=== PATIENT | female | born 1965 | race Caucasian/White ===

== ENCOUNTER 2017-05-03 10:24 | Inpatient (IN) | payer MEDICAID, SELFPAY ==
[2017-05-03 10:25] VITALS: BP 116/73; PULSE 126; RESP 22; TEMP 39.2; O2SAT 98; BMI 16.9
--- NOTE | 2017-05-03 10:39 | RAD_ITS ---
STUDY: X-RAY CHEST REASON FOR EXAM: Female, 51 years old. Fever. TECHNIQUE: Single AP portable view of the chest. COMPARISON: Comparison is made with prior study dated April 07, 2014. FINDINGS: Hyperinflation. The lungs are clear. There is no demonstrated pleural abnormality. Normal size heart. Normal mediastinum and robert. Normal visualized pulmonary arteries. Normal visualized aortic arch and descending thoracic aorta. Normal visualized thoracic spine. Normal visualized ribs, clavicles, and shoulders. There is no demonstrated abnormality of the visualized soft tissue structures of the upper abdomen. RAD/Chest 1 View (Portable) IMPRESSION: Hyperinflation. Electronically Signed: Roney Reed MD at 12:17 EST Tel [phone], Service support ,
--- NOTE | 2017-05-03 10:42 | ED.DCSUM_ITS ---
- ER Visit Summary Date of Service: 05/03/17 Chief Complaint: Fever History of Present Illness: The patient is a 51 F presenting with fever since yesterday. Patient has had fever, body aches, nausea. She complains of dysuria and frequency as well. She did not receive a flu shot this year. She was at [facility] as a visitor over the weekend. She has a history of quadriplegia. Her home health physical therapist states that she was doing well yesterday. She has nausea with no vomiting. Denies other complaints. Physical Examination: Vitals are stable. Temperature 102.5 Alert no acute distress. HEENT exam is unremarkable. Neck is supple. Lungs are clear and equal bilaterally. Heart is regular rate and rhythm. Abdomen is soft mild diffuse tenderness with no rebound or guarding. Extremities bilateral upper extremity contractures Skin is warm and dry. Remainder of exam is unremarkable. Emergency Department Course and Treatment: CBC shows a white count of 16.9, hemoglobin 10.1. Chemistries show sodium 132, creatinine 0.54. Lipase is normal. Urinalysis shows over 100 white cells, positive leukocyte, positive nitrite. Lactic acid is normal. Chest x-ray shows hyperinflation. Influenza was negative. Urine culture was sent. She was given IV fluids, Zofran, Toradol , Tylenol. She is given Rocephin IV. She states she does not feel well enough to go home. Discussed with Dr. Puentes for admission. Disposition: Admission Impression: UTI, febrile illness This note was generated with [employer] dictation software. It may contain incorrect words, spelling, and punctuation that were not noted in review of the chart prior to signing ED Disposition - Plan for ED Patient: Chief Complaint: General Illness Referrals: Myranda Traore [Primary Care Provider] -
[2017-05-03] MEDS: Ketorolac 30 MG/ML Syringe IV (10:57)
[2017-05-03] MEDS: 0.9% Normal Saline 1,000 ML 1000 ML IV (10:57)
[2017-05-03] MEDS: Ondansetron 4 MG/2 ML Vial IV (10:57)
[2017-05-03] MEDS: Acetaminophen 650 MG/20 ML UDC PO (11:12)
[2017-05-03 11:45] LABS: Absolute Lymphocyte Count 0.63 X10^3/ul (0.83-4.51); Absolute Neutrophil Count 14.6 X10^3/uL (2.0-7.7); Basophil# 0.02 X10^3/uL; Basophil% 0.1 % (0-1); Hematocrit 30.8 % (37-47); Hemoglobin 10.1 g/dl (12.0-15.0); Lymphocyte # 0.63 X10^3/ul (4.0); Lymphocyte % 3.7 % (19-41); Mean Corp Hgb Conc 32.8 g/gl (32-36); Mean Corpuscular Hgb 31.3 pg (27.0-32.0); Mean Corpuscular Volume 95.4 fL (81-99); Monocyte# 1.56 X10^3/uL; Monocyte% 9.2 % (0-10); Neutrophil # 14.64 X10^3/uL (2.7-7.7); Neutrophil % 86.8 % (47-70); Platelet Count 167 K/mm3 (150-450); RBC Distribution Width CV 11.9 % (11.6-14.6); RBC Distribution Width SD 41.4 fl (35.1-43.9); Red Blood Count 3.23 M/mm3 (4.2-5.4); White Blood Count 16.9 K/mm3 (4.4-11.0)
[2017-05-03 11:47] LABS: Differential Indicated SCAN CRITERIA MET; POSITIVE COUNT NO; POSITIVE DIFFERENTIAL YES; POSITIVE MORPHOLOGY NO
[2017-05-03 12:00] LABS: Lactic Acid 0.9 mmol/L (0.4-2.0)
[2017-05-03 12:10] LABS: ALB/GLOB Ratio 0.9 RATIO (0.9-2.4); AST(SGOT) 16 U/L (15-37); Alanine Aminotransfer ALT/SGPT 26 U/L (13-56); Albumin, Serum 2.9 g/dL (3.2-5.0); Alkaline Phosphatase 71 U/L (45-117); Anion Gap 8 (5-15); BUN 10 mg/dL (7-18); BUN/Creat Ratio 18.4 RATIO (10-20); Calcium,Total 7.8 mg/dL (8.5-10.1); Chloride 99 mmol/L (98-107); Creatinine, Serum 0.54 mg/dL (0.55-1.02); EST Glomerular Filtration Rate 126 mL/min (>60); Est Glom Filt Rate - Afr Amer 152 mL/min (>60); Estimated Creatinine Clearance 92.67 ml/min; Globulin 3.2 g/dL (2.2-4.2); Glucose 94 mg/dL (70-110); Lipase 61 U/L (73-393); Potassium 3.8 mmol/L (3.5-5.1); Protein, Total 6.1 g/dL (6.4-8.2); Sodium Level 132 mmol/L (136-145)
[2017-05-03 12:12] VITALS: TEMP 37.6
[2017-05-03 12:53] LABS: Mucous, Urine 0 SEEN /hpf (<or=2+); Red Blood Cells-Urine 0 SEEN /hpf (0-5)
[2017-05-03 12:57] LABS: Color, Urine Yellow (Yellow); Glucose, Dipstick Normal (Normal); Ketone-Dipstick 5 mg/dl (Negative); Leukocyte Esterase-Dipstick 500 /ul (Negative); Nitrite-Dipstick Positive (Negative); Occult Blood-Urine 50 /ul (Negative); Protein-Dipstick 30 mg/dl (Negative); Urine Bilirubin Dipstick Negative (Negative); Urine Clarity Sl. Cloudy (Clear); Urine Urobilinogen Normal (Normal)
[2017-05-03 13:05] LABS: Bacteria 2+ /hpf (None Seen); Squamous Epithelial Cells - UA 10-25 SEEN /hpf (5-10); White Blood Cells >100 SEEN /hpf (0-5)
[2017-05-03 13:44] VITALS: BP 129/75; PULSE 71; RESP 16; TEMP 37.2; O2SAT 96
[2017-05-03] MEDS: Ceftriaxone 1 GM/50 ML BAG IV (14:00)
[2017-05-03 14:07] VITALS: BP 134/75; PULSE 81; RESP 16; TEMP 37.2; O2SAT 96
--- NOTE | 2017-05-03 14:17 | NURSING ---
307 RECURRENT UTI JUANIS
[2017-05-03 15:06] VITALS: BMI 16.2
--- NOTE | 2017-05-03 15:13 | US_ITS ---
STUDY: RENAL ULTRASOUND - COMPLETE REASON FOR EXAM: Female, 51 years old. Abnormal labs. Frequent UTIs. TECHNIQUE: Ultrasound evaluation of the kidneys was performed with real-time and static portillo-scale imaging. COMPARISON: None. FINDINGS: RIGHT KIDNEY: Normal location of the right kidney, which is normal in size. The right kidney measures 11.0 cm. There is a normal cortex of the right kidney. The renal cortex measures 1.2 cm. There is no right renal mass or cyst. There are no right renal calculi. There is no right hydronephrosis. DISTAL RIGHT URETER: There is non-visualization of the distal right ureter. There is no demonstrated right ureterovesical junction calculus. There is no demonstrated right ureteral jet. LEFT KIDNEY: Normal location of the left kidney, which is normal in size. The left kidney measures 11.1 cm. There is a normal cortex of the left kidney. The renal cortex measures 2.1 cm. There is no left renal mass or cyst. There are no left renal calculi. There is no left hydronephrosis. DISTAL LEFT URETER: There is non-visualization of the distal left ureter. There is no demonstrated left ureterovesical junction calculus. There is no demonstrated left ureteral jet. BLADDER: The distended urinary bladder has a volume of 318 ml. There is a normal wall thickness of the distended urinary bladder. There is no demonstrated mass within the urinary bladder. Appears to be floating debris within the bladder lumen. There are no demonstrated bladder calculi. US/Kidney and Bladder IMPRESSION: 1. Normal ultrasound of the kidneys. 2. Debris floating within the bladder lumen without other evidence of urinary bladder abnormality. Electronically Signed: Sal Angela DO at 17:36 EST Tel [phone], Service support ,
--- NOTE | 2017-05-03 15:21 | PCM.HP.STD ---
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 (3) Acute on Recurrent UTI Status: Acute (4) Peripheral neuropathy Status: Chronic (5) Urinary incontinence Status: Chronic Comment: She is not able to sense feeling of urinary bladder (6) Chronic pain syndrome Status: Chronic (7) Sacral contusion Status: Chronic (8) Closed head injury without loss of consciousness Status: Chronic History of Present Illness Date of Admission: 05/03/17 Chief Complaint: Generalized weakness and headache and increased frequency The patient is a 51 year old F with history of cervical spine fracture with cervical decompression surgery in July 2012 injury due to fall resulting into paraplegia and thereafter functional quadriplegia, on wheelchair has home health wound care nurse came to ER with generalized weakness, headache, nausea and increased frequency of urination. Patient further said she had about 7 times UTI last year. [] In ER, she was febrile temperature 102.5?F, tachycardic 126/min, respiratory rate 22 and pulse ox 98% on room air. Patient has leukocytosis about 17,000 with left shift. UA is positive of pyuria and bacteriuria. Was last admitted in April 2014 for altered mental status, acute hypokalemia acute diarrhea. Past Medical History Past Medical History (Chronic Problems): Chronic Problems Sacral contusion (Chronic) Closed head injury without loss of consciousness (Chronic) Functional quadriplegia (Chronic) Paraplegia due to a C-spine injury (Chronic) Peripheral neuropathy (Chronic) Urinary incontinence (Chronic) She is not able to sense feeling of urinary bladder Chronic pain syndrome (Chronic) Allergies codeine Allergy (Verified 05/03/17 10:27) Angioedema Home Medications: Ambulatory Orders Medication Instructions Recorded Amitriptyline HCl 50 mg PO QHS PRN 02/20/15 Baclofen 20 mg PO TID 02/20/15 Bisacodyl [Dulcolax] 10 mg PO TID PRN 02/20/15 Gabapentin [Neurontin] 800 mg PO 4X/DAY 02/20/15 Meloxicam [Mobic] 15 mg PO DAILY 02/20/15 Oxybutynin [Ditropan] 5 mg PO BID 02/20/15 Albuterol IH (ProAir) [Proair Hfa] 2 puff INHALATION Q6H PRN 05/03/17 Diltiazem HCl [Diltiazem 24Hr ER] 120 mg PO DAILY 05/03/17 Docusate Sodium [Colace] 100 mg PO TID PRN PRN 05/03/17 Duloxetine HCl 60 mg PO BID 05/03/17 Ergocalciferol [Vitamin D] 50,000 unit PO WE 05/03/17 Linaclotide [Linzess] 290 mcg PO DAILY 05/03/17 Lisinopril [Zestril] 10 mg PO DAILY 05/03/17 Mirtazapine [Remeron] 15 mg PO QHS PRN 05/03/17 Surgical History: - - She has a history in July of 2012 of a cervical decompression for cord injury after a cervical fracture. Psychiatric History: Depression ERISA ATTORNEY History: No pertinent ERISA ATTORNEY history Smoking Status: Never smoker - *Family History Maternal History Items: No pertinent history Review of Systems Constitutional: Reports: Anorexia, Chills, Fever, Malaise, Weakness, Fatigue HEENT: Reports: Head Aches - Chronic headache. Denies: Sinus Congestion, Sinus Drainage Cardiovascular: Denies: Chest Pain, Palpitations Respiratory: Denies: Cough, Shortness of breath at rest, Sputum production Gastrointestinal: Denies: Abdominal Pain, Nausea, Vomiting Genitourinary: Denies: Dysuria Musculoskeletal: Reports: Joint Pain, Joint stiffness. Denies: Joint Tenderness Skin: Denies: Rash, Wounds Neurological: Reports: Numbness, Tingling, - - Functional quadriplegia with spastic paraplegia. Denies: Focal weakness Psychiatric: Denies: Anxiety, Depression, Homicidal Ideations, Suicidal Ideations Hematologic/ Lymphatic: Denies: Easy Bruising, Easy Bleeding VTE Information - Inpt Only VTE Present on Admission: No VTE Mechan Device Prophylaxis: SCD's VTE Pharm Prophylaxis ordered?: Yes Patient Problems: Active and Suspected Problems Acute on Recurrent UTI (Acute) - Physical Exam General: Alert, Oriented x3, Cooperative HEENT: Atraumatic, PERRLA, EOMI, Normocephalic Neck: Supple, No JVD, Negative Carotid Bruits Lungs: No rhonchi, No wheeze, No rales, Diminished Cardiovascular: Regular rate, Regular Rhythm, Normal S1, Normal S2, No murmurs Abdomen: Bowel Sounds Present, Soft, Non Tender, Non-Distended Extremities: No edema, Capillary Refill Less than 3 Seconds Skin: No rashes, No breakdown, - - Scar tissue at the coccyx healed decubitus ulcer. No opening Musculoskeletal: Arthritic Changes, Muscle Wasting, - - Contracture present and hands and legs. Muscle strength is 3 x 5 in both lower extremities with muscle atrophy Neurological: Cranial nerves II-XII grossly intact, - - Peripheral neuropathy Vital Signs Temp Pulse Resp BP Pulse Ox 98.9 F 81 16 134/75 H 96 05/03/17 14:07 05/03/17 14:07 05/03/17 14:07 05/03/17 14:07 05/03/17 14:07 Weight: 100 lb 9.6 oz Body Mass Index (BMI) 16.2 Assessment/Plan Active and Suspected Problems Acute on Recurrent UTI (Acute) The patient is a 51 year old F with history of cervical spine fracture with cervical decompression surgery in July 2012 injury due to fall resulting into paraplegia and thereafter functional quadriplegia, on wheelchair has home health wound care nurse came to ER with generalized weakness, headache, nausea and increased frequency of urination. Patient further said she had about 7 times UTI last year. [] In ER, she was febrile temperature 102.5?F, tachycardic 126/min, respiratory rate 22 and pulse ox 98% on room air. Patient has leukocytosis about 17,000 with left shift. UA is positive of pyuria and bacteriuria. Was last admitted in April 2014 for altered mental status, diarrhea and hypokalemia 1. Acute on recurrent UTI: Patient is being admitted on the regular floor. Started on IV Rocephin and will continue it. Monitor intake/output, daily CBC and follow urine culture and blood culture. Kidney and bladder ultrasound ordered. 2. History of cervical spine injury with spastic paraplegia and functional quadriplegia with urinary incontinence: I think patient has neurogenic bladder. Patient is on multiple pain medications and muscle relaxants including oxycodone and baclofen and amitriptyline. PT and OT ordered. 3. Mild hypokalemia possible due to dehydration: IV fluid normal saline Functional decline with severe protein calorie malnutrition: Structurer consult. On ensure. 4. History of coccygeal decubitus currently healed with a scar tissue Other multiple comorbidities include hypertension, dyslipidemia, possible irritable bowel syndrome as he is only just, peripheral neuropathy: Multiple comorbidities and poor functional capacity : guarded prognosis. DVT prophylaxis: On Lovenox 40 mils subcu daily and bilateral SCDs. home medication reconciliation done. This note was generated with [employer] dictation software. Every effort was made to ensure accuracy, however computerized patient account representative mistakes may persist. Code Visit Inpatient E&M: 22779 Init Hosp L3
[2017-05-03 15:24] VITALS: BP 91/53; PULSE 94; RESP 22; TEMP 36.7; O2SAT 98
--- NOTE | 2017-05-03 15:35 | HP.PCM_ITS ---
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 (3) Acute on Recurrent UTI Status: Acute (4) Peripheral neuropathy Status: Chronic (5) Urinary incontinence Status: Chronic Comment: She is not able to sense feeling of urinary bladder (6) Chronic pain syndrome Status: Chronic (7) Sacral contusion Status: Chronic (8) Closed head injury without loss of consciousness Status: Chronic History of Present Illness Date of Admission: 05/03/17 Chief Complaint: Generalized weakness and headache and increased frequency The patient is a 51 year old F with history of cervical spine fracture with cervical decompression surgery in July 2012 injury due to fall resulting into paraplegia and thereafter functional quadriplegia, on wheelchair has home health cardiac care unit nurse came to ER with generalized weakness, headache, nausea and increased frequency of urination. Patient further said she had about 7 times UTI last year. [] In ER, she was febrile temperature 102.5?F, tachycardic 126/min, respiratory rate 22 and pulse ox 98% on room air. Patient has leukocytosis about 17,000 with left shift. UA is positive of pyuria and bacteriuria. Was last admitted in April 2014 for altered mental status, acute hypokalemia acute diarrhea. Past Medical History Past Medical History (Chronic Problems): Chronic Problems Sacral contusion (Chronic) Closed head injury without loss of consciousness (Chronic) Functional quadriplegia (Chronic) Paraplegia due to a C-spine injury (Chronic) Peripheral neuropathy (Chronic) Urinary incontinence (Chronic) She is not able to sense feeling of urinary bladder Chronic pain syndrome (Chronic) Allergies codeine Allergy (Verified 05/03/17 10:27) Angioedema Home Medications: Ambulatory Orders Medication Instructions Recorded Amitriptyline HCl 50 mg PO QHS PRN 02/20/15 Baclofen 20 mg PO TID 02/20/15 Bisacodyl [Dulcolax] 10 mg PO TID PRN 02/20/15 Gabapentin [Neurontin] 800 mg PO 4X/DAY 02/20/15 Meloxicam [Mobic] 15 mg PO DAILY 02/20/15 Oxybutynin [Ditropan] 5 mg PO BID 02/20/15 Albuterol IH (ProAir) [Proair Hfa] 2 puff INHALATION Q6H PRN 05/03/17 Diltiazem HCl [Diltiazem 24Hr ER] 120 mg PO DAILY 05/03/17 Docusate Sodium [Colace] 100 mg PO TID PRN PRN 05/03/17 Duloxetine HCl 60 mg PO BID 05/03/17 Ergocalciferol [Vitamin D] 50,000 unit PO WE 05/03/17 Linaclotide [Linzess] 290 mcg PO DAILY 05/03/17 Lisinopril [Zestril] 10 mg PO DAILY 05/03/17 Mirtazapine [Remeron] 15 mg PO QHS PRN 05/03/17 Surgical History: - - She has a history in July of 2012 of a cervical decompression for cord injury after a cervical fracture. Psychiatric History: Depression GIS DATABASE ADMINISTRATOR History: No pertinent GIS DATABASE ADMINISTRATOR history Smoking Status: Never smoker - *Family History Maternal History Items: No pertinent history Review of Systems Constitutional: Reports: Anorexia, Chills, Fever, Malaise, Weakness, Fatigue HEENT: Reports: Head Aches - Chronic headache. Denies: Sinus Congestion, Sinus Drainage Cardiovascular: Denies: Chest Pain, Palpitations Respiratory: Denies: Cough, Shortness of breath at rest, Sputum production Gastrointestinal: Denies: Abdominal Pain, Nausea, Vomiting Genitourinary: Denies: Dysuria Musculoskeletal: Reports: Joint Pain, Joint stiffness. Denies: Joint Tenderness Skin: Denies: Rash, Wounds Neurological: Reports: Numbness, Tingling, - - Functional quadriplegia with spastic paraplegia. Denies: Focal weakness Psychiatric: Denies: Anxiety, Depression, Homicidal Ideations, Suicidal Ideations Hematologic/ Lymphatic: Denies: Easy Bruising, Easy Bleeding VTE Information - Inpt Only VTE Present on Admission: No VTE Mechan Device Prophylaxis: SCD's VTE Pharm Prophylaxis ordered?: Yes Patient Problems: Active and Suspected Problems Acute on Recurrent UTI (Acute) - Physical Exam General: Alert, Oriented x3, Cooperative HEENT: Atraumatic, PERRLA, EOMI, Normocephalic Neck: Supple, No JVD, Negative Carotid Bruits Lungs: No rhonchi, No wheeze, No rales, Diminished Cardiovascular: Regular rate, Regular Rhythm, Normal S1, Normal S2, No murmurs Abdomen: Bowel Sounds Present, Soft, Non Tender, Non-Distended Extremities: No edema, Capillary Refill Less than 3 Seconds Skin: No rashes, No breakdown, - - Scar tissue at the coccyx healed decubitus ulcer. No opening Musculoskeletal: Arthritic Changes, Muscle Wasting, - - Contracture present and hands and legs. Muscle strength is 3 x 5 in both lower extremities with muscle atrophy Neurological: Cranial nerves II-XII grossly intact, - - Peripheral neuropathy Vital Signs Temp Pulse Resp BP Pulse Ox 98.9 F 81 16 134/75 H 96 05/03/17 14:07 05/03/17 14:07 05/03/17 14:07 05/03/17 14:07 05/03/17 14:07 Weight: 100 lb 9.6 oz Body Mass Index (BMI) 16.2 Assessment/Plan Active and Suspected Problems Acute on Recurrent UTI (Acute) The patient is a 51 year old F with history of cervical spine fracture with cervical decompression surgery in July 2012 injury due to fall resulting into paraplegia and thereafter functional quadriplegia, on wheelchair has home health cardiac care unit nurse came to ER with generalized weakness, headache, nausea and increased frequency of urination. Patient further said she had about 7 times UTI last year. [] In ER, she was febrile temperature 102.5?F, tachycardic 126/min, respiratory rate 22 and pulse ox 98% on room air. Patient has leukocytosis about 17,000 with left shift. UA is positive of pyuria and bacteriuria. Was last admitted in April 2014 for altered mental status, diarrhea and hypokalemia 1. Acute on recurrent UTI: Patient is being admitted on the regular floor. Started on IV Rocephin and will continue it. Monitor intake/output, daily CBC and follow urine culture and blood culture. Kidney and bladder ultrasound ordered. 2. History of cervical spine injury with spastic paraplegia and functional quadriplegia with urinary incontinence: I think patient has neurogenic bladder. Patient is on multiple pain medications and muscle relaxants including oxycodone and baclofen and amitriptyline. PT and OT ordered. 3. Mild hypokalemia possible due to dehydration: IV fluid normal saline Functional decline with severe protein calorie malnutrition: Funeral Assistant consult. On ensure. 4. History of coccygeal decubitus currently healed with a scar tissue Other multiple comorbidities include hypertension, dyslipidemia, possible irritable bowel syndrome as he is only just, peripheral neuropathy: Multiple comorbidities and poor functional capacity : guarded prognosis. DVT prophylaxis: On Lovenox 40 mils subcu daily and bilateral SCDs. home medication reconciliation done. This note was generated with [employer] dictation software. Every effort was made to ensure accuracy, however computerized forest logistics manager mistakes may persist. Code Visit Inpatient E&M: 90022 Init Hosp L3
[2017-05-03 15:40] VITALS: BMI 16.2
[2017-05-03] MEDS: Acetaminophen 325 MG Tablet 650 MG PO (16:14)
[2017-05-03] MEDS: 0.9% Normal Saline 1,000 ML 100 ML IV (16:15)
[2017-05-03] MEDS: Enoxaparin 40 MG/0.4 ML Syringe SC (16:23)
[2017-05-03 16:35] LABS: Erythrocyte Sedimentation Rate 6 mm/hr (0-30)
[2017-05-03] MEDS: Gabapentin 800 MG Tablet PO ×2 (18:23→22:26)
[2017-05-03 20:00] VITALS: BP 97/64; PULSE 95; RESP 18; TEMP 37.2; O2SAT 100
[2017-05-03] MEDS: oxyCODONE 5 MG Tablet PO (20:29)
[2017-05-03] MEDS: DULoxetine Hcl 60 MG Capsule PO (22:24)
[2017-05-03] MEDS: Amitriptyline 25 MG Tablet 50 MG PO (22:24)
[2017-05-03] MEDS: Baclofen 10 MG Tablet 20 MG PO (22:25)
[2017-05-03] MEDS: Oxybutynin 5 MG Tablet PO (22:26)
[2017-05-03] MEDS: Mirtazapine 15 MG Tablet PO (22:28)
[2017-05-04] VITALS (9 sets, daily range): BP systolic 93–153; BP diastolic 50–88; PULSE 89–140; RESP 15–20; TEMP 36.5–39.5; O2SAT 92–99
[2017-05-04] MEDS: Acetaminophen 325 MG Tablet 650 MG PO ×3 (02:11→22:30)
[2017-05-04] MEDS: 0.9% Normal Saline 1,000 ML 100 ML IV ×2 (04:25→14:44)
[2017-05-04] MEDS: Baclofen 10 MG Tablet 20 MG PO ×3 (05:14→22:30)
[2017-05-04 06:20] LABS: Anion Gap 9 (5-15); BUN 10 mg/dL (7-18); BUN/Creat Ratio 18.8 RATIO (10-20); Calcium,Total 7.2 mg/dL (8.5-10.1); Chloride 98 mmol/L (98-107); Creatinine, Serum 0.53 mg/dL (0.55-1.02); EST Glomerular Filtration Rate 129 mL/min (>60); Est Glom Filt Rate - Afr Amer 156 mL/min (>60); Estimated Creatinine Clearance 90.46 ml/min; Glucose 87 mg/dL (70-110); Potassium 3.1 mmol/L (3.5-5.1); Sodium Level 130 mmol/L (136-145)
[2017-05-04 06:25] LABS: Absolute Lymphocyte Count 1.43 X10^3/ul (0.83-4.51); Absolute Neutrophil Count 14.5 X10^3/uL (2.0-7.7); Basophil# 0.02 X10^3/uL; Basophil% 0.1 % (0-1); Differential Indicated SCAN CRITERIA MET; Hematocrit 28.1 % (37-47); Hemoglobin 9.1 g/dl (12.0-15.0); Lymphocyte # 1.43 X10^3/ul (4.0); Lymphocyte % 7.9 % (19-41); Mean Corp Hgb Conc 32.4 g/gl (32-36); Mean Corpuscular Hgb 31.5 pg (27.0-32.0); Mean Corpuscular Volume 97.2 fL (81-99); Mean Platelet Vol. 9.7 fl (6.2-12.0); Monocyte# 2.04 X10^3/uL; Monocyte% 11.3 % (0-10); Neutrophil # 14.45 X10^3/uL (2.7-7.7); Neutrophil % 80.4 % (47-70); POSITIVE COUNT NO; POSITIVE DIFFERENTIAL YES; POSITIVE MORPHOLOGY YES; Platelet Count 166 K/mm3 (150-450); RBC Distribution Width CV 11.7 % (11.6-14.6); RBC Distribution Width SD 39.9 fl (35.1-43.9); Red Blood Count 2.89 M/mm3 (4.2-5.4)
[2017-05-04] MEDS: Lisinopril 5 MG Tablet PO (08:54)
[2017-05-04] MEDS: DULoxetine Hcl 60 MG Capsule PO ×2 (08:55→22:30)
[2017-05-04] MEDS: Oxybutynin 5 MG Tablet PO ×2 (08:55→22:30)
[2017-05-04] MEDS: dilTIAZem CD 120 MG Capsule PO (08:56)
[2017-05-04] MEDS: Gabapentin 800 MG Tablet PO ×4 (08:56→22:30)
[2017-05-04] MEDS: Enoxaparin 40 MG/0.4 ML Syringe SC (08:56)
[2017-05-04] MEDS: Polyethylene Glycol 3350 17 GM PACKET PO (08:56)
[2017-05-04] MEDS: Ceftriaxone 1 GM/50 ML BAG IV (09:04)
--- NOTE | 2017-05-04 09:30 | PN_ITS ---
Patient Problems: Active and Suspected Problems Acute on Recurrent UTI (Acute) Subjective: Patient is a 51 year old lady with history of paraplegia following cervical spine fracture after fall had decompression surgery performed in July 2012. Patient presented with progressive generalized weakness patient was found to have fever no 2.3 with abnormal urinalysis consistent with acute cystitis admitted to a regular nursing floor for further management Objective: GENERAL: cooperative HEENT: Clear conjunctiva, NECK; supple, normal thyroid, CHEST: Clear to auscultation bilaterally, HEART: Regular S1 S2, no audible murmurs ABDOMEN: soft, non-tender, normoactive bowel sounds, RECTAL: deferred EXTREMITIES: No edema, no cyanosis. SUEDING MACHINE OPERATOR: Awake, alert and oriented to time, place and person, SKIN: No Rash Vitals/I&O's: Vital Signs Temp Pulse Resp BP Pulse Ox 97.7 F L 89 18 115/66 97 05/04/17 08:51 05/04/17 08:51 05/04/17 08:51 05/04/17 08:51 05/04/17 08:51 Oxygen Delivery Method Room Air Weight: 45.631 kg Body Mass Index (BMI) 16.2 Intake and Output for Last 24 Hours 05/02/17 05/03/17 05/04/17 23:59 23:59 23:59 Intake Total 490 / 490 693 / 693 Output Total 200 / 200 Balance 290 / 290 693 / 693 Laboratory Results 05/04/17 05:25: WBC 18.0 H, RBC 2.89 L, Hgb 9.1 L, Hct 28.1 L, MCV 97.2, MCH 31.5, MCHC 32.4, RDW 11.7, RDW Differential 39.9, Plt Count 166, MPV 9.7, Immature Gran % (Auto) 0.300, Neut % (Auto) 80.4 H, Lymph % (Auto) 7.9 L, [place] % (Auto) 11.3 H, Eos % (Auto) 0.0, Baso % (Auto) 0.1, Absolute Neuts (auto) 14.5 H, Absolute Lymphs (auto) 1.43, Total Counted Not Reportable 05/04/17 05:25: Sodium 130 L, Potassium 3.1 L, Chloride 98, Carbon Dioxide 23.0 , Anion Gap 9, BUN 10, Creatinine 0.53 L, Estim Creat Clear Calc 90.46, Est GFR (MDRD) Af Amer 156, Est GFR (MDRD) Non-Af 129, BUN/Creatinine Ratio 18.8, Glucose 87, Calcium 7.2 L Current Medications Acetaminophen (Tylenol) 650 mg PO Q6H PRN PRN PRN Reason: Mild Pain (scale 0-3)/T>100.7 Last Admin: 05/04/17 02:11 Dose: 650 mg Al Hydroxide/Mg Hydroxide (Mylanta Ii) 30 ml PO Q6H PRN PRN PRN Reason: Gastric Burning Albuterol Sulfate (Ventolin Aerosols) 2.5 mg INHALATION Q6H PRN PRN Reason: SOB &/OR WHEEZING Amitriptyline HCl (Elavil) 50 mg PO QHS [facility] Last Admin: 05/03/17 22:24 Dose: 50 mg Baclofen (Lioresal) 20 mg PO TID [facility] Last Admin: 05/04/17 05:14 Dose: 20 mg Bisacodyl (Dulcolax) 10 mg RECTAL DAILY PRN PRN PRN Reason: Constipation Bisacodyl (Dulcolax) 10 mg PO TID PRN PRN Reason: Constipation Diltiazem HCl (Cardizem Cd) 120 mg PO DAILY [facility] Last Admin: 05/04/17 08:56 Dose: 120 mg Docusate Sodium (Colace) 200 mg PO BID PRN PRN PRN Reason: Constipation Duloxetine HCl (Cymbalta) 60 mg PO BID [facility] Last Admin: 05/04/17 08:55 Dose: 60 mg Enoxaparin Sodium (Lovenox) 40 mg SC DAILY [facility] Last Admin: 05/04/17 08:56 Dose: 40 mg Gabapentin (Neurontin) 800 mg PO 4X/DAYCM [facility] Last Admin: 05/04/17 08:56 Dose: 800 mg Sodium Chloride () 1,000 mls @ 100 mls/hr IV .Q10H [facility] Last Admin: 05/04/17 04:25 Dose: 100 mls/hr Ceftriaxone Sodium (Rocephin) 1 gm in 50 mls @ 100 mls/hr IV Q24 [facility] Last Admin: 05/04/17 09:04 Dose: 100 mls/hr Lisinopril (Zestril) 5 mg PO DAILY [facility] Last Admin: 05/04/17 08:54 Dose: 5 mg Meloxicam (Mobic) 7.5 mg PO DAILY PRN PRN Reason: Pain Mirtazapine (Remeron) 15 mg PO QHS [facility] Last Admin: 05/03/17 22:28 Dose: 15 mg Morphine Sulfate (Morphine) 1 - 2 mg IV Q4H PRN PRN PRN Reason: SEVERE PAIN (6-10/10) Nutritional Formula (Lactose Free) (Ensure Enlive) 120 ml PO 4X/DAY [facility] Last Admin: 05/04/17 09:04 Dose: 120 ml Ondansetron HCl (Zofran) 4 mg IV Q6H PRN PRN PRN Reason: Nausea Oxybutynin Chloride (Ditropan) 5 mg PO BID [facility] Last Admin: 05/04/17 08:55 Dose: 5 mg Oxycodone HCl (Oxyir) 5 mg PO Q4H PRN PRN PRN Reason: Moderate Pain (pain scale 4-5) Last Admin: 05/03/17 20:29 Dose: 5 mg Polyethylene Glycol (Miralax) 17 gm PO DAILY [facility] Last Admin: 05/04/17 08:56 Dose: 17 gm Potassium Chloride (K-Dur) [facility] Sodium Chloride () 5 - 30 ml IV UD PRN PRN Reason: SALINE FLUSH Assessment/Plan Active and Suspected Problems Acute on Recurrent UTI (Acute) Patient is a 51 year old lady with history of paraplegia following cervical spine fracture after fall had decompression surgery performed in July 2012. Patient presented with progressive generalized weakness patient was found to have fever no 2.3 with abnormal urinalysis consistent with acute cystitis admitted to a regular nursing floor for further management 1. Sepsis (present on admission) secondary to acute cystitis in a patient with suspected neurogenic bladder from paraplegia. Admitted to the regular nursing floor managed with antibiotics per protocol ~Rocephin culture sent on admission with plans to adjust antibiotics based on culture and sensitivity result 2. Hypertension-blood pressure controlled, home medications continued with dose adjustment as needed 3. Paraplegia following cervical spine fracture after fall had decompression surgery performed in July 2012 4. Urinary retention secondary to suspected neurogenic bladder and order was given for patient to be straight cath as needed 5. Hypokalemia corrected per protocol 6. Severe protein calorie malnutrition as evidenced by decreased energy level muscle wasting as well as a BMI of 16.2 consultation was placed to dietitian 7. DVT prophylaxis SC Lovenox 8. Peripheral neuropathy Code Visit Inpatient E&M: 15041 Subs Hosp L3
--- NOTE | 2017-05-04 11:04 | CASEMGMT ---
RN ELLIE Face to Face with patient for initial transition planning/care coordination assessment. RN ELLIE introduced self and role at [facility]. Patient lying in bed, alert and oriented. Patient willing to participate in assessment and is able to answer all questions appropriately. Care providers, pharmacy, and demographics verified. See link attached. Pt wishes to discharge home with her private aide and waiver research program assistant from 8:30a-11:30p M-F. Patient states she has no further needs or concerns at this time. Referral made to [facility] regarding Waiver program. CM to follow for discharge planning needs that may arise. Disposition Plan: Patient to discharge home with waiver program services, family support, and follow-up plans in place.
[2017-05-04 13:12] LABS: Pathologist Review Reviewed
[2017-05-04] MEDS: oxyCODONE 5 MG Tablet PO ×2 (14:46→22:10)
--- NOTE | 2017-05-04 16:09 | CASEMGMT ---
Social Work Note Updated by RN ELLIE Marte - that pt has the waiver program and has aides from 8:30-11:30 M-F and her boyfriend stays with her on the weekend. Placed call to Howie Manjarrez at [facility] who confirms that pt's manager case management is Babita Portillo who can be reached at [phone]. Left vm with Babita inquiring about which agency the pt's aides are through so may notify at time of discharge. Anticipate discharge home with resumption of aide services. Corie Cornell, EMERGENCY ROOM SPECIALIST, ELECTRIC MOTOR TESTER
[2017-05-04] MEDS: Amitriptyline 25 MG Tablet 50 MG PO (22:30)
[2017-05-04] MEDS: Mirtazapine 15 MG Tablet PO (23:42)
[2017-05-05 00:15] VITALS: PULSE 109; RESP 15; TEMP 37.3
[2017-05-05] MEDS: 0.9% Normal Saline 1,000 ML 100 ML IV ×3 (00:46→20:31)
[2017-05-05 03:00] VITALS: PULSE 110; RESP 15; O2SAT 97
[2017-05-05 05:01] VITALS: BP 152/95; PULSE 115; RESP 15; TEMP 36.4; O2SAT 95
[2017-05-05] MEDS: Baclofen 10 MG Tablet 20 MG PO ×3 (05:14→22:53)
[2017-05-05] MEDS: oxyCODONE 5 MG Tablet PO ×3 (05:19→22:53)
--- NOTE | 2017-05-05 08:20 | PN_ITS ---
Patient Problems: Active and Suspected Problems Acute on Recurrent UTI (Acute) Subjective: Patient seen complains of a headache urine cultures came back positive for E. coli plan was for patient to be discharged home however she complains she is not ready more so she had a high temperature of 103 the evening prior Objective: GENERAL: cooperative HEENT: Clear conjunctiva, NECK; supple, normal thyroid, CHEST: Clear to auscultation bilaterally, HEART: Regular S1 S2, no audible murmurs ABDOMEN: soft, non-tender, normoactive bowel sounds, RECTAL: deferred EXTREMITIES: No edema, no cyanosis. ENERGY TRADER: Awake, alert and oriented to time, place and person, SKIN: No Rash Vitals/I&O's: Vital Signs Temp Pulse Resp BP Pulse Ox 97.5 F L 115 H 15 152/95 H 95 05/05/17 05:01 05/05/17 05:01 05/05/17 05:01 05/05/17 05:01 05/05/17 05:01 Oxygen Delivery Method Room Air Weight: 45.631 kg Body Mass Index (BMI) 16.2 Intake and Output for Last 24 Hours 05/03/17 05/04/17 05/05/17 23:59 23:59 23:59 Intake Total 490 / 490 1962 / 1962 2404 / 2404 Output Total 200 / 200 2150 / 2150 1750 / 1750 Balance 290 / 290 -188 / -188 654 / 654 Current Medications Acetaminophen (Tylenol) 650 mg PO Q6H PRN PRN PRN Reason: Mild Pain (scale 0-3)/T>100.7 Last Admin: 05/04/17 22:30 Dose: 650 mg Al Hydroxide/Mg Hydroxide (Mylanta Ii) 30 ml PO Q6H PRN PRN PRN Reason: Gastric Burning Albuterol Sulfate (Ventolin Aerosols) 2.5 mg INHALATION Q6H PRN PRN Reason: SOB &/OR WHEEZING Amitriptyline HCl (Elavil) 50 mg PO QHS [facility] Last Admin: 05/04/17 22:30 Dose: 50 mg Baclofen (Lioresal) 20 mg PO TID [facility] Last Admin: 05/05/17 05:14 Dose: 20 mg Bisacodyl (Dulcolax) 10 mg RECTAL DAILY PRN PRN PRN Reason: Constipation Bisacodyl (Dulcolax) 10 mg PO TID PRN PRN Reason: Constipation Diltiazem HCl (Cardizem Cd) 120 mg PO DAILY [facility] Last Admin: 05/04/17 08:56 Dose: 120 mg Docusate Sodium (Colace) 200 mg PO BID PRN PRN PRN Reason: Constipation Duloxetine HCl (Cymbalta) 60 mg PO BID [facility] Last Admin: 05/04/17 22:30 Dose: 60 mg Enoxaparin Sodium (Lovenox) 40 mg SC DAILY [facility] Last Admin: 05/04/17 08:56 Dose: 40 mg Gabap[facility] ([facility]ont[facility]) [facility] Admin: 05/04/17 22:30 Dose: 800 mg Sodium Chloride () 1,000 mls @ 100 mls/hr IV .Q10H [facility] Last Admin: 05/05/17 00:46 Dose: 100 mls/hr Ceftriaxone Sodium (Rocephin) 1 gm in 50 mls @ 100 mls/hr IV Q24 [facility] Last Admin: 05/04/17 09:04 Dose: 100 mls/hr Lisinopril (Zestril) 5 mg PO DAILY [facility] Last Admin: 05/04/17 08:54 Dose: 5 mg Meloxicam (Mobic) 7.5 mg PO DAILY PRN PRN Reason: Pain Mirtazapine (Remeron) 15 mg PO QHS [facility] Last Admin: 05/04/17 23:42 Dose: 15 mg Morphine Sulfate (Morphine) 1 - 2 mg IV Q4H PRN PRN PRN Reason: SEVERE PAIN (6-10/10) Nutritional Formula (Lactose Free) (Ensure Enlive) 120 ml PO 4X/DAY [facility] Last Admin: 05/04/17 23:47 Dose: Not Given Ondansetron HCl (Zofran) 4 mg IV Q6H PRN PRN PRN Reason: Nausea Oxybutynin Chloride (Ditropan) 5 mg PO BID [facility] Last Admin: 05/04/17 22:30 Dose: 5 mg Oxycodone HCl (Oxyir) 5 mg PO Q4H PRN PRN PRN Reason: Moderate Pain (pain scale 4-5) Last Admin: 05/05/17 05:19 Dose: 5 mg Polyethylene Glycol (Miralax) 17 gm PO DAILY [facility] Last Admin: 05/04/17 08:56 Dose: 17 gm Potassium Chloride (K-Dur) 20 meq PO BIDCM [facility] Last Admin: 05/04/17 17:17 Dose: 20 meq Sodium Chloride () 5 - 30 ml IV UD PRN PRN Reason: SALINE FLUSH Assessment/Plan Active and Suspected Problems Acute on Recurrent UTI (Acute) Patient is a 51 year old lady with history of paraplegia following cervical spine fracture after fall had decompression surgery performed in July 2012. Patient presented with progressive generalized weakness patient was found to have fever no 2.3 with abnormal urinalysis consistent with acute cystitis admitted to a regular nursing floor for further management 1. Sepsis (present on admission) secondary to acute cystitis with E. coli in a patient with suspected neurogenic bladder from paraplegia. Admitted to the regular nursing floor managed with antibiotics per protocol ~Rocephin culture sent on admission with plans to adjust antibiotics based on culture and sensitivity result 2. Hypertension-blood pressure controlled, home medications continued with dose adjustment as needed 3. Paraplegia following cervical spine fracture after fall had decompression surgery performed in July 2012 4. Urinary retention secondary to suspected neurogenic bladder and order was given for patient to be straight cath as needed 5. Hypokalemia corrected per protocol 6. Severe protein calorie malnutrition as evidenced by decreased energy level muscle wasting as well as a BMI of 16.2 consultation was placed to dietitian 7. DVT prophylaxis SC Lovenox 8. Peripheral neuropathy Code Visit Inpatient E&M: 78051 Subs Hosp L2
[2017-05-05 09:11] LABS: Hematocrit 30.5 % (37-47); Hemoglobin 9.8 g/dl (12.0-15.0); Mean Corp Hgb Conc 32.1 g/gl (32-36); Mean Corpuscular Hgb 31.7 pg (27.0-32.0); Mean Corpuscular Volume 98.7 fL (81-99); Mean Platelet Vol. 9.7 fl (6.2-12.0); Platelet Count 163 K/mm3 (150-450); Red Blood Count 3.09 M/mm3 (4.2-5.4); White Blood Count 11.7 K/mm3 (4.4-11.0)
[2017-05-05 09:13] LABS: Scan Indicated on CBC? Y/N NO
[2017-05-05 09:17] LABS: Anion Gap 7 (5-15); BUN 5 mg/dL (7-18); BUN/Creat Ratio 10.3 RATIO (10-20); Calcium,Total 8.4 mg/dL (8.5-10.1); Chloride 111 mmol/L (98-107); Creatinine, Serum 0.48 mg/dL (0.55-1.02); EST Glomerular Filtration Rate 143 mL/min (>60); Est Glom Filt Rate - Afr Amer 173 mL/min (>60); Estimated Creatinine Clearance 99.88 ml/min; Glucose 86 mg/dL (70-110); Magnesium 2.1 mg/dL (1.6-2.6); Sodium Level 145 mmol/L (136-145)
[2017-05-05 09:51] VITALS: BP 138/90; PULSE 99; RESP 16; TEMP 36.7; O2SAT 98
[2017-05-05] MEDS: Ceftriaxone 1 GM/50 ML BAG IV (09:55)
[2017-05-05] MEDS: Gabapentin 800 MG Tablet PO ×4 (09:55→22:53)
[2017-05-05] MEDS: DULoxetine Hcl 60 MG Capsule PO ×2 (09:56→22:53)
[2017-05-05] MEDS: Oxybutynin 5 MG Tablet PO ×2 (09:56→22:53)
[2017-05-05] MEDS: dilTIAZem CD 120 MG Capsule PO (09:56)
[2017-05-05] MEDS: Enoxaparin 40 MG/0.4 ML Syringe SC (09:56)
[2017-05-05] MEDS: Lisinopril 5 MG Tablet PO (09:57)
--- NOTE | 2017-05-05 13:33 | CASEMGMT ---
Social Work Note Placed call to Babita Portillo at [phone] and confirmed that pt has services through [facility]. Notified that the physician anticipates discharging the pt tomorrow, 05/06. Placed green sheet on chart for discharge instructions to be faxed to [facility] as well as to Babita Portillo. No additional needs. Plan: Home with resumption of waiver services. ZOILA Casey HUMAN RESOURCES ANALYST
[2017-05-05 14:26] VITALS: BP 122/74; PULSE 106; RESP 16; TEMP 37.1; O2SAT 92
[2017-05-05] MEDS: Meloxicam 7.5 MG Tablet PO (20:27)
[2017-05-05] MEDS: Acetaminophen 325 MG Tablet 650 MG PO (20:27)
[2017-05-05 20:37] VITALS: BP 155/88; PULSE 103; RESP 18; TEMP 37.2; O2SAT 98
[2017-05-05] MEDS: Mirtazapine 15 MG Tablet PO (22:53)
[2017-05-05] MEDS: Amitriptyline 25 MG Tablet 50 MG PO (22:53)
[2017-05-06 05:34] VITALS: BP 155/106; PULSE 116; RESP 16; TEMP 36.7; O2SAT 98
[2017-05-06] MEDS: dilTIAZem CD 120 MG Capsule PO (05:37)
[2017-05-06] MEDS: Baclofen 10 MG Tablet 20 MG PO (05:37)
[2017-05-06] MEDS: 0.9% Normal Saline 1,000 ML 100 ML IV (05:51)
[2017-05-06 07:16] LABS: Hemoglobin 9.5 g/dl (12.0-15.0); Mean Corp Hgb Conc 31.7 g/gl (32-36); Mean Corpuscular Hgb 31.1 pg (27.0-32.0); Mean Corpuscular Volume 98.4 fL (81-99); Mean Platelet Vol. 9.7 fl (6.2-12.0); Platelet Count 162 K/mm3 (150-450); RBC Distribution Width CV 12.4 % (11.6-14.6); RBC Distribution Width SD 44.7 fl (35.1-43.9); Red Blood Count 3.05 M/mm3 (4.2-5.4); White Blood Count 7.2 K/mm3 (4.4-11.0)
[2017-05-06 07:17] LABS: Scan Indicated on CBC? Y/N NO
[2017-05-06 07:46] LABS: Anion Gap 7 (5-15); BUN 3 mg/dL (7-18); BUN/Creat Ratio 8.8 RATIO (10-20); Calcium,Total 8.5 mg/dL (8.5-10.1); Chloride 109 mmol/L (98-107); Creatinine, Serum 0.34 mg/dL (0.55-1.02); EST Glomerular Filtration Rate 216 mL/min (>60); Est Glom Filt Rate - Afr Amer 262 mL/min (>60); Estimated Creatinine Clearance 141.01 ml/min; Glucose 71 mg/dL (74-106); Sodium Level 140 mmol/L (136-145)
[2017-05-06] MEDS: oxyCODONE 5 MG Tablet PO (08:18)
[2017-05-06] MEDS: Gabapentin 800 MG Tablet PO (08:19)
--- NOTE | 2017-05-06 08:58 | PCM.DC ---
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) Acute on Recurrent UTI (Acute) Peripheral neuropathy (Chronic) Urinary incontinence (Chronic) She is not able to sense feeling of urinary bladder Chronic pain syndrome (Chronic) You will use the following diet at home:: No restrictions Discharge Activity: Return to Normal Activity Allergies/Adverse Reactions: Allergies buprenorphine [From [place]] Allergy (Verified 05/03/17 15:23) BLISTERS codeine Allergy (Verified 05/03/17 10:27) Angioedema Medications to take at Discharge Amitriptyline HCl 50 mg PO QHS PRN 02/20/15 Baclofen 20 mg PO TID 02/20/15 Bisacodyl [Dulcolax] 10 mg PO TID PRN 02/20/15 Gabapentin [Neurontin] 800 mg PO 4X/DAY 02/20/15 Meloxicam [Mobic] 15 mg PO DAILY 02/20/15 Oxybutynin [Ditropan] 5 mg PO BID 02/20/15 Albuterol IH (ProAir) [Proair Hfa] 2 puff INHALATION Q6H PRN 05/03/17 Diltiazem HCl [Diltiazem 24Hr ER] 120 mg PO DAILY 05/03/17 Docusate Sodium [Colace] 100 mg PO TID PRN PRN 05/03/17 Duloxetine HCl 60 mg PO BID 05/03/17 Ergocalciferol [Vitamin D] 50,000 unit PO WE 05/03/17 Linaclotide [Linzess] 290 mcg PO DAILY 05/03/17 Lisinopril [Zestril] 10 mg PO DAILY 05/03/17 Mirtazapine [Remeron] 15 mg PO QHS PRN 05/03/17 Ciprofloxacin [Cipro] 500 mg PO BID #14 tab 05/05/17 Lactobacillus Acidophilus [Acidophilus] 1 tab PO DAILY #30 tab 05/05/17 The following prescriptions were given: Ciprofloxacin [Cipro] 500 mg PO BID #14 tab Lactobacillus Acidophilus [Acidophilus] 1 tab PO DAILY #30 tab Primary Care Physician: Myranda Traore [Primary Care Provider] - Please follow up with your Primary Care Physician in: in 5-7 days Proposed Discharge Date: 05/06/17
--- NOTE | 2017-05-06 09:00 | PCM.DC.SUM ---
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 Electronically Signed: Roney Reed MD at 12:17 EST Tel [phone], Service support , Renal Ultrasound 05/03/17 15:13 IMPRESSION: 1. Normal ultrasound of the kidneys. 2. Debris floating within the bladder lumen without other evidence of urinary bladder abnormality. Electronically Signed: Sal Angela DO at 17:36 EST Tel [phone], Service support , Microbiology 05/03/17 12:46 Urine, Clean Catch Urine Culture - Final Presumptive E. coli 05/03/17 10:45 Mucosa - Nose Influenza Types A,B Direct FA (FARZAD) - Final Operations: None Summary of Care Provided: Patient is a 51 year old lady with history of paraplegia following cervical spine fracture after fall had decompression surgery performed in July 2012. Patient presented with progressive generalized weakness patient was found to have fever no 2.3 with abnormal urinalysis consistent with acute cystitis admitted to a regular nursing floor for further management 1. Sepsis (present on admission) secondary to acute cystitis with E. coli in a patient with suspected neurogenic bladder from paraplegia. Admitted to the regular nursing floor managed with antibiotics per protocol ~Rocephin culture sent on admission with plans to adjust antibiotics based on culture and sensitivity result 2. Hypertension-blood pressure controlled, home medications continued with dose adjustment as needed 3. Paraplegia following cervical spine fracture after fall had decompression surgery performed in July 2012 4. Urinary retention secondary to suspected neurogenic bladder and order was given for patient to be straight cath as needed 5. Hypokalemia corrected per protocol 6. Severe protein calorie malnutrition as evidenced by decreased energy level muscle wasting as well as a BMI of 16.2 consultation was placed to dietitian 7. DVT prophylaxis SC Lovenox 8. Peripheral neuropathy Discharge Diet: No Restrictions Discharge Activity: Return to Normal Activity Home Medications: Medications to take at Discharge Amitriptyline HCl 50 mg PO QHS PRN 02/20/15 Baclofen 20 mg PO TID 02/20/15 Bisacodyl [Dulcolax] 10 mg PO TID PRN 02/20/15 Gabapentin [Neurontin] 800 mg PO 4X/DAY 02/20/15 Meloxicam [Mobic] 15 mg PO DAILY 02/20/15 Oxybutynin [Ditropan] 5 mg PO BID 02/20/15 Albuterol IH (ProAir) [Proair Hfa] 2 puff INHALATION Q6H PRN 05/03/17 Diltiazem HCl [Diltiazem 24Hr ER] 120 mg PO DAILY 05/03/17 Docusate Sodium [Colace] 100 mg PO TID PRN PRN 05/03/17 Duloxetine HCl 60 mg PO BID 05/03/17 Ergocalciferol [Vitamin D] 50,000 unit PO WE 05/03/17 Linaclotide [Linzess] 290 mcg PO DAILY 05/03/17 Lisinopril [Zestril] 10 mg PO DAILY 05/03/17 Mirtazapine [Remeron] 15 mg PO QHS PRN 05/03/17 Ciprofloxacin [Cipro] 500 mg PO BID #14 tab 05/05/17 Lactobacillus Acidophilus [Acidophilus] 1 tab PO DAILY #30 tab 05/05/17 Following Prescrptions Were Given to Patient: Ciprofloxacin [Cipro] 500 mg PO BID #14 tab Lactobacillus Acidophilus [Acidophilus] 1 tab PO DAILY #30 tab Primary Care Physician: Myranda Traore [Primary Care Provider] - Please follow up with your Primary Care Physician in: in 5-7 days Minutes spent on discharge:: 35 Patient Condition:: Stable Meaningful Use Info Meaningful Use Diagnoses (Choose all that apply): None applicable Code Visit Inpatient E&M: 05733 Disch Hosp
--- NOTE | 2017-05-06 10:22 | NURSING ---
Patient states she wants to take her own home meds when she gets home.
== END 2017-05-06 10:45 | disposition home or self-care (01) | DRG 463 ==
LOC: ED 10:44 → MS3 14:17
PROVIDERS: Admitting Provider Internal Medicine; Emergency Provider Emergency Medicine; Family Provider Family Medicine; PCP Family Medicine; Visit Provider Internal Medicine
DX: N30.00 Acute cystitis without hematuria (principal); E43 Unspecified severe protein-calorie malnutrition; R53.2 Functional quadriplegia; G62.9 Polyneuropathy, unspecified; S14.109S Unspecified injury at unspecified level of cervical spinal cord, sequela; N31.9 Neuromuscular dysfunction of bladder, unspecified; E87.6 Hypokalemia; Z68.1 Body mass index [BMI] 19.9 or less, adult; I10 Essential (primary) hypertension; S12.9XXS Fracture of neck, unspecified, sequela; W19.XXXS Unspecified fall, sequela; B96.20 Unspecified Escherichia coli [E. coli] as the cause of diseases classified elsewhere; N39.498 Other specified urinary incontinence; G89.4 Chronic pain syndrome; Z87.440 Personal history of urinary (tract) infections
CPT/HCPCS: 36415; 71045; 76770; 80048; 80053; 81001; 83605; 83690; 83735; 85025; 85027; 85652; 87040; 87086; 87088; 87186; 87804; 97110; 97116; 97162; 97165; 97530; 97802; 99282; J7030; A4216; J2405

== ENCOUNTER 2017-11-27 17:01 | Emergency (ER) | payer MEDICAID, SELFPAY ==
[2017-11-27 17:02] VITALS: BP 126/80; PULSE 118; RESP 18; TEMP 36.5; O2SAT 95; BMI 18.3
[2017-11-27] MEDS: Ketorolac 30 MG/ML Syringe IV (17:55)
[2017-11-27 18:21] LABS: Absolute Lymphocyte Count 1.69 X10^3/ul (0.83-4.51); Absolute Neutrophil Count 2.6 X10^3/uL (2.0-7.7); Basophil# 0.03 X10^3/uL; Basophil% 0.6 % (0-1); Eosinophil# 0.15 X10^3/uL; Eosinophils% 2.9 % (0-5); Hematocrit 35.3 % (37-47); Hemoglobin 11.3 g/dl (12.0-15.0); Lymphocyte # 1.69 X10^3/ul (4.0); Lymphocyte % 32.8 % (19-41); Mean Corpuscular Hgb 29.9 pg (27.0-32.0); Mean Corpuscular Volume 93.4 fL (81-99); Mean Platelet Vol. 9.4 fl (6.2-12.0); Monocyte% 13.6 % (0-10); Neutrophil # 2.59 X10^3/uL (2.7-7.7); Neutrophil % 50.1 % (47-70); Platelet Count 292 K/mm3 (150-450); RBC Distribution Width CV 13.9 % (11.6-14.6); RBC Distribution Width SD 47.8 fl (35.1-43.9); Red Blood Count 3.78 M/mm3 (4.2-5.4); White Blood Count 5.2 K/mm3 (4.4-11.0)
[2017-11-27 18:26] LABS: POSITIVE COUNT NO; POSITIVE DIFFERENTIAL NO; POSITIVE MORPHOLOGY NO
[2017-11-27 18:32] LABS: Anion Gap 7 (5-15); BUN 10 mg/dL (7-18); BUN/Creat Ratio 11.2 RATIO (10-20); Calcium,Total 9.2 mg/dL (8.5-10.1); Chloride 104 mmol/L (98-107); Creatinine, Serum 0.89 mg/dL (0.55-1.02); EST Glomerular Filtration Rate 71 mL/min (>60); Est Glom Filt Rate - Afr Amer 86 mL/min (>60); Estimated Creatinine Clearance 60.36 ml/min; Glucose 74 mg/dL (74-106); Potassium 3.8 mmol/L (3.5-5.1); Sodium Level 138 mmol/L (136-145)
[2017-11-27 18:46] VITALS: BP 96/54; PULSE 92; RESP 18; O2SAT 100
[2017-11-27] MEDS: fentaNYL 100 MCG/2 ML Ampul 12.5 MCG IV (19:19)
[2017-11-27] MEDS: 0.9% Normal Saline 1,000 ML 150 ML IV (19:20)
[2017-11-27 19:31] LABS: Bacteria 0 SEEN /hpf (None Seen); Mucous, Urine 0 SEEN /hpf (<or=2+); Red Blood Cells-Urine 0 SEEN /hpf (0-5)
[2017-11-27 19:40] LABS: Color, Urine Yellow (Yellow); Glucose, Dipstick Normal (Normal); Ketone-Dipstick Negative (Negative); Leukocyte Esterase-Dipstick 100 /ul (Negative); Nitrite-Dipstick Negative (Negative); Occult Blood-Urine Negative /ul (Negative); Protein-Dipstick Negative (Negative); Urine Bilirubin Dipstick Negative (Negative); Urine Clarity Sl. Cloudy (Clear); Urine Urobilinogen Normal (Normal); Urine pH 6.5 (5.0 - 8.0)
[2017-11-27 19:54] LABS: Squamous Epithelial Cells - UA 0-5 SEEN /hpf (5-10); White Blood Cells 0-5 SEEN /hpf (0-5)
[2017-11-27] MEDS: Morphine 4 MG/ML Syringe IV (20:48)
[2017-11-27] MEDS: Ondansetron 4 MG/2 ML Vial IV (20:48)
--- NOTE | 2017-11-27 21:20 | ED.DCSUM_ITS ---
- ER Visit Summary Date of Service: 11/27/17 Chief Complaint: Hypotension History of Present Illness: The patient is a 52 F with a history of chronic pain , neuropathy, paraplegia secondary to prior C-spine injury. 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 Patient states that her medications were changed 5 or 6 days ago by her neurologist, . She had previously been on gabapentin 800 mg 4 times a day and this was decreased to 600 mg 4 times a day. Her baclofen had previously been 3 times daily and this was increased to 4 times a day. Patient states since this medication change her blood pressures have been dropping. She reports blood pressure 78/52 at home earlier today. She also reports a mild left flank pain and dysuria. Patient has had prior sepsis secondary to UTIs. Patient also notes getting tox injections into her forearms last week. Physical Examination: Vital signs include a blood pressure of 126/80, temperature 97.7, heart rate 118, respiratory rate 18, pulse ox 95% on room air. Patient sitting upright in bed. She is in no acute distress. Heart is slightly tachycardic and regular. Lung sounds are clear. Abdomen is soft and nontender. Back examination reveals no CVA tenderness on exam. Patient does have chronic leg weakness. She has chronic hand contractures. Test Results: Portable chest x-ray is unremarkable. EKG is sinus at 94 with no sign of acute ischemia. CBC was normal white count with hemoglobin of 11.3. Chemistry studies are normal. Urinalysis shows 0-5 whites and 0-5 epithelials. There is no bacteria. Emergency Department Course and Treatment: Patient was initially given IV fluids along with a dose of Toradol. Due to continued pain she received a small dose of fentanyl. At that time her systolic blood pressure was 96. On repeat examination patient is complaining of significant pain and her blood pressure is actually elevated at this time. She is given a dose of morphine and Zofran. Systolic blood pressures are in the 140s. Manual blood pressure measurements were obtained bilaterally and do correlate. Patient believes the change in her blood pressure secondary to the new medication adjustments. She will go back to her old regimen and call her neurologist tomorrow. She is to check her blood pressure multiple times a day and keep record of this as well. Treatment Plan: [] Disposition: Discharge Impression: Hypotension, improved This note was generated with Dragon dictation software. It may contain incorrect words, spelling, and punctuation that were not noted in review of the chart prior to signing ED Disposition - Plan for ED Patient: Disposition: Home or Assisted Living Chief Complaint: Hypotension Instructions: ED Hypotension All Causes Referrals: Myranda Traore [Primary Care Provider] -
[2017-11-27 21:37] VITALS: BP 142/60; PULSE 78; RESP 18; O2SAT 99
== END 2017-11-27 21:38 | disposition home or self-care (01) ==
PROVIDERS: Emergency Provider Emergency Medicine; Family Provider Family Medicine; PCP Family Medicine
DX: I95.9 Hypotension, unspecified (principal); G89.29 Other chronic pain; G62.9 Polyneuropathy, unspecified; G82.20 Paraplegia, unspecified; M62.449 Contracture of muscle, unspecified hand; Z87.440 Personal history of urinary (tract) infections; Z79.899 Other long term (current) drug therapy; Z79.51 Long term (current) use of inhaled steroids
CPT/HCPCS: 71045; 80048; 81001; 85025; 93005; 96361; 96374; 96375; 99284; J7030; J7040; A4216; J2405

== ENCOUNTER 2018-09-19 15:00 | Outpatient (RCR) | payer MEDICAID, SELFPAY ==
[2018-09-12 10:17] VITALS: BMI 16.2
--- NOTE | 2018-09-19 15:55 | HP.PTEVAL_ITS ---
Patient's Visit Information CHEN RUST is a 52 year old F referred to Physical Therapy by Myranda Traore with a diagnosis of vertigo. Date of Evaluation: 09/19/18 Physical Therapist: TARA Marcano - Visit Plan Frequency: 1x/Week Duration: 3 Weeks Plan: Pt to schedule an appointment in 1 week to recheck R Hallpike. Pt will call in and call in DHI scores if she feels completely back to baseline. - Subjective Findings: Pt reports that she has fallen a few times at night. The last time she fell was 3 weeks ago getting into the fridge and fell back on her butt. If she is laying down in bed and lays on the R side and go to roll over to on her back she gets room spinning. She can roll to her R side and does get a little dizzy and when she rolls to her back. She is not sure if she gets it when rolling onto her L side. She has been here before and Jhonny has put her crystals back and she thinks that he moved her to the Left. She is normally unsteady at times. She has fallen 5-6 times in the last 6 months. C-spine injury C4-C7 that left her paraplegic in 2012. She lives in [address] home and has railings and a chair lift to go upstairs. She holds onto the leos to walk and she has a walker and she uses it when she feels the most unsteady. She is good at rolling I in bed. If she falls to the floor she can get up using a chair to get up. In home therapy twice a week for PT to help her with balance at home. SHe is here to get the crystals put back in her ears. - Pain hands Pain Intensity (Out of 10): 9 back pain Pain Intensity (Out of 10): 9 leg pain Pain Intensity (Out of 10): 9 - Objective Gait: pt has an aide walking with her in the clinic holding onto her as pt does veer with gait but this is baseline due to her paraplegia. - L Hallpike. + R Hallpike for torsional nystagmus and dizziness that lasted approx 30 seconds and treated from the R Hallpike position with the Eply. Tested R Hallpike a second time and pt had no nystagmus present. Treated with R Eply again. Pt felt better walking out of clinic - Rehabilitation Potential Rehabilitation Potential: Good - Anticipated Interventions Patient/Client Instruction: Educate patient on: Condition, Plan of Care For the Purpose of:: To improve ability to perform ADL's, To increase tolerance to activity/condition/position, To improve performance and independence with ADL 's, To decrease level of supervision to perform tasks Manual Therapy Techniques to Include: Other Comment: Jay/Gumaro Thank you for the opportunity to evaluate your patient. For Medicare and Medicare HMO plans, please review the plan of care and approve it. It will need to be FAXED BACK to us at [phone] for Medicare purposes. For Medicare only, by signing this I certify the plan of care. Please let me know if there are questions or concerns regarding this plan of care. Physician Signatu re: Date:
--- NOTE | 2018-09-26 12:46 | HP.PT.NRP ---
HP - Discharge Summary (1) - Patient Information CHEN RUST was seen in my office for initial evaluation on 09/19/18. The following Plan of Care was established for this patient: Initial Frequency: 1x/Week Initial Duration: 3 Weeks - Anticipated Interventions Patient/Client Instruction: Educate patient on: Condition, Plan of Care For the Purpose of:: To improve ability to perform ADL's, To increase tolerance to activity/condition/position, To improve performance and independence with ADL's, To decrease level of supervision to perform tasks Manual Therapy Techniques to Include: Other Comment: Jay/Gumaro This patient was last seen in our office . Pertinent comments regarding their Physical therapy will appear below: At this point I will be discontinuing this patient from physical therapy. I would be happy to see this patient again in the future if found appropriate by the physician. Thank you! Denise Gilmore, MPT
== END 2018-09-19 19:00 | disposition home or self-care (01) ==
LOC: PT 15:00
PROVIDERS: Family Provider Family Medicine; PCP Family Medicine; Referring Provider Family Medicine; Visit Provider Family Medicine
DX: R42 Dizziness and giddiness (principal); W19.XXXD Unspecified fall, subsequent encounter
CPT/HCPCS: 97162

== ENCOUNTER 2019-02-11 20:42 | Emergency (ER) | payer MEDICAID, SELFPAY ==
[2018-09-12 10:17] VITALS: BMI 16.2
[2019-02-11 20:44] VITALS: BP 164/101; PULSE 87; RESP 16; TEMP 36.6; O2SAT 100; BMI 20.5
--- NOTE | 2019-02-11 20:51 | RAD_ITS ---
STUDY: X-RAY - RIGHT WRIST REASON FOR EXAM: Female, 53 years old. Laceration to thumb. TECHNIQUE: 3 view(s) of the wrist were obtained. COMPARISON: None. FINDINGS: There is demineralization of the radius and ulna. There is degenerative arthrosis of the radiocarpal articulation. Normal distal radioulnar articulation. There is demineralization of the carpal bones. Normal carpal articulations. Normal carpometacarpal articulation of the thumb. Normal second through fifth carpometacarpal articulations. There is demineralization of the metacarpal bones. The soft tissue structures are unremarkable. RAD/Wrist min 3 Views IMPRESSION: Diffusely demineralized bones. Degenerative changes of the radiocarpal joint. Electronically Signed: Roseanna Purcell MD at 21:21 EST Tel , Service support ,
--- NOTE | 2019-02-11 20:51 | RAD_ITS ---
STUDY: X-RAY - LEFT HAND REASON FOR EXAM: Female, 53 years old. Fall. TECHNIQUE: 3 view(s) of the hand. COMPARISON: None. FINDINGS: There is joint space narrowing of the radiocarpal articulation consistent with degenerative arthrosis. Normal distal radioulnar joint. There is diffuse demineralization of the carpal bones. Normal carpal articulations Normal carpometacarpal articulation of the thumb. Normal second through fifth carpometacarpal joints. There is demineralization of the metacarpals. There is degenerative arthrosis of the metacarpophalangeal (MCP) joints. Normal interphalangeal joint of the thumb. There is demineralization of the proximal and distal phalanges of the thumb. Normal metacarpophalangeal joints of the second through fifth fingers. There is demineralization of the proximal and distal phalanges of the second through fifth fingers. There is flexion of the second through fifth fingers at the proximal interphalangeal joints. The soft tissue structures are unremarkable. RAD/Hand Min 3 Views IMPRESSION: Diffusely demineralized bones. Degenerative changes. Electronically Signed: Roseanna Purcell MD at 21:27 EST Tel , Service support ,
--- NOTE | 2019-02-11 21:06 | RAD_ITS ---
STUDY: X-RAY - RIGHT WRIST REASON FOR EXAM: Female, 53 years old. Tripped and fell on 20. TECHNIQUE: 3 view(s) of the wrist were obtained. COMPARISON: None. FINDINGS: There is demineralization of the radius and ulna. There is degenerative arthrosis of the radiocarpal articulation. Normal distal radioulnar articulation. There is demineralization of the carpal bones. Normal carpal articulations. Normal carpometacarpal articulation of the thumb. Normal second through fifth carpometacarpal articulations. There is demineralization of the metacarpal bones. The soft tissue structures are unremarkable. RAD/Wrist min 3 Views IMPRESSION: Diffusely demineralized bones. Degenerative changes of the radiocarpal joint. Electronically Signed: Roseanna Purcell MD at 21:35 EST Tel , Service support ,
--- NOTE | 2019-02-11 21:33 | ED.DCSUM_ITS ---
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 The patient has regained a significant amount of her function. She states that she was ambulating and slipped. She fell backwards. She struck her left thumb and suffered a laceration. She did not strike her head. She denies any new weakness. She is otherwise been in her normal state of health. Prior similar symptoms: No Recent Illness/Hospitalization: No Past Medical History - Allergies and Home Meds Allergies/Adverse Reactions: Allergies buprenorphine [From Butrans] Allergy (Verified 02/11/19 20:48) BLISTERS codeine Allergy (Verified 02/11/19 20:48) Angioedema Primary Care Physician: Myranda Traore [Primary Care Provider] - Prior records reviewed: Yes Past Medical History: - - paraplegia Surgical History: - - She has a history in July of 2012 of a cervical decompression for cord injury after a cervical fracture. Smoking Status: Former smoker - Family History Maternal Family History: Reports: No pertinent history Review of Systems General: Denies: Chills, Fever, Sweats Eyes: Denies: Visual changes - bilaterally, Diplopia ENT: Denies: Rhinorrhea, Sore throat Cardiovascular: Denies: Chest pain, Palpitations Respiratory: Denies: Dyspnea, Cough, Dyspnea on exertion Gastrointestinal: Denies: Abdominal pain, Nausea, Vomiting, Diarrhea, Melena, Hematochezia Genitourinary: Denies: Dysuria, Hematuria, Frequency Musculoskeletal: Denies: Back pain, Extremity Pain Skin: Denies: Rash, Wounds Neurological: Denies: Headache, Weakness, Numbness Physical Exam Vital Signs/Narrative: Vital Signs Temp Pulse Resp BP Pulse Ox 02/11/19 20:44 97.9 F 87 16 164/101 H 100 Inital Vital Signs reviewed: Yes General: Well nourished, Well developed, No Acute Distress Head: Normocephalic, Atraumatic Eyes: Perrl, EOMI ENT: Moist mucous membranes, No rhinorrhea Neck: Supple, Nontender Cardiovascular: Regular rate, Regular rhythm, No murmurs Respiratory: No distress, CTA bilaterally, Chest nontender Abdomen: Soft, Nontender, Nondistended, Normal bowel sounds Back: Nontender, Normal Inspection Extremities: No edema, Tenderness - Patient has a 3 cm laceration over the IP joint of the left thumb. Flexion and extension are preserved. Skin: Normal color, No rash Neurological: Alert, Oriented x3, Cranial nerves II-XII grossly intact, Weakness - chronic Psychological: Normal affect, Normal Mood Diagnostic/Tx/Re-eval Clinical Impression(s) from Imaging Studies Hand X-Ray 02/11/19 20:51 IMPRESSION: Diffusely demineralized bones. Degenerative changes. Electronically Signed: Roseanna Purcell MD at 21:27 EST Tel , Service support , Wrist X-Ray 02/11/19 20:51 IMPRESSION: Diffusely demineralized bones. Degenerative changes of the radiocarpal joint. Electronically Signed: Roseanna Purcell MD at 21:21 EST Tel , Service support , - Medical Decision Making Plain films were obtained of the bilateral wrists and of the left hand. There is no evidence of acute fracture. The patient's laceration was anesthetized and closed. She tolerated this without issue. She was counseled on local wound car e. She will be discharged home. Procedure note: Lidocaine 1%, 3 cc was injected locally. The wound was irrigated and explored. There was no evidence of tendinous involvement.. The wound was closed with 6 simple 5-0 interrupted suture. Dressing was applied. Patient tolerated this without issue. Impression 3 cm left thumb laceration with repair ED Disposition - Plan for ED Patient: Instructions: LACERATION, Hand Referrals: Myranda Traore [Primary Care Provider] - 10 Day for suture removal
[2019-02-11 21:46] VITALS: BP 144/71; PULSE 71; RESP 18; O2SAT 99
== END 2019-02-11 21:47 | disposition home or self-care (01) ==
LOC: ED 21:08
PROVIDERS: Emergency Provider Emergency Medicine; Family Provider Family Medicine; PCP Family Medicine
DX: S61.012A Laceration without foreign body of left thumb without damage to nail, initial encounter (principal); G82.20 Paraplegia, unspecified; Z87.891 Personal history of nicotine dependence; W01.119A Fall on same level from slipping, tripping and stumbling with subsequent striking against unspecified sharp object, initial encounter; Y93.01 Activity, walking, marching and hiking; Y92.009 Unspecified place in unspecified non-institutional (private) residence as the place of occurrence of the external cause; Y99.8 Other external cause status
CPT/HCPCS: 12002; 73110; 73130; 99283

== ENCOUNTER → 2019-03-21 10:47 | Outpatient (CLI) | payer MEDICAID, SELFPAY ==
[2019-03-21 11:35] LABS: Color, Urine Yellow (Yellow); Glucose, Dipstick Normal (Normal); Urine Bilirubin Dipstick Negative (Negative); Urine Clarity Sl Cldy (Clear)
[2019-03-21 11:36] LABS: Ketone-Dipstick Negative (Negative); Leukocyte Esterase-Dipstick 500 /ul (Negative); Nitrite-Dipstick Positive (Negative); Occult Blood-Urine 50 /ul (Negative); Protein-Dipstick 30 mg/dl (Negative); Urine Urobilinogen Normal (Normal)
== END ==
PROVIDERS: Family Provider Family Medicine; PCP Family Medicine; Referring Provider Family Medicine; Visit Provider Family Medicine
DX: R30.0 Dysuria (principal)
CPT/HCPCS: 81002; 87077; 87086; 87088; 87186

== ENCOUNTER → 2019-11-25 | Outpatient (CLI) | payer MEDICAID, SELFPAY ==
[2019-11-25 17:12] LABS: Color, Urine Yellow (Yellow); Glucose, Dipstick Normal (Normal); Ketone-Dipstick Negative (Negative); Leukocyte Esterase-Dipstick 25 /ul (Negative); Nitrite-Dipstick Negative (Negative); Occult Blood-Urine Negative /ul (Negative); Protein-Dipstick Negative (Negative); Specific Gravity, Urine 1.005 (1.002-1.030); Urine Bilirubin Dipstick Negative (Negative); Urine Clarity Clear (Clear); Urine Urobilinogen Normal (Normal)
== END | disposition home or self-care (01) ==
LOC: LABSPEC 15:00
PROVIDERS: PCP Family Medicine; Referring Provider Family Medicine; Visit Provider Family Medicine
DX: M54.9 Dorsalgia, unspecified (principal)
CPT/HCPCS: 81002; 87077; 87086; 87088; 87186

== ENCOUNTER 2020-07-30 12:53 | Emergency (ER) | payer MEDICAID, SELFPAY ==
[2020-07-30 12:54] VITALS: BP 151/87; PULSE 94; RESP 18; TEMP 36.3; O2SAT 96; BMI 20.1
--- NOTE | 2020-07-30 15:46 | VDLE_ITS ---
Reason For Study: CP RIGHT LEFT GSV is normal. GSV is normal. CFV is compressible, spontaneous, phasic, CFV is compressible, spontaneous, phasic, competent and demonstrates normal competent, and demonstrates normal augmentation. augmentation. FV is compressible, spontaneous, phasic, FV is compressible, spontaneous, phasic, competent and demonstrates normal competent and demonstrates normal augmentation. augmentation. POP V is compressible, spontaneous, phasic, POP V is compressible, spontaneous, phasic, competent and demonstrates normal competent and demonstrates normal augmentation. augmentation. T/P Trunk is compressible. T/P Trunk is compressible. PTV is compressible. PTV is compressible. RT PerV is compressible. LT PerV is compressible. Procedure This is a venous duplex using B-mode, color flow and spectral Doppler. Exam performed portable in ED. The exam was diagnostic. A preliminary report was called and/or faxed to Dr. Rothman. VL/Venous Duplex US - [place] Extrem Interpretation Summary No evidence for acute deep venous thrombosis bilateral lower extremities with p atent and compressible bilateral great saphenous veins. Ordering Physician: Dion Rothman Performed By: Vinicius Fernandes RVT
--- NOTE | 2020-07-30 16:04 | EDS_ITS ---
HPI History of Present Illness Chief Complaint: Edema Informant: patient Onset/Context/Timing Onset: Days Context: Gradual Onset Timing: Continuous and Intermittent Quality of Pain: Aching Current Severity: Moderate Maximum Severity: Moderate Narrative Narrative: The patient is a 54-year-old female history of prior cervical spine injury with functional quadriplegia presents to the emergency department with bilateral leg pain. The patient states that she has had intermittent swelling and pain in the legs for the past few days. She denies any chest pain or shortness of breath. She states that sometimes if she is flat for a while, it feels like its worse. She did discuss this with her primary care and was referred into the emergency department. She has no history of pulmonary bolus. PFSH PFSH Home Medications baclofen 20 mg PO 4X/DAY 02/20/15 [History Last Taken 11/27/17] bisacodyl 10 mg PO TID PRN PRN 02/20/15 [History Last Taken 11/26/17] gabapentin 800 mg PO BID 02/20/15 [History Last Taken 11/27/17] meloxicam 15 mg PO DAILY 02/20/15 [History Last Taken 11/27/17] albuterol sulfate [ProAir HFA] 2 puff INHALATION Q6H PRN PRN 05/03/17 [History Last Taken 11/26/17] docusate sodium [DOK] 100 mg PO BID PRN PRN 05/03/17 [History Last Taken 05/02/17] ergocalciferol (vitamin D2) [Vitamin D2] 50,000 unit PO WE 05/03/17 [History Last Taken 11/22/17] lisinopril 10 mg PO DAILY 05/03/17 [History Last Taken 11/27/17] gabapentin 400 mg PO BID 07/30/20 [History Last Taken Unknown] Allergy/AdvReac Type Severity Reaction Status Date / Time buprenorphine [From Butrans] Allergy BLISTERS Verified 07/30/20 12:56 codeine Allergy Angioedema Verified 07/30/20 12:56 Social History Smoking Status: Former smoker ROS ROS ED Constitutional Constitutional ED: Denies chills or fever(s) Eyes Eyes: Denies blurry vision or change in vision ENT ENT ED: Denies ear pain or sore throat Cardiovascular Cardiovascular: Denies chest pain or palpitations Respiratory/Chest Respiratory/Chest: Denies cough, dyspnea or dyspnea on exertion Gastrointestinal Gastrointestinal: Denies abdominal pain, nausea or vomiting Genitourinary Genitourinary ED: Denies dysuria or urinary frequency Musculoskeletal Musculoskeletal: Denies arthralgias or myalgias Integumentary Denies rash Neurologic Neurologic: Denies headache(s) or paresthesias Psychiatric Psychiatric: Denies anxiety or depression Endocrine Endocrinology: Denies polydipsia or polyuria Allergic/Immunologic Allergic/Immunologic ED: Denies urticaria EXAM Physical Exam Const Vital Signs: 07/30/20 12:54 Temperature 97.4 F L Temperature Source Temporal Pulse Rate 94 Respiratory Rate 18 Blood Pressure 151/87 H Blood Pressure Mean 108 Pulse Ox 96 Oxygen Delivery Method Room Air Positive well nourished and well developed General Appearance ED: well developed HEENT Reports normocephalic, head/scalp atraumatic and moist mucous membranes Eyes PERRL and EOMs intact bilaterally Neck no lymphadenopathy and supple General: Negative for tenderness Chest Wall inspection of chest normal Resp normal respiratory effort and clear to auscultation bilaterally Cardio regular rate, regular rhythm and no murmurs GI normal to inspection, nondistended, normoactive bowel sounds Palpation: Negative for tender, guarding or rebound tenderness present Back/Spine no CVA tenderness Cervical Spine: Negative for cervical spine tenderness Thoracic Spine / Upper Back: Negative for thoracic spinal tenderness Extremity normal to inspection General Extremety ED: Negative for tenderness Neuro oriented x3 and CN's II-XII intact bilaterally Neuro Narrative: No focal deficits appreciated. Sensorium / Orientation: alert Motor Exam: strength abnormal Psych mental status grossly normal Skin no rashes or lesions noted, no wounds and skin turgor normal MDM MDM MDM Narrative Medical decision making narrative: Patient presents with intermittent lower ext remity edema. She has normal pulses. Sensation is diminished, from prior cervical spine injury. Her compartments are soft. Her cap refill is 2 seconds. I did obtain ultrasound of bilateral lower extremities. There was no evidence of DVT. I do not suspect an acute vascular crisis. The patient symptoms wax and wane. She has normal pulses and no evidence of DVT. At this point, the patient is reassured. She will be discharged home. Discharge Plan Triage Chief Complaint: Edema ED Provider: Dion Rothman Dx/Rx/DC Orders Instructions: ED Peripheral Edema, Bilateral Prescriptions: No Action meloxicam 15 MG tablet 15 mg PO DAILY RF: 0 baclofen 20 MG tablet 20 mg PO 4X/DAY RF: 0 gabapentin 800 MG tablet 800 mg PO BID RF: 0 bisacodyl 5 MG tablet 10 mg PO TID PRN PRN (Reason: Constipation) RF: 0 lisinopril 10 MG tablet 10 mg PO DAILY RF: 0 docusate sodium [DOK] 100 MG capsule 100 mg PO BID PRN PRN (Reason: DEPRESSION) RF: 0 ergocalciferol (vitamin D2) [Vitamin D2] 50,000 UNIT capsule 50,000 unit PO WE RF: 0 albuterol sulfate [ProAir HFA] 1 PUFF inhaler 2 puff inhalation Q6H PRN PRN (Reason: Sob &/Or Wheezing) RF: 0 gabapentin 400 mg Tablet 400 mg PO BID RF: 0 Primary Care Provider: Myranda Traore Referrals: Myranda Traore [Primary Care Provider] - Disposition Disposition: Home, self care
[2020-07-30 16:42] VITALS: BP 150/88; PULSE 90; RESP 16; O2SAT 95
== END 2020-07-30 16:50 | disposition home or self-care (01) ==
PROVIDERS: Emergency Provider Emergency Medicine; PCP Family Medicine
DX: R60.0 Localized edema (principal); R53.2 Functional quadriplegia; Z79.899 Other long term (current) drug therapy; Z79.1 Long term (current) use of non-steroidal anti-inflammatories (NSAID); Z87.891 Personal history of nicotine dependence
CPT/HCPCS: 93970; 99282

== ENCOUNTER 2021-10-07 15:23 | Emergency (ER) | payer MEDICAID, SELFPAY ==
[2021-10-07 15:24] VITALS: BP 137/79; PULSE 106; RESP 15; TEMP 36.2; O2SAT 100; BMI 19.3
[2021-10-07] MEDS: Morphine 4 MG/ML Syringe IV (16:37)
[2021-10-07] MEDS: Ondansetron 4 MG/2 ML Vial IV (16:37)
[2021-10-07] MEDS: Diphth,Pertuss(Acell),Tet Vac 0.5 ML Vial IM (16:38)
--- NOTE | 2021-10-07 16:38 | ED.VIS.FALL ---
HPI HPI - Fall History of Present Illness Chief Complaint: Fall Detail of Chief Complaint: Face pain after fall Informant: patient Occured/Mechanism Occurred: Today and Hours Mechanism/Context: Yes same level fall Narrative: Patient was mopping and fell. This is her second fall within 1 to 2 weeks Usually ambulates: Without assistance Pain/Injury Location: Home mopping floor Pain Location: face Quality of Pain: Dull and Aching Current Severity: Mild Maximum Severity: Moderate Worsened by: Palpation Relieved by: Nothing Associated Symptoms Associated Symptoms: Negative for Parasthesias, Weakness, Loss of function, Inability to ambulate, Loss of consciousness or Amnesia Narrative Tetanus Immunization: >10 years Prior similar symptoms: Yes Recent Illness/Hospitalization: No PFSH PFSH Medical History no medical history Home Medications baclofen 20 mg tablet 20 mg PO 4X/DAY spasms 02/20/15 [History Last Taken 11/27/17] bisacodyl 5 mg tablet,delayed release 10 mg PO TID PRN PRN Constipation 02/20/15 [History Last Taken 11/26/17] gabapentin 800 mg tablet 800 mg PO BID nerve pain 02/20/15 [History Last Taken 11/27/17] meloxicam 15 mg tablet 15 mg PO DAILY anti-inflammatory 02/20/15 [History Last Taken 11/27/17] albuterol sulfate 90 mcg/actuation aerosol inhaler (ProAir HFA) 2 puff inhalation Q6H PRN PRN Sob &/Or Wheezing 05/03/17 [History Last Taken 11/26/17] docusate sodium 100 mg capsule (DOK) 100 mg PO BID PRN PRN DEPRESSION 05/03/17 [History Last Taken 05/02/17] ergocalciferol (vitamin D2) 1,250 mcg (50,000 unit) capsule (Vitamin D2) 50,000 unit PO [facility] health maintenance 05/03/17 [History Last Taken 11/22/17] lisinopril 10 mg tablet 10 mg PO DAILY BP 05/03/17 [History Last Taken 11/27/17] gabapentin 400 mg tablet 400 mg PO BID 07/30/20 [History Last Taken Unknown] cephalexin 250 mg capsule 250 mg PO Q6 #20 CAPSULES 10/07/21 [Rx Last Taken Unknown] Allergy/AdvReac Type Severity Reaction Status Date / Time buprenorphine [From Rip] Allergy BLISTERS Verified 10/07/21 15:26 codeine Allergy Angioedema Verified 10/07/21 15:26 Social History (Updated 10/07/21 @ 16:[address] Mika Restrepo MD) household members: none Smoking Status: Former smoker substance use type: does not use ROS ROS ED Constitutional Constitutional ED: Denies chills, fever(s), subjective, sweats or weight loss Eyes Eyes: Denies blurry vision, change in vision or diplopia ENT ENT ED: Reports other Details: Numbness of upper lip and upper teeth on the left side ; Denies ear pain, rhinorrhea or sore throat Cardiovascular Cardiovascular: Denies chest pain, palpitations or racing heartbeat Respiratory/Chest Respiratory/Chest: Denies dyspnea or dyspnea on exertion Gastrointestinal Gastrointestinal: Denies abdominal pain, melena, nausea or vomiting Genitourinary Genitourinary ED: Denies dysuria, hematuria or urinary frequency Musculoskeletal Musculoskeletal: Denies arthralgias, back pain, myalgias or neck pain Integumentary Reports Abrasions; Denies abscess or rash Neurologic Neurologic: Reports headache(s), paresthesias, weakness and other Details: RemoteShe has neural deficit due to cervical spine fracture past Psychiatric Psychiatric: Denies anxiety or depression Hematologic/Lymphatic Hematologic/Lymphatic: Reports other Details: Patient is not on an anticoagulant ; Denies easy bleeding or easy bruising Allergic/Immunologic Allergic/Immunologic ED: Denies mouth swelling, tongue swelling or urticaria EXAM Physical Exam Const Vital Signs: 10/07/21 15:24 10/07/21 16:27 Temperature 97.1 F L Temperature Source Temporal Pulse Rate 106 H Respiratory Rate 15 Respiratory Effort Normal Non-Labored Blood Pressure 137/79 H Blood Pressure Mean 98 Pulse Ox 100 Oxygen Delivery Method Room Air Positive well nourished and well developed; Negative for cachectic, contractures or unkempt Constitutional Narrative: Patient is holding a rag and ice to her face. General Appearance ED: well developed; Negative for unkempt, cachectic, contractures or NAD Nutritional Appearance: Negative for cachectic HEENT Reports TM's normal bilaterally HEENT Narrative: There is swelling deformity of the nose. There is no septal hematoma. There is an abrasion over the bridge of the nose. Patient complains of hypoesthesia in the infraorbital nerve on the left. There is no appreciable step-off. There is no evidence of entrapment. There is no TMJ tenderness. There is no evidence of malocclusion. There is no obvious dental trauma. Negative raccoon and flores sign. trauma and contusion; Negative for atraumatic Eyes PERRL and EOMs intact bilaterally Eyes Narrative: There is no subconjunctival hemorrhage. General Eye ED: Negative for pale conjunctiva or scleral icterus Neck No full ROM and no lymphadenopathy Neck Narrative: Patient has limited range of motion due to prior surgery. She complains of pain when she looks upward. She does have pain palpation over the occiput. There is no pain ovation over the cervical spinous process. General: Negative for tenderness Chest Wall palpation of chest normal Resp normal respiratory effort, no retractions and clear to auscultation bilaterally Cardio regular rate, regular rhythm, S1 normal heart sound and S2 normal heart sound GI non-tender and non-distended Palpation: soft Back/Spine no CVA tenderness Cervical Spine: Negative for cervical spine tenderness Thoracic Spine / Upper Back: ROM limited; Negative for thoracic spinal tenderness Lumbar Spine / Lower Back: Negative for lumbar spinal tenderness or paraspinal muscle tenderness Neuro oriented x3, CN's II-XII intact bilaterally, No no focal motor deficits and No no sensory deficits noted Neuro Narrative: Patient is altered sensation and motor function due to prior fracture. She has bilateral claw hands. Franck Coma Scale: document GCS findings Spontaneous Obeys Commands Oriented 15 Sensorium / Orientation: alert, oriented to person, oriented to place and oriented to time Cranial Nerves: CN normal except as noted Motor Exam: Negative for strength 5/5 throughout Psych Appearance: Negative for unkempt Skin Skin Narrative: Abrasion over the nose. Rashes: no rashes Trauma: abrasion MDM MDM MDM Narrative Medical decision making narrative: With obvious deformity to nose and hyperesthesia of the infraorbital nerve on the left there is concern for orbital floor fracture and nasal bone fracture. Will obtain CT of the face. Since there is no loss of consciousness and she is not on an anticoagulant CT of the head per the [place] CT head rule is not indicated. Since she has no cervical spine tenderness x-ray of the neck was not performed. She was medicated with IV morphine for her discomfort. Tetanus was updated. Patient does have bilateral nasal bone fractures. There is a small cut. Will place on short course of antibiotics and refer to otolaryngology Radiography Diagnostic Testing: Clinical Impression(s) from Imaging Studies Facial/Sinus 10/07/21 17:08 IMPRESSION: Bilateral nasal bone fractures. No other abnormalities are identified. Electronically Signed: Monster Lowry MD at 17:31 EDT Reading Location ID and State: [address] [place] [address] Tel , Service support , Discharge Plan Triage Chief Complaint: Fall ED Provider: Mika Restrepo Dx/Rx/DC Orders Clinical Impression: Nasal bone fx-open Instructions: ED Nose Fracture, with X-Ray Prescriptions: New cephalexin [cephalexin] 250 mg capsule 250 mg PO Q6 Qty: 20 0RF No Action meloxicam 15 MG tablet 15 mg PO DAILY baclofen 20 MG tablet 20 mg PO 4X/DAY gabapentin 800 MG tablet 800 mg PO BID bisacodyl 5 MG tablet 10 mg PO TID PRN PRN (Reason: Constipation) lisinopril 10 MG tablet 10 mg PO DAILY Label Comments: TAKE ONE TAB BY MOUTH IN THE AM AND 0.5 TABS BY MOUTH IN THE PM. docusate sodium [DOK] 100 MG capsule 100 mg PO BID PRN PRN (Reason: DEPRESSION) ergocalciferol (vitamin D2) [Vitamin D2] 50,000 UNIT capsule 50,000 unit PO WE albuterol sulfate [ProAir HFA] 1 PUFF inhaler 2 puff inhalation Q6H PRN PRN (Reason: Sob &/Or Wheezing) Label Comments: INHALE 2 PUFFS INTO THE LUNGS EVERY 6 HOURS NEEDED FOR WHEEZING gabapentin 400 mg Tablet 400 mg PO BID Primary Care Provider: Myranda Traore Referrals: Myranda Traore [Primary Care Provider] - Merritt Arizmendi MD [STAFF PHYSICIAN] - 5-7 Days Disposition Disposition: Home, Self Care
--- NOTE | 2021-10-07 17:08 | CT_ITS ---
EXAM: CT MAXILLOFACIAL WITHOUT INTRAVENOUS CONTRAST CLINICAL INDICATION: Deformity, hypoesthesia infraorbital nerve left TECHNIQUE: Helically acquired images were obtained of the face without intravenous contrast. This CT exam was performed using one or more of the following dose reduction techniques: automated exposure control, adjustment of the mA and/or kV according to patient size, and/or use of iterative reconstruction technique. This report was created using [employer] report generation technology. COMPARISON: None. FINDINGS: BONES/JOINTS: There is a fracture of the nasal bones bilaterally. No discrete lytic or blastic abnormalities. SOFT TISSUES: Unremarkable. No focal subcutaneous swelling. No discrete fluid collections. ORBITS: Unremarkable. Both globes are unremarkable. Extraocular muscles are normal. Retrobulbar fat appears unremarkable. SINUSES: Unremarkable as visualized. Clear. MASTOID AIR CELLS: Unremarkable as visualized. Clear. DENTAL: No acute findings. No periodontal osseous erosion. CT/Sinus/Facial Bone IMPRESSION: Bilateral nasal bone fractures. No other abnormalities are identified. Electronically Signed: Monster Lowry MD at 17:31 EDT ,
[2021-10-07 18:13] VITALS: BP 158/81; PULSE 76; RESP 16
[2021-10-07] MEDS: HYDROcodone Bitartrate/Apap 5/325 Tablet PO (18:22)
== END 2021-10-07 18:24 | disposition home or self-care (01) ==
PROVIDERS: Emergency Provider Emergency Medicine; PCP Family Medicine; Visit Provider Emergency Medicine
DX: S02.2XXB Fracture of nasal bones, initial encounter for open fracture (principal); W01.10XA Fall on same level from slipping, tripping and stumbling with subsequent striking against unspecified object, initial encounter; Y93.E5 Activity, floor mopping and cleaning; Z87.891 Personal history of nicotine dependence; Z23 Encounter for immunization
CPT/HCPCS: 70486; 90471; 90715; 96374; 96375; 99282; A4216; J2405

== ENCOUNTER → 2021-11-25 | Outpatient (CLI) | payer MEDICAID, SELFPAY ==
--- NOTE | 2021-11-25 13:58 | RAD_ITS ---
STUDY: X-RAY - CERVICAL SPINE REASON FOR EXAM: Female, 56 years old. Neck pain and headache TECHNIQUE: 3 view(s) of the cervical spine were obtained. COMPARISON: None FINDINGS: There has been previous anterior cervical fusion from C4 to C7. Hardware is intact and free of complication. There is a likely chronic 3 to 4 mm anterior subluxation of C4 on C3. Normal anterior atlantoaxial articulation. Normal odontoid process. There is straightening of the normal cervical lordosis. There is multi-level endplate spondylosis. There is multi-level degenerative disc disease with multilevel disc space narrowing. The soft tissue structures are unremarkable. RAD/Cerv Spine 2 or 3 Views IMPRESSION: Multilevel degenerative and postsurgical changes, no acute findings Electronically Signed: Ji Allison MD at 10:11 EDT ,
[2021-11-25 14:41] LABS: Hematocrit 38.4 % (37-47); Hemoglobin 12.4 g/dL (12.0-15.0); Mean Corp Hgb Conc 32.3 g/dL (32-36); Mean Corpuscular Hgb 30.1 pg (27.0-32.0); Mean Corpuscular Volume 93.2 fL (81-99); Mean Platelet Vol. 10.4 fl (6.2-12.0); Platelet Count 296 K/mm3 (150-450); RBC Distribution Width SD 41.5 fl (35.1-43.9); Red Blood Count 4.12 M/mm3 (4.2-5.4)
[2021-11-25 15:16] LABS: Vitamin D,25 Hydroxy 137.6 ng/mL
[2021-11-25 15:23] LABS: Anion Gap 5 (5-15); BUN 9 mg/dL (7-18); BUN/Creat Ratio 13.1 RATIO (10-20); Calcium,Total 9.7 mg/dL (8.5-10.1); Chloride 106 mmol/L (98-107); Cholesterol 216 mg/dL (200); Creatinine, Serum 0.69 mg/dL (0.55-1.02); EST Glomerular Filtration Rate 94 mL/min (>60); Est Glom Filt Rate - Afr Amer 113 mL/min (>60); Glucose 90 mg/dL (74-106); High Density Lipoprotein 75 mg/dL; Potassium 4.5 mmol/L (3.5-5.1); Sodium Level 139 mmol/L (136-145); Thyroid Stim Hormone (TSH) 2.35 uIU/mL (0.358-3.74); Triglycerides 79 mg/dL; Very Low Density Lipoprotein 16 mg/dL (5-40)
== END | disposition home or self-care (01) ==
PROVIDERS: PCP Family Medicine; Referring Provider Family Medicine; Visit Provider Family Medicine
DX: M54.2 Cervicalgia (principal); I10 Essential (primary) hypertension; E55.9 Vitamin D deficiency, unspecified; Z12.11 Encounter for screening for malignant neoplasm of colon; Z13.220 Encounter for screening for lipoid disorders
CPT/HCPCS: 36415; 72040; 80048; 80061; 82306; 84443; 85027

== ENCOUNTER → 2022-01-26 | Outpatient (CLI) | payer MEDICAID, SELFPAY ==
--- NOTE | 2022-01-26 15:06 | BI_ITS ---
MAMMOGRAPHY - BILATERAL SCREENING REASON FOR EXAM: Female, 56 years old. Routine annual screening examination. PERTINENT HISTORY: Aunt with breast cancer. TECHNIQUE: Digital bilateral breast vanessa (3D mammographic acquisition) in the CC and MLO projections. 2-D mediolateral oblique (MLO) and craniocaudad (CC) views of both breasts were obtained. CAD: Full Field Digital Mammography with Computer Added Detection was performed. COMPARISON: None. Baseline examination. FINDINGS: Breast Composition: The breasts are heterogeneously dense, which may obscure small masses. There are no dominant masses or suspicious calcifications. No other significant abnormalities are identified. BI/SCRN MAMM (CAD)W/VANESSA BILAT IMPRESSION: Negative screening mammogram. Yearly followup mammogram recommended. (A) ASSESSMENT CATEGORY: BIRADS Category 1: Negative. A letter regarding these results will be sent to the patient by the facility within 30 days. Approximately 10% of breast cancers are not detected by mammography. A normal mammogram should not delay biopsy of a clinically suspicious abnormality. [id number] Electronically Signed: Roney Reed MD at 15:41 EDT ,
== END | disposition home or self-care (01) ==
PROVIDERS: PCP Family Medicine; Referring Provider Family Medicine
DX: Z12.31 Encounter for screening mammogram for malignant neoplasm of breast (principal)
CPT/HCPCS: 77063; 77067

== ENCOUNTER → 2022-05-04 | Outpatient (CLI) | payer MEDICAID, SELFPAY ==
[2022-05-04 12:31] LABS: Hematocrit 40.8 % (37-47); Hemoglobin 12.9 g/dL (12.0-15.0); Mean Corp Hgb Conc 31.6 g/dL (32-36); Mean Corpuscular Hgb 30.2 pg (27.0-32.0); Mean Corpuscular Volume 95.6 fL (81-99); Platelet Count 240 K/mm3 (150-450); RBC Distribution Width CV 12.4 % (11.6-14.6); Red Blood Count 4.27 M/mm3 (4.2-5.4); White Blood Count 4.8 K/mm3 (4.4-11.0)
[2022-05-04 12:55] LABS: Vitamin B12 1046 pg/mL (211-911)
[2022-05-04 14:10] LABS: ALB/GLOB Ratio 1.1 RATIO (0.9-2.4); AST(SGOT) 23 U/L (15-37); Alanine Aminotransfer ALT/SGPT 30 U/L (13-56); Albumin, Serum 3.8 g/dL (3.2-5.0); Alkaline Phosphatase 92 U/L (45-117); Anion Gap 10 (5-15); BUN 15 mg/dL (7-18); BUN/Creat Ratio 17.9 RATIO (10-20); Chloride 106 mmol/L (98-107); Creatinine, Serum 0.84 mg/dL (0.55-1.02); EST Glomerular Filtration Rate 75 mL/min (>60); Est Glom Filt Rate - Afr Amer 90 mL/min (>60); Globulin 3.4 g/dL (2.2-4.2); Glucose 83 mg/dL (74-106); Magnesium 1.9 mg/dL (1.6-2.6); Potassium 4.4 mmol/L (3.5-5.1); Protein, Total 7.2 g/dL (6.4-8.2); Sodium Level 142 mmol/L (136-145); Thyroid Stim Hormone (TSH) 1.92 uIU/mL (0.358-3.74)
[2022-05-09 19:46] LABS: Vitamin B1, Thiamine 106.9 nmol/L (66.5-200.0)
== END | disposition home or self-care (01) ==
LOC: MTLAB 05-05 08:35
PROVIDERS: PCP Family Medicine; Referring Provider Psychiatry & Neurology Neurology; Visit Provider Psychiatry & Neurology Neurology
DX: M79.2 Neuralgia and neuritis, unspecified (principal); G95.9 Disease of spinal cord, unspecified; M81.0 Age-related osteoporosis without current pathological fracture
CPT/HCPCS: 82652; 36415; 80053; 82607; 82746; 83735; 84425; 84443; 85027

== ENCOUNTER 2022-05-25 14:24 | Outpatient (CLI) | payer MEDICAID, SELFPAY ==
[2022-05-27 19:42] LABS: Vitamin D 1,25-Dihydroxy 45.1 pg/mL (24.8-81.5)
== END 2022-05-25 23:59 | disposition home or self-care (01) ==
LOC: MTLAB 14:24
PROVIDERS: PCP Family Medicine; Visit Provider Psychiatry & Neurology Neurology
DX: M81.0 Age-related osteoporosis without current pathological fracture (principal)
CPT/HCPCS: 82652

== ENCOUNTER → 2022-06-28 | Outpatient (CLI) | payer MEDICAID, SELFPAY ==
--- NOTE | 2022-06-28 15:52 | BD_ITS ---
STUDY: DUAL ENERGY X-RAY ABSORPTIOMETRY / DXA REASON FOR EXAM: Female, 56 years old. Demineralization noted on hand x-rays TECHNIQUE: Bone Mineral Density (BMD) measurements of lumbar spine and bilateral hips were obtained. COMPARISON: None. FINDINGS: Lumbar Spine (L1-L4): g/cm2 (0.996) / T-score (-0.5) / Z-score (0.7) Findings are suggestive of normal bone density with a low fracture risk. Left Femur Total: g/cm2 (0.692) / T-score (-2.1) / Z-score (-1.3) Left Femoral Neck: g/cm2 (0.685) / T-score (-1.5) / Z-score (-0.4) Right Femur Total: g/cm2 (0.623) / T-score (-2.6) / Z-score (-1.9) Right Femoral Neck: g/cm2 (0.586) / T-score (-2.4) / Z-score (-1.2) BD/Dexa Bone Density Study IMPRESSION: The patient is considered osteoporotic as outlined below according to World Lalo Organization (WHO) criteria with a high fracture risk. Reference Information: The T-score is the number of standard deviations above or below the standard which is normal for young adults at their peak bone mineral density. The World Health Organization (WHO) interprets the T-scores as follows: Above -1 Normal bone density Between -1 and -2.5 Osteopenia Equal to / or below -2.5 Osteoporosis As a practical clinical guideline, osteopenia may be graded as follows: Mild -1 through -1.5 Moderate -1.6 through -2.0 Severe -2.1 through -2.4 The Z-score is the number of standard deviations above or below age-matched controls. A Z-score of less than -1.5 would be considered abnormal. References: 1. NIH Osteoporosis and Related Bone Diseases www osteo.org 2. International Society for Clinical Densitometry www iscd.org 3. National Osteoporosis Foundation www nof.org Electronically Signed: Roney Reed MD at 9:36 EDT ,
== END | disposition home or self-care (01) ==
LOC: OPBD 15:46
PROVIDERS: PCP Family Medicine; Referring Provider Psychiatry & Neurology Neurology; Visit Provider Psychiatry & Neurology Neurology
DX: M81.0 Age-related osteoporosis without current pathological fracture (principal)
CPT/HCPCS: 77080

== ENCOUNTER → 2022-06-30 | Outpatient (CLI) | payer MEDICAID, SELFPAY ==
--- NOTE | 2022-06-30 15:19 | MRI_ITS ---
INDICATION: Hx c-spine cord injury; s/p surgery in years past EXAMINATION: MRI - MR Spine Cervical WO/W Contrast TECHNIQUE: Multiplanar and multisequence MR images of the cervical spine were performed. IV Contrast Dosage and Agent: None. COMPARISON: 09/05/2014 and 08/15/2013 FINDINGS: VERTEBRAE: Normal vertebral bodies and posterior elements. VERTEBRAL ALIGNMENT: Normal, including the craniocervical junction and cervicothoracic junction. Moderate spondylolisthesis. There is straightening of the normal cervical lordosis. CERVICAL SPINAL CORD: Unremarkable in signal and morphology. C2/C3, C3/C4: Endplate spondylosis. Central and paracentral disc bulge. Degenerative changes of the bilateral facet joints and uncovertebral joints. Severe narrowing of the central canal and the bilateral intervertebral neural foramina. C4/C5, C5/C6, C6/C7: There is anterior fusion in good alignment with complete bony bridging. C7/T1: Normal disc height and morphology. Normal spinal canal and neuroforamina. There is right paracentral disc herniation at T1-2 in the upper thoracic spine. NECK SOFT TISSUES: No prevertebral soft tissue swelling. There is no cervical adenopathy. MRI/Spine Cervical W/WO Contrast IMPRESSION: There is signal abnormality in the spinal cord at C5 suggesting myelomalacia. There is severe spinal canal stenosis with severe narrowing of the neural foramina at C2-3 and C3-4 more prominent at C3-4 appears worse when compared to the previous study. There is right paracentral disc herniation at T1-2 in the upper thoracic spine is new since the previous study. Electronically Signed: Fercho Valdivia MD at 7:42 EDT ,
[2022-06-30 16:06] LABS: CREATININE FINGERSTICK < 0.9 mg/dL (0.55-1.02); EGFR FINGERSTICK > 60.0000 mL/min (>60)
== END | disposition home or self-care (01) ==
LOC: MRI 15:19
PROVIDERS: PCP Family Medicine; Referring Provider Psychiatry & Neurology Neurology; Visit Provider Psychiatry & Neurology Neurology
DX: G95.9 Disease of spinal cord, unspecified (principal); G82.50 Quadriplegia, unspecified; I10 Essential (primary) hypertension
CPT/HCPCS: 72156; A9575

== ENCOUNTER 2022-07-15 21:59 | Emergency (ER) | payer MEDICAID, SELFPAY ==
[2022-07-15 22:00] VITALS: BP 138/97; PULSE 95; RESP 16; TEMP 36.6; O2SAT 100
--- NOTE | 2022-07-15 22:57 | CT_ITS ---
EXAM: CT MAXILLOFACIAL WITHOUT INTRAVENOUS CONTRAST CLINICAL INDICATION: injury TECHNIQUE: Helically acquired images were obtained of the face without intravenous contrast. This CT exam was performed using one or more of the following dose reduction techniques: automated exposure control, adjustment of the mA and/or kV according to patient size, and/or use of iterative reconstruction technique. This report was created using [employer] report generation technology. COMPARISON: 10/07/2021 FINDINGS: BONES/JOINTS: There are old fractures of the nasal bones. No discrete lytic or blastic abnormalities. SOFT TISSUES: Unremarkable. No focal subcutaneous swelling. No discrete fluid collections. ORBITS: Unremarkable. Both globes are unremarkable. Extraocular muscles are normal. Retrobulbar fat appears unremarkable. SINUSES: Unremarkable as visualized. Clear. MASTOID AIR CELLS: Unremarkable as visualized. Clear. DENTAL: No acute findings. No periodontal osseous erosion. CT/Sinus/Facial Bone IMPRESSION: Old fractures of the nasal bones. No acute abnormalities are identified. Electronically Signed: Monster Lowry MD at 23:48 EDT ,
[2022-07-15] MEDS: Ondansetron ODT 4 MG Tablet PO (23:10)
[2022-07-15] MEDS: Morphine 4 MG/ML Syringe 6 MG IM (23:11)
--- NOTE | 2022-07-15 23:40 | RAD_ITS ---
INDICATION: pain EXAMINATION/TECHNIQUE: X-RAY - RIGHT XR Wrist Min 3 Views 3 VIEWS COMPARISON: February 11, 2019. FINDINGS: SOFT TISSUES: No soft tissue swelling or gas. No radiopaque foreign body. BONES/JOINTS: No acute fracture or dislocation.. Mild diffuse joint space narrowing in the wrist with minimal osteophyte formation. No sclerotic or destructive changes observed. RAD/Wrist min 3 Views IMPRESSION: No evidence of acute injury. 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 Electronically Signed: Homer Busch MD at 0:17 EDT ,
--- NOTE | 2022-07-16 01:02 | EX.ED.DYSGE1 ---
HPI History of Present Illness Chief Complaint: Fall Narrative Narrative: Patient is a 56-year-old female with difficulty ambulating secondary to previous spinal cord injury. She states this evening just prior to arrival she was trying to get in the house when she tripped on a broken screen door and fell forward. She states that she struck the ground with her head/face. She denies any loss of consciousness or blood thinner use. She states she was able to get back up and ambulate at her baseline. She reports that she has nasal swelling and some blood from the nostrils and concerned she may have broke her nose. She also reports pain in her right wrist and with concern for underlying injury comes in for evaluation. [facility] Medical History (Updated 07/16/22 @ 01:[address] 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 Venous insufficiency Home Medications bisacodyl 5 mg tablet,delayed release 10 mg PO TID PRN PRN Constipation 02/20/15 [History Last Taken 11/26/17] meloxicam 15 mg tablet 15 mg PO DAILY anti-inflammatory 02/20/15 [History Last Taken 11/27/17] albuterol sulfate 90 mcg/actuation aerosol inhaler (ProAir HFA) 2 puff inhalation Q6H PRN PRN Sob &/Or Wheezing 05/03/17 [History Last Taken 11/26/17] docusate sodium 100 mg capsule (DOK) 100 mg PO BID PRN PRN DEPRESSION 05/03/17 [History Last Taken 05/02/17] ergocalciferol (vitamin D2) 1,250 mcg (50,000 unit) capsule (Vitamin D2) 50,000 unit PO WE health maintenance 05/03/17 [History Last Taken 11/22/17] fluticasone propionate 50 mcg/actuation nasal spray,suspension 1 spray intranasal DAILY 02/07/22 [History Last Taken Unknown] lactulose 10 gram/15 mL oral solution 10 g PO DAILY 02/07/22 [History Last Taken Unknown] losartan 50 mg tablet 50 mg PO DAILY 02/07/22 [History Last Taken Unknown] baclofen 10 mg tablet 10 mg PO TID PRN muscle pain/spasm #90 tabs 05/03/22 [Rx Last Taken Unknown] gabapentin 800 mg tablet 800 mg PO BID nerve pain #60 tabs 05/03/22 [Rx Last Taken Unknown] tizanidine 4 mg tablet See Rx Instructions PO QHS muscle spasticity #90 tabs 05/03/22 [Rx Last Taken Unknown] lubiprostone 24 mcg capsule (Amitiza) 24 mcg PO BID #60 caps 06/08/22 [Rx Last Taken Unknown] oxycodone-acetaminophen 5 mg-325 mg tablet (Percocet) 1 tab PO Q6H PRN pain 3 days #12 tabs 07/16/22 [Rx Last Taken Unknown] Allergy/AdvReac Type Severity Reaction Status Date / Time buprenorphine [From [facility]] Allergy Severe BLISTERS Verified 07/15/22 22:00 codeine Allergy Severe Angioedema Verified 07/15/22 22:00 Family History Mother Aneurysm Arthritis High cholesterol Father Pneumonia Alcoholism Hypertension Grandmother Arthritis Heart disease Hypertension Grandfather Diabetes Aunt Diabetes Surgical History H/O neck surgery S/P cervical spinal fusion Social History household members: none Smoking Status: Former smoker Tobacco: How many years used: 20 second hand exposure: No alcohol intake: current details: occasionally substance use type: does not use elli/scientologist: None seatbelt use: always ROS ROS ED Constitutional Constitutional ED: Denies chills or fever(s) Eyes Eyes: Denies change in vision ENT ENT ED: Reports other Details: Positive nasal pain and nasal bleeding ; Denies sore throat Cardiovascular Cardiovascular: Denies chest pain Respiratory/Chest Respiratory/Chest: Denies cough or dyspnea Gastrointestinal Gastrointestinal: Denies abdominal pain, diarrhea, nausea or vomiting Genitourinary Genitourinary ED: Denies dysuria Musculoskeletal Musculoskeletal: Reports other Details: Positive right wrist pain ; Denies back pain or neck pain Integumentary Reports Abrasions; Denies rash Neurologic Neurologic: Denies headache(s) Hematologic/Lymphatic Hematologic/Lymphatic: Denies easy bleeding or easy bruising EXAM Physical Exam Const Vital Signs: 07/15/22 22:00 07/15/22 23:16 Temperature 97.9 F Temperature Source Temporal Pulse Rate 95 Respiratory Rate 16 Respiratory Effort Normal Respiratory Depth Normal Respiratory Pattern Normal Blood Pressure 138/97 H Blood Pressure Mean 110 Pulse Ox 100 Oxygen Delivery Method Room Air Positive well nourished and well developed General Appearance ED: well developed HEENT HEENT Narrative: Patient has soft tissue swelling ecchymosis to the bridge of the nose. There is no septal hematoma noted but dried blood within the nasal passages. No signs of depressed or basilar skull fracture. Patient does have a superficial abrasion to the midportion of the upper lip but there is no separation or gaping and the wound is on the epidermal layer thick indicating no need for closure. No tongue or cheek biting no dental fracture or jaw deformity noted. Eyes PERRL and EOMs intact bilaterally Eyes Narrative: No hyphema present Neck supple Neck Narrative: No bony deformity or step-off of the cervical spine no midline pain with palpation Chest Wall palpation of chest normal Chest Narrative: No bony deformity or crepitus Resp normal respiratory effort and clear to auscultation bilaterally Cardio regular rate and regular rhythm GI normal to inspection, nondistended, normoactive bowel sounds, non-tender, non-distended and no masses Auscultation: normoactive bowel sounds Palpation: soft Back/Spine Back/Spine Narrative: No bony deformity or step-off of the thoracic or lumbar spine no midline pain with palpation Extremity Extremity Narrative: Patient has soft tissue swelling and ecchymosis to the dorsal aspect of the right wrist. There is mild soft tissue swelling without obvious bony deformity or joint effusion. No ligamentous or tendon laxity. Mild pain on palpation in the anatomical snuffbox. Pelvis is stable there is no shortening or external rotation of either lower extremity. Neuro oriented x3 and CN's II-XII intact bilaterally Sensorium / Orientation: alert Psych mental status grossly normal Skin no rashes or lesions noted Skin Narrative: Soft tissue changes to the face and right wrist as documented above MDM MDM MDM Narrative Medical decision making narrative: Patient presented to the ER after mechanical fall so there was no need for a cardiac or syncope work-up. With signs of trauma to the face/head there is concern for nasal bone fracture versus underlying skull fracture or brain bleed. With pain in the right wrist there is also concern for scaphoid fracture distal radius fracture or ligamentous or tendon injury. Secondary to this a facial CT was obtained as well as right wrist x-ray. Facial CT revealed soft tissue swelling without acute nasal bone fracture. X-ray also revealed no signs of acute injury. As patient had pain with palpation in the snuffbox will place in a Velcro thumb spica splint. However as skull fracture or brain bleed have been ruled out she did not have a syncopal event but a mechanical fall and now able to ambulate at her baseline she is safe for discharge History & Record Review Discussion w/independent historian: Patient and Family Radiography Diagnostic Testing: Clinical Impression(s) from Imaging Studies Facial/Sinus 07/15/22 22:57 IMPRESSION: Old fractures of the nasal bones. No acute abnormalities are identified. Electronically Signed: Monster Lowry MD at 23:48 EDT , Wrist X-Ray 07/15/22 23:40 IMPRESSION: No evidence of acute injury. 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 Electronically Signed: Homer Busch MD at 0:17 EDT , X-ray of the right wrist as interpreted by the emergency medicine physician reveals no acute fracture or dislocation. Discharge Plan Triage Chief Complaint: Fall ED Provider: Kervin Giraldo Dx/Rx/DC Orders Clinical Impression: Contusion of face, Right wrist sprain, Abrasion of vermilion border of upper lip Instructions: ED Facial Contusion, ED Wrist Sprain Prescriptions: New oxycodone-acetaminophen [Percocet] 5-325 mg tablet 1 tab PO Q6H PRN (Reason: pain) 3 Days Qty: 12 0RF No Action gabapentin 800 mg tablet 800 mg PO BID Qty: 60 4RF baclofen 10 mg tablet 10 mg PO TID PRN (Reason: muscle pain/spasm) Qty: 90 5RF tizanidine 4 mg tablet See Rx Instructions PO QHS Qty: 90 5RF Rx Instructions: One to three tablets orally at bedtime lactulose 10 gram/15 mL solution 10 g PO DAILY fluticasone propionate 50 mcg/actuation spray,suspension 1 spray intranasal DAILY Rx Instructions: administer into each nostril losartan 50 mg tablet 50 mg PO DAILY meloxicam 15 MG tablet 15 mg PO DAILY bisacodyl 5 MG tablet 10 mg PO TID PRN PRN (Reason: Constipation) docusate sodium [DOK] 100 MG capsule 100 mg PO BID PRN PRN (Reason: DEPRESSION) ergocalciferol (vitamin D2) [Vitamin D2] 50,000 UNIT capsule 50,000 unit PO WE albuterol sulfate [ProAir HFA] 1 PUFF inhaler 2 puff inhalation Q6H PRN PRN (Reason: Sob &/Or Wheezing) Label Comments: INHALE 2 PUFFS INTO THE LUNGS EVERY 6 HOURS NEEDED FOR WHEEZING lubiprostone [Amitiza] 24 mcg capsule 24 mcg PO BID Qty: 60 5RF Primary Care Provider: ONEIDA BRANHAM Referrals: ONEIDA BRANHAM DO [Primary Care Provider] - Activity Restrictions/Additional Instructions: Your CT scan does not reveal any new facial fracture/nose fracture and x-ray of your wrist does not reveal any fracture or dislocation. Wear your thumb spica splint for stabilization and healing of your wrist sprain and return to the ER should you have any further concerns. Disposition Disposition: Home, Self Care Discharge Date/Time: 07/16/22 01:36
[2022-07-16] MEDS: oxyCODONE 5 MG Tablet PO (01:25)
== END 2022-07-16 01:36 | disposition home or self-care (01) ==
PROVIDERS: Emergency Provider Emergency Medicine; PCP Family Medicine; Visit Provider Emergency Medicine
DX: S00.83XA Contusion of other part of head, initial encounter (principal); Z87.891 Personal history of nicotine dependence; I10 Essential (primary) hypertension; S00.511A Abrasion of lip, initial encounter; S63.501A Unspecified sprain of right wrist, initial encounter; W01.198A Fall on same level from slipping, tripping and stumbling with subsequent striking against other object, initial encounter; J45.909 Unspecified asthma, uncomplicated
CPT/HCPCS: 70486; 73110; 96372; 99283

== ENCOUNTER 2023-12-28 18:15 | Inpatient (IN) | payer MEDICAID, SELFPAY ==
[2023-12-28 18:16] VITALS: BP 150/88; PULSE 96; RESP 18; TEMP 36.7; O2SAT 98; BMI 19.4
--- NOTE | 2023-12-28 18:52 | CT_ITS ---
STUDY: CT CERVICAL SPINE WITHOUT CONTRAST REASON FOR EXAM: Female, 58 years old. fall RADIATION DOSAGE (If Supplied By Facility): CTDIvol = ( 12.29 ) mGy, DLP = ( 234.27 ) mGycm TECHNIQUE: High resolution transaxial imaging was performed without contrast material. Sagittal and coronal images were reconstructed. Individualized dose optimization techniques were used for this CT. COMPARISON: September 05, 2014 FINDINGS: Normal craniovertebral junction. Normal anterior atlantoaxial articulation. Normal odontoid process. Normal cervical lordosis. Normal vertebral bodies and posterior osseous elements. C2-3: Narrowed disc space and mild degenerative endplate changes. Normal central canal and intervertebral neuroforamina. C3-4: Narrowed disc space and mild bulging disc osteophyte complex. Mild narrowing of the central canal. Severe bilateral neural foraminal stenosis secondary to bony hypertrophy C4-5: Status post anterior fusion with disc spacer placement. Normal central canal and intervertebral neuroforamina. C5-6: Status post anterior fusion and disc spacer placement. Normal central canal and intervertebral neuroforamina. C6-7: Status post anterior fusion disc spacer placement. Normal central canal and intervertebral neuroforamina. C7-T1: Normal endplates. Normal disc height and morphology. Normal central canal and intervertebral neuroforamina. Normal visualized soft tissue structures. CT/Spine Cervical without Contras IMPRESSION: Mild spondylosis. Status post multilevel anterior fusion and disc spacer placement No acute fracture or other significant abnormality Electronically Signed: Jeremiah Mcnair MD at 20:17 EDT ,
--- NOTE | 2023-12-28 18:52 | CT_ITS ---
STUDY: CT BRAIN WITHOUT CONTRAST REASON FOR EXAM: Female, 58 years old. head injury RADIATION DOSAGE (If Supplied By Facility): CTDIvol = ( 44.99 ) mGy, DLP = ( 796.11 ) mGycm TECHNIQUE: Transaxial CT imaging of the brain was performed without administration of intravenous contrast material. Individualized dose optimization techniques were used for this CT. COMPARISON: No relevant priors. FINDINGS: Normal soft tissue structures. Normal calvarium. Normal size ventricles and extra-axial spaces for the patient''s age. Normal white matter tracts of the cerebral hemispheres. Normal basal ganglia and thalami. Normal brainstem. Normal cerebellum. There is no intracranial hemorrhage. There are no findings of an acute ischemic infarction. Normal visualized paranasal sinuses. CT/Brain/Head without Contrast IMPRESSION: Normal unenhanced CT scan of the brain. Electronically Signed: Jeremiah Mcnair MD at 20:13 EDT ,
--- NOTE | 2023-12-28 18:55 | EDS_ITS ---
HPI <HOUSTON Acosta - Last Filed: 12/28/23 21:06> History of Present Illness Chief Complaint: Lower Extremity Injury Narrative Narrative: Patient is a 58-year-old female with a history of a cervical injury 11 years ago, patient states that she is a ambulatory quadriplegic. Patient usually walks with no walker. Patient had a mechanical fall today when she turned to her left side landing on her backside as well as her left hip. Patient states she is unable to straighten her left leg. She is having severe pain to her lower back as well as to her left hip. While she was laying there, she also has pain to the head and neck. Patient denies being on any anticoagulation medicine. Denies any other injury. PFS <HOUSTON Acosta - Last Filed: 12/28/23 21:06> [facility] Medical History Pharyngoesophageal dysphagia Abnormality of gait Venous insufficiency Cervical spondylosis with myelopathy and radiculopathy Neuropathic pain Cervicogenic headache Quadriplegia following spinal cord injury Chronic pain Cervical compression fracture Intermittent palpitations Spastic bladder Flexion contractures Overactive bladder HTN (hypertension) Depression Chronic constipation Asthma Anxiety Peripheral neuropathy Acute on Recurrent UTI Home Medications ?Medication ?Instructions ?Recorded ?Last Taken ?Type albuterol sulfate 90 mcg/actuation 2 puff inhalation Q6H PRN PRN Sob 05/03/17 11/26/17 History aerosol inhaler (ProAir HFA) &/Or Wheezing ergocalciferol (vitamin D2) 1,250 50,000 unit PO [facility] 05/03/17 11/22/17 History mcg (50,000 unit) capsule (Vitamin maintenance D2) fluticasone propionate 50 1 spray intranasal DAILY 02/07/22 Unknown History mcg/actuation nasal spray,suspension losartan 50 mg tablet 50 mg PO DAILY bp 02/07/22 Unknown History baclofen 10 mg tablet 10 mg PO TID PRN muscle pain/spasm 05/03/22 Unknown Rx #90 tabs gabapentin 800 mg tablet 800 mg PO BID nerve pain #60 tabs 05/03/22 Unknown Rx Allergy/AdvReac Type Severity Reaction Status Date / Time buprenorphine (From [facility]) Allergy Severe BLISTERS Verified 05/24/23 13:35 codeine Allergy Severe Angioedema Verified 08/24/22 13:35 Family History Mother Aneurysm Arthritis High cholesterol Father Pneumonia Alcoholism Hypertension Grandmother Arthritis Heart disease Hypertension Grandfather Diabetes Aunt Diabetes Surgical History S/P cervical spinal fusion H/O neck surgery Social History household members: none Smoking Status: Former smoker Tobacco: How many years used: 20 second hand exposure: No alcohol intake: current details: occasionally substance use type: does not use elli/protestant: None seatbelt use: always ROS <HOUSTON Acosta - Last Filed: 12/28/23 21:06> ROS ED ROS Narrative Constitutional: Negative for fever, chills, weight loss, weakness Eyes: Negative for vision loss, vision change, double vision ENT: Negative for any sore throat, ear pain, congestion Cardiovascular: Negative for any chest pain, tightness, palpitations Respiratory: Negative for any cough, sputum production, hemoptysis, dyspnea, dyspnea on exertion, orthopnea Gastrointestinal: Negative for any abdominal pain, nausea, vomiting, diarrhea, constipation, blood in stool, blood in vomit : Negative for any urinary frequency, dysuria, retention, blood in urine Muscle skeletal: Positive for neck pain, back pain, left hip pain Neurological: Negative for any syncope, dizziness. Positive for headache Skin: Negative for any rashes, itching, abrasions, lacerations Psychiatric: Negative for any depression, anxiety, stress, suicidal ideation, homicidal ideation Hematologic: Negative for any excessive bruising, easy bleeding EXAM <HOUSTON Acosta - Last Filed: 12/28/23 21:06> Physical Exam Narrative Exam Narrative: Vital signs reviewed. Patient is alert and orient x 4. Patient is laying on her right side, she appears to be in mild to moderate amount of pain secondary to the fall. HEET: Head normocephalic atraumatic, TMs clear bilaterally. Posterior pharynx is clear, moist mucous membranes. Nares clear bilaterally. Pupils are equal round reactive to light. Negative for any hemotympanum or septal hematoma. Neck: Supple with no lymphadenopathy or tenderness. No signs of meningismus. There is old scarring posterior Cardiac: Regular rate and rhythm no murmurs gallops or rubs, equal peripheral pulses bilaterally. Respiratory: Lungs clear to auscultation bilaterally. No chest tenderness. Abdomen: Soft, nontender, nondistended. No abdominal bruit or pulsatile masses. No hepatosplenomegaly Extremities: Patient is laying on her right side, patient's left leg is bent, she does not allow me to flex at her extended. Pain to the lateral hip as well as the medial groin. Patient also has pain to his lower lumbar spine. No step- off deformity. No obvious signs of deformity. Neuro: Cranial nerves II through XII intact, no focal neurological deficits. Skin: Clean dry and intact with no rash, purpura, petechiae, vesicles or pustules. Backs/flank: No CVA tenderness, no midline spinal tenderness, no deformity. Psych: Normal mood and affect. No SI, HI or acute psychosis. Const Vital Signs: 12/28/23 18:16 12/28/23 20:15 12/28/23 20:41 Temperature 98.1 F 97.8 F Temperature Source Oral Pulse Rate 96 90 94 Respiratory Rate 18 20 H 18 Blood Pressure 150/88 H 145/78 H 145/78 H Blood Pressure Mean 108 100 100 Pulse Ox 98 99 98 Oxygen Delivery Method Room Air Room Air Positive well nourished and well developed General Appearance ED: well developed <Dr. Gisela Tovar DO - Last Filed: 12/29/23 14:51> Physical Exam Const Vital Signs: 12/28/23 18:16 12/28/23 20:15 12/28/23 20:41 Temperature 98.1 F 97.8 F Temperature Source Oral Pulse Rate 96 90 94 Respiratory Rate 18 20 H 18 Blood Pressure 150/88 H 145/78 H 145/78 H Blood Pressure Mean 108 100 100 Pulse Ox 98 99 98 Oxygen Delivery Method Room Air Room Air MDM <HOUSTON Acosta - Last Filed: 12/28/23 21:06> MDM Lab Data Labs: Laboratory Results - last 24 hr 12/28/23 19:15 WBC 6.1 RBC 4.51 Hgb 13.4 Hct 41.5 MCV 92.0 MCH 29.7 MCHC 32.3 RDW Std Deviation 42.0 RDW Coeff of Renee 12.4 Plt Count 331 MPV 9.7 Immature Gran % (Auto) 0.700 Neut % (Auto) 63.6 Lymph % (Auto) 22.7 Overton % (Auto) 8.7 Eos % (Auto) 3.5 Baso % (Auto) 0.8 Absolute Neuts (auto) 3.9 Absolute Lymphs (auto) 1.38 Nucleated RBC % 0 Sodium 136 Potassium 3.9 Chloride 105 Carbon Dioxide 23.0 Anion Gap 8 BUN 11 Creatinine 0.72 Estim Creat Clear Calc 73.41 Est GFR (MDRD) Af Amer 107 Est GFR (MDRD) Non-Af 89 BUN/Creatinine Ratio 15.3 Glucose 92 Calcium 10.0 TSH 2.950 Radiography Diagnostic Testing: Clinical Impression(s) from Imaging Studies Brain CT 12/28/23 18:52 IMPRESSION: Normal unenhanced CT scan of the brain. Electronically Signed: Jeremiah Mcnair MD at 20:13 EDT , Cervical Spine CT 12/28/23 18:52 IMPRESSION: Mild spondylosis. Status post multilevel anterior fusion and disc spacer placement No acute fracture or other significant abnormality Electronically Signed: Jeremiah Mcnair MD at 20:17 EDT , Ankle X-Ray 12/28/23 19:50 IMPRESSION: Minor medial malleolus sprain. No acute fracture or dislocation. Electronically Signed: Jeremiah Mcnair MD at 20:37 EDT , Chest X-Ray 12/28/23 19:50 IMPRESSION: Hyperinflation. No acute cardiopulmonary pathology Electronically Signed: Jeremiah Mcnair MD at 20:43 EDT , Hip/Pelvis X-Ray 12/28/23 19:50 IMPRESSION: Acute impacted angulated left femoral head and neck fracture Electronically Signed: Jeremiah Mcnair MD at 20:42 EDT , Lumbar Spine X-Ray 12/28/23 19:50 IMPRESSION: Mild scoliosis and degenerative change. No acute fracture or subluxation It should be noted on the lateral projection the sacral spine is not visualized due to positioning. Electronically Signed: Jeremiah Mcnair MD at 20:40 EDT , Treatment and Re-Evaluation :: Differential diagnosis includes however is not limited to: Hip fracture, pelvic fracture, contusion, lumbar fracture, compression fracture, sequelae from quadriplegia Patient appears to be in mild to moderate pain, patient is laying on her right side, complaining of pain to the left hip, lower back. Patient also complained of a headache, as well as a cervical neck pain. Patient will receive a CT scan of the brain and cervical spine secondary to the history of pain and fall. Patient will receive x-rays of the lower lumbar spine as well as the left hip and pelvis. IV will be established, IV pain medicine will be given. All radiologic examinations were read, reviewed by the emergency department attending. From these reads, a plan of care will be put in place. Patient will be reevaluated. Patient CBC, chemistries were unremarkable. Patient CT scan of the brain and cervical spine showed no acute process. Patient's ankle x-ray showed a minor medial malleolus sprain, no acute fracture or dislocation. Chest x-ray showed hyperinflation, no acute cardiopulmonary pathology. Patient's x-ray of the lumbar sacral spine shows mild scoliosis and degenerative change. No acute fracture. Patient's x-ray of the left hip shows acute impacted angulated left femoral head and neck fracture. Secondary to this finding, I did consult orthopedics, Dr. Lindsey he was aware. Patient will need to be admitted to the hospital. I spoke with hospitalist, patient stable for admission <Dr. Gisela Tovar, DO - Last Filed: 12/29/23 14:51> [facility] Lab Data Labs: Laboratory Results - last 24 hr 12/28/23 19:15 WBC 6.1 RBC 4.51 Hgb 13.4 Hct 41.5 MCV 92.0 MCH 29.7 MCHC 32.3 RDW Std Deviation 42.0 RDW Coeff of Renee 12.4 Plt Count 331 MPV 9.7 Immature Gran % (Auto) 0.700 Neut % (Auto) 63.6 Lymph % (Auto) 22.7 Overton % (Auto) 8.7 Eos % (Auto) 3.5 Baso % (Auto) 0.8 Absolute Neuts (auto) 3.9 Absolute Lymphs (auto) 1.38 Nucleated RBC % 0 Sodium 136 Potassium 3.9 Chloride 105 Carbon Dioxide 23.0 Anion Gap 8 BUN 11 Creatinine 0.72 Estim Creat Clear Calc 73.41 Est GFR (MDRD) Af Amer 107 Est GFR (MDRD) Non-Af 89 BUN/Creatinine Ratio 15.3 Glucose 92 Calcium 10.0 TSH 2.950 Radiography Diagnostic Testing: Clinical Impression(s) from Imaging Studies Brain CT 12/28/23 18:52 IMPRESSION: Normal unenhanced CT scan of the brain. Electronically Signed: Jeremiah Mcnair MD at 20:13 EDT , Cervical Spine CT 12/28/23 18:52 IMPRESSION: Mild spondylosis. Status post multilevel anterior fusion and disc spacer placement No acute fracture or other significant abnormality Electronically Signed: Jeremiah Mcnair MD at 20:17 EDT , Ankle X-Ray 12/28/23 19:50 IMPRESSION: Minor medial malleolus sprain. No acute fracture or dislocation. Electronically Signed: Jeremiah Mcnair MD at 20:37 EDT , Chest X-Ray 12/28/23 19:50 IMPRESSION: Hyperinflation. No acute cardiopulmonary pathology Electronically Signed: Jeremiah Mcnair MD at 20:43 EDT , Hip/Pelvis X-Ray 12/28/23 19:50 IMPRESSION: Acute impacted angulated left femoral head and neck fracture Electronically Signed: Jeremiah Mcnair MD at 20:42 EDT , Lumbar Spine X-Ray 12/28/23 19:50 IMPRESSION: Mild scoliosis and degenerative change. No acute fracture or subluxation It should be noted on the lateral projection the sacral spine is not visualized due to positioning. Electronically Signed: Jeremiah Mcnair MD at 20:40 EDT , Management Discussion w/another healthcare provider: Hospitalist and [employer] Treatment and Re-Evaluation :: Differential diagnosis includes however is not limited to: Hip fracture, pelvic fracture, contusion, lumbar fracture, compression fracture, sequelae from quadriplegia Patient appears to be in mild to moderate pain, patient is laying on her right side, complaining of pain to the left hip, lower back. Patient also complained of a headache, as well as a cervical neck pain. Patient will receive a CT scan of the brain and cervical spine secondary to the history of pain and fall. Patient will receive x-rays of the lower lumbar spine as well as the left hip and pelvis. IV will be established, IV pain medicine will be given. All radiologic examinations were read, reviewed by the emergency department attending. From these reads, a plan of care will be put in place. Patient will be reevaluated. Patient CBC, chemistries were unremarkable. Patient CT scan of the brain and cervical spine showed no acute process. Patient's ankle x-ray showed a minor medial malleolus sprain, no acute fracture or dislocation. Chest x-ray showed hyperinflation, no acute cardiopulmonary pathology. Patient's x-ray of the lumbar sacral spine shows mild scoliosis and degenerative change. No acute fracture. Patient's x-ray of the left hip shows acute impacted angulated left femoral head and neck fracture. Secondary to this finding, I did consult orthopedics, Dr. Lindsey he was aware. Patient will need to be admitted to the hospital. I spoke with hospitalist, patient stable for admission I have personally performed a face to face assessment of the patient and have reviewed the ALEX Note. I performed a substantive portion of the visit including all aspects of the following. My borden findings include: History is Patient is a 58 year old female with prior C spine injury and resulting paraplegia presenting from home via EMS after a mechanical fall causing her to land on her left side. She thinks she might have hit her head and is also complaining of right ankle pain. She is having significant pain, most of which seems to be coming from her left hip. She has some swelling and more diffuse tenderness to her right ankle. She is laying on her right with her left knee flexed. She has atrophy and some mild extremity contractures consistent with her prior Cspine injury. Head NC/AT. MMM. RRR, Lunges CTA B/L. Abd soft and nontender. X ray reviewed by myself as well as radiology shows a left closed femoral head/ neck fracture and right ankle sprain. No other acute traumatic injuries. She is given IV dilaudid for pain control. Case discussed with ortho and patient will be admitted to the medicine service. Other additions or changes: [None] Discharge Plan Dx/Rx/DC Orders Clinical Impression: Fall, Closed left hip fracture, Right ankle sprain Disposition Disposition: Acute Care Hospital [facility] Discharge Date/Time: 12/28/23 21:28
[2023-12-28] MEDS: Ondansetron 4 MG/2 ML Vial IV ×2 (19:05→22:27)
[2023-12-28] MEDS: 0.9% Normal Saline (1000mL) 1,000 ML 999 ML IV (19:05)
[2023-12-28] MEDS: Morphine 4 MG/ML Syringe IV (19:06)
[2023-12-28 19:20] LABS: Absolute Lymphocyte Count 1.38 X10^3/uL (0.83-4.51); Absolute Neutrophil Count 3.9 X10^3/uL (2.0-7.7); Basophil# 0.05 X10^3/uL; Basophil% 0.8 % (0-1); Eosinophil# 0.21 X10^3/uL; Eosinophils% 3.5 % (0-5); Hematocrit 41.5 % (37-47); Hemoglobin 13.4 g/dL (12.0-15.0); Lymphocyte # 1.38 X10^3/ul (0.83-4.51); Lymphocyte % 22.7 % (19-41); Mean Corp Hgb Conc 32.3 g/dL (32-36); Mean Corpuscular Hgb 29.7 pg (27.0-32.0); Mean Platelet Vol. 9.7 fl (6.2-12.0); Monocyte# 0.53 X10^3/uL; Monocyte% 8.7 % (0-10); NRBC Flagged by Analyzer 0 % (0-5); Neutrophil # 3.86 X10^3/uL (2.7-7.7); Neutrophil % 63.6 % (47-70); Platelet Count 331 K/mm3 (150-450); RBC Distribution Width CV 12.4 % (11.6-14.6); Red Blood Count 4.51 M/mm3 (4.2-5.4); White Blood Count 6.1 K/mm3 (4.4-11.0)
--- OUTSIDE RECORDS SUMMARY | 2023-12-28 19:34 | XMS RPT_ITS | CCD ---
Author Organization [facility] Care Team Providers Care Radiology Transporter Name Role Phone Myranda Traore Primary Care Provider MYRANDA TRAORE Primary Care Unavailable MYRANDA TRAORE Primary Care Unavailable Myranda Traore DO Primary Care Provider Myranda Traore DO Primary Care Provider Myranda Traore DO Primary Care Provider MYRANDA TRAORE Attending Unavailable MYRANDA TRAORE Primary Care Unavailable Allergies Allergy Classification Reported Allergen(s) Allergy Type Date of Onset Reaction(s) Facility Buprenorphine (1 source) Buprenorphine Drug Allergy 6 Other (See Comments) [facility]io[facility] (1 source) Codeine Drug Allergy 7 Anaphylaxis [facility] (20 sources) Buprenorphine; Translations: [BUPRENORPHINE] Drug Allergy 6 Other (See Comments), Other: See Comments, Other [place], [place] (20 sources) Codeine; Translations: [CODEINE] Drug Allergy 4 Anaphylaxis, Swelling [place], [place] Medications Current Medications Medication Drug Class(es) Dates Sig (Normalized) Sig (Original) [id number] 200 actuat albuterol 0.09 mg/actuat metered dose inhaler (20 sources) beta2-Adrenergic Agonist Start: 08-25-2022 take 2 puff(s) by mouth every six hours as needed Ventolin HFA 108 (90 Base) MCG/ACT inhaler INHALE 2 PUFFS BY MOUTH EVERY 6 HOURS NEEDED FOR WHEEZE 18 each 3 08/25/2022 Active Start: 06-03-2022 take 2 puff(s) by mo uth every six hours as needed Ventolin HFA 108 (90 Base) MCG/ACT inhaler TAKE 2 PUFFS BY MOUTH EVERY 6 HOURS NEEDED FOR WHEEZE 18 each 2 06/03/2022 Active Start: 09-23-2020 take 2 puff(s) by mo uth every six hours as needed for wheezing albuterol sulfate HFA 108 (90 Base) MCG/ACT inhaler INHALE 2 PUFFS BY MOUTH EVERY 6 HOURS NEEDED FOR WHEEZING 8.5 Inhaler 0 09/23/2020 Active Start: 08-29-2019 take 2 puff(s) by in halation every six hours as needed for wheezing PROAIR HFA 108 (90 Base) MCG/ACT inhaler Inhale 2 puffs into the lungs every 6 hours as needed for Wheezing 1 Inhaler 3 08/29/2019 Active Start: 11-26-2018 take 2 puff(s) by in halation every six hours as needed for wheezing PROAIR HFA 108 (90 Base) MCG/ACT inhaler Inhale 2 puffs into the lungs every 6 hours as needed for Wheezing 8.5 Inhaler 3 11/26/2018 Active Start: 03-08-2017 albuterol HFA (PROVENTIL HFA, VENTOLIN HFA) 90 mcg/actuation inhaler Inhale as instructed. 0 03/08/2017 Active Comment on above: Inhale as instructed . baclofen 20 mg oral tablet (20 sources) gamma-Aminobutyric Acid-ergic Agonist Start: 06-19-2023 End: 06-19-2023 take 1 tablet by mouth three times daily baclofen (Lioresal) 20 MG tablet Indications: Muscle Spasm Take 1 tablet (20 mg) by mouth 3 times daily. 90 tablet 3 06/19/2023 Active Start: 10-21-2015 End: 11-15-2022 baclofen (Lioresal) 20 MG ta blet Take 20 mg by mouth. 0 11/24/2021 11/15/2022 Discontinued Start: 10-21-2015 take 1 tablet by bryce th every six hours baclofen (LIORESAL) 20 MG tablet Indications: Injury of cervical spinal cord, subsequent encounter ([facility]) TAKE 1 TABLET BY MOUTH EVERY 6 HOURS 120 tablet 3 10/29/2020 Active Comment on above: Take 1 tablet by bryce th three times daily. Per Dr. Aaron. cyclobenzaprine hydrochloride 10 mg oral tablet (20 sources) Muscle Relaxant Start: 08-15-19 End: 12-27-19 take 1 tablet by mouth three times daily as needed for muscle spasms cyclobenzaprine (Flexeril) 10 MG tablet Indications: Other muscle spasm Take 1 tablet (10 mg) by mouth 3 times daily as needed for muscle spasms. 90 tablet 3 12/27/2023 Active Comment on above: Take 10 mg by mouth as needed. Disposable Gloves (NITRILE GLOVES MEDIUM) MISC (5 sources) Start: 10-13-19 17 Disposable Gloves (NITRILE GLOVES MEDIUM) MISC Indications: Neurogenic dysfunction of the urinary bladder 4 boxes for dx:N31.9 BRAND: [employer] 4 each 2 10/12/2016 Active docusate sodium 100 mg oral capsule (20 sources) Start: 02-26-20 16 take 1 capsule by mouth twice daily docusate sodium (Colace) 100 MG capsule Indications: Other constipation TAKE 1 CAPSULE BY MOUTH TWICE A DAY 60 capsule 11 01/31/2022 Active Comment on above: Take 1 capsule by mo ut twice daily. ergocalciferol 1.25 mg oral capsule (20 sources) Provitamin D2 Compound Start: 08-26-19 23 End: 08-14-19 24 take 1 capsule by mouth every week ergocalciferol (Vitamin D2) 1.25 MG (86552 UT) capsule TAKE 1 CAPSULE BY MOUTH ONE TIME PER WEEK 12 capsule 3 08/14/2023 Active Start: 07-18-2017 take 1 capsule by mo ut every week ergocalciferol (Vitamin D-2) 1.25 MG (48113 UT) capsule TAKE 1 CAPSULE BY MOUTH ONE TIME PER WEEK Strength: 1.25 mg 12 capsule 1 04/07/2022 Active Comment on above: Take 1 capsule by mo ut once each week. escitalopram 20 mg oral tablet (5 sources) Serotonin Reuptake Inhibitor Start: 9 take 1 tablet by mouth once daily escitalopram (LEXAPRO) 20 MG tablet Indications: Moderate episode of recurrent major depressive disorder (HCC) TAKE 1 TABLET BY MOUTH EVERY DAY 90 tablet 1 12/14/2018 Active Start: 09-18-2018 End: 12-11-2018 take 1 tablet by mouth once daily escitalopram (LEXAPRO) 20 MG tablet Indications: Moderate episode of recurrent major depressive disorder (HCC) TAKE 1 TABLET BY MOUTH EVERY DAY 30 tablet 3 09/18/2018 12/11/2018 Discontinued (Therapy completed) Start: 09-14-2017 take 1 tablet by bryce th once daily escitalopram oxalate (LEXAPRO) 10 mg tablet Take 10 mg by mouth once daily. 3 09/14/2017 Active Comment on above: Take 10 mg by mouth once daily. fluticasone propionate 0.05 mg/actuat metered dose nasal spray (17 sources) Corticosteroid Start: 01-17-2022 fluticasone (Flonase) 50 MCG/ACT nasal spray SPRAY 1 SPRAY BY NASAL ROUTE EVERY DAY 01/17/2022 Active gabapentin 800 mg oral tablet (20 sources) Anti-epileptic Agent Start: 12-07-2023 End: 12-06-2024 gabapentin (Neurontin) 800 MG tablet Indications: Functional quadriplegia (CMS/HCC) (HCC) Take 1 tablet (800 mg) by mouth in the morning and 1 tablet (800 mg) at noon and 1 tablet (800 mg) in the evening and 1 tablet (800 mg) before bedtime. 360 tablet 12/07/2023 12/06/2024 Active Start: 07-02-2021 End: 06-19-2023 take 1 tablet by mouth four times daily gabapentin (Neurontin) 800 MG tablet Indications: Functional quadriplegia (CMS/HCC) (HCC) Take 1 tablet (800 mg) by mouth 4 times daily. 90 tablet 3 06/19/2023 Active Start: 10-29-2020 End: 11-28-2020 take 1 capsule by mouth twice daily gabapentin (NEURONTIN) 400 MG capsule Indications: Injury of cervical spinal cord, subsequent encounter (HCC) Take 1 capsule by mouth 2 times daily for 30 days. 90 capsule 3 10/29/2020 11/28/2020 Active Start: 08-17-2018 End: 11-29-2020 take 1 tablet by mouth four times daily gabapentin (NEURONTIN) 800 MG tablet Indications: Injury of cervical spinal cord, subsequent encounter (HCC) TAKE 1 TABLET BY MOUTH 4 TIMES DAILY FOR 30 DAYS. 120 tablet 3 10/29/2020 11/29/2020 Active take 1 capsule by mo uth twice daily gabapentin (NEURONTIN) 400 MG capsule Take 400 mg by mouth 2 times daily. 0 Active take 1 tablet by bryce th twice daily gabapentin (NEURONTIN) 800 MG tablet Take 800 mg by mouth 2 times daily. 0 Active Comment on above: Take 800 mg by mouth . Incontinence Supply Disposable (BLADDER CONTROL PAD REGULAR) MISC (5 sources) Start: 7 Incontinence Supply Disposable (BLADDER CONTROL PAD REGULAR) [facility] [place] Indications: Neurogenic dysfunction of the urinary bladder Disposable pads dx:N31.9, dispense one case 1 Bottle 2 10/12/2016 Active lactulose 667 mg/ml oral solution (20 sources) Osmotic Laxative Start: 2 End: 3 take 15 mL by mouth once daily in the evening lactulose (Chronulac) 10 GM/15ML solution Indications: Other constipation TAKE 15 MLS BY MOUTH EVERY EVENING 473 mL 3 08/08/2022 Active Start: 12-15-2021 End: 08-08-2022 lactulose (Chronulac) 10 GM/ 15ML solution Take 10 g by mouth. 0 12/15/2021 08/08/2022 Discontinued take 20 g by mouth t hree times daily lactulose (DUPHALAC, CONSTULOSE) 10 g/15 mL soln Take 20 g by mouth three times daily. 0 Active Comment on above: Take 20 g by mouth t hree times daily. losartan potassium 50 mg oral tablet (20 sources) Angiotensin 2 Receptor Randy Start: 08-25-2022 End: 08-14-2023 take 1 tablet by mouth once daily losartan (Cozaar) 50 MG tablet Take 1 tablet (50 mg) by mouth daily. 90 tablet 3 08/14/2023 Active Start: 08-05-2021 take 1 tablet by bryce th once daily losartan (Cozaar) 50 MG tablet TAKE 1 TABLET BY MOUTH EVERY DAY 90 tablet 2 02/14/2022 Active Start: 10-19-2020 take 0.5 tablet by m outh once daily losartan (COZAAR) 50 MG tablet Take 0.5 tablets by mouth daily 30 tablet 0 10/19/2020 Active Start: 11-26-2018 take 1 tablet by bryce th once daily losartan (COZAAR) 100 MG tablet Indications: Benign essential HTN Take 1 tablet by mouth daily 30 tablet 5 11/26/2018 Active losartan (COZAAR ) 50 MG tablet Take 25 mg by mouth daily 0 Active Comment on above: Take by mouth. nitrofurantoin, macrocrystals 25 mg / nitrofurantoin, monohydrate 75 mg oral capsule (1 source) Nitrofuran Antibacterial Start: 06-11-19 End: 06-16-19 take 1 capsule by mouth twice daily nitrofurantoin monohydrate and macrocrystal (MACROBID) 100 mg capsule Indications: Urinary frequency Take 1 capsule by mouth twice daily for 5 days. 10 capsule 0 06/10/2022 06/15/2022 Active Comment on above: Take 1 capsule by mo ut twice daily for 5 days. Tens Unit MISC (5 sources) Start: 03-08-20 Tens Unit MISC Indications: Quadriplegia (HCC) by Does not apply route 1 each 0 03/08/2017 Active Completed/Discontinued Medications Medication Drug Class(es) Dates Sig (Normalized) Sig (Original) acetaminophen 325 mg / HYDROcodone bitartrate 5 mg oral tablet (7 sources) Opioid Agonist Start: 10-07-2021 End: 06-19-2023 take 1 tablet by mouth every six hours as needed for pain HYDROcodone-acetam inophen (Freer) 5-325 MG tablet 1 TAB ORALLY EVERY 6 HOURS NEEDED NEEDED FOR PAIN FOR 5 DAYS 0 10/07/2021 06/19/2023 Discontinued (Med list cleanup) amitriptyline hydrochloride 50 mg oral tablet (3 sources) Tricyclic Antidepressant Start: 10-07-2015 take 1 tablet by mouth once daily at bedtime amitriptyline (ELAVIL) 50 mg tablet Take 1 tablet by mouth daily at bedtime. [facility] 0 10/07/2015 Active Comment on above: Take 1 tablet by bryce th daily at bedtime. [facility] Budesonide / formoterol (3 sources) Corticosteroid, beta2-Adrenergic Agonist Start: 07-04-2015 take 2 puff(s) by inhalation twice daily budesonide-formote rol (SYMBICORT) 160-4.5 mcg/actuation inhaler Inhale 2 Puffs as instructed twice daily. 0 07/04/2015 Active Comment on above: Inhale 2 Puffs as in structed twice daily. COMPOUNDED PRESCRIPTION (9 sources) Start: 04-20-2016 COMPOUNDED PRESCRIPTION Indications: Flexion contractures , Weakness of both lower extremities , Upper extremity weakness , Quadriplegia following spinal cord injury , Chronic pain associated with significant psychosocial dysfunction , Myofascial pain , Cervical spondylosis with myelopathy and radiculopathy In home Physical Therapy for strengthening and pain management. Personal [facility]. Dx: M24.50, M62.81, G82.50, M79.1, M47.12 1 Device 0 04/20/2016 Active Start: 12-08-2015 COMPOUNDED PRE SCRIPTION Indications: Malnutrition of mild degree (HCC) Ensure 2 times a day 60 Bottle 3 12/08/2015 Active Start: 09-24-2015 COMPOUNDED PRE SCRIPTION Supplies for incontinence: gloves, chux (incontinent pads/disposable), cloth chux (incontinent pads/disposable). Dx: incontinence, N32.89. 2 Box 11 09/24/2015 Active Comment on above: Supplies for inconti nence: gloves, chux (incontinent pads/disposable), cloth chux (incontinent pads/disposable). Dx: incontinence, N32.89. Ensure 2 times a day In home Physical The rapy for strengthening and pain management. [facility]. Dx: M24.50, M62.81, G82.50, M79.1, M47.12 24 hr dilTIAZem hydrochloride 120 mg extended release oral capsule (3 sources) Calcium Channel Randy Star t: 07-02 0-20 18 take 1 capsule by mouth once daily, then take 1 capsule by mouth every twenty-four hours diltiazem CD (CARDIZEM CD, CARTIA XT) 120 mg 24 hr capsule Take 120 mg by mouth once daily. 3 07/11/2017 Active Comment on above: Take 120 mg by mouth once daily. DULoxetine 60 mg delayed release oral capsule (3 sources) Serotonin and Norepinephrine Reuptake Inhibitor Star t: 9-20 16 DULoxetine (CYMBALTA) 60 mg capsule Take 1 capsule by mouth twice daily. Per counseling center 0 11/10/2015 Active Comment on above: Take 1 capsule by [facility] twice daily. Per [facility] Food Supplement, Lactose-Free (PROMOTE, OSMOLITE, TWO ANA MARIA, ENSURE PLUS, ENLIVE) liqd (3 sources) Star t: 04-04 4-20 17 take 237 mL by mouth three times daily at mealtime Food Supplement, Lactose-Free (PROMOTE, OSMOLITE, TWO ANA MARIA, ENSURE PLUS, ENLIVE) liqd Take 237 mL by mouth three times daily with meals. 90 Can 11 04/26/2016 Active Comment on above: Take 237 mL by mouth three times daily with meals. gadobenate dimeglumine (MULTIHANCE) injection 13 mL (1 source) Star t: 07-21 End: 07-21 gadobenate dimeglumine (MULTIHANCE) injection 13 mL glycerin 2100 mg rectal suppository (3 sources) Non-Standardized Chemical Allergen Star t: 10-01 18 glycerin ADULT suppository Indications: Chronic constipation 1 Suppository by RECTAL route as needed. 30 Suppository 3 10/18/2017 Active Comment on above: 1 Suppository by REC DAVID route as needed. hydroCHLOROthiazide 12.5 mg oral capsule (1 source) Thiazide Diuretic hydroCHLOROthi azide 12.5 mg capsule 1 capsule 0 Active Comment on above: 1 capsule linaclotide 0.145 mg oral capsule (3 sources) Guanylate Cyclase-C Agonist Star t: 0 06-20 18 take 1 capsule by mouth once daily LINZESS 145 mcg cap Take 1 capsule by mouth once daily. 3 07/04/2017 Active Comment on above: Take 1 capsule by mo uth once daily. lisinopril 10 mg oral tablet (3 sources) Angiotensin Converting Enzyme Inhibitor Star t: 07-02 18 take 1 tablet by mouth in the morning, then take 0.5 tablet by mouth in the evening lisinopril (ZESTRIL, PRINIVIL) 10 mg tablet TAKE ONE TAB BY MOUTH IN THE AM AND 0.5 TABS BY MOUTH IN THE PM. 45 tablet 0 07/18/2017 Active Comment on above: TAKE ONE TAB BY MOUT H IN THE AM AND 0.5 TABS BY MOUTH IN THE PM. meloxicam 15 mg oral tablet (15 sources) Nonsteroidal Anti-inflammatory Drug Star t: 10-02 End: 06-01 24 take 1 tablet by mouth once daily meloxicam (Mobic) 15 MG tablet TAKE 1 TABLET BY MOUTH EVERY DAY 30 tablet 3 10/21/2022 06/19/2023 Discontinued (Med list cleanup) Start: 12-31-2021 take 1 tablet by bryce once daily meloxicam (Mobic) 15 MG tablet Take 1 tablet by mouth daily. 0 12/31/2021 Active Start: 10-19-2020 take 1 tablet by bryce th once daily meloxicam (MOBIC) 15 MG tablet TAKE 1 TABLET BY MOUTH EVERY DAY 30 tablet 0 10/19/2020 Active Start: 09-13-2019 take 1 tablet by bryce th once daily meloxicam (MOBIC) 15 MG tablet TAKE 1 TABLET BY MOUTH EVERY DAY 30 tablet 3 09/13/2019 Active Start: 09-24-2018 take 1 tablet by bryce th once daily meloxicam (MOBIC) 15 MG tablet TAKE 1 TABLET BY MOUTH EVERY DAY 30 tablet 3 09/24/2018 Active Start: 06-29-2017 take 1 tablet by bryce th once daily meloxicam (MOBIC) 7.5 mg tablet Take 7.5 mg by mouth once daily. 5 06/29/2017 Active take 7.5 mg by mouth once daily as needed meloxicam (MOBIC) 15 MG tablet Take 7.5 mg by mouth daily as needed 0 Active Comment on above: Take 7.5 mg by mouth once daily. mirtazapine 15 mg oral tablet (3 sources) Start: 6 take 1 tablet by mouth once daily at bedtime mirtazapine (REMERON) 15 mg tablet Take 1 tablet by mouth daily at bedtime. [facility] 0 10/07/2015 Active Comment on above: Take 1 tablet by bryce th daily at bedtime. [facility] 24 hr oxybutynin chloride 10 mg extended release oral tablet (8 sources) Cholinergic Muscarinic Antagonist Start: 9 take 1 tablet by mouth once daily oxybutynin ER (DITROPAN XL) 10 mg 24 hr tablet TAKE 1 TABLET BY MOUTH EVERY DAY 90 tablet 3 09/26/2018 Active take 1 tablet by mouth once mariia y oxybutynin (DITROPAN) 5 MG tablet Take 5 mg by mouth daily 0 Active Comment on above: TAKE 1 TABLET BY BRYCE TH EVERY DAY polyethylene glycol 3350 04433 mg powder for oral solution (4 sources) Osmotic Laxative Start: 6 End: 0 polyethylene glycol 3350 (MIRALAX, GLYCOLAX) 17 gram/dose powder Indications: Constipation, unspecified constipation type Take 17 g by mouth once daily. 1 Bottle 11 10/21/2015 Active Comment on above: Take 17 g by mouth o nce daily. tiZANidine 4 mg oral tablet (3 sources) Central alpha-2 Adrenergic Agonist Start: 8 take 1 tablet by mouth three times daily tiZANidine (ZANAFLEX) 4 mg tablet Take 4 mg by mouth three times daily. 3 06/01/2017 Active Comment on above: Take 4 mg by mouth t hree times daily. Problems Active Problems Problem Classification Problem Date Documented Da te Episodic/Chronic Anxiety disorders (3 sources) Anxiety; Translations: [Anxiety disorder, unspecified] Onset: 03-04-2015 10-21-2015 Chronic Asthma (17 sources) Allergic asthma; Translations: [Unspecified asthma, uncomplicated] Onset: 01-12-2015 01-12-2015 Chronic Essential hypertension (4 sources) Benign essential hypertension; Translations: [Essential (primary) hypertension] Onset: 01-12-2015 Chronic External cause codes: Fall (1 source) Fall; Translations: [Fall, subsequent encounter] Genitourinary symptoms and ill-defined conditions (1 source) Increased frequency of urination; Translations: [Frequency of micturition] Episodic Influenza (1 source) Influenza-like illness; Translations: [Influenza due to unidentified influenza virus with other respiratory manifestations] Episodic Miscellaneous mental health disorders (3 sources) Psychosomatic factor in physical condition; Translations: [Psychological and behavioral factors associated with disorders or diseases classified elsewhere] Onset: 01-06-2015 01-12-2015 Chronic Nutritional deficiencies (3 sources) Undernutrition; Translations: [Mild protein-calorie malnutrition] Onset: 12-08-2015 12-08-2015 Chronic Osteoporosis (3 sources) Osteoporosis; Translations: [Other osteoporosis without current pathological fracture] Onset: 06-19-2023 06-19-2023 Chronic Other acquired deformities (3 sources) Flexion contracture; Translations: [Contracture, unspecified joint] Onset: 01-12-2015 03-29-2021 Chronic Other connective tissue disease (1 source) Pain in finger of left hand; Translations: [Pain in left finger(s)] Episodic Other connective tissue disease (4 sources) Spasm; Translations: [Other muscle spasm] Episodic Other diseases of bladder and urethra (3 sources) Spasm of bladder; Translations: [Other specified disorders of bladder] Onset: 01-12-2015 01-12-2015 Chronic Other gastrointestinal disorders (18 sources) Chronic idiopathic constipation; Translations: [Chronic idiopathic constipation] Onset: 11-15-2016 11-15-2016 Chronic Other gastrointestinal disorders (5 sources) Constipation; Translations: [Constipation, unspecified] Onset: 10-21-2015 10-21-2015 Episodic Other nervous system disorders (20 sources) Neuropathy; Translations: [Polyneuropathy, unspecified] Onset: 10-12-2017 10-12-2017 Chronic Other nervous system disorders (6 sources) Chronic pain; Translations: [Other chronic pain] Onset: 01-12-2015 03-29-2021 Chronic Paralysis (20 sources) Paraplegia; Translations: [Tetraplegia] Onset: 07-16-2018 Resolved: 07-16-2018 07-16-2018 Chronic Spondylosis; intervertebral disc disorders; other back problems (3 sources) Cervical spondylosis; Translations: [Other spondylosis with myelopathy, cervical region] Onset: 06-05-2015 10-21-2015 Chronic Spondylosis; intervertebral disc disorders; other back problems (2 sources) Chronic thoracic back pain; Translations: [Pain in thoracic spine] Episodic Unclassified (1 source) Patient encounter status; Translations: [Screening mammogram, encounter for] Past or Other Problems Problem Classification Problem Date Documented Date Episodic/Chronic Cardiac dysrhythmias (3 sources) Intermittent palpitations; Translations: [Palpitations] Onset: 5 01-12-2015 Episodic Headache; including migraine (3 sources) Cervicogenic headache; Translations: [Cervicogenic headache] Onset: 6 10-21-2015 Episodic Other circulatory disease (1 source) Thready pulse; Translations: [Diminished pulse] Episodic Other connective tissue disease (1 source) Disorder of lower extremity; Translations: [Muscle spasms of both lower extremities] Episodic Other connective tissue disease (3 sources) Muscle weakness of limb; Translations: [Other symptoms and signs involving the musculoskeletal system] Onset: 5 10-21-2015 Episodic Other connective tissue disease (3 sources) Muscle weakness of upper limb; Translations: [Other symptoms and signs involving the musculoskeletal system] Onset: 5 10-21-2015 Episodic Other connective tissue disease (3 sources) History of cervical spine fusion; Translations: [Arthrodesis status] Onset: 6 10-21-2015 Episodic Other connective tissue disease (3 sources) Myofascial pain; Translations: [Myalgia, other site] Onset: 6 10-21-2015 Episodic Other connective tissue disease (3 sources) Neuropathic pain; Translations: [Neuralgia and neuritis, unspecified] Onset: 6 10-21-2015 Episodic Other diseases of veins and lymphatics (3 sources) Vascular insufficiency; Translations: [Venous insufficiency (chronic) (peripheral)] Onset: 6 10-21-2015 Episodic Other fractures (3 sources) Compression fracture of cervical spine; Translations: [Fracture of neck, unspecified, initial encounter] Onset: 4 03-29-2021 Episodic Other gastrointestinal disorders (4 sources) Chronic idiopathic constipation; Translations: [Chronic idiopathic constipation] Onset: 7 11-15-2016 Episodic Other gastrointestinal disorders (3 sources) Dysphagia; Translations: [Dysphagia, pharyngoesophageal phase] Onset: 6 11-02-2015 Episodic Other nervous system disorders (1 source) Unsteady gait; Translations: [Gait instability] Episodic Other nervous system disorders (3 sources) Abnormal gait; Translations: [Unspecified abnormalities of gait and mobility] Onset: 5 10-21-2015 Episodic Other screening for suspected conditions (not mental disorders or infectious disease) (7 sources) Patient encounter status; Translations: [Encounter for screening for lipoid disorders] Onset: 4 Episodic Residual codes; unclassified (2 sources) Edema of lower extremity; Translations: [Bilateral lower extremity edema] Episodic Residual codes; unclassified (3 sources) Blood pressure alteration; Translations: [Other general symptoms and signs] Onset: 4 03-29-2021 Episodic Residual codes; unclassified (3 sources) Bilateral lower limb edema; Translations: [Localized edema] Onset: 4 03-29-2021 Episodic Residual codes; unclassified (3 sources) Insomnia; Translations: [Insomnia, unspecified] Onset: 5 10-21-2015 Episodic Spinal cord injury (8 sources) Tetraplegia; Translations: [Quadriplegia following spinal cord injury] Onset: 5 02-13-2017 Episodic Syncope (3 sources) Syncope; Translations: [Syncope and collapse] Onset: 4 03-29-2021 Episodic Results Test Name Value Interpretation Reference Range Facility 12-06-2023 36 Recent Visits Date Type Provider Dept 06/19/23 Office Visit Myranda Traore DO [facility] Showing recent visits within past 365 days and meeting all other requirements Future Appointments No visits were found meeting these conditions. Showing future appointments within next 90 days and meeting all other requirements Requested Prescriptions Pending Prescriptions Disp Refills gabapentin (Neurontin) 800 MG tablet [Pharmacy Med Name: gabapentin 800 mg tablet] 360 tablet 0 Sig: Take 1 tablet (800 mg) by mouth in the morning and 1 tablet (800 mg) at noon and 1 tablet (800 mg) in the evening and 1 tablet (800 mg) before bedtime. Provider: Myranda Traore DO Verified pharmacy: yes Verified day(s) supplied: yes Verified refill(s) needed (previous prescription showing no refills in chart): Yes Have you received any controlled medications from any other provider? No Overdue for visit: Yes If yes - patient scheduled? Yes - 03/06/2024 Most recent labs completed in chart? Yes None [facility] [place] [id number] Message released to patient as written. Have you received any controlled medications from any other provider? Patient's further questions if applicable: no Were all questions from office addressed or relayed to the patient from encounter: Yes Pt does not get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 [facility] Date Time Provider Department 02/26/22 2:15 PM BENOIT DENISE During your visit today, we recorded the following information about you: Temperature Pulse Respiration Blood pressure 99.3 degrees 60/minute 18/minute 118/80 Weight 57.6 kg Benoit Denise MD 02/26/2022 2:41 PM Signed Patient presents with: Chest Congestion: Headache, fever, cough x 1 week HPI: Feeling sick for 1 week, seemed to improve but started feeling sick again last night. Fever 102 last night. Positive symptoms: Cough, chest congestion, Fever, Headache, Chest tightness, raw Sore throat, Nasal Congestion, Rhinorrhea, Body Aches, Headache Negative symptoms: , Vomiting, Diarrhea, OTC: Robitussin, Nyquil, Cold Medicine PAST MEDICAL HISTORY Diagnosis Date Allergic asthma 01/12/2015 Cervical compression fracture (HCC) 2012 c6 c7 Chronic pain 01/12/2015 Hands, feet and gluteal region. Essential hypertension 01/12/2015 Flexion contractures 01/12/2015 Fingers and wrists. Heart murmur HTN (hypertension) Intermittent palpitations 01/12/2015 Lower extremity weakness 01/12/2015 Nerve damage Pedal edema 09/16/2013 Going on for 2 months. Not every day, on and off, reduces on leg elevation. Thinks it is worse with walking.. Psychological factors affecting medical condition 01/06/2015 Spastic bladder 01/12/2015 Upper extremity weakness 01/12/2015 MEDICATIONS: Current Outpatient Medications Medication Sig oxybutynin ER (DITROPAN XL) 10 mg 24 hr tablet TAKE 1 TABLET BY MOUTH EVERY DAY cyclobenzaprine (FLEXERIL) 10 mg tablet Take 10 mg by mouth as needed. glycerin ADULT suppository 1 Suppository by RECTAL route as needed. meloxicam (MOBIC) 7.5 mg tablet Take 7.5 mg by mouth once daily. albuterol HFA (PROVENTIL HFA, VENTOLIN HFA) 90 mcg/actuation inhaler Inhale as instructed. lisinopril (ZESTRIL, PRINIVIL) 10 mg tablet TAKE ONE TAB BY MOUTH IN THE AM AND 0.5 TABS BY MOUTH IN THE PM. docusate sodium (DULCOLAX STOOL SOFTENER, DSS,) 100 mg capsule Take 1 capsule by mouth twice daily. docusate sodium (COLACE) 100 mg capsule Take 1 capsule by mouth twice daily. baclofen (LIORESAL) 20 mg tablet Take 1 tablet by mouth three times daily. Per Dr. Aaron. COMPOUNDED PRESCRIPTION Supplies for incontinence: gloves, chux (incontinent pads/disposable), cloth chux (incontinent pads/disposable). Dx: incontinence, N32.89. escitalopram oxalate (LEXAPRO) 10 mg tablet Take 10 mg by mouth once daily. (Patient not taking: Reported on 02/26/2022) diltiazem CD (CARDIZEM CD, CARTIA XT) 120 mg 24 hr capsule Take 120 mg by mouth once daily. ergocalciferol, vitamin D2, (DRISDOL) 50,000 unit capsule Take 1 capsule by mouth once each week. LINZESS 145 mcg cap Take 1 capsule by mouth once daily. (Patient not taking: Reported on 02/26/2022) gabapentin (NEURONTIN) 800 mg tablet Take 800 mg by mouth. tiZANidine (ZANAFLEX) 4 mg tablet Take 4 mg by mouth three times daily. (Patient not taking: Reported on 02/26/2022) Food Supplement, Lactose-Free (PROMOTE, OSMOLITE, TWO ANA MARIA, ENSURE PLUS, ENLIVE) liqd Take 237 mL by mouth three times daily with meals. (Patient not taking: Reported on 02/26/2022) COMPOUNDED PRESCRIPTION In home Physical Therapy for strengthening and pain management. [facility]. Dx: M24.50, M62.81, G82.50, M79.1, M47.12 COMPOUNDED PRESCRIPTION Ensure 2 times a day (Patient not taking: No sig reported) DULoxetine (CYMBALTA) 60 mg capsule Take 1 capsule by mouth twice daily. Per counseling center (Patient not taking: Reported on 02/26/2022) polyethylene glycol 3350 (MIRALAX, GLYCOLAX) 17 gram/dose powder Take 17 g by mouth once daily. (Patient not taking: No sig reported) mirtazapine (REMERON) 15 mg tablet Take 1 tablet by mouth daily at bedtime. Per Counseling Center (Patient not taking: No sig reported) amitriptyline (ELAVIL) 50 mg tablet Take 1 tablet by mouth daily at bedtime. Per Counseling Center (Patient not taking: Reported on 02/26/2022) budesonide-formotero l (SYMBICORT) 160-4.5 mcg/actuation inhaler Inhale 2 Puffs as instructed twice daily. (Patient not taking: No sig reported) No current facility-administere d medications for this visit. ALLERGIES: ALLERGIES Allergen Reactions Codeine Swelling, Anaphylaxis Butrans [Buprenorph* Other: See Comments Itching, burning. Medication did not absorb VITALS: BP 118/80 Pulse 60 Temp 37.4 ?C (99.3 ?F) Resp 18 Wt 57.6 kg (127 lb) LMP 01/26/2017 BMI 20.50 kg/m? PHYSICAL EXAM: GEN: mildly ill appearing. Accompanied by her daughter. HEENT: PERRL, EOMI, conjunctiva clear Ears: canals clear. TMs without erythema, bulge, or effusion Sinuses: non-tender frontal sinus, non-tender maxillary sinuses Throat: moist mucous membranes, mild erythema, no exudate Neck: s (more content not included)... Normal [facility] CBCOrdered By: Myranda garcia on 10-29-2020 Hematocrit (Bld) [Volume fraction] 39.2 % 35.0 - 47.0 % [employer] Work Phone: Hemoglobin.gastrointest inal spec 1 Ql (Stl) 12.9 g/dL 11.7 - 16.0 g/dL [employer] Work Phone: MCH (RBC) [Entitic mass] 30.8 pg 26.0 - 34.0 pg [employer] Work Phone: MCHC (RBC) [Mass/Vol] 32.9 % 32.0 - 36.0 % [employer] Work Phone: MCV (RBC) [Entitic vol] 93.7 fL 79.0 - 98.0 fL [employer] Work Phone: Platelet distribution width (Bld) [Ratio] 12.9 % 11.5 - 14.5 % [employer] Work Phone: Platelet mean volume (Bld) [Entitic vol] 7.9 fL 7.4 - 10.4 fL [employer] Work Phone: Platelets (Bld) [#/Vol] 312 10*3/uL 140 - 440 10*3/uL [employer] Work Phone: RBC (Bld) [#/Vol] 4.18 10*6/uL 3.80 - 5.2 0 10*6/uL [employer] Work Phone: WBC (Bld) [#/Vol] 6.3 10*3/uL 3.6 - 10.7 10*3/uL [employer] Work Phone: Test Performed by [facility], [address] , [place], [place] [address] [employer] Work Phone: [employer] Work Phone: CR Finger(s) Min 2 Views Lef ton 10-29-2020 CR Finger(s) Min 2 Views Left Patient Name: CHEN RUST Diagnostic Radiology ACCESSION EXAM DATE/TIME PROCEDURE ORDERING PROVIDER [id number] 10/29/2020 17:01 EDT CR Finger(s) Min 2 Views LEÓN Alcazar, MYRANDA Yan Left CPT code 05094 Reason For Exam (CR Finger(s) Min 2 Views Left) pain of left finger- 5th Report LEFT FIFTH FINGER CLINICAL INDICATION: Pain after trauma Three views of the left fifth finger were obtained. COMPARISON: None. FINDINGS: No fracture or dislocation of the left fifth finger is identified. There is no soft tissue swelling or bony erosions noted. No radiopaque foreign body is seen. IMPRESSION: Negative plain films of the left fifth finger. Report Dictated on Final Dictating Physician: MD SMALLWOOD JONATHAN R Signed Date and Time: 10/30/2020 3:55 pm Signed by: MD SMALLWOOD JONATHAN R Transcribed Date and Time: 10/30/2020 3:56 [facility] Lumbosacral 4+ View son 10-29-2020 CR Spine Lumbosacral 4+ Views Patient Name: CHEN RUST Diagnostic Radiology ACCESSION EXAM DATE/TIME PROCEDURE ORDERING PROVIDER [id number] 10/29/2020 17:01 EDT CR Spine Lumbosacral 4+ LEÓN HensonO., MYRANDA M Views CPT code 84714 Reason For Exam (CR Spine Lumbosacral 4+ Views) back pain Report LUMBAR SPINE SERIES CLINICAL INDICATION: Back pain AP, bilateral oblique, and lateral views of the lumbar spine were obtained. COMPARISON: None. FINDINGS: The alignment of the lumbar spine is normal. No fractures are seen. There is severe loss of intervertebral disc space height and degenerative endplate spurring at L5/S1 with vacuum disc phenomenon also noted at this level. There is otherwise mild loss of intervertebral disc space height and degenerative endplate spurring throughout the remainder of the lumbar spine. Facet hypertrophic changes are noted at L5/S1. There are no lytic or blastic lesions observed. No pars defects are seen on the oblique views. The sacroiliac joints appear unremarkable. IMPRESSION: No acute bony abnormality of the lumbar spine is identified. Advanced degenerative changes at L5/S1. Otherwise mild diffuse degenerative changes of the lumbar spine. Report Dictated on Final Dictating Physician: MD SMALLWOOD JONATHAN R Signed Date and Time: 10/30/2020 3:53 pm Signed by: MD SMALLWOOD JONATHAN R Transcribed Date and Time: 10/30/2020 3:54 Normal [facility] CR Spine Thoracic 3 Viewson 10-29-2020 CR Spine Thoracic 3 Views Patient Name: CHEN RUST Diagnostic Radiology ACCESSION EXAM DATE/TIME PROCEDURE ORDERING PROVIDER [id number] 10/29/2020 17:01 EDT CR Spine Thoracic 3 TRAORE D.O., MYRANDA M Views CPT code 76074 Reason For Exam (CR Spine Thoracic 3 Views) Pain in thoracic spine Report THORACIC SPINE SERIES CLINICAL INDICATION: Back pain AP, lateral, and swimmer's views of the thoracic spine were obtained. COMPARISON: None. FINDINGS: The alignment of the thoracic spine is normal. No compression deformities are seen. Diffuse degenerative changes are noted throughout the thoracic spine with loss of intervertebral disc space height and endplate spurring. The visualized ribs are unremarkable. Cervical spine fusion hardware is noted within the mid to lower cervical spine. IMPRESSION: No acute bony abnormality of the thoracic spine is identified. Mild diffuse degenerative changes. Report Dictated on Final Dictating Physician: MD SMALLWOOD JONATHAN R Signed Date and Time: 10/30/2020 3:49 pm Signed by: MD SMALLWOOD JONATHAN R Transcribed Date and Time: 10/30/2020 3:50 Normal [facility] Comp Metabolic Panelon 10-29 ALT [Catalytic activity/Vol] 30 U/L Normal 0-34 [facility] Comment on above: Result Comment: The ALT test is performed by an updated assay method. Please note that the reference intervals have been changed and are now sex specific. Performed By: #### H EMOG, CMP3, LIPD2, TSH5 #### [facility] [address] [place] [address] Calcium [Mass/Vol] 9.8 mg/dL Normal 8.4-10.4 [facility] Comment on above: Performed By: #### H EMOG, CMP3, LIPD2, TSH5 #### [facility] [address] [place] [address] ALP [Catalytic activity/Vol] 82 U/L Normal 38-126 [facility] Comment on above: Performed By: #### H EMOG, CMP3, LIPD2, TSH5 #### [facility] [address] [place] [address] Anion gap [Moles/Vol] 4 mmol/L Normal 3-13 [facility] Comment on above: Performed By: #### H EMOG, CMP3, LIPD2, TSH5 #### [facility] [address] [place] [address] AST [Catalytic activity/Vol] 39 U/L Normal 15-46 [facility] Comment on above: Performed By: #### H EMOG, CMP3, LIPD2, TSH5 #### [facility] [address] [place] [address] Bilirubin [Mass/Vol] 0.4 mg/dL Normal 0.2-1.3 [facility] Comment on above: Performed By: #### H EMOG, CMP3, LIPD2, TSH5 #### [facility] [address] [place] [address] CO2 [Moles/Vol] 29 mmol/L Normal 22-30 [facility] Comment on above: Performed By: #### H EMOG, CMP3, LIPD2, TSH5 #### [facility] [address] [place] [address] Creatinine [Mass/Vol] 0.72 mg/dL Normal 0.52-1.25 [facility] Comment on above: Performed By: #### H EMOG, CMP3, LIPD2, TSH5 #### [facility] [address] [place] [address] eGFR OTHER > 90.0 Normal >60 [facility] Comment on above: Result Comment: KDIG O guidelines provide the following GFR categories: Stage GFR(ml/min/1.73 m2) Terms G1 >=90 Normal or high G2 60-89 Mildly decreased* G3a 45-59 Mildly to moderately decreased G3b 30-44 Moderately to severely decreased G4 15-29 Severely decreased G5 <15 Kidney failure *Relative to young adult level. In the absence of evidence of kidney damage, neither GFR category G1 nor G2 fulfill the criteria for CKD. The CKD-EPI equation is validated in individuals 18 years of age and older. Currently the best equation for estimating glomerular filtration rate (GFR) from serum creatinine in children is the Bedside Austin equation. It is less accurate in patients with extremes of muscle mass, restriction of dietary protein, ingestion of creatine, extra-renal metabolism of creatinine, or treatment with medications that affect renal tubular creatinine secretion. Performed By: #### H ANNITA, CMP3, LIPD2, TSH5 #### [facility] [address] [place] [address] GFR/1.73 sq M.predicted among blacks MDRD (S/P/Bld) [Vol rate/Area] mL/min/{1.73_m2} Normal >60 [facility] Comment on above: Performed By: #### H EMOG, CMP3, LIPD2, TSH5 #### [facility] [address] [place] [address] Glucose [Mass/Vol] 97 mg/dL Normal 70-100 [facility] Comment on above: Performed By: #### H EMOG, CMP3, LIPD2, TSH5 #### [facility] [address] [place] [address] Protein [Mass/Vol] 7.5 g/dL Normal 6.3-8.2 [facility] Comment on above: Performed By: #### H EMOG, CMP3, LIPD2, TSH5 #### [facility] [address] [place] [address] Urea nitrogen [Mass/Vol] 10 mg/dL Normal 7-20 [facility] Comment on above: Performed By: #### H EMOG, CMP3, LIPD2, TSH5 #### [facility] [address] [place] [address] Potassium [Moles/Vol] 4.7 mmol/L Normal 3.5-5.1 [facility] Comment on above: Performed By: #### H EMOG, CMP3, LIPD2, TSH5 #### [facility] [address] [place] [address] Sodium [Moles/Vol] 138 mmol/L Normal 135-145 [facility] Comment on above: Performed By: #### H EMOG, CMP3, LIPD2, TSH5 #### [facility] [address] [place] [address] Albumin [Mass/Vol] 4.5 g/dL Normal 3.5-5.0 [facility] Comment on above: Performed By: #### H EMOG, CMP3, LIPD2, TSH5 #### [facility] [address] [place] [address] Chloride [Moles/Vol] 106 mmol/L Normal 98-107 [facility] Comment on above: Performed By: #### H EMOG, CMP3, LIPD2, TSH5 #### [facility] [address] [place] [address] Comprehensive Metabolic Pane lOrdered By: Myranda Traore on 10-29-2020 Albumin [Mass/Vol] 4.5 g/dL 3.5 - 5.0 g/dL [facility] Work Phone: ALP (Bld) [Catalytic activity/Vol] 82 U/L 38 - 126 U/L [facility] Work Phone: ALT [Catalytic activity/Vol] 30 U/L 0 - 34 U/L [facility] Work Phone: Comment on above: The ALT test is perf ormed by an updated assay method. Please note that the reference intervals have been changed and are now sex specific. Anion gap [Moles/Vol] 4 mmol/L 3 - 13 mmol/L [facility] Work Phone: AST [Catalytic activity/Vol] 39 U/L 15 - 46 U/L [facility] Work Phone: Bilirubin [Mass/Vol] 0.4 mg/dL 0.2 - 1 .3 mg/dL [facility] Work Phone: Calcium [Mass/Vol] 9.8 mg/dL 8.4 - 10. 4 mg/dL [facility] Work Phone: Chloride [Moles/Vol] 106 mmol/L 98 - 10 7 mmol/L [facility] Work Phone: CO2 [Moles/Vol] 29 mmol/L 22 - 30 mmol/L [facility] Work Phone: Creatinine [Mass/Vol] 0.72 mg/dL 0.52 - 1.25 mg/dL [facility] Work Phone: EGFR IF NonAfrican [place]an >90.0 >60 mL/min [facility] Work Phone: Comment on above: KDIGO guidelines pro vide the following GFR categories: Stage GFR(ml/min/1.73 m2) Terms G1 >=90 Normal or high G2 60-89 Mildly decreased* G3a 45-59 Mildly to moderately decreased G3b 30-44 Moderately to severely decreased G4 15-29 Severely decreased G5 <15 Kidney failure *Relative to young adult level. In the absence of evidence of kidney damage, neither GFR category G1 nor G2 fulfill the criteria for CKD. The CKD-EPI equation is validated in individuals 18 years of age and older. Currently the best equation for estimating glomerular filtration rate (GFR) from serum creatinine in children is the Bedside Austin equation. It is less accurate in patients with extremes of muscle mass, restriction of dietary protein, ingestion of creatine, extra-renal metabolism of creatinine, or treatment with medications that affect renal tubular creatinine secretion. Free PSA/Total PSA [Mass fraction] 7.5 g/dL 6.3 - 8.2 g/dL [facility] Work Phone: GFR/1.73 sq M.predicted among blacks MDRD (S/P/Bld) [Vol rate/Area] mL/min/{1.73_m2} >60 mL/min [facility] Work Phone: Glucose [Mass/Vol] 97 mg/dL 70 - 100 mg/dL [facility] Work Phone: Potassium [Moles/Vol] 4.7 mmol/L 3.5 - 5.1 mmol/L [facility] Work Phone: Sodium [Moles/Vol] 138 mmol/L 135 - 145 mmol/L [facility] Work Phone: Urea nitrogen (BldV) [Mass/Vol] 10 mg/dL 7 - 20 mg/dL [facility] Work Phone: Hemogramon 10-29-2020 Erythrocyte distribution width (RBC) [Ratio] 12.9 % Normal 11.5-14.5 [facility] Comment on above: Performed By: #### H EMOG, CMP3, LIPD2, TSH5 #### [facility] [address] [place] [address] Hematocrit (Bld) [Volume fraction] 39.2 % Normal 35.0-47.0 [facility] Comment on above: Performed By: #### H EMOG, CMP3, LIPD2, TSH5 #### [facility] [address] [place] [address] Hemoglobin (Bld) [Mass/Vol] 12.9 g/dL Normal 11.7-16.0 [facility] Comment on above: Performed By: #### H EMOG, CMP3, LIPD2, TSH5 #### [facility] [address] [place] [address] MCH (RBC) [Entitic mass] 30.8 pg Normal 26.0-34.0 [facility] Comment on above: Performed By: #### H EMOG, CMP3, LIPD2, TSH5 #### [facility] [address] [place] [address] MCHC 32.9 % Normal 32.0-36.0 [facility] Comment on above: Performed By: #### H EMOG, CMP3, LIPD2, TSH5 #### [facility] [address] [place] [address] MCV (RBC) [Entitic vol] 93.7 fL Normal 79.0-98.0 [facility] Comment on above: Performed By: #### H EMOG, CMP3, LIPD2, TSH5 #### [facility] [address] [place] [address] Platelet mean volume (Bld) [Entitic vol] 7.9 fL Normal 7.4-10.4 [facility] Comment on above: Performed By: #### H EMOG, CMP3, LIPD2, TSH5 #### [facility] [address] [place] [address] Platelets (Bld) [#/Vol] 312 10*3/uL Normal 140-440 [facility] Comment on above: Performed By: #### H EMOG, CMP3, LIPD2, TSH5 #### [facility] [address] [place] [address] RBC (Bld) [#/Vol] 4.18 10*6/uL Normal 3.80-5.20 [facility] Comment on above: Performed By: #### H EMOG, CMP3, LIPD2, TSH5 #### [facility] [address] [place] [address] WBC (Bld) [#/Vol] 6.3 10*3/uL Normal 3.6-10.7 [facility] Comment on above: Performed By: #### H EMOG, CMP3, LIPD2, TSH5 #### [facility] [address] [place] [address] Lipid Panelon 10-29-2020 Chol/HDL 3 Normal [facility] Comment on above: Result Comment: Ref Range: < 3 Low Risk for CHD 3-6 Mod Risk for CHD > 6 High Risk for CHD Performed By: #### H EMOG, CMP3, LIPD2, TSH5 #### [facility] [address] [place] [address] Cholesterol in HDL [Mass/Vol] 73 mg/dL High 40-60 [facility] Comment on above: Performed By: #### H EMOG, CMP3, LIPD2, TSH5 #### [facility] [address] [place] [address] Low Density Lipoprotein 112 mg/dL Abnormal <100 [facility] Comment on above: Performed By: #### H EMOG, CMP3, LIPD2, TSH5 #### [facility] [address] [place] [address] Triglyceride [Mass/Vol] 57 mg/dL Normal <150 [facility] Comment on above: Performed By: #### H EMOG, CMP3, LIPD2, TSH5 #### [facility] [address] [place] [address] Cholesterol [Mass/Vol] 196 mg/dL Normal < 200 [facility] Comment on above: Performed By: #### H EMOG, CMP3, LIPD2, TSH5 #### [facility] [address] [place] [address] Lipid PanelOrdered By: Dewey Traore on 10-29-2020 Cholesterol [Mass/Vol] 196 mg/dL <200 [facility] Work Phone: Cholesterol in HDL [Mass/Vol] 73 mg/dL High 40 - 60 mg/dL [facility] Work Phone: Cholesterol in LDL [Mass/Vol] 112 mg/dL Abnormal <100 [facility] Work Phone: Cholesterol.total/Sharyn sterol in HDL [Mass ratio] 3 {ratio} [facility] Work Phone: Comment on above: Ref Range: < 3 Low Risk for CHD 3-6 Mod Risk for CHD > 6 High Risk for CHD Interpretation and review of laboratory results Abnormal [facility] Work Phone: Triglyceride [Mass/Vol] 57 mg/dL <150 [facility] Work Phone: No Panel InformationOrdered By: Myranda Traore on 10-29-2020 Test Performed by [facility], [address] , [place] [address] [employer] Work Phone: [employer] Work Phone: TSH without ReflexOrdered By : Myranda Traore on 10-29-2020 TSH Qn 1.830 u[IU]/mL 0.465 - 4.680 u[IU]/mL [employer] Work Phone: Test Performed by [facility], [address] , [place] [address] [employer] Work Phone: [employer] Work Phone: Thyroid Stim. Hormoneon 10-02 Thyroid Stim. Hormone 1.830 u[IU]/mL Normal 0.465-4.68 0 [facility] Comment on above: Performed By: #### H EMOG, CMP3, LIPD2, TSH5 #### [facility] [address] [place] [address] URINE CULTUREon 04-11-2020 Bacteria identified Cx Nom (U) URINE RESULT >100,000 COL/ML MIXED ALYSSIA-PLEASE REPEAT-POSSIBLE CONTAMIN Normal [facility] Comment on above: Performed By: #### M [id number] #### [facility] [address] [place] [address] UA COMPLETEon 04-09-2020 Color (U) Yellow Normal [facility] Comment on above: Performed By: #### L [id number] #### [facility] [address] [place], [place] [id number] Glucose (U) [Mass/Vol] Negative Normal NORMAL [facility] Comment on above: Performed By: #### L [id number] #### [facility] [address] [place] [address] UA APPEARANCE Hazy Normal CLEAR [facility] Comment on above: Performed By: #### L [id number] #### [facility] [address] [place] [address] UA BILIRUBIN Negative Normal NEGATIVE [facility] Comment on above: Performed By: #### L [id number] #### [facility] [address] [place] [address] UA BLOOD Negative Normal NEGATIVE [facility] Comment on above: Performed By: #### L [id number] #### [facility] [address] [place] [address] UA KETONE Negative Normal NEGATIVE [facility] Comment on above: Performed By: #### L [id number] #### [facility] [address] [place] [address] UA LK ESTERASE Negative Normal NEGATIVE [facility] [facility] Comment on above: Performed By: #### L [id number] #### [facility] [address] [place] [address] [id number] UA NITRITE Negative Normal NEGATIVE [facility] Comment on above: Performed By: #### L [id number] #### [facility] [address] [place] [address] [id number] UA PH 9.0 Normal 5-6 [facility] Comment on above: Performed By: #### L [id number] #### [facility] [address] [place] [address] [id number] UA PROTEIN Negative Normal NEGATIVE [facility] Comment on above: Performed By: #### L [id number] #### [facility] [address] [place] [address] 17473 UA SPEC GRAV 1.008 Normal 1.005-1.030 [facility] Comment on above: Performed By: #### L [id number] #### [facility] [address] [place] [address] [id number] UA UROBILINOGEN Negative Normal NORMAL [facility] Comment on above: Performed By: #### L [id number] #### [facility] [address] [place] [id number] # [phone] Lower Extremity Bilateral Venous Duplexon 10-02-2019 [facility] Lower Extremity Venous Duplex Report Ordering Physician: Myranda Traore D.o. Zipper Ironer: Jensen Hand Interpreting Physician: Anthony Cm MD Location: [facility] Indications: Bilateral lower leg edema. Conclusions 1. There is no evidence of acute deep or superficial venous thrombosis noted in the right lower extremity. 2. There is no evidence of acute deep or superficial venous thrombosis noted in the left lower extremity. History: Risk factors: Hypercoagulable state. Immobility. Study data: Complete lower extremity venous duplex evaluation. Grayscale 2D imaging, color Doppler imaging, and spectral Doppler analysis. Location: Vascular laboratory. Objective: Diagnostic evaluation. Procedure: A vascular evaluation was performed with the patient in the supine position. Images were obtained using a [employer] E9 vascular ultrasound machine. Venous flow and imaging: + ------+-------+----- + +Location +Overall+Properties + + ------+-------+----- + +R CFV +Patent +Normal phasicity; spontaneous; + + + +normal augmentation; compressible + + ------+-------+----- + +R saphenofemoral junction+Patent +Compressible + + ------+-------+----- + +R profunda femoral +Patent +Normal phasicity; spontaneous; + + + +normal augmentation + + ------+-------+----- + +R FV - prox. +Patent +Compressible + + ------+-------+----- + +R FV - mid +Patent +Normal phasicity; spontaneous; + + + +normal augmentation; compressible + + ------+-------+----- + +R FV - distal +Patent +Compressible + + ------+-------+----- + +R popliteal +Patent +Normal phasicity; spontaneous; + + + +normal augmentation; compressible + + ------+-------+----- + +R gastrocnemius +Patent +Compressible + + ------+-------+----- + +R PTV +Patent +Compressible + + ------+-------+----- + +R peroneal +Patent +Compressible + + ------+-------+----- + +R soleal +Patent +Compressible + + ------+-------+----- + +R GSV +Patent +Compressible + + ------+-------+----- + +L CFV +Patent +Normal phasicity; spontaneous; + + + +normal augmentation; compressible + + ------+-------+----- + +L saphenofemoral junction+Patent +Compressible + + ------+-------+----- + +L profunda femoral +Patent +Normal phasicity; spontaneous; + + + +normal augmentation + + ------+-------+----- + +L FV - prox. +Patent +Compressible + + ------+-------+----- + +L FV - mid +Patent +Normal phasicity; spontaneous; + + + +normal augmentation; compressible + + ------+-------+----- + +L FV - distal +Patent +Compressible + + ------+-------+----- + +L popliteal +Patent +Normal phasicity; spontaneous; + + + +normal augmentation; compressible + + ------+-------+----- + +L gastrocnemius +Patent +Compressible + + ------+-------+----- + +L PTV +Patent +Compressible + + ------+-------+----- + +L peroneal +Patent +Compressible + + ------+-------+----- + +L soleal +Patent +Compressible + + ------+-------+----- + +L GSV +Patent +Compressible + + ------+-------+----- + Prepared and electronically signed by Anthony Cm MD 10/02/2019 15:03 [facility] [place], [place] [facility] In[facility] Cardiology Results From [facility] - 10/02/2019 3:03 PM EDT [facility] Lower Extremity Venous Duplex Report Ordering Physician: Myranda Traore D.o. Zipper Ironer: Jensen Hand Interpreting Physician: Anthony Cm MD Location: [facility] Indications: Bilateral lower leg edema. Conclusions 1. There is no evidence of acute deep or superficial venous thrombosis noted in the right lower extremity. 2. There is no evidence of acute deep or superficial venous thrombosis noted in the left lower extremity. History: Risk factors: Hypercoagulable state. Immobility. Study data: Complete lower extremity venous duplex evaluation. Grayscale 2D imaging, color Doppler imaging, and spectral Doppler analysis. Location: Vascular laboratory. Objective: Diagnostic evaluation. Procedure: A vascular evaluation was performed with the patient in the supine position. Images were obtained using a [employer] E9 vascular ultrasound machine. Venous flow and imaging: + ------+-------+----- + +Location +Overall+Properties + + ------+-------+----- + +R CFV +Patent +Normal phasicity; spontaneous; + + + +normal augmentation; compressible + + ------+-------+----- + +R saphenofemoral junction+Patent +Compressible + + ------+-------+----- + +R profunda femoral +Patent +Normal phasicity; spontaneous; + + + +normal augmentation + + ------+-------+----- + +R FV - prox. +Patent +Compressible + + ------+-------+----- + +R FV - mid +Patent +Normal phasicity; spontaneous; + + + +normal augmentation; compressible + + ------+-------+----- + +R FV - distal +Patent +Compressible + + ------+-------+----- + +R popliteal +Patent +Normal phasicity; spontaneous; + + + +normal augmentation; compressible + + ------+-------+----- + +R gastrocnemius +Patent +Compressible + + ------+-------+----- + +R PTV +Patent +Compressible + + ------+-------+----- + +R peroneal +Patent +Compressible + + ------+-------+----- + +R soleal +Patent +Compressible + + ------+-------+----- + +R GSV +Patent +Compressible + + ------+-------+----- + +L CFV +Patent +Normal phasicity; spontaneous; + + + +normal augmentation; compressible + + ------+-------+----- + +L saphenofemoral junction+Patent +Compressible + + ------+-------+----- + +L profunda femoral +Patent +Normal phasicity; spontaneous; + + + +normal augmentation + + ------+-------+----- + +L FV - prox. +Patent +Compressible + + ------+-------+----- + +L FV - mid +Patent +Normal phasicity; spontaneous; + + + +normal augmentation; compressible + + ------+-------+----- + +L FV - distal +Patent +Compressible + + ------+-------+----- + +L popliteal +Patent +Normal phasicity; spontaneous; + + + +normal augmentation; compressible + + ------+-------+----- + +L gastrocnemius +Patent +Compressible + + ------+-------+----- + +L PTV +Patent +Compressible + + ------+-------+----- + +L peroneal +Patent +Compressible + + ------+-------+----- + +L soleal +Patent +Compressible + + ------+-------+----- + +L GSV +Patent +Compressible + + ------+-------+----- + Prepared and electronically signed by Anthony Cm MD 10/02/2019 15:03 [facility] [place], [place] VL ARTERIAL PVR LOWER W EXER CISEon 10-02-2019 [facility] Multilevel Lower Extremity Arterial Evaluation with Exercise Ordering Physician: Myranda Traore D.o. Zipper Ironer: Jensen Hand Interpreting Physician: Anthony Cm MD Location: [facility] Indications: Bilateral dimished pulses. Conclusions 1. Right resting MARIANELA is 1.12. This is within the normal range. 2. Left resting MARIANELA is 1.07. This is within the normal range. 3. There appears to be a abnormal toe index involving the right great toe. 4. There appears to be a abnormal toe index involving the left great toe. 5. The right lower extremity shows a normal response to exercise. 6. The left lower extremity shows a normal response to exercise. History: Risk factors: Former tobacco use. Hypertension. Hyperlipidemia. Study data: Lower extremity multilevel physiologic evaluation with exercise. Pressure measurement and pulse volume recording. Location: Vascular laboratory. Objective: Diagnostic evaluation. Procedure: A vascular evaluation was performed with the patient in the supine position. Images were obtained using a [employer] vascular ultrasound machine. The study was technically limited due to inability to exercise. An exercise arterial exam was performed with toe raises. Test was ordered with treadmill exercise but patient is paraplegic and could not ambulate well. She was willing and able to perform toe raises for 3 minutes. Pre and post exercise measurements were recorded. Arterial pressure indices: + +------- --------+ -+ +-- + +Location +Pressure +Index (REST)+Pressure (POST +Index (POST + + +(REST)* + +STRESS) +STRESS) + + +------- --------+ -+ +-- + +R brachial +124 + +125 + + + +------- --------+ -+ +-- + +R DP +139 +1.12 + +--- ---------+ + +------- --------+ -+ +-- + +R PT +139 +1.12 +122 +0.98 + + +------- --------+ -+ +-- + +R great toe+68 +0.55 + +--- ---------+ + +------- --------+ -+ +-- + +L brachial +112 + +------ ---------+ --+ + +------- --------+ -+ +-- + +L DP +121 +0.98 + +--- ---------+ + +------- --------+ -+ +-- + +L PT +133 +1.07 +117 +0.94 + + +------- --------+ -+ +-- + +L great toe+87 +0.70 + +--- ---------+ + +------- --------+ -+ +-- + Prepared and electronically signed by Anthony Cm MD 10/02/2019 15:04 [facility], [place], [facility] Incoming Cardiology Results From Jaswant/Buddy - 10/02/2019 3:04 PM EDT [facility] Multilevel Lower Extremity Arterial Evaluation with Exercise Ordering Physician: Myranda Traore D.o. Zipper Ironer: Jensen Hand Interpreting Physician: Anthony Cm MD Location: [facility] Indications: Bilateral dimished pulses. Conclusions 1. Right resting MARIANELA is 1.12. This is within the normal range. 2. Left resting MARIANELA is 1.07. This is within the normal range. 3. There appears to be a abnormal toe index involving the right great toe. 4. There appears to be a abnormal toe index involving the left great toe. 5. The right lower extremity shows a normal response to exercise. 6. The left lower extremity shows a normal response to exercise. History: Risk factors: Former tobacco use. Hypertension. Hyperlipidemia. Study data: Lower extremity multilevel physiologic evaluation with exercise. Pressure measurement and pulse volume recording. Location: Vascular laboratory. Objective: Diagnostic evaluation. Procedure: A vascular evaluation was performed with the patient in the supine position. Images were obtained using a [employer] vascular ultrasound machine. The study was technically limited due to inability to exercise. An exercise arterial exam was performed with toe raises. Test was ordered with treadmill exercise but patient is paraplegic and could not ambulate well. She was willing and able to perform toe raises for 3 minutes. Pre and post exercise measurements were recorded. Arterial pressure indices: + +------- --------+ -+ +-- + +Location +Pressure +Index (REST)+Pressure (POST +Index (POST + + +(REST)* + +STRESS) +STRESS) + + +------- --------+ -+ +-- + +R brachial +124 + +125 + + + +------- --------+ -+ +-- + +R DP +139 +1.12 + +--- ---------+ + +------- --------+ -+ +-- + +R PT +139 +1.12 +122 +0.98 + + +------- --------+ -+ +-- + +R great toe+68 +0.55 + +--- ---------+ + +------- --------+ -+ +-- + +L brachial +112 + +------ ---------+ --+ + +------- --------+ -+ +-- + +L DP +121 +0.98 + +--- ---------+ + +------- --------+ -+ +-- + +L PT +133 +1.07 +117 +0.94 + + +------- --------+ -+ +-- + +L great toe+87 +0.70 + +--- ---------+ + +------- --------+ -+ +-- + Prepared and electronically signed by Anthony Cm MD 10/02/2019 15:04 [place], [place] [facility]Con 08-29-2019 Erythrocyte distribution width (RBC) [Ratio] 13.7 % 11.5 - 14.5 % [place], [place] Hematocrit (Bld) [Volume fraction] 36.1 % 35 - 47 % [place] Hemoglobin (Bld) [Mass/Vol] 12.2 g/dL 11.7 - 16 g/dL [place] MCH (RBC) [Entitic mass] 31.7 pg 26 - 34 pg [place] MCHC (RBC) [Mass/Vol] 33.8 % 32 - 36 % [place], [place] MCV (RBC) [Entitic vol] 93.7 fL 79 - 98 fL [place], [place] Platelet mean volume (Bld) [Entitic vol] 8.0 fL 7.4 - 10.4 fL [place], [place] Platelets (Bld) [#/Vol] 295 10*3/uL 140 - 440 10*3/uL [place] RBC (Bld) [#/Vol] 3.85 10*6/uL 3.8 - 5.2 10*6/uL [place] WBC (Bld) [#/Vol] 5.3 10*3/uL 3.6 - 10.7 10*3/uL [place] Test Performed by [facility], [address] [place], [place] [address] , [address] Comprehensive Metabolic Pane alexei 08-29-2019 Albumin [Mass/Vol] 4.1 g/dL 3.5 - 5 g/dL [place], [place] ALP [Catalytic activity/Vol] 107 U/L 38 - 126 U/L [place] ALT [Catalytic activity/Vol] 28 U/L 0 - 34 U/L [place] Comment on above: The ALT test is perf ormed by an updated assay method. Please note that the reference intervals have been changed and are now sex specific. Anion gap [Moles/Vol] 7 mmol/L [place], [place] AST [Catalytic activity/Vol] 35 U/L 15 - 46 U/L [place] Bilirubin Ql (U) 0.4 mg/dL 0.2 - 1.3 mg/dL [place] Calcium [Mass/Vol] 9.1 mg/dL 8.4 - 10. 4 mg/dL [place] Chloride [Moles/Vol] 103 mmol/L 98 - 10 7 mmol/L [place] CO2 [Moles/Vol] 30 mmol/L 22 - 30 mmol/L [place] Creatinine [Mass/Vol] 0.65 mg/dL 0.52 - 1.25 mg/dL [place] EGFR IF NonAfrican [place] >90.0 >60 mL/min [place] Comment on above: KDIGO guidelines pro vide the following GFR categories: Stage GFR(ml/min/1.73 m2) Terms G1 >=90 Normal or high G2 60-89 Mildly decreased* G3a 45-59 Mildly to moderately decreased G3b 30-44 Moderately to severely decreased G4 15-29 Severely decreased G5 <15 Kidney failure *Relative to young adult level. In the absence of evidence of kidney damage, neither GFR category G1 nor G2 fulfill the criteria for CKD. The CKD-EPI equation is validated in individuals 18 years of age and older. Currently the best equation for estimating glomerular filtration rate (GFR) from serum creatinine in children is the Bedside Austin equation. It is less accurate in patients with extremes of muscle mass, restriction of dietary protein, ingestion of creatine, extra-renal metabolism of creatinine, or treatment with medications that affect renal tubular creatinine secretion. GFR/1.73 sq M predicted among blacks MDRD (S/P/Bld) [Vol rate/Area] mL/min/{1.73_m2} >60 mL/min [place] Glucose [Mass/Vol] 95 mg/dL 70 - 100 mg/dL [place], [place] Interpretation and review of laboratory results Abnormal [place] Potassium [Moles/Vol] 4.4 mmol/L 3.5 - 5.1 mmol/L [place] Protein [Mass/Vol] 7.0 g/dL 6.3 - 8.2 g/dL [place], [place] Sodium [Moles/Vol] 140 mmol/L 135 - 145 mmol/L [place] Urea nitrogen [Mass/Vol] 5 mg/dL Low 7 - 20 mg/dL [place] Test Performed by [facility], [address] , [address] TSH without Reflexon 020 TSH Qn 1.158 u[IU]/mL 0.465 - 4.68 u[IU]/mL [place] [facility], [address] , [address] MRI BRAIN W WO CONTRASTon Patient Name: CHEN RUST ---MRI--- Exam Date/Time 01/04/2019 12:52:02 EDT Exam MRI Brain w/ + w/o Contrast Ordering Physician MYRANDA TRAORE D.O. Accession Number [id number] CPT4 Codes 74765 () Reason For Exam Unsteadiness on feet Report MRI BRAIN WITHOUT AND WITH CONTRAST: CLINICAL INDICATION: Unsteadiness TECHNIQUE: Transaxial, sagittal and coronal T1, transaxial fast T2, FLAIR and gradient echo along with diffusion weighted imaging was performed through the brain. Post contrast transaxial and coronal T1 weighted sequences were performed following administration of 13ml gadolinium contrast. COMPARISON: None. FINDINGS: Ventricular system and Extra-axial spaces: Normal in size and morphology for the patient's age. No extracerebral cerebral collection with mass effect. Cerebral and cerebellar parenchyma: No focus of restricted diffusion to suggest acute infarction. No susceptibility artifact on the gradient echo sequence to suggest intracranial hemorrhage. No mass or edema. Brainstem: Normal. Sella turcica and pituitary: Normal. Vascular system: Normal signal void is noted within the major intracranial vessels. Paranasal sinuses: Clear. Mastoid air cells: Normal. Orbits: Normal. IMPRESSION: Normal MRI examination of the brain without and with contrast. Report Dictated on --- Final --- Dictating Physician: MD TOMLINSON NICHOLAS Signed Date and Time: 01/04/2019 1:38 pm Signed by: MD TOMLINSON NICHOLAS Transcribed Date and Time: 01/04/2019 1:39 [place], [place], [facility] Incoming Radiology Results From [facility] - 01/04/2019 1:39 PM EDT Patient Name: CHEN RUST ---MRI--- Exam Date/Time 01/04/2019 12:52:02 EDT Exam MRI Brain w/ + w/o Contrast Ordering Physician YMRANDA TRAORE D.O. Accession Number [id number] CPT4 Codes 49897 () Reason For Exam Unsteadiness on feet Report MRI BRAIN WITHOUT AND WITH CONTRAST: CLINICAL INDICATION: Unsteadiness TECHNIQUE: Transaxial, sagittal and coronal T1, transaxial fast T2, FLAIR and gradient echo along with diffusion weighted imaging was performed through the brain. Post contrast transaxial and coronal T1 weighted sequences were performed following administration of 13ml gadolinium contrast. COMPARISON: None. FINDINGS: Ventricular system and Extra-axial spaces: Normal in size and morphology for the patient's age. No extracerebral cerebral collection with mass effect. Cerebral and cerebellar parenchyma: No focus of restricted diffusion to suggest acute infarction. No susceptibility artifact on the gradient echo sequence to suggest intracranial hemorrhage. No mass or edema. Brainstem: Normal. Sella turcica and pituitary: Normal. Vascular system: Normal signal void is noted within the major intracranial vessels. Paranasal sinuses: Clear. Mastoid air cells: Normal. Orbits: Normal. IMPRESSION: Normal MRI examination of the brain without and with contrast. Report Dictated on --- Final --- Dictating Physician: MD TOMLINSON NICHOLAS Signed Date and Time: 01/04/2019 1:38 pm Signed by: MD TOMLINSON NICHOLAS Transcribed Date and Time: 01/04/2019 1:39 [place], [place] Vital Signs Date Time Vital Sign Value Performing Clinician Melinda schumacher 06-19-2023 14:43-0400 Body height 167.6 cm Myranda Traore DO Work Phone: [facility] 06-19-2023 14:43-0400 Body mass index (BMI) [Ratio] 18.24 kg/m2 Myranda Traore DO Work Phone: [facility] [place] 06-19-2023 14:43-0400 Body weight 51.26 kg Myranda Traore DO Work Phone: [facility] [place] 06-19-2023 14:43-0400 Diastolic blood pressure 82 mm[Hg] Myrnada Traore DO Work Phone: [facility] [place] 06-19-2023 14:43-0400 Heart rate 100 /min Myranda Traore DO Work Phone: [facility] [place] 06-19-2023 14:43-0400 SaO2% (BldA) [Mass fraction] 99 % Myranda Traore DO Work Phone: [facility] [place] 06-19-2023 14:43-0400 Systolic blood pressure 124 mm[Hg] Myranda Traore DO Work Phone: [facility] 06-10-2022 13:34-0500 Body temperature 98.49 [degF] Erica Praisler-Wood POST MANAGER.SLAT GRADER Work Phone: [facility] 06-10-2022 13:34-0500 Body weight 57.61 kg Erica Praisler-Wood POST MANAGER.SLAT GRADER Work Phone: [facility] 06-10-2022 13:34-0500 Diastolic blood pressure 62 mm[Hg] Erica Praisler-Wood POST MANAGER.SLAT GRADER Work Phone: [facility] 06-10-2022 13:34-0500 Heart rate 86 /min Erica Praisler-Wood POST MANAGER.SLAT GRADER Work Phone: [facility] 06-10-2022 13:34-0500 Respiratory rate 18 /min Erica Praisler-Wood POST MANAGER.SLAT GRADER Work Phone: [facility] 06-10-2022 13:34-0500 Systolic blood pressure 100 mm[Hg] Erica Praisler-Wood POST MANAGER.SLAT GRADER Work Phone: [facility] 02-26-2022 14:13-0500 Body temperature 99.3 [degF] Benoit Denise MD Work Phone: [facility] 02-26-2022 14:050 Body weight 57.61 kg Benoit Denise MD Work Phone: [facility] 02-26-2022 14:130500 Diastolic blood pressure 80 mm[Hg] Benoit Denise MD Work Phone: [facility] 02-26-2022 14:130500 Heart rate 60 /min Benoit Denise MD Work Phone: [facility] 02-26-2022 14:050 Respiratory rate 18 /min Benoit Denise MD Work Phone: [facility] 02-26-2022 14:050 Systolic blood pressure 118 mm[Hg] Benoit Denise MD Work Phone: [facility] Encounters Encounter Date Encounter Type Care Provider Facility Start: 12-27-2023 End: 12-27-2023 Refill Myranda Traore DO Work Phone: [facility] Comment on above: Other muscle spasm Start: 12-06-2023 End: 12-22-2023 Telephone encounter Myranda Traore DO Work Phone: [facility] [place] Comment on above: Release of Informati on Start: 08-14-2023 Refill Myranda corral DO Work Phone: [facility] Comment on above: message Start: 06-23-2023 Refill Myranda corral DO Work Phone: [facility] Start: 06-19-2023 End: 06-19-2023 Office outpatient visit 25 minutes Myranda Traore DO Work Phone: [facility] Comment on above: Functional quadriple neelam (CMS/HCC) (HCC) (Primary Dx); Screening mammogram for breast cancer; Other osteoporosis without current pathological fracture; 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 Start: 06-19-2023 End: 06-19-2023 ambulatory MYRANDA TRAORE [facility] Start: 01-27-2023 Refill Myranda M Pe ters DO Work Phone: [facility] Comment on above: Unspecified injury a t unspecified level of cervical spinal cord, subsequent encounter (HCC) Start: 11-14-2022 ambulatory Nirali Hunter RN [facility] Clinical Communication Start: 11-14-2022 Patient encounter procedure Nirali Hunter RN [facility] Clinical Communication Comment on above: Other muscle spasm Start: 08-09-2022 Refill Rona dahl MD Work Phone: [facility] Comment on above: Other muscle spasm; Unspecified injury at unspecified level of cervical spinal cord, subsequent encounter (HCC) Start: 08-08-2022 Refill Myranda M Pe ters DO Work Phone: [facility] Comment on above: Other constipation Start: 07-11-2022 Refill Myranda M Pe ters DO Work Phone: [facility] Comment on above: Other muscle spasm; Unspecified injury at unspecified level of cervical spinal cord, subsequent encounter (HCC) Start: 07-03-2022 Refill Myranda M Pe ters DO Work Phone: [facility] Comment on above: Other constipation Start: 06-10-2022 End: 06-10-2022 ambulatory MYRANDA TRAORE Facility:[facility] Start: 06-10-2022 End: 06-10-2022 Patient encounter procedure Erica Rose APRN.SLAT GRADER Work Phone: [facility] Comment on above: Urinary frequency (P rimary Dx) Start: 02-27-2022 Telephone encounter Delores Islas APRN.SLAT GRADER Work Phone: [facility] Comment on above: Results Start: 02-26-2022 End: 02-26-2022 ambulatory MYRANDA TRAORE Facility:[facility] Start: 02-26-2022 End: 02-26-2022 Patient encounter procedure Benoit Denise MD Work Phone: [facility] Comment on above: Influenza-like illne ss (Primary Dx) Start: 10-29-2020 End: 10-29-2020 Subsequent hospital visit by physician Myranda Traore DO Work Phone: [facility] [facility] Comment on above: Chronic bilateral th oracic back pain; Chronic bilateral low back pain without sciatica; Pain of finger of left hand; Benign essential HTN; Screening, lipid Start: 10-02-2019 End: 10-02-2019 Subsequent hospital visit by physician Myranda Traore Work Phone: [facility] Comment on above: Diminished pulse; Bilateral lower extremity edema Start: 08-29-2019 End: 08-29-2019 Subsequent hospital visit by physician Myranda Traore Work Phone: [facility] Comment on above: Bilateral lower extr emity edema Start: 01-04-2019 End: 01-04-2019 Subsequent hospital visit by physician Myranda Traore Work Phone: [facility] Comment on above: Gait instability; Fall, subsequent encounter; Muscle spasms of both lower extremities; Paraplegia (HCC) Start: 12-11-2018 End: 12-11-2018 Subsequent hospital visit by physician Myranda Traore Work Phone: [facility] Comment on above: Screening mammogram, encounter for Start: 10-21-2015 Patient encounter status Benoit Denise MD Work Phone: [facility] Work Phone: Procedures Date Procedure Procedure Detail Performing Clinician Start: 06-10-2022 Urnls dip stick/tabl et rgnt auto w/o microscopy Erica Rose APRN.CNP Work Phone: Start: 01-26-2022 Mammography Myranda Traore DO Work Phone: Start: 01-12-2022 Microscopic observat ion [Identifier] in Cervix by Cyto stain Myranda Traore DO Work Phone: Start: 10-29-2020 Comprehensive metabo lic panel Myranda Traore DO Work Phone: Start: 10-29-2020 Lipid panel Myranda Traore DO Work Phone: Start: 10-29-2020 Lipid 1996 panel - S janie or Plasma Myranda Traore DO Work Phone: Start: 10-02-2019 N-invas physiologic std lxtr art compl bi Myranda Traore Work Phone: Start: 10-02-2019 Dup-scan xtr veins c omplete bilateral study Myranda Traore Work Phone: Start: 08-29-2019 Assay of thyroid stimulating hormone tsh Myranda Traore Work Phone: Start: 08-29-2019 Blood count complete automated Myranda Traore Work Phone: Start: 08-29-2019 Comprehensive metabo lic panel Myranda Traore Work Phone: Start: 01-04-2019 Mri brain brain stem w/o w/contrast material Myranda Traore Work Phone: Start: 04-22-2016 Mammography Benoit ramos MD Work Phone: Plan of Treatment Date Care Activity Detail Author Start: 10-08-2031 DTaP/Tdap/Td Vaccine s (3 - Td or Tdap) DTaP/Tdap/Td Vaccines (3 - Td or Tdap) [facility] Start: 01-12-2027 Screening for malign ant neoplasm of cervix [facility] Start: 2025 RSV Immunization age d 60 or older (1 - 1-dose 60+ series) RSV Immunization aged 60 or older (1 - 1-dose 60+ series) [facility] Start: 10-29-2025 Lipid panel [facility] Start: 01-12-2025 Screening for malign ant neoplasm of cervix Pap Smear [facility] Start: 03-06-2024 End: 03-06-2024 Patient encounter procedure 03/06/2024 4:00 PM EST Office Visit [facility] Primary Care - [address] [place] [address] Myranda Traore DO [address] [place], [place] [address] [facility] - [place] Start: 12-26-2023 Lipid panel Lipid screen [facility] Start: 12-26-2023 Lipid screen Lipid screen [facility] Start: 12-18-2023 End: 12-18-2023 Patient encounter procedure 12/18/2023 1:00 PM EDT Office Visit [facility] [address] [place] [address] [address] [place] [id number] Myranda Traore DO [address] [place] [address] [facility] Start: 12-03-2023 COVID-19 Vaccine () COVID-19 Vaccine () [facility] Start: 12-03-2023 Influenza vaccination S [facility] Start: 06-19-2023 End: 08-18-2024 DBT Breast - bilateral screening Bilateral screening mammogram with tomosynthesis Imaging Routine Screening mammogram for breast cancer Expected: 06/19/2023, Expires: 08/18/2024 [facility] Work Phone: Comment on above: Expected: 06/19/2023 , Expires: 08/18/2024 Start: 06-19-2023 End: 06-18-2024 DXA Skeletal system.axial Views for bone density DEXA bone density axial skeleton Imaging Routine Other osteoporosis without current pathological fracture Expected: 06/19/2023, Expires: 06/18/2024 [facility] Comment on above: Expected: 06/19/2023 , Expires: 06/18/2024 Start: 06-11-2023 BP CONTROLLED (<130/80) BP CONTROLLE D (<130/80) [facility] Start: 01-26-2023 Screening for malign ant neoplasm of breast Mammogram [facility] Start: 12-02-2022 COVID-19 Vaccine () COVID-19 Vaccine () [facility] Start: 12-02-2022 Influenza vaccination S [facility] Start: 11-29-2022 End: 11-29-2022 Telemedicine consultation with patient 11/29/2022 11:40 AM EDT Telemedicine [facility] [address] [place] [address] Myranda Traore DO [address] [place] [address] [facility] Start: 04-03-2022 DEPRESSION ASSESSMENT DEPRESSION ASS [facility] Start: 02-26-2022 End: 03-12-2022 Influenza virus A and B RNA and SARS-CoV-2 (COVID-19) N gene panel - Respiratory specimen by JEREMY with probe detection COVID WITH FLUA+B, ROUTINE Microbiology Routine Influenza-like illness Expected: 02/26/2022, Expires: 03/12/2022 [facility] Work Phone: Comment on above: Expected: 02/26/2022 , Expires: 03/12/2022 Start: 12-13-2021 Cervical cancer screen Cervical canc er screen [place], [place] Start: 12-13-2021 Screening for malign ant neoplasm of cervix Cervical cancer screen [place], [place] Start: 12-02-2021 Influenza vaccination INFLUENZA (#1) [facility] Start: 10-29-2021 Creatinine measurement Creatinine mo nitoring [facility] Work Phone: Start: 10-29-2021 Potassium monitoring Potassium monit oring [facility] Work Phone: Start: 04-12-2021 HPV TESTING HPV TESTING [facility] Start: 04-12-2021 PAP TESTING PAP TESTING [facility] Start: 04-03-2021 [facility] Start: 12-11-2020 Breast cancer screen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 History Socioeconomic History Marital status: Tobacco Use Smoking status: Former Packs/day: 2 Types: Cigarettes Quit date: 11/06/2016 Years since quittin.6 Smokeless tobacco: Never Substance and Sexual Activity Alcohol use: No Drug use: No Past Surgical History: Procedure Laterality Date NECK SURGERY fell and broke 4-7 Past Surgical History: Procedure Laterality Date NECK SURGERY fell and broke 4-7 Family History Problem Relation Name Age of Onset Breast cancer Other maternal aunt unsure age Other (78332) Mother aneurysm Ovarian cancer Neg Hx Other (10754) Father pneumonia Colon cancer Neg Hx Objective BP 124/82 Pulse 100 Ht 5' 6 (1.676 m) Wt 113 lb (51.3 kg) SpO2 99% BMI 18.24 kg/m Physical Exam Vitals and nursing note reviewed. Constitutional: General: She is not in acute distress. Appearance: Normal appearance. She is not ill-appearing. HENT: Head: Normocephalic and atraumatic. Eyes: Conjunctiva/sclera: Conjunctivae normal. Musculoskeletal: Comments: +gait instability, disfigurement of bilateral hands Skin: General: Skin is warm and dry. Neurological: General: No focal deficit present. Mental Status: She is alert and oriented to person, place, and time. Psychiatric: Mood and Affect: Mood normal. Behavior: Behavior normal. Thought Content: Thought content normal. Judgment: Judgment normal. Data Reviewed POCT: Labs: Imaging/Testing: Chart Clean Up: Medications Discontinued During This Encounter Medication Reason HYDROcodone-acetaminophen (Freer) 5-325 MG tablet Med list cleanup meloxicam (Mobic) 15 MG tablet Med list cleanup gabapentin (Neurontin) 800 MG tablet Reorder baclofen (Lioresal) 20 MG tablet Reorder Myranda Traore DO 06/23/2023 12:52 PM documented in this encounter [facility] 01-27-2023 Telephone encounter Note Last OV:01/12/22 Scheduled:n/a [facility] 01-27-2023 Miscellaneous Notes Last OV:01/12/22 Scheduled:n/a Name of caller: Chen Contact phone number: [phone] Relationship to Patient: patient Provider: Dr. Traore Practice: [facility] Chief Complaint/Reason for Call: Per pt, she wasn't aware her RX for baclofen (Lioresal) 20 MG tablet was discontinued. Pt asking why and if this is correct. Also, pt asking for refill on RX for gabapentin (Neurontin) 800 MG tablet and pt is out of this medication. Please advise. Best time of day caller can be reached: Any Patient advised that office/PCP has 24-48 business hours to return their call: Yes documented in this encounter [facility] 01-27-2023 Telephone encounter Note Name of caller: Chen Contact phone number: [phone] Relationship to Patient: patient Provider: Dr. Traore Practice: [facility] Chief Complaint/Reason for Call: Per pt, she wasn't aware her RX for baclofen (Lioresal) 20 MG tablet was discontinued. Pt asking why and if this is correct. Also, pt asking for refill on RX for gabapentin (Neurontin) 800 MG tablet and pt is out of this medication. Please advise. Best time of day caller can be reached: Any Patient advised that office/PCP has 24-48 business hours to return their call: Yes [facility] 11-15-2022 Telephone encounter Note Rx sent [facility] 11-15-2022 Miscellaneous Notes Rx sent Last OV:01/12/22 Scheduled:11/29/22 ' response Routine refills will be handled during business hours. Please send me a message and it will be taken care of tomorrow . Informed pt of provider's response. No further needs at this time. S: Patient spoke with [facility] nurse regarding muscle spasms B: Onset of symptoms/concern ongoing over last two months, last office visit 01/12/22, hx paraplegia 2018 A: Pt c/o stiffness and cramping - requesting a refill on muscle relaxer-cyclobenzaprine/flexeri l-TAKE 1 TABLET BY MOUTH THREE TIMES A DAY NEEDED FOR MUSCLE SPASMS. Pharmacy and allergies verified. Pt reports she her symptoms have gotten worse of last 60 days, making it difficult to participate with therapy. Pt reports drinking enough fluids. Pt has been taking gabapentin- twice daily (not 4x daily). Denies fever. Pt requested first available virtual visit with her primary care provider due to transportation issue. Walked pt through steps to set up her mychart during telephone encounter. Reviewed steps to log in for visit. R: Message sent to her provider-, for review and recommendation. Reason for Disposition Muscle aches or body pains are a chronic symptom (recurrent or ongoing AND present > 4 weeks) Protocols used: Muscle Aches and Body [id number] documented in this encounter [facility] 11-15-2022 Telephone encounter Note Last OV:01/12/22 Scheduled:11/29/22 [facility] 11-14-2022 Telephone encounter Note ' response Routine refills will be handled during business hours. Please send me a message and it will be taken care of tomorrow . Informed pt of provider's response. No further needs at this time. [facility] 11-14-2022 Telephone encounter Note S: Patient spoke with [facility] nurse regarding muscle spasms B: Onset of symptoms/concern ongoing over last two months, last office visit 01/12/22, hx paraplegia 2019 A: Pt c/o stiffness and cramping - requesting a refill on muscle relaxer-cyclobenzaprine/flexeri l-TAKE 1 TABLET BY MOUTH THREE TIMES A DAY NEEDED FOR MUSCLE SPASMS. Pharmacy and allergies verified. Pt reports she her symptoms have gotten worse of last 60 days, making it difficult to participate with therapy. Pt reports drinking enough fluids. Pt has been taking gabapentin- twice daily (not 4x daily). Denies fever. Pt requested first available virtual visit with her primary care provider due to transportation issue. Walked pt through steps to set up her mychart during telephone encounter. Reviewed steps to log in for visit. R: Message sent to her provider-, for review and recommendation. Reason for Disposition Muscle aches or body pains are a chronic symptom (recurrent or ongoing AND present > 4 weeks) Protocols used: Muscle Aches and Body [id number] [facility] 08-09-2022 Telephone encounter Note Last OV 01/12/2022 No future visits [facility] 08-09-2022 Miscellaneous Notes Last OV 01/12/2022 No future visits documented in this encounter [facility] 08-08-2022 Telephone encounter Note Last 04.20.22 No upcoming appt [facility] 08-08-2022 Miscellaneous Notes Last 04.20.22 No upcoming appt documented in this encounter [facility] 07-12-2022 Telephone encounter Note Last 01.12.22 Next n/a [facility] 07-12-2022 Miscellaneous Notes Last 01.12.22 Next n/a documented in this encounter [facility] 07-04-2022 Telephone encounter Note Last 01.12.22 Next n/a [facility] 07-04-2022 Miscellaneous Notes Last 01.12.22 Next n/a documented in this encounter [facility] 06-10-2022 Note HNO ID: [id number] Author: Erica Rose APRN.SLAT GRADER Service: ? Author Type: Nurse Practitioner Type: Progress Notes Filed: 06/10/2022 1:49 PM Note Text: Subjective HPI Chen Rust is a 56 year old female who presents with UTI symptoms of burning, frequency, and back pain, going on for a couple weeks. She has had some intermittent nausea. She has not had a fever. She has not taken any medication for this at home. Review of Systems Constitutional: Negative for chills and fever. Respiratory: Negative. Cardiovascular: Negative. Gastrointestinal: Positive for nausea. Negative for abdominal pain and vomiting. Genitourinary: Positive for dysuria and frequency. Negative for hematuria. Musculoskeletal: Positive for back pain. BP 100/62 Pulse 86 Temp 36.9 ?C (98.5 ?F) Resp 18 Wt 57.6 kg (127 lb) LMP 01/26/2017 BMI 20.50 kg/m? PAST MEDICAL HISTORY Diagnosis Date Allergic asthma 01/12/2015 Cervical compression fracture (HCC) 2012 c6 c7 Chronic pain 01/12/2015 Hands, feet and gluteal region. Essential hypertension 01/12/2015 Flexion contractures 01/12/2015 Fingers and wrists. Heart murmur HTN (hypertension) Intermittent palpitations 01/12/2015 Lower extremity weakness 01/12/2015 Nerve damage Pedal edema 09/16/2013 Going on for 2 months. Not every day, on and off, reduces on leg elevation. Thinks it is worse with walking.. Psychological factors affecting medical condition 01/06/2015 Spastic bladder 01/12/2015 Upper extremity weakness 01/12/2015 PAST SURGICAL HISTORY Procedure Laterality Date S SYNTHES CERVICAL PLATE 2012 ALLERGIES Codeine and Butrans [Buprenorphine] MEDICATIONS losartan (COZAAR) 50 mg tablet Take by mouth. lactulose (DUPHALAC, CONSTULOSE) 10 g/15 mL soln Take 20 g by mouth three times daily. cyclobenzaprine (FLEXERIL) 10 mg tablet Take 10 mg by mouth as needed. ergocalciferol, vitamin D2, (DRISDOL) 50,000 unit capsule Take 1 capsule by mouth once each week. meloxicam (MOBIC) 7.5 mg tablet Take 7.5 mg by mouth once daily. gabapentin (NEURONTIN) 800 mg tablet Take 800 mg by mouth. albuterol HFA (PROVENTIL HFA, VENTOLIN HFA) 90 mcg/actuation inhaler Inhale as instructed. COMPOUNDED PRESCRIPTION In home Physical Therapy for strengthening and pain management. [facility]. Dx: M24.50, M62.81, G82.50, M79.1, M47.12 docusate sodium (DULCOLAX STOOL SOFTENER, DSS,) 100 mg capsule Take 1 capsule by mouth twice daily. docusate sodium (COLACE) 100 mg capsule Take 1 capsule by mouth twice daily. baclofen (LIORESAL) 20 mg tablet Take 1 tablet by mouth three times daily. Per Dr. Aaron. COMPOUNDED PRESCRIPTION Supplies for incontinence: gloves, chux (incontinent pads/disposable), cloth chux (incontinent pads/disposable). Dx: incontinence, N32.89. hydroCHLOROthiazide 12.5 mg capsule 1 capsule oxybutynin ER (DITROPAN XL) 10 mg 24 hr tablet TAKE 1 TABLET BY MOUTH EVERY DAY glycerin ADULT suppository 1 Suppository by RECTAL route as needed. escitalopram oxalate (LEXAPRO) 10 mg tablet Take 10 mg by mouth once daily. (Patient not taking: Reported on 02/26/2022) diltiazem CD (CARDIZEM CD, CARTIA XT) 120 mg 24 hr capsule Take 120 mg by mouth once daily. LINZESS 145 mcg cap Take 1 capsule by mouth once daily. (Patient not taking: Reported on 02/26/2022) tiZANidine (ZANAFLEX) 4 mg tablet Take 4 mg by mouth three times daily. (Patient not taking: Reported on 02/26/2022) lisinopril (ZESTRIL, PRINIVIL) 10 mg tablet TAKE ONE TAB BY MOUTH IN THE AM AND 0.5 TABS BY MOUTH IN THE PM. Food Supplement, Lactose-Free (PROMOTE, OSMOLITE, TWO ANA MARIA, ENSURE PLUS, ENLIVE) liqd Take 237 mL by mouth three times daily with meals. (Patient not taking: Reported on 02/26/2022) COMPOUNDED PRESCRIPTION Ensure 2 times a day (Patient not taking: No sig reported) DULoxetine (CYMBALTA) 60 mg capsule Take 1 capsule by mouth twice daily. Per counseling center (Patient not taking: Reported on 02/26/2022) polyethylene glycol 3350 (MIRALAX, GLYCOLAX) 17 gram/dose powder Take 17 g by mouth once daily. (Patient not taking: No sig reported) mirtazapine (REMERON) 15 mg tablet Take 1 tablet by mouth daily at bedtime. Per Counseling Center (Patient not taking: No sig reported) amitriptyline (ELAVIL) 50 mg tablet Take 1 tablet by mouth daily at bedtime. Per Counseling Center (Patient not taking: Reported on 02/26/2022) budesonide-formoterol (SYMBICORT) 160-4.5 mcg/actuation inhaler Inhale 2 Puffs as instructed twice daily. (Patient not taking: No sig reported) FAMILY HISTORY Problem Relation Age of Onset Heart Paternal Grandmother Diabetes Maternal Grandfather Social History Tobacco Use Smoking status: Former Packs/day: 0.75 Types: Cigarettes Start date: 10/03/2016 Smokeless tobacco: Never Tobacco comments: half a pack Substance Use Topics Alcohol use: Yes Comment: very rare Drug use: No Objective Physical Exam (more content not included)... [facility] 06-10-2022 Instructions Erica Rose APRN.DUNIA - 06/10/2022 1:48 PM EST ASSESSMENT/PLAN: 1. Urinary frequency - ICD9: 788.41, ICD10: R35.0 acute - UA positive for santana esterase, hematuria, and nitrates - Send urine for culture - Begin treatment with Macrobid 100 mg BID for 5 days - Patient education for prevention given - UA DIP, URINE (POC) - URINE CULTURE - NITROFURANTOIN MONOHYDRATE & MACROCRYSTAL 100 MG ORAL CAP - Follow-up with your PCP in 3-5 days if symptoms have not improved or sooner if symptoms worsen - Discussed red flags and need for immediate medical evaluation if any occur. - Discussed supportive care treatment with fluids, rest and analgesia. - Discussed expected course of illness Erica Rose APRN.DUNIA [facility] PATIENT INFO BLADDER INFECTION OVERVIEW Bladder infections are one of the most common infections, causing symptoms of burning with urination and needing to urinate frequently. A bladder infection is a type of urinary tract infection (UTI). Bladder infections are more common is women than men. Most women have an uncomplicated bladder infection that is easily treated with a short course of antibiotics. In men, bladder infections may also affect the prostate gland, and a longer course of treatment may be needed. BLADDER INFECTION CAUSES The urinary tract includes the kidneys (which filter urine), ureters (the tube that carries urine from the kidneys to the bladder), the bladder (which stores urine), and urethra (the tube that carries urine out of the bladder). Bacteria do not normally live in these areas. However, bacteria normally live close to the urethra in women and men who are not circumcised. Bladder infections occur when bacteria travel up the urethra into the bladder. Factors that increase the risk of developing a bladder infection include: Vaginal sex Use of spermicides History of past bladder infections Diabetes In men, not being circumcised or having anal sex increase the risk of bladder infections. BLADDER INFECTION SYMPTOMS The typical symptoms of a bladder infection include: Pain or burning when urinating Frequent need to urinate Urgent need to urinate Blood in the urine Fever, back pain, nausea, or vomiting are not common symptoms of a bladder infection, but can occur in people with a kidney infection (pyelonephritis). If you have these symptoms, you should call your doctor or nurse immediately. Is it a bladder infection or something else? -- Burning with urination can also occur in people with vaginitis (eg, yeast infection) or urethritis (inflammation of the urethra). For this reason, it is important to call your healthcare provider before assuming you have a bladder infection. BLADDER INFECTION DIAGNOSIS Simple bladder infections are usually diagnosed based upon your symptoms alone. However, most patients, especially those who have bladder infection symptoms for the first time, should see a healthcare provider for urine testing. Urine culture -- A urine culture is a test that uses a sample of urine to try and grow bacteria in a laboratory. It usually requires about 48 hours to get results. However, a urine culture is not always required to diagnose a bladder infection. Urine culture is often recommended if: You have never had a bladder infection before You have symptoms that are not typical for bladder infection You have had resistant bladder infections before You have frequent bladder infections You do not begin to feel better within 24 to 48 hours after starting antibiotics You are BLADDER INFECTION TREATMENT Bladder infection -- In young, healthy adolescents and adults with a bladder infection, the usual treatment includes a three to seven day course of antibiotics. The typical drugs chosen are: trimethoprim-sulfamethoxazole (Bactrim ), nitrofurantoin (Macrobid ), ciprofloxacin (Cipro ) or levofloxacin (Levaquin ). In men, the infection may involve your prostate gland and treatment is usually given for at least 7 days. Your symptoms should begin to resolve within one day after starting treatment. It is important to take the full course of antibiotics to completely eliminate the infection. If your symptoms persist for more than two or three days after starting treatment, call your healthcare provider. If needed, you can take a prescription medication that numbs the bladder and urethra (phenazopyridine [Pyridium ]) to reduce the burning pain of some UTIs. A similar medication is available without a prescription (eg, Uristat). Both medications change the color of the urine (usually blue or orange) and can interfere with laboratory testing. You should not take these medications for more than 48 hours due to the risk of side effects. These medications do not treat the infection and must be taken along with an antibiotic. Some providers recommend drinking more fluids while treating bladder infections to help flush bacteria from the bladder. Others believe that drinking more fluids may dilute the antibiotic in the bladder and make the medication less effective. No studies have been performed to address this issue. There are also no good studies on the effectiveness of cranberry juice for treating a bladder infection; we do not recommend using cranberry juice to treat bladder infections. Follow-up care -- Follow-up testing is not needed in healthy, young men or women with a bladder infection if symptoms resolve. women are usually asked to have a repeat urine culture one to two weeks after treatment has ended to make sure the bacteria are no longer in the urine. RECURRENT BLADDER INFECTIONS Bladder infections versus other causes -- Some adults, especially women, develop bladder infections frequently. In this case, it is important to confirm that your symptoms (eg, pain or burning, frequency, and urgency) are caused by a bladder infection. Symptoms are usually similar from one infection to another. The best way to confirm an infection is to have a urine culture. If your urine culture is negative for infection, other causes of pain, burning, and frequency should be investigated. There is no reason to take antibiotics if your urine culture is negative. Need for further testing -- If you continue to develop bladder infections, you may require further testing. If you continue to notice blood in your urine after your bladder infection has cleared, you should have further testing. Preventing recurrent UTIs -- Women with recurrent urinary tract infections may be advised to take steps to prevent bladder infections, including one or more of the following: Changes in control -- Women who develop frequent bladder infections and use spermicides, particularly those who also use a diaphragm, may be encouraged to use an alternate method of control. Cranberry products -- Taking cranberry juice or cranberry tablets has been promoted as one way to help prevent frequent bladder infections. However, this has not been proven. Drinking more fluid and urinating after intercourse -- Although studies have not proven that drinking more fluids or urinating soon after intercourse can prevent infection, some healthcare providers recommend these measures since they are not harmful. Drinking more fluid may help to wash out bacteria that enter the bladder. Postmenopausal women -- Postmenopausal women who develop recurrent bladder infections may benefit from using vaginal estrogen. Vaginal estrogen is available in a flexible ring that is worn in the vagina for three months (eg, Estring ), a small tablet (Vagifem ), or a cream (eg, Premarin or Estrace ). Vaginal estrogen is discussed in more detail in a separate topic review. Antibiotics -- A preventive antibiotic treatment may be recommended if you repeatedly develop bladder infections and have not responded to other preventive measures. Antibiotics are highly effective in preventing recurrent bladder infections and can be taken in several different ways. Preventive antibiotic -- You can take a low dose of an antibiotic once per day or three times per week for six months to several years. Antibiotics following intercourse -- In women who develop urinary tract infections after sex, taking a single low dose antibiotic after intercourse can help to prevent bladder infections. Self-treatment -- A plan to begin antibiotics at the first sign of a bladder infection may be recommended in some situations. Before starting this regimen, it is important that you have had testing (urine cultures) to confirm that your symptoms are caused by a bladder infection; some people have symptoms of a bladder infection but do not actually have an infection. documented in this encounter [facility] 06-10-2022 History of Presen t illness Narrative Subjective HPI Chen Rust is a 56 year old female who presents with UTI symptoms of burning, frequency, and back pain, going on for a couple weeks. She has had some intermittent nausea. She has not had a fever. She has not taken any medication for this at home. Review of Systems Constitutional: Negative for chills and fever. Respiratory: Negative. Cardiovascular: Negative. Gastrointestinal: Positive for nausea. Negative for abdominal pain and vomiting. Genitourinary: Positive for dysuria and frequency. Negative for hematuria. Musculoskeletal: Positive for back pain. BP 100/62 Pulse 86 Temp 36.9 C (98.5 F) Resp 18 Wt 57.6 kg (127 lb) LMP 01/26/2017 BMI 20.50 kg/m PAST MEDICAL HISTORY Diagnosis Date Allergic asthma 01/12/2015 Cervical compression fracture (HCC) 2012 c6 c7 Chronic pain 01/12/2015 Hands, feet and gluteal region. Essential hypertension 01/12/2015 Flexion contractures 01/12/2015 Fingers and wrists. Heart murmur HTN (hypertension) Intermittent palpitations 01/12/2015 Lower extremity weakness 01/12/2015 Nerve damage Pedal edema 09/16/2013 Going on for 2 months. Not every day, on and off, reduces on leg elevation. Thinks it is worse with walking.. Psychological factors affecting medical condition 01/06/2015 Spastic bladder 01/12/2015 Upper extremity weakness 01/12/2015 PAST SURGICAL HISTORY Procedure Laterality Date S SYNTHES CERVICAL PLATE 2012 ALLERGIES Codeine and Butrans [Buprenorphine] MEDICATIONS losartan (COZAAR) 50 mg tablet Take by mouth. lactulose (DUPHALAC, CONSTULOSE) 10 g/15 mL soln Take 20 g by mouth three times daily. cyclobenzaprine (FLEXERIL) 10 mg tablet Take 10 mg by mouth as needed. ergocalciferol, vitamin D2, (DRISDOL) 50,000 unit capsule Take 1 capsule by mouth once each week. meloxicam (MOBIC) 7.5 mg tablet Take 7.5 mg by mouth once daily. gabapentin (NEURONTIN) 800 mg tablet Take 800 mg by mouth. albuterol HFA (PROVENTIL HFA, VENTOLIN HFA) 90 mcg/actuation inhaler Inhale as instructed. COMPOUNDED PRESCRIPTION In home Physical Therapy for strengthening and pain management. [facility]. Dx: M24.50, M62.81, G82.50, M79.1, M47.12 docusate sodium (DULCOLAX STOOL SOFTENER, DSS,) 100 mg capsule Take 1 capsule by mouth twice daily. docusate sodium (COLACE) 100 mg capsule Take 1 capsule by mouth twice daily. baclofen (LIORESAL) 20 mg tablet Take 1 tablet by mouth three times daily. Per Dr. Aaron. COMPOUNDED PRESCRIPTION Supplies for incontinence: gloves, chux (incontinent pads/disposable), cloth chux (incontinent pads/disposable). Dx: incontinence, N32.89. hydroCHLOROthiazide 12.5 mg capsule 1 capsule oxybutynin ER (DITROPAN XL) 10 mg 24 hr tablet TAKE 1 TABLET BY MOUTH EVERY DAY glycerin ADULT suppository 1 Suppository by RECTAL route as needed. escitalopram oxalate (LEXAPRO) 10 mg tablet Take 10 mg by mouth once daily. (Patient not taking: Reported on 02/26/2022) diltiazem CD (CARDIZEM CD, CARTIA XT) 120 mg 24 hr capsule Take 120 mg by mouth once daily. LINZESS 145 mcg cap Take 1 capsule by mouth once daily. (Patient not taking: Reported on 02/26/2022) tiZANidine (ZANAFLEX) 4 mg tablet Take 4 mg by mouth three times daily. (Patient not taking: Reported on 02/26/2022) lisinopril (ZESTRIL, PRINIVIL) 10 mg tablet TAKE ONE TAB BY MOUTH IN THE AM AND 0.5 TABS BY MOUTH IN THE PM. Food Supplement, Lactose-Free (PROMOTE, OSMOLITE, TWO ANA MARIA, ENSURE PLUS, ENLIVE) liqd Take 237 mL by mouth three times daily with meals. (Patient not taking: Reported on 02/26/2022) COMPOUNDED PRESCRIPTION Ensure 2 times a day (Patient not taking: No sig reported) DULoxetine (CYMBALTA) 60 mg capsule Take 1 capsule by mouth twice daily. Per counseling center (Patient not taking: Reported on 02/26/2022) polyethylene glycol 3350 (MIRALAX, GLYCOLAX) 17 gram/dose powder Take 17 g by mouth once daily. (Patient not taking: No sig reported) mirtazapine (REMERON) 15 mg tablet Take 1 tablet by mouth daily at bedtime. Per Counseling Center (Patient not taking: No sig reported) amitriptyline (ELAVIL) 50 mg tablet Take 1 tablet by mouth daily at bedtime. Per Counseling Center (Patient not taking: Reported on 02/26/2022) budesonide-formoterol (SYMBICORT) 160-4.5 mcg/actuation inhaler Inhale 2 Puffs as instructed twice daily. (Patient not taking: No sig reported) FAMILY HISTORY Problem Relation Age of Onset Heart Paternal Grandmother Diabetes Maternal Grandfather Social History Tobacco Use Smoking status: Former Packs/day: 0.75 Types: Cigarettes Start date: 10/03/2016 Smokeless tobacco: Never Tobacco comments: half a pack Substance Use Topics Alcohol use: Yes Comment: very rare Drug use: No Objective Physical Exam Vitals and nursing note reviewed. Constitutional: Appearance: Normal appearance. Cardiovascular: Rate and Rhythm: Normal rate and regular rhythm. Heart sounds: Normal heart sounds. Pulmonary: Effort: Pulmonary effort is normal. No respiratory distress. Breath sounds: Normal breath sounds. No wheezing or rales. Abdominal: General: There is no distension. Palpations: Abdomen is soft. There is no mass. Tenderness: There is abdominal tenderness in the suprapubic area. There is no right CVA tenderness, left CVA tenderness or guarding. Skin: General: Skin is warm and dry. Neurological: Mental Status: She is alert. ASSESSMENT/PLAN: 1. Urinary frequency - ICD9: 788.41, ICD10: R35.0 acute - UA positive for santana esterase, hematuria, and nitrates - Send urine for culture - Begin treatment with Macrobid 100 mg BID for 5 days - Patient education for prevention given - UA DIP, URINE (POC) - URINE CULTURE - NITROFURANTOIN MONOHYDRATE & MACROCRYSTAL 100 MG ORAL CAP - Follow-up with your PCP in 3-5 days if symptoms have not improved or sooner if symptoms worsen - Discussed red flags and need for immediate medical evaluation if any occur. - Discussed supportive care treatment with fluids, rest and analgesia. - Discussed expected course of illness Erica Rose APRN.DUNIA documented in this encounter [facility] 02-27-2022 Miscellaneous Notes Pt was notified of the results. Pt verbalized understanding. Marilyn Avendano MA Negative for flu and covid please notify thank you documented in this encounter [facility] 02-26-2022 Influenza virus A and B RNA and SARS-CoV-2 (COVID-19) N gene panel JEREMY+probe (Resp) COVID 19 RESULT: SARS-CoV-2 (Agent of COVID-19) Not Detected by RT-PCR or equivalent method. emma [id number]_[employer] (QUINTON)_EUA This test was developed and its performance characteristics determined by [facility]. This test has been authorized by FDA under an Emergency Use Authorization (EUA). This test has been validated in accordance with the FDA's Guidance Document Policy for Diagnostics Testing in Laboratories Certified to Perform High Complexity Testing under CLIA prior to Emergency use Authorization for Coronavirus Disease 2019 during the Public Health Emergency issued on June 01, 2019. Test performed by [facility], [facility], [address] [place] [address]. INFLUENZA A PCR: Negative for Influenza A by RT-PCR INFLUENZA B PCR: Negative for Influenza B by RT-PCR [facility] Comment on above: Performed By: #### [id number] #### [facility] CLIA [id number] [address] [place] [address] OF [place] 02-26-2022 Note HNO ID: [id number] Author: Benoit Denise MD Service: ? Author Type: Physician Type: Progress Notes Filed: 02/26/2022 2:41 PM Note Text: Patient presents with: Chest Congestion: Headache, fever, cough x 1 week HPI: Feeling sick for 1 week, seemed to improve but started feeling sick again last night. Fever 102 last night. Positive symptoms: Cough, chest congestion, Fever, Headache, Chest tightness, raw Sore throat, Nasal Congestion, Rhinorrhea, Body Aches, Headache Negative symptoms: , Vomiting, Diarrhea, OTC: Robitussin, Nyquil, Cold Medicine PAST MEDICAL HISTORY Diagnosis Date Allergic asthma 01/12/2015 Cervical compression fracture (HCC) 2013 c6 c7 Chronic pain 01/12/2015 Hands, feet and gluteal region. Essential hypertension 01/12/2015 Flexion contractures 01/12/2015 Fingers and wrists. Heart murmur HTN (hypertension) Intermittent palpitations 01/12/2015 Lower extremity weakness 01/12/2015 Nerve damage Pedal edema 09/16/2013 Going on for 2 months. Not every day, on and off, reduces on leg elevation. Thinks it is worse with walking.. Psychological factors affecting medical condition 01/06/2015 Spastic bladder 01/12/2015 Upper extremity weakness 01/12/2015 MEDICATIONS: Current Outpatient Medications Medication Sig oxybutynin ER (DITROPAN XL) 10 mg 24 hr tablet TAKE 1 TABLET BY MOUTH EVERY DAY cyclobenzaprine (FLEXERIL) 10 mg tablet Take 10 mg by mouth as needed. glycerin ADULT suppository 1 Suppository by RECTAL route as needed. meloxicam (MOBIC) 7.5 mg tablet Take 7.5 mg by mouth once daily. albuterol HFA (PROVENTIL HFA, VENTOLIN HFA) 90 mcg/actuation inhaler Inhale as instructed. lisinopril (ZESTRIL, PRINIVIL) 10 mg tablet TAKE ONE TAB BY MOUTH IN THE AM AND 0.5 TABS BY MOUTH IN THE PM. docusate sodium (DULCOLAX STOOL SOFTENER, DSS,) 100 mg capsule Take 1 capsule by mouth twice daily. docusate sodium (COLACE) 100 mg capsule Take 1 capsule by mouth twice daily. baclofen (LIORESAL) 20 mg tablet Take 1 tablet by mouth three times daily. Per Dr. Aaron. COMPOUNDED PRESCRIPTION Supplies for incontinence: gloves, chux (incontinent pads/disposable), cloth chux (incontinent pads/disposable). Dx: incontinence, N32.89. escitalopram oxalate (LEXAPRO) 10 mg tablet Take 10 mg by mouth once daily. (Patient not taking: Reported on 02/26/2022) diltiazem CD (CARDIZEM CD, CARTIA XT) 120 mg 24 hr capsule Take 120 mg by mouth once daily. ergocalciferol, vitamin D2, (DRISDOL) 50,000 unit capsule Take 1 capsule by mouth once each week. LINZESS 145 mcg cap Take 1 capsule by mouth once daily. (Patient not taking: Reported on 02/26/2022) gabapentin (NEURONTIN) 800 mg tablet Take 800 mg by mouth. tiZANidine (ZANAFLEX) 4 mg tablet Take 4 mg by mouth three times daily. (Patient not taking: Reported on 02/26/2022) Food Supplement, Lactose-Free (PROMOTE, OSMOLITE, TWO ANA MARIA, ENSURE PLUS, ENLIVE) liqd Take 237 mL by mouth three times daily with meals. (Patient not taking: Reported on 02/26/2022) COMPOUNDED PRESCRIPTION In home Physical Therapy for strengthening and pain management. [facility]. Dx: M24.50, M62.81, G82.50, M79.1, M47.12 COMPOUNDED PRESCRIPTION Ensure 2 times a day (Patient not taking: No sig reported) DULoxetine (CYMBALTA) 60 mg capsule Take 1 capsule by mouth twice daily. Per counseling center (Patient not taking: Reported on 02/26/2022) polyethylene glycol 3350 (MIRALAX, GLYCOLAX) 17 gram/dose powder Take 17 g by mouth once daily. (Patient not taking: No sig reported) mirtazapine (REMERON) 15 mg tablet Take 1 tablet by mouth daily at bedtime. Per [facility] (Patient not taking: No sig reported) amitriptyline (ELAVIL) 50 mg tablet Take 1 tablet by mouth daily at bedtime. Per [facility] (Patient not taking: Reported on 02/26/2022) budesonide-formoterol (SYMBICORT) 160-4.5 mcg/actuation inhaler Inhale 2 Puffs as instructed twice daily. (Patient not taking: No sig reported) No current facility-administered medications for this visit. ALLERGIES: ALLERGIES Allergen Reactions Codeine Swelling, Anaphylaxis Butrans [Buprenorph* Other: See Comments Itching, burning. Medication did not absorb VITALS: BP 118/80 Pulse 60 Temp 37.4 ?C (99.3 ?F) Resp 18 Wt 57.6 kg (127 lb) LMP 01/26/2017 BMI 20.50 kg/m? PHYSICAL EXAM: GEN: mildly ill appearing. Accompanied by her daughter. HEENT: PERRL, EOMI, conjunctiva clear Ears: canals clear. TMs without erythema, bulge, or effusion Sinuses: non-tender frontal sinus, non-tender maxillary sinuses Throat: moist mucous membranes, mild erythema, no exudate Neck: supple, no thyromegaly, no lymphadenopathy HEART: regular rate and rhythm, no murmurs LUNGS: clear to auscultation, no wheezes or crackles, no increased WOB; raspy cough ASSESSMENT/PLAN: 1. Influenza-like illness - ICD9: 487.1, ICD10: J11.1 - suspect new viral URI since last night, differen (more content not included)... [facility] 02-26-2022 History of Presen t illness Narrative Patient presents with: Chest Congestion: Headache, fever, cough x 1 week HPI: Feeling sick for 1 week, seemed to improve but started feeling sick again last night. Fever 102 last night. Positive symptoms: Cough, chest congestion, Fever, Headache, Chest tightness, raw Sore throat, Nasal Congestion, Rhinorrhea, Body Aches, Headache Negative symptoms: , Vomiting, Diarrhea, OTC: Robitussin, Nyquil, Cold Medicine PAST MEDICAL HISTORY Diagnosis Date Allergic asthma 01/12/2015 Cervical compression fracture (HCC) 2012 c6 c7 Chronic pain 01/12/2015 Hands, feet and gluteal region. Essential hypertension 01/12/2015 Flexion contractures 01/12/2015 Fingers and wrists. Heart murmur HTN (hypertension) Intermittent palpitations 01/12/2015 Lower extremity weakness 01/12/2015 Nerve damage Pedal edema 09/16/2013 Going on for 2 months. Not every day, on and off, reduces on leg elevation. Thinks it is worse with walking.. Psychological factors affecting medical condition 01/06/2015 Spastic bladder 01/12/2015 Upper extremity weakness 01/12/2015 MEDICATIONS: Current Outpatient Medications Medication Sig oxybutynin ER (DITROPAN XL) 10 mg 24 hr tablet TAKE 1 TABLET BY MOUTH EVERY DAY cyclobenzaprine (FLEXERIL) 10 mg tablet Take 10 mg by mouth as needed. glycerin ADULT suppository 1 Suppository by RECTAL route as needed. meloxicam (MOBIC) 7.5 mg tablet Take 7.5 mg by mouth once daily. albuterol HFA (PROVENTIL HFA, VENTOLIN HFA) 90 mcg/actuation inhaler Inhale as instructed. lisinopril (ZESTRIL, PRINIVIL) 10 mg tablet TAKE ONE TAB BY MOUTH IN THE AM AND 0.5 TABS BY MOUTH IN THE PM. docusate sodium (DULCOLAX STOOL SOFTENER, DSS,) 100 mg capsule Take 1 capsule by mouth twice daily. docusate sodium (COLACE) 100 mg capsule Take 1 capsule by mouth twice daily. baclofen (LIORESAL) 20 mg tablet Take 1 tablet by mouth three times daily. Per Dr. Aaron. COMPOUNDED PRESCRIPTION Supplies for incontinence: gloves, chux (incontinent pads/disposable), cloth chux (incontinent pads/disposable). Dx: incontinence, N32.89. escitalopram oxalate (LEXAPRO) 10 mg tablet Take 10 mg by mouth once daily. (Patient not taking: Reported on 02/26/2022) diltiazem CD (CARDIZEM CD, CARTIA XT) 120 mg 24 hr capsule Take 120 mg by mouth once daily. ergocalciferol, vitamin D2, (DRISDOL) 50,000 unit capsule Take 1 capsule by mouth once each week. LINZESS 145 mcg cap Take 1 capsule by mouth once daily. (Patient not taking: Reported on 02/26/2022) gabapentin (NEURONTIN) 800 mg tablet Take 800 mg by mouth. tiZANidine (ZANAFLEX) 4 mg tablet Take 4 mg by mouth three times daily. (Patient not taking: Reported on 02/26/2022) Food Supplement, Lactose-Free (PROMOTE, OSMOLITE, TWO ANA MARIA, ENSURE PLUS, ENLIVE) liqd Take 237 mL by mouth three times daily with meals. (Patient not taking: Reported on 02/26/2022) COMPOUNDED PRESCRIPTION In home Physical Therapy for strengthening and pain management. [facility]. Dx: M24.50, M62.81, G82.50, M79.1, M47.12 COMPOUNDED PRESCRIPTION Ensure 2 times a day (Patient not taking: No sig reported) DULoxetine (CYMBALTA) 60 mg capsule Take 1 capsule by mouth twice daily. Per counseling center (Patient not taking: Reported on 02/26/2022) polyethylene glycol 3350 (MIRALAX, GLYCOLAX) 17 gram/dose powder Take 17 g by mouth once daily. (Patient not taking: No sig reported) mirtazapine (REMERON) 15 mg tablet Take 1 tablet by mouth daily at bedtime. Per [facility]ing [facility] (Patient not taking: No sig reported) amitriptyline (ELAVIL) 50 mg tablet Take 1 tablet by mouth daily at bedtime. Per [facility] (Patient not taking: Reported on 02/26/2022) budesonide-formoterol (SYMBICORT) 160-4.5 mcg/actuation inhaler Inhale 2 Puffs as instructed twice daily. (Patient not taking: No sig reported) No current facility-administered medications for this visit. ALLERGIES: ALLERGIES Allergen Reactions Codeine Swelling, Anaphylaxis Butrans [Buprenorph* Other: See Comments Itching, burning. Medication did not absorb VITALS: BP 118/80 Pulse 60 Temp 37.4 C (99.3 F) Resp 18 Wt 57.6 kg (127 lb) LMP 01/26/2017 BMI 20.50 kg/m PHYSICAL EXAM: GEN: mildly ill appearing. Accompanied by her daughter. HEENT: PERRL, EOMI, conjunctiva clear Ears: canals clear. TMs without erythema, bulge, or effusion Sinuses: non-tender frontal sinus, non-tender maxillary sinuses Throat: moist mucous membranes, mild erythema, no exudate Neck: supple, no thyromegaly, no lymphadenopathy HEART: regular rate and rhythm, no murmurs LUNGS: clear to auscultation, no wheezes or crackles, no increased WOB; raspy cough ASSESSMENT/PLAN: 1. Influenza-like illness - ICD9: 487.1, ICD10: J11.1 - suspect new viral URI since last night, differential includes influenza and COVID-19. - Discussed supportive care treatment with home isolation, rest, BP safe cold medicine, and analgesia. - Red flags to seek further treatment include chest pain, shortness of breath, and lethargy; in the ER if severe. - COVID WITH FLUA+B, ROUTINE - call in tamiflu or refer for anti-COVID treatment if positive. Benoit Denise MD documented in this encounter [facility] Evaluation note Diagnosis Chronic bilateral thoracic back pain Chronic bilateral low back pain without sciatica Pain of finger of left hand Pain in limb Benign essential HTN Essential hypertension, benign Screening, lipid Screening for lipoid disorders documented in this encounter [facility] Work Phone: Evaluation note* Diagnosis Influenza-like illness- Primary Influenza with other respiratory manifestations [facility] Diagnosis Urinary frequency- Primary [facility] Diagnosis Other constipation [facility] Diagnosis Other muscle spasm Unspecified injury at unspecified level of cervical spinal cord, subsequent encounter [facility]HCC[facility] Other const[facility] Diagnosis Other muscle spasm Unspecified injury at unspecified level of cervical spinal cord, subsequent encounter ([facility]) [facility] Diagnosis Other muscle spasm [facility] Diagnosis Unspecified injury at unspecified level of cervical spinal cord, subsequent encounter (HCC) [facility] Diagnosis Functional quadriplegia (CMS/HCC) (HCC)- Primary Functional quadriplegia Screening mammogram for breast cancer Other osteoporosis without current pathological fracture 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 [facility] Other muscle spasm documented in [facility] Assessments Diagnosis Screening mammogram, encounter for Diagnosis Bilateral lower extremity edema Edema Diagnosis Gait instability Abnormality of gait Fall, subsequent encounter Muscle spasms of both lower extremities Paraplegia (HCC) Paraplegia Diagnosis Diminished pulse Other symptoms involving cardiovascular system Bilateral lower extremity edema Edema Advance Directives Documents on File Type Date 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 Advance Directives and Living Will Power of Form [employer] Forms Documents on File Type Date 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 Advance Directives and Living Will Power of Form [employer] Forms Documents on File Type Date 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 ACP-Advance Directive ACP-Power of Form Setter [employer] Forms Summary Purpose Family History No Family History Records FoundNo Family History Records FoundNo Family History Records FoundNo Family History Records Found Reason for Referral Status Reason Specialty Diagnoses / Procedures Referre d By Contact Referred To Contact Open Radiology Diagnoses Gait instability Fall, subsequent encounter Muscle spasms of both lower extremities Paraplegia (HCC) Procedures MRI BRAIN W WO CONTRAST Myranda Traore, DO [address] [place] [address] Status Reason Specialty Diagnoses / Procedures Referre d By Contact Referred To Contact Open Radiology Diagnoses Bilateral lower extremity edema Procedures US Lower Extremity Bilateral Venous Duplex Myranda Traore, DO [address] [place] [address] Status Reason Specialty Diagnoses / Procedures Referred By Contact Referred To Contact Pending Review Radiology Diagnoses Diminished pulse Procedures VL ARTERIAL PVR LOWER W EXERCISE Myranda Traore, DO [address] [place] [address] Health Concerns Infection Onset Date Last Indicated Resolved Time COVID-19 Rule-Out 02/26/2022 02/26/2022 Infection Onset Date Last Indicated Resolved Time COVID-19 Rule-Out 02/26/2022 02/26/2022 02/27/2022 4:03 AM EST Additional Source Comments INFORMATION SOURCE (unrecogn ized section and content) DATE CREATED AUTHOR 04/14/2020 [facility] Edmond Blankenship DATE CREATED AUTHOR AUTHOR'S ORGANIZ ATION 11/03/2020 [facility] DATE CREATED AUTHOR AUTHOR'S ORGANIZ ATION 06/12/2022 [facility] CREATED AUTHOR AUTHOR'S ORGANIZ ATION [facility] Source Comments (unrecognize d section and content) In the event this informatio n is protected by the Federal Confidentiality of Alcohol and Drug Abuse Patient Records regulations: The Federal rules restrict any use of the information to criminally investigate or prosecute any alcohol or drug abuse patient.[facility] the event this information is protected by the Federal Confidentiality of Alcohol and Drug Abuse Patient Records regulations: The Federal rules restrict any use of the information to criminally investigate or prosecute any alcohol or drug abuse patient.[facility] the event this information is protected by the Federal Confidentiality of Alcohol and Drug Abuse Patient Records regulations: The Federal rules restrict any use of the information to criminally investigate or prosecute any alcohol or drug abuse patient.[facility] Reason for Visit (unrecogniz ed section and content) Reason Comments Chest Congestion Headache, fever, cou gh x 1 week Reason Comments Results Reason Comments Urinary Frequency With burning, back p ain x2 weeks Reason Comments Med Refill Reason Onset Date Comments Spasms 11/14/2022 Reason Onset Date Comments Med Refill 01/27/2023 Reason Comments Follow-up Pt currently has no insurance. Reason Onset Date Comments Med Refill 08/14/2023 Reason Onset Date Comments message 08/14/2023 Reason Onset Date Comments Release of Information 12/06/2023 Reason Onset Date Comments Med Refill 12/27/2023 Care Teams (unrecognized sec tion and content) Radiology Transporter Relationship Specialty Start Date End Date Myranda Traore [address] [place] [address] PCP - General Internal Medicine 02/13/17 Radiology Transporter Relationship Specialty Start Date End Date Myr[place] [address] PCP - General Internal Medicine 02/13/17 Radiology Transporter Relationship Specialty Start Date End Date Myranda [place] [address] PCP - General Internal Medicine 02/13/17 Radiology Transporter Relationship Specialty Start Date End Date Myranda Traore DO [address] [place] [address] PCP - General 07/13/16 Radiology Transporter Relationship Specialty Start Date End Date Myranda Traore DO [address] [place] [address] PCP - General 07/13/16 Radiology Transporter Relationship Specialty Start Date End Date Myranda Traore DO [address] [place] [address] PCP - General 07/13/16 Radiology Transporter Relationship Specialty Start Date End Date Myranda Traore DO [address] [place] [address] PCP - General 07/13/16 Radiology Transporter Relationship Specialty Start Date End Date Myranda Traore DO [address] [place] [address] PCP - General 07/13/16 Radiology Transporter Relationship Specialty Start Date End Date Myranda Traore DO [address] [place] [address], [place] [address] PCP - General 07/13/16 Radiology Transporter Relationship Specialty Start Date End Date Myranda Traore DO [address] [place] [address], [place] [address] PCP - General 07/13/16 Radiology Transporter Relationship Specialty Start Date End Date Myranda Traore DO [address] [place] [id number] PCP - General 07/13/16 Radiology Transporter Relationship Specialty Start Date End Date Myranda Traore DO [address] [place] [id number] PCP - General 07/13/16 Radiology Transporter Relationship Specialty Start Date End Date Myranda Traore DO [address] [place] [id number] PCP - General 07/13/16 Radiology Transporter Relationship Specialty Start Date End Date Myranda Traore DO [address] [place] [address], [place] [address] PCP - General 07/13/16 FOR RECORDS PERTAINING TO PATIENTS WHO ARE OR HAVE BEEN ENROLLED IN A CHEMICAL DEPENDENCY/SUBSTANCEABUSE PROGRAM, SOME INFORMATION MAY BE OMITTED. This clinical summary was aggregated from multiple sources. Caution should be exercised in using it in the provision of clinical care. This summary normalizes information from multiple sources, and as a consequence, information in this document may materially change the coding, format and clinical context of patient data. In addition, data may be omitted in some cases. CLINICAL DECISIONS SHOULD BE BASED ON THE PRIMARY CLINICAL RECORDS. [employer] [facility]. provides no warranty or guarantee of the accuracy or completeness of information in this document.
[2023-12-28] MEDS: HYDROmorphone 1 MG/ML Syringe IV ×2 (19:37→23:50)
[2023-12-28 19:38] LABS: Anion Gap 8 (5-15); BUN 11 mg/dL (7-18); BUN/Creat Ratio 15.3 RATIO (10-20); Chloride 105 mmol/L (98-107); Creatinine, Serum 0.72 mg/dL (0.55-1.02); EST Glomerular Filtration Rate 89 mL/min (>60); Est Glom Filt Rate - Afr Amer 107 mL/min (>60); Estimated Creatinine Clearance 73.41 ml/min; Glucose 92 mg/dL (74-106); Potassium 3.9 mmol/L (3.5-5.1); Sodium Level 136 mmol/L (136-145)
--- NOTE | 2023-12-28 19:50 | RAD_ITS ---
STUDY: X-RAY - RIGHT ANKLE REASON FOR EXAM: Female, 58 years old. pain, fall TECHNIQUE: 3 view(s) of the ankle. COMPARISON: None. FINDINGS: Normal visualized distal tibia and fibula. Normal medial and lateral malleoli. Normal tibiotalar articulation and ankle mortise. Normal visualized talus and calcaneus. The visualized subtalar, talonavicular, calcaneocuboid and tarsal articulations are normal. Mild soft tissue swelling overlying the medial malleolus. RAD/Ankle min 3 Views IMPRESSION: Minor medial malleolus sprain. No acute fracture or dislocation. Electronically Signed: Jeremiah Mcnair MD at 20:37 EDT ,
--- NOTE | 2023-12-28 19:50 | RAD_ITS ---
STUDY: X-RAY - PELVIS AND LEFT HIP REASON FOR EXAM: Female, 58 years old. fall TECHNIQUE: 3 views of the pelvis and hip. COMPARISON: None. FINDINGS: There is a non-specific bowel gas pattern. Normal visualized soft tissue structures. Normal bilateral iliac wings, sacroiliac joints and visualized sacrum. Normal bilateral superior and inferior pubic rami. Normal pubic symphysis. Normal bilateral ischial tuberosities. Acute impacted femoral head and neck fracture with overlapping and varus angulation of fracture fragments . RAD/HIP, UNI W/ Pelvis 2-3 Views IMPRESSION: Acute impacted angulated left femoral head and neck fracture Electronically Signed: Jeremiah Mcnair MD at 20:42 EDT ,
--- NOTE | 2023-12-28 19:50 | RAD_ITS ---
STUDY: X-RAY - LUMBAR SPINE REASON FOR EXAM: Female, 58 years old. fall TECHNIQUE: AP and lateral view(s) of the lumbar spine were obtained. COMPARISON: None FINDINGS: Normal lumbar lordosis. Mild dextroscoliosis or splinting secondary to muscle spasm. There is a normal alignment of the vertebrae. Normal vertebral bodies. Normal disc space heights. Minor multilevel endplate spurring The soft tissue structures are unremarkable. RAD/Lumbar Spine 2 or 3 Views IMPRESSION: Mild scoliosis and degenerative change. No acute fracture or subluxation It should be noted on the lateral projection the sacral spine is not visualized due to positioning. Electronically Signed: Jeremiah Mcnair MD at 20:40 EDT ,
--- NOTE | 2023-12-28 19:50 | RAD_ITS ---
STUDY: X-RAY CHEST REASON FOR EXAM: Female, 58 years old. SOB TECHNIQUE: AP portable COMPARISON: None. FINDINGS: Lungs are mildly hyperinflated but clear. There is no demonstrated pleural abnormality. Normal size heart. Normal mediastinum and robert. Normal visualized pulmonary arteries. Normal visualized aortic arch and descending thoracic aorta. Normal visualized thoracic spine. Normal visualized ribs, clavicles, and shoulders. Postop change status post cervical fusion There is no demonstrated abnormality of the visualized soft tissue structures of the upper abdomen. RAD/Chest 1 View IMPRESSION: Hyperinflation. No acute cardiopulmonary pathology Electronically Signed: Jeremiah Mcnair MD at 20:43 EDT ,
[2023-12-28] MEDS: HYDROmorphone 0.5 MG/0.5 ML SYRINGE IV (19:56)
[2023-12-28 20:15] VITALS: BP 145/78; PULSE 90; RESP 20; O2SAT 99
--- NOTE | 2023-12-28 20:37 | HP.PCM.HOS_ITS ---
[facility] - General General Date of Admission: 12/28/23 Date of Service: 12/28/23 Chief Complaint: Fall with Left Hip Pain and Inability to Ambulate. HPI Narrative CHEN RUST, is a 58 F with a past medical history of essential hypertension, previous history of tobacco abuse ~20 years, history of quadriplegia following cervical spine injury with cervical compression fracture; s/p cervical spinal fusion (~2012), cervical myelopathy, flexion contractures: with chronic neuropathic pain syndrome on Baclofen and Gabapentin, history of pharyngoesophageal dysphagia, history of cervicogenic headache, history of urinary incontinence attributed to spastic/overactive bladder; with recurrent UTI's, chronic constipation; on daily lactulose and prucalopride, history of asthma, chronic venous insufficiency, depression with anxiety and OA who presents to [facility] ER complaining of fall with Left hip pain and inability to ambulate. Ms. Rust reports her symptoms began approximately one hour prior to arrival she lost her balance while turning and then fell directly onto her Left side with subsequent inability to straighten her Left leg or walk due to severe pain. She also admits to pain in her lower back along with an acute increase in her chronic pain of her head and neck. She denies LOC, significant head trauma with her fall or other significant acute injury. There was no associated fever, chills, nausea, vomiting, diarrhea, chest pain, palpitations or SOB. In the ER she was noted to have radiographic evidence of Left hip fracture complicated by clinical evidence of an acute exacerbation of her chronic neuropathic pain syndrome after a fall at home and she was then admitted to the general medical floor for ongoing care for a stay that is expected to extend beyond 2 midnights. [facility] Medical History Pharyngoesophageal dysphagia Abnormality of gait Venous insufficiency Cervical spondylosis with myelopathy and radiculopathy Neuropathic pain Cervicogenic headache Quadriplegia following spinal cord injury Chronic pain Cervical compression fracture Intermittent palpitations Spastic bladder Flexion contractures Overactive bladder HTN (hypertension) Depression Chronic constipation Asthma Anxiety Peripheral neuropathy Acute on Recurrent UTI Home Medications ?Medication ?Instructions ?Recorded ?Last Taken ?Type albuterol sulfate 90 mcg/actuation 2 puff inhalation Q6H PRN PRN Sob 05/03/17 11/26/17 History aerosol inhaler (ProAir HFA) &/Or Wheezing ergocalciferol (vitamin D2) 1,250 50,000 unit PO [facility] 05/03/17 11/22/17 History mcg (50,000 unit) capsule (Vitamin maintenance D2) fluticasone propionate 50 1 spray intranasal DAILY 02/07/22 Unknown History mcg/actuation nasal spray,suspension losartan 50 mg tablet 50 mg PO DAILY bp 02/07/22 Unknown History baclofen 10 mg tablet 10 mg PO TID PRN muscle pain/spasm 05/03/22 Unknown Rx #90 tabs gabapentin 800 mg tablet 800 mg PO BID nerve pain #60 tabs 05/03/22 Unknown Rx Allergy/AdvReac Type Severity Reaction Status Date / Time buprenorphine (From [facility]) Allergy Severe BLISTERS Verified 08/24/22 13:35 codeine Allergy Severe Angioedema Verified 08/24/22 13:35 Family History Mother Aneurysm Arthritis High cholesterol Father Pneumonia Alcoholism Hypertension Grandmother Arthritis Heart disease Hypertension Grandfather Diabetes Aunt Diabetes Surgical History S/P cervical spinal fusion H/O neck surgery Social History household members: none Smoking Status: Former smoker Tobacco: How many years used: 20 second hand exposure: No alcohol intake: current details: occasionally substance use type: does not use elli/mu-ism: None seatbelt use: always ROS ROS Narrative Review of Systems: Constitutional: Patient denies fever or chills. Eyes: Patient denies changes in vision or discharge from eyes. ENT: Patient denies runny nose, sore throat or ear pain. Resp: Patient denies SOB or cough. CV: Patient denies chest pain or palpitations. GI: Patient denies abdominal pain, nausea, vomiting or diarrhea. : Patient denies dysuria or hematuria. MSK: Patent admits to Left hip pain, low back pain and neck pain as per HPI. Skin: Patient denies rash, abscess, wound or jaundice. Psych: Patient is obviously anxious in the ER but she denies suicidal or homicidal ideation. Neuro: Patient admits to headache but denies paresthesias and new focal neurologic deficits. Allergy: Patient denies lip swelling, tongue swelling or urticaria. Hematology: Patient denies easy bleeding or easy bruisability. Endocrinology: Patient denies polyuria, polydipsia or polyphagia. 14 point ROS otherwise negative except for positives noted above in HPI. Vital Signs Vital Signs Vital Signs: 12/28/23 18:16 12/28/23 20:15 Temperature 98.1 F Temperature Source Oral Pulse Rate 96 90 Respiratory Rate 18 20 H Blood Pressure 150/88 H 145/78 H Blood Pressure Mean 108 100 Pulse Ox 98 Oxygen Delivery Method Room Air Weight Weight: 120 lb 5.958 oz Body Mass Index (BMI) 19.4 Physical Exam Const alert and oriented x3 Constitutional Narrative: Moderate distress noted. General Appearance: cooperative HEENT normocephalic, head/scalp atraumatic, hearing grossly normal bilaterally and moist oral mucous membranes Eyes PERRL and EOMs intact bilaterally Neck no lymphadenopathy and supple Resp normal respiratory effort, no retractions, no use of accessory muscles and clear to auscultation bilaterally Cardio regular rate and regular rhythm GI normal to inspection, nondistended, normoactive bowel sounds, soft to palpation, non-tender and non-distended Extremity Extremity Narrative: LLE shortened and externally rotated with good pulses and no signs of vascular compromise. Skin Skin Narrative: There is no evidence of rash, abscess or jaundice. Neuro oriented x3, CN's II-XII intact bilaterally, moves all extremities and no focal motor deficits Sensorium / Orientation: awake, alert, oriented to person, oriented to place and oriented to time Speech: speech normal Psych Mood & Affect: anxious Results Medical Records Data Attestation: I reviewed the patient's medical records Lab / Micro Data Attestation: I reviewed the patient's lab results. 12/29/23 03:38 12/29/23 03:38 Labs: Laboratory Results - last 24 hr 12/28/23 19:15: WBC 6.1, RBC 4.51, Hgb 13.4, Hct 41.5, MCV 92.0, MCH 29.7, MCHC 32.3, RDW Std Deviation 42.0, RDW Coeff of Renee 12.4, Plt Count 331, MPV 9.7, Immature Gran % (Auto) 0.700, Neut % (Auto) 63.6, Lymph % (Auto) 22.7, Jackson % (Auto) 8.7, Eos % (Auto) 3.5, Baso % (Auto) 0.8, Absolute Neuts (auto) 3.9, Absolute Lymphs (auto) 1.38, Nucleated RBC % 0, Sodium 136, Potassium 3.9, Chloride 105, Carbon Dioxide 23.0, Anion Gap 8, BUN 11, Creatinine 0.72, Estim Creat Clear Calc 73.41, Est GFR (MDRD) Af Amer 107, Est GFR (MDRD) Non-Af 89, BUN/Creatinine Ratio 15.3, Glucose 92, Calcium 10.0 Imaging Radiology Impression Brain CT 12/28/23 18:52 IMPRESSION: Normal unenhanced CT scan of the brain. Electronically Signed: Jeremiah Mcnair MD at 20:13 EDT , Cervical Spine CT 12/28/23 18:52 IMPRESSION: Mild spondylosis. 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 Left hip fracture after Fall at Home - Admit to general medical floor. Keep NPO for ORIF in AM. Give Tylenol prn for [id number] (level 1-5/10) pain or fever. Give Dialudid IV prn for severe (level 6-10/10) pain. Orthopedic consult is greatly appreciated. 2. Acute exacerbation of her chronic neuropathic pain syndrome due to #1 - Resume Baclofen and Gabapentin as previous. Continue Dilaudid IV prn for severe (level 6-10/10) pain. 3. History of Cervicogenic Headache complicating #1 & #2 - Maintain pain regimen outlined in #1. 4. Depression with Anxiety made worse by #1 - #3 - Continue home medications plus give prn Xanax for breakthrough symptoms. 5. History of quadriplegia following cervical spine injury with cervical compression fracture; s/p cervical spinal fusion (~2012) with subsequent Cervical Myelopathy and Flexion Contractures - Noted. 6. Essential hypertension - Maintain current regimen plus give prn IV Hydralazine for systolic blood pressure > 160 mmHg. 6. Previous history of tobacco abuse ~20 years - Noted. 7. History of pharyngoesophageal dysphagia - Noted. 8. History of urinary incontinence attributed to spastic/overactive bladder; with recurrent UTI's - Check UA this admission. 9. Chronic constipation; on daily lactulose and prucalopride - Continue current treatment. 10. History of asthma - Stable with no evidence of acute flare. 11. Chronic venous insufficiency - Stable. 12. OA - Give Tylenol prn. 13. DVT prophylaxis - SCD's only for now preoperatively to minimize potential risks of bleeding complications with traumatic fracture. Orthopod to determine postoperative DVT prophylaxis. Total time: Approximately 75 minutes. Charges/Coding Visit Charges Inpatient E&M: 73495 Init Hosp L3
[2023-12-28 20:41] VITALS: BP 145/78; PULSE 94; RESP 18; TEMP 36.6; O2SAT 98
--- OUTSIDE RECORDS SUMMARY | 2023-12-28 21:01 | XMS RPT_ITS | CCD ---
Author Organization [facility] Care Team Providers Care Auto Dismantler Name Role Phone Myranda Traore Primary Care Provider MYRANDA TRAORE Primary Care Unavailable MYRANDA TRAORE Primary Care Unavailable Myranda Traore DO Primary Care Provider [phone] Myranda Traore DO Primary Care Provider [phone] Myranda Traore DO Primary Care Provider [phone] MYRANDA TRAORE Attending Unavailable MYRANDA TRAORE Primary Care Unavailable Allergies Allergy Classification Reported Allergen(s) Allergy Type Date of Onset Reaction(s) Facility Buprenorphine (1 source) Buprenorphine Drug Allergy 6 Other (See Comments) [facility] (1 source) Codeine Drug Allergy 7 Anaphylaxis [facility] (20 sources) Buprenorphine; Translations: [BUPRENORPHINE] Drug Allergy 6 Other (See Comments), Other: See Comments, Other [place], [place] (20 sources) Codeine; Translations: [CODEINE] Drug Allergy 4 Anaphylaxis, Swelling [place], [place] Medications Current Medications Medication Drug Class(es) Dates Sig (Normalized) Sig (Original) [id number] 200 actuat albuterol 0.09 mg/actuat metered dose [...] Injury of cervical spinal cord, subsequent encounter ([facility]) TAKE 1 TABLET BY MOUTH [...] urinary bladder 4 boxes for dx:N31.9 BRAND: [email or web address] 4 each 2 10/12/2016 Active docusate sodium [...] every week ergocalciferol (Vitamin D2) 1.25 MG (26787 UT) capsule TAKE 1 CAPSULE BY MOUTH ONE TIME PER WEEK 12 capsule 3 08/14/2023 Active Start: 07-18-2017 take 1 capsule by mo ut every week ergocalciferol (Vitamin D-2) 1.25 MG (79054 UT) capsule TAKE 1 CAPSULE BY MOUTH [...] Incontinence Supply Disposable (BLADDER CONTROL PAD REGULAR) [facility] [place]: Neurogenic dysfunction of [...] hours as needed for pain HYDROcodone-acetam inophen ([place]) 5-325 MG tablet 1 TAB ORALLY EVERY [...] for strengthening and pain management. [facility]. Dx: M24.50, M62.81, G82.50, M79.1, M47.12 [...] for strengthening and pain management. [facility]. Dx: M24.50, M62.81, G82.50, M79.1, M47.12 [...] Comment on above: Take 1 capsule by [facility] twice daily. Per counseling center Food Supplement, [...] BRYCE TH EVERY DAY polyethylene glycol 3350 87625 mg powder for oral solution (4 sources) [...] Dept 06/19/23 Office Visit Myranda Traore DO [facility] Showing recent visits within past 365 [...] recent labs completed in chart? Yes None [facility] [place] [address] Message released to patient as written. Have you received any controlled medications from any other provider? Patient's further questions if applicable: no Were all questions from office addressed or relayed to the patient from encounter: Yes Pt does not get anything from any other provider. Mippin [facility] 36 Placed call to patient to ask the controlled medication question to be able to fill her Neurontin. Voicemail left requesting call back or she can respond via [employer] [facility] 36on 12-05-2023 36 Placed call to patient to ask the controlled medication question to be able to fill her Neurontin. Voicemail left requesting call back or she can respond via [employer] [facility] 3608-30-2023 36 Noted will await arrival of paperwork Mippin [facility] [employer] [place] [address] Name of caller: Chen Contact phone number: [phone] Relationship to Patient: patient Provider: León Practice: [facility] Chief Complaint/Reason for Call: Patient returned call to office. Called back line. Was informed that [facility] must send form to office for Dr Traore to fill out. Patient had not met with SSI as of date. Provided office fax number to give to SSI to fax form. Please advise. Best time of day caller can be reached: any Patient advised that office/PCP has 24-48 business hours to return their call: No [place] [address] Call center called us about patient wanting us to send request for SSI forms for disability, but call center has been notified that our facility does not do that but that each patient is required to do that request and get it started on their own. Normal [place] [address] Follow up message left for patient to return call to office to discuss request. Office has never received any paperwork concerning disability to complete for this patient. Requesting follow up [place] [address]on 08-14-2023 36 Recent Visits Date Type Provider Dept 06/19/23 Office Visit Myranda Traore DO [facility] Showing recent visits within past 365 days and meeting all other requirements Future Appointments No visits were found meeting these conditions. Showing future appointments within next 90 days and meeting all other requirements Requested Prescriptions Pending Prescriptions Disp Refills losartan (Cozaar) 50 MG tablet 90 tablet 3 Sig: Take 1 tablet (50 mg) by mouth daily. ergocalciferol (Vitamin D2) 1.25 MG (10986 UT) capsule 12 capsule 3 Sig: TAKE [...] Most recent labs completed in chart? Yes [place] [address] Typically, [facility] will send us forms to fill out. Fine for letter if necessary [place] [address] Pt stated that she would like to [...] Medication name: ergocalciferol (Vitamin D2) 1.25 MG (81721 UT) capsule Medication dosage: 1.25 mg (Miligrams (83458 UT) Monthly quantity needed: 12 How many [...] of last refill (see medication tab): 06-26-2023 [facility] 36 Name of caller: Julio Rust Contact phone number: [phone] Relationship to Patient: patient Provider: Dr Myranda Traore Practice: [facility] Chief Complaint/Reason for Call: Pt called stating that she would like to apply for disability. 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 Please advise. Best time of day caller can be reached: any Patient advised that office/PCP has 24-48 business hours to return their call: No [facility] 36on 06-26-2023 36 Recent Visits Date Type Provider Dept 06/19/23 Office Visit Myranda Traore DO [facility] Showing recent visits within past 365 days and meeting all other requirements Future Appointments No visits were found meeting these conditions. Showing future appointments within next 90 days and meeting all other requirements Requested Prescriptions Pending Prescriptions Disp Refills ergocalciferol (Vitamin D2) 1.25 MG (73916 UT) capsule [Pharmacy Med Name: VITAMIN D2 [...] Most recent labs completed in chart? 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 Normal [facility] 36 Pt was just seen today and needs a handicap placard. Told patient once doctor prints out order we will mail it to her home. Normal [facility] Office Visiton 06-19-2023 Follow-up visit [id number] [facility] pilaradina Liz 1965 F Date Provider Department Center 06/19/2023 [id number] CASANOVA [facility] Family History Problem Relation Age of Onset Breast cancer Other Comments: maternal aunt unsure age Other Mother Comments: aneurysm Ovarian cancer Neg Hx Other Father Comments: pneumonia Colon cancer Neg Hx Family Status - Relation Status Age at Other Mother Neg Hx Father Level of Service:98818 [place] OFFICE/OUTPATIENT ESTABLISHED MOD MDM 30 MIN Reason for Visit and Comments: Follow-up [053780] - Pt currently has no insurance. [facility] Progress Noteon 06-19-2023 Progress Note [facility] [address] [place] [address] [address] [facility] [address] Visit type: Established Patient Reason for [...] capsule 11 ergocalciferol (Vitamin D2) 1.25 MG (46346 UT) capsule TAKE 1 CAPSULE BY MOUTH [...] times daily. 90 tablet 0 HYDROcodone-acetamin ophen ([place]) 5-325 MG tablet 1 TAB ORALLY EVERY [...] cancer Other maternal aunt unsure age Other (54873) Mother aneurysm Ovarian cancer Neg Hx Other (70099) Father pneumonia Colon cancer Neg Hx Objective [...] During This Encounter Medication Reason HYDROcodone-acetamin ophen ([place]) (more content not included)... Normal [facility] 36on 04-06-2023 36 Ordering provider: Dr. Traore [...] of last refill (see medication tab): 10/21/2022 [facility] 36on 01-27-2023 36 Last OV:01/12/22 Scheduled:n/a [facility] 36 Name of caller: Chen Contact phone number: [phone] Relationship to Patient: patient Provider: Dr. Traore [...] business hours to return their call: Yes [facility] Bacteria Ur Culton 3 Bacteria identified [...] , Intermediate >32 , Resistant >64 Abnormal [facility] Comment on above: Performed By: #### 6 30-4 #### [facility] [place] [id number] [address] [place] [address] [place] CNOVon 06-10-2022 CNOV Office Visit ([facility]) CHEN RUST ([id number]) 1965 F CHT Date Time Provider Department 06/10/22 1:30 PM ERICA ROSE [facility] During your visit today, we recorded the following information about you: Temperature Pulse Respiration Blood pressure 98.5 degrees 86/minute 18/minute 100/62 Weight 57.6 kg Erica Rose APRN.MACHINE BOBBIN WINDER 06/10/2022 1:49 PM Signed Subjective HPI Chen [...] for strengthening and pain management. [facility]. Dx: M24.50, M62.81, G82.50, M79.1, M47.12 [...] Maternal Gra (more content not included)... Normal [facility] UA DIP, URINE (POC)on 2022 BILIRUBIN UA (POCT) Negative Negative [facility] CLARITY UA (POCT) Slightly Cloudy Cl [facility] COLOR UA (POCT) Other [facility] GLUCOSE UA (POCT) Negative Negative mg/dL [facility] HEMOGLOBIN/BLOOD UA (POCT) Trace-intact Abnormal Negative [facility] KETONE UA (POCT) Negative Negative mg/dL [facility] LEUKOCYTES UA (POCT) Large Abnormal Negative [facility] NITRITE UA (POCT) Positive Abnormal Negative [facility] PH UA (POCT) 6.0 4.5 - 8.[address] [facility] Protein Ql (U) Negative Negative mg/dL [facility] SPECIFIC GRAVITY UA (POCT) 1.015 1.005 - 1.[address] [facility] UROBILINOGEN UA (POCT) 0.2 E.U./dL Normal E.U./ dL [facility] Lucero 02-27-2022 [facility] ([id number]) 1965 F CHT Date Time Provider Department 02/27/22 DELORES ISLAS [facility] During your visit today, we recorded the following information about you: Delores Islas APRN.MACHINE BOBBIN WINDER 02/27/2022 8:17 AM Signed Negative for flu [...] for strengthening and pain management. [facility]. Dx: M24.50, M62.81, G82.50, M79.1, M47.12 [...] Encounter Status:Closed by MARILYN AVENDANO on 02/27/22 [facility] CNOVon 02-26-2022 CNOV Office Visit ([facility]) CHEN RUST ([id number]) 1965 F [facility] Date Time Provider Department 02/26/22 2:15 [...] for strengthening and pain management. [facility]. Dx: M24.50, M62.81, G82.50, M79.1, M47.12 [...] Neck: s (more content not included)... Normal [facility] CBCOrdered By: Myranda garcia on 10-29-2020 Hematocrit (Bld) [Volume fraction] 39.2 % 35.0 - 47.0 % [employer] Work Phone: Hemoglobin.gastrointest inal spec 1 Ql (Stl) 12.9 g/dL 11.7 - 16.0 g/dL [employer] Work Phone: MCH (RBC) [Entitic mass] 30.8 pg 26.0 - 34.0 pg [employer] Work Phone: MCHC (RBC) [Mass/Vol] 32.9 % 32.0 - 36.0 % [employer] Work Phone: MCV (RBC) [Entitic vol] 93.7 fL 79.0 - 98.0 fL [employer] Work Phone: Platelet distribution width (Bld) [Ratio] 12.9 % 11.5 - 14.5 % [employer] Work Phone: Platelet mean volume (Bld) [Entitic vol] 7.9 fL 7.4 - 10.4 fL [employer] Work Phone: Platelets (Bld) [#/Vol] 312 10*3/uL 140 - 440 10*3/uL [employer] Work Phone: RBC (Bld) [#/Vol] 4.18 10*6/uL 3.80 - 5.2 0 10*6/uL [employer] Work Phone: WBC (Bld) [#/Vol] 6.3 10*3/uL 3.6 - 10.7 10*3/uL [employer] Work Phone: Test Performed by [facility], [address] , [place], [place] [address] [employer] Work Phone: [employer] Work Phone: CR Finger(s) Min 2 Views Lef ton 10-29-2020 CR Finger(s) Min 2 Views Left Patient Name: CHEN RUST Diagnostic Radiology ACCESSION EXAM DATE/TIME PROCEDURE ORDERING PROVIDER [id number] 10/29/2020 17:01 EDT CR Finger(s) Min 2 Views LEÓN Alcazar, MYRANDA Yan Left CPT code 33734 Reason For Exam (CR Finger(s) Min 2 [...] Transcribed Date and Time: 10/30/2020 3:56 Normal [facility] CR Spine Lumbosacral 4+ View son 10-29-2020 CR Spine Lumbosacral 4+ Views Patient Name: CHEN RUST Diagnostic Radiology ACCESSION EXAM DATE/TIME PROCEDURE ORDERING PROVIDER [id number] 10/29/2020 17:01 EDT CR Spine Lumbosacral 4+ LEÓN HensonO., MYRANDA M Views CPT code 73782 Reason For Exam (CR Spine Lumbosacral 4+ [...] Transcribed Date and Time: 10/30/2020 3:54 Normal [facility] CR Spine Thoracic 3 Viewson 10-29-2020 CR Spine Thoracic 3 Views Patient Name: CHEN RUST Diagnostic Radiology ACCESSION EXAM DATE/TIME PROCEDURE ORDERING PROVIDER [id number] 10/29/2020 17:01 EDT CR Spine Thoracic 3 TRAORE D.O., MYRANDA M Views CPT code 89606 Reason For Exam (CR Spine Thoracic 3 [...] Transcribed Date and Time: 10/30/2020 3:50 Normal [facility] Comp Metabolic Panelon 10-29 ALT [Catalytic activity/Vol] 30 U/L Normal 0-34 [facility] Comment on above: Result Comment: The ALT test is performed by an updated assay method. Please note that the reference intervals have been changed and are now sex specific. Performed By: #### H EMOG, CMP3, LIPD2, TSH5 #### [facility] [address] [place] [address] Calcium [Mass/Vol] 9.8 mg/dL Normal 8.4-10.4 [facility] Comment on above: Performed By: #### H EMOG, CMP3, LIPD2, TSH5 #### [facility] [address] [place] [address] ALP [Catalytic activity/Vol] 82 U/L Normal 38-126 [facility] Comment on above: Performed By: #### H EMOG, CMP3, LIPD2, TSH5 #### [facility] [address] [place] [address] Anion gap [Moles/Vol] 4 mmol/L Normal 3-13 [facility] Comment on above: Performed By: #### H EMOG, CMP3, LIPD2, TSH5 #### [facility] [address] [place] [address] AST [Catalytic activity/Vol] 39 U/L Normal 15-46 [facility] Comment on above: Performed By: #### H EMOG, CMP3, LIPD2, TSH5 #### [facility] [address] [place] [address] Bilirubin [Mass/Vol] 0.4 mg/dL Normal 0.2-1.3 [facility] Comment on above: Performed By: #### H EMOG, CMP3, LIPD2, TSH5 #### [facility] [address] [place] [address] CO2 [Moles/Vol] 29 mmol/L Normal 22-30 [facility] Comment on above: Performed By: #### H EMOG, CMP3, LIPD2, TSH5 #### [facility] [address] [place] [address] Creatinine [Mass/Vol] 0.72 mg/dL Normal 0.52-1.25 [facility] Comment on above: Performed By: #### H EMOG, CMP3, LIPD2, TSH5 #### [facility] [address] [place] [address] eGFR OTHER > 90.0 Normal >60 [facility] Comment on above: Result Comment: KDIG [...] #### H ANNITA, CMP3, LIPD2, TSH5 #### [facility] [address] [place] [address] GFR/1.73 sq M.predicted among blacks MDRD (S/P/Bld) [Vol rate/Area] mL/min/{1.73_m2} Normal >60 [facility] Comment on above: Performed By: #### H EMOG, CMP3, LIPD2, TSH5 #### [facility] [address] [place] [address] Glucose [Mass/Vol] 97 mg/dL Normal 70-100 [facility] Comment on above: Performed By: #### H EMOG, CMP3, LIPD2, TSH5 #### [facility] [address] [place] [address] Protein [Mass/Vol] 7.5 g/dL Normal 6.3-8.2 [facility] Comment on above: Performed By: #### H EMOG, CMP3, LIPD2, TSH5 #### [facility] [address] [place] [address] Urea nitrogen [Mass/Vol] 10 mg/dL Normal 7-20 [facility] Comment on above: Performed By: #### H EMOG, CMP3, LIPD2, TSH5 #### [facility] [address] [place] [address] Potassium [Moles/Vol] 4.7 mmol/L Normal 3.5-5.1 [facility] Comment on above: Performed By: #### H EMOG, CMP3, LIPD2, TSH5 #### [facility] [address] [place] [address] Sodium [Moles/Vol] 138 mmol/L Normal 135-145 [facility] Comment on above: Performed By: #### H EMOG, CMP3, LIPD2, TSH5 #### [facility] [address] [place] [address] Albumin [Mass/Vol] 4.5 g/dL Normal 3.5-5.0 [facility] Comment on above: Performed By: #### H EMOG, CMP3, LIPD2, TSH5 #### [facility] [address] [place] [address] Chloride [Moles/Vol] 106 mmol/L Normal 98-107 [facility] Comment on above: Performed By: #### H EMOG, CMP3, LIPD2, TSH5 #### [facility] [address] [place] [address] Comprehensive Metabolic Pane lOrdered By: Myranda Traore on 10-29-2020 Albumin [Mass/Vol] 4.5 g/dL 3.5 - 5.0 g/dL [facility] Work Phone: ALP (Bld) [Catalytic activity/Vol] 82 U/L 38 - 126 U/L [facility] Work Phone: ALT [Catalytic activity/Vol] 30 U/L 0 - 34 U/L [facility] Work Phone: Comment on above: The [...] mg/dL [facility] Work Phone: EGFR IF NonAfrican Georgian >90.0 >60 mL/min [facility] Work Phone: Comment [...] MDRD (S/P/Bld) [Vol rate/Area] mL/min/{1.73_m2} >60 mL/min [facility] Work Phone: Glucose [Mass/Vol] 97 mg/dL 70 - 100 mg/dL [facility] Work Phone: Potassium [Moles/Vol] 4.7 mmol/L 3.5 - 5.1 mmol/L [facility] Work Phone: Sodium [Moles/Vol] 138 mmol/L 135 - 145 mmol/L [facility] Work Phone: Urea nitrogen (BldV) [Mass/Vol] 10 mg/dL 7 - 20 mg/dL [facility] Work Phone: Hemogramon 10-29-2020 Erythrocyte distribution width (RBC) [Ratio] 12.9 % Normal 11.5-14.5 [facility] Comment on above: Performed By: #### H EMOG, CMP3, LIPD2, TSH5 #### [facility] [address] [place] [address] Hematocrit (Bld) [Volume fraction] 39.2 % Normal 35.0-47.0 [facility] Comment on above: Performed By: #### H EMOG, CMP3, LIPD2, TSH5 #### [facility] [address] [place] [address] Hemoglobin (Bld) [Mass/Vol] 12.9 g/dL Normal 11.7-16.0 [facility] Comment on above: Performed By: #### H EMOG, CMP3, LIPD2, TSH5 #### [facility] [address] [place] [address] MCH (RBC) [Entitic mass] 30.8 pg Normal 26.0-34.0 [facility] Comment on above: Performed By: #### H EMOG, CMP3, LIPD2, TSH5 #### [facility] [address] [place] [address] MCHC 32.9 % Normal 32.0-36.0 [facility] Comment on above: Performed By: #### H EMOG, CMP3, LIPD2, TSH5 #### [facility] [address] [place] [address] MCV (RBC) [Entitic vol] 93.7 fL Normal 79.0-98.0 S [facility] Comment on above: Performed By: #### H EMOG, CMP3, LIPD2, TSH5 #### [facility] [address] [place] [address] Platelet mean volume (Bld) [Entitic vol] 7.9 fL Normal 7.4-10.4 [facility] Comment on above: Performed By: #### H EMOG, CMP3, LIPD2, TSH5 #### [facility] [address] [place] [address] Platelets (Bld) [#/Vol] 312 10*3/uL Normal 140-440 [facility] Comment on above: Performed By: #### H EMOG, CMP3, LIPD2, TSH5 #### [facility] [address] [place] [address] RBC (Bld) [#/Vol] 4.18 10*6/uL Normal 3.80-5.20 [facility] Comment on above: Performed By: #### H EMOG, CMP3, LIPD2, TSH5 #### [facility] [address] [place] [address] WBC (Bld) [#/Vol] 6.3 10*3/uL Normal 3.6-10.7 [facility] Comment on above: Performed By: #### H EMOG, CMP3, LIPD2, TSH5 #### [facility] [address] [place] [address] Lipid Panelon 10-29-2020 Chol/HDL 3 Normal [facility] Comment on above: Result Comment: Ref Range: < 3 Low Risk for CHD 3-6 Mod Risk for CHD > 6 High Risk for CHD Performed By: #### H EMOG, CMP3, LIPD2, TSH5 #### [facility] [address] [place] [address] Cholesterol in HDL [Mass/Vol] 73 mg/dL High 40-60 [facility] Comment on above: Performed By: #### H EMOG, CMP3, LIPD2, TSH5 #### [facility] [address] [place] [address] Low Density Lipoprotein 112 mg/dL Abnormal <100 [facility] Comment on above: Performed By: #### H EMOG, CMP3, LIPD2, TSH5 #### [facility] [address] [place] [address] Triglyceride [Mass/Vol] 57 mg/dL Normal <150 [facility] Comment on above: Performed By: #### H EMOG, CMP3, LIPD2, TSH5 #### [facility] [address] [place] [address] Cholesterol [Mass/Vol] 196 mg/dL Normal < 200 [facility] Comment on above: Performed By: #### H EMOG, CMP3, LIPD2, TSH5 #### [facility] [address] [place] [address] Lipid PanelOrdered By: Dewey Traore on 10-29-2020 Cholesterol [Mass/Vol] 196 mg/dL <200 [facility] Work Phone: Cholesterol in HDL [Mass/Vol] 73 mg/dL High 40 - 60 mg/dL [facility] Work Phone: Cholesterol in LDL [Mass/Vol] 112 mg/dL Abnormal <100 [facility] Work Phone: Cholesterol.total/Sharyn sterol in HDL [Mass ratio] 3 {ratio} [facility] Work Phone: Comment on above: Ref Range: < 3 Low Risk for CHD 3-6 Mod Risk for CHD > 6 High Risk for CHD Interpretation and review of laboratory results Abnormal [facility] Work Phone: Triglyceride [Mass/Vol] 57 mg/dL <150 [facility] Work Phone: No Panel InformationOrdered By: Myranda Traore on 10-29-2020 Test Performed by [facility], [address] , [place] [address] [employer] Work Phone: [employer] Work Phone: TSH without ReflexOrdered By : Myranda Traore on 10-29-2020 TSH Qn 1.830 u[IU]/mL 0.465 - 4.680 u[IU]/mL [facility] Work Phone: Test Performed by [facility], [address] , [place] [address] [employer] Work Phone: [employer] Work Phone: Thyroid Stim. Hormoneon 10-02 Thyroid Stim. Hormone 1.830 u[IU]/mL Normal 0.465-4.68 0 [facility] Comment on above: Performed By: #### H EMOG, CMP3, LIPD2, TSH5 #### [facility] [address] [place] [address] URINE CULTUREon 04-11-2020 Bacteria identified Cx Nom (U) URINE RESULT >100,000 COL/ML MIXED ALYSSIA-PLEASE REPEAT-POSSIBLE CONTAMIN Normal [facility] Comment on above: Performed By: #### M 100.45194 #### [facility] [address] [place], [place] [id number] UA COMPLETEon 04-09-2020 Color (U) Yellow Normal [facility] Comment on above: Performed By: #### L [id number] #### [facility] [address] [place], [place] [id number] Glucose (U) [Mass/Vol] Negative Normal NORMAL [facility] Comment on above: Performed By: #### L [id number] #### [facility] [address] [place] [address] UA APPEARANCE Hazy Normal CLEAR [facility] Comment on above: Performed By: #### L [id number] #### [facility] [address] [place] [address] UA BILIRUBIN Negative Normal NEGATIVE [facility] Comment on above: Performed By: #### L [id number] #### [facility] [address] [place] [address] UA BLOOD Negative Normal NEGATIVE [facility] Comment on above: Performed By: #### L [id number] #### [facility] [address] [place] [address] UA KETONE Negative Normal NEGATIVE [facility] Comment on above: Performed By: #### L [id number] #### [facility] [address] [place] [address] UA LK ESTERASE Negative Normal NEGATIVE [facility] Comment on above: Performed By: #### L [id number] #### [facility] [address] [place] [address] UA NITRITE Negative Normal NEGATIVE [facility] Comment on above: Performed By: #### L [id number] #### [facility] [address] [place] [address] UA PH 9.0 Normal 5-6 [facility] Comment on above: Performed By: #### L [id number] #### [facility] [address] [place] [address] UA PROTEIN Negative Normal NEGATIVE [facility] Comment on above: Performed By: #### L [id number] #### [facility] [address] [place] [address] UA SPEC GRAV 1.008 Normal 1.005-1.030 [facility] Comment on above: Performed By: #### L [id number] #### [facility] [address] [place] [address] UA UROBILINOGEN Negative Normal NORMAL [facility] Comment on above: Performed By: #### L [id number] #### [facility] [address] [place] [address] # [phone] Lower Extremity Bilateral Venous Duplexon 10-02-2019 [facility] Lower Extremity Venous Duplex Report Ordering Physician: Myranda Traore D.o. Policy Analyst: Jensen Hand Interpreting Physician: Anthony Cm MD Location: [facility] Indications: Bilateral lower leg edema. Conclusions [...] supine position. Images were obtained using a [employer] E9 vascular ultrasound machine. Venous flow and [...] signed by Anthony Cm MD 10/02/2019 15:03 [facility] [place], [place] [facility] In[facility] Card[facility] Results From J[facility]dy - 10/02/2019 3:03 PM EDT [facility] Lower Extremity Venous Duplex Report Ordering Physician: Myranda Traore D.o. Policy Analyst: Jensen Hand Interpreting Physician: Anthony Cm MD Location: [facility] Indications: Bilateral lower leg edema. Conclusions [...] supine position. Images were obtained using a [employer] E9 vascular ultrasound machine. Venous flow and [...] signed by Anthony Cm MD 10/02/2019 15:03 [facility] [place], [place] VL ARTERIAL PVR LOWER W EXER CISEon 10-02-2019 [facility] Multilevel Lower Extremity Arterial Evaluation with Exercise Ordering Physician: Myranda Traore D.o. Policy Analyst: Jensen Hand Interpreting Physician: Anthony Cm MD Location: [facility] Indications: Bilateral dimished pulses. Conclusions 1. [...] supine position. Images were obtained using a [employer] vascular ultrasound machine. The study was technically [...] signed by Anthony Cm MD 10/02/2019 15:04 [facility], [place] Khang, [facility] Incoming Cardiology Results From [facility] - 10/02/2019 3:04 PM EDT [facility] Multilevel Lower Extremity Arterial Evaluation with Exercise Ordering Physician: Myranda Traore D.o. Policy Analyst: Jensen Hand Interpreting Physician: Anthony Cm MD Location: [facility] Indications: Bilateral dimished pulses. Conclusions 1. [...] supine position. Images were obtained using a [email or web address] vascular ultrasound machine. The study was technically [...] signed by Anthony Cm MD 10/02/2019 15:04 [place], [place] [facility]Con 08-29-2019 Erythrocyte distribution width (RBC) [Ratio] 13.7 % 11.5 - 14.5 % [place] Hematocrit (Bld) [Volume fraction] 36.1 % 35 - 47 % [place] Hemoglobin (Bld) [Mass/Vol] 12.2 g/dL 11.7 - 16 g/dL [place] MCH (RBC) [Entitic mass] 31.7 pg 26 - 34 pg [place] MCHC (RBC) [Mass/Vol] 33.8 % 32 - 36 % [place] MCV (RBC) [Entitic vol] 93.7 fL 79 - 98 fL [place] Platelet mean volume (Bld) [Entitic vol] 8.0 fL 7.4 - 10.4 fL [place], [place] Platelets (Bld) [#/Vol] 295 10*3/uL 140 - 440 10*3/uL [place] RBC (Bld) [#/Vol] 3.85 10*6/uL 3.8 - 5.2 10*6/uL [place] WBC (Bld) [#/Vol] 5.3 10*3/uL 3.6 - 10.7 10*3/uL [place] Test Performed by [facility], [address] [place], [place] [address] , [address] Comprehensive Metabolic Pane alexei 08-29-2019 Albumin [Mass/Vol] 4.1 g/dL 3.5 - 5 g/dL [place], [place] ALP [Catalytic activity/Vol] 107 U/L 38 - 126 U/L [place] ALT [Catalytic activity/Vol] 28 U/L 0 - 34 U/L [place] Comment on above: The ALT test is perf ormed by an updated assay method. Please note that the reference intervals have been changed and are now sex specific. Anion gap [Moles/Vol] 7 mmol/L [place] AST [Catalytic activity/Vol] 35 U/L 15 - 46 U/L [place] Bilirubin Ql (U) 0.4 mg/dL 0.2 - 1.3 mg/dL [place] Calcium [Mass/Vol] 9.1 mg/dL 8.4 - 10. 4 mg/dL [place] Chloride [Moles/Vol] 103 mmol/L 98 - 10 7 mmol/L [place] CO2 [Moles/Vol] 30 mmol/L 22 - 30 mmol/L [place] Creatinine [Mass/Vol] 0.65 mg/dL 0.52 - 1.25 mg/dL [place] EGFR IF NonAfrican Georgian >90.0 >60 mL/min [place] Comment on above: KDIGO guidelines pro [...] MDRD (S/P/Bld) [Vol rate/Area] mL/min/{1.73_m2} >60 mL/min [place] Glucose [Mass/Vol] 95 mg/dL 70 - 100 mg/dL [place], [place] Interpretation and review of laboratory results Abnormal [place] Potassium [Moles/Vol] 4.4 mmol/L 3.5 - 5.1 mmol/L [place] Protein [Mass/Vol] 7.0 g/dL 6.3 - 8.2 g/dL [place] Sodium [Moles/Vol] 140 mmol/L 135 - 145 mmol/L [place] Urea nitrogen [Mass/Vol] 5 mg/dL Low 7 - 20 mg/dL [place] Test Performed by [facility], [address] , [address] TSH without Reflexon 020 TSH Qn 1.158 u[IU]/mL 0.465 - 4.68 u[IU]/mL [place] Test Performed by [facility], [address] , [address] MRI BRAIN W WO CONTRASTon Patient Name: CHEN RUST ---MRI--- Exam Date/Time 01/04/2019 12:52:02 EDT Exam MRI Brain w/ + w/o Contrast Ordering Physician MYRANDA TRAORE D.O. Accession Number [id number] CPT4 Codes 57286 () Reason For Exam Unsteadiness on feet [...] NICHOLAS Transcribed Date and Time: 01/04/2019 1:39 [place], [facility] Incoming Radiology Results From [facility] - 01/04/2019 1:39 PM EDT Patient Name: CHEN RUST ---MRI--- Exam Date/Time 01/04/2019 12:52:02 EDT Exam MRI Brain w/ + w/o Contrast Ordering Physician MYRANDA TRAORE D.O. Accession Number [id number] CPT4 Codes 41240 () Reason For Exam Unsteadiness on feet [...] NICHOLAS Transcribed Date and Time: 01/04/2019 1:39 [place] Vital Signs Date Time Vital Sign Value Performing Clinician Melinda schumacher 06-19-2023 14:43-0400 Body height 167.6 cm Myranda Traore DO Work Phone: [facility] 06-19-2023 14:43-0400 Body mass index (BMI) [Ratio] 18.24 kg/m2 Myranda Traore DO Work Phone: [facility] 06-19-2023 14:43-0400 Body weight 51.26 kg Myranda Traore DO Work Phone: [facility] 06-19-2023 14:43-0400 Diastolic blood pressure 82 mm[Hg] Myranda Traore DO Work Phone: [facility] 06-19-2023 14:43-0400 Heart rate 100 /min Myranda Traore DO Work Phone: [facility] 06-19-2023 14:43-0400 SaO2% (BldA) [Mass fraction] 99 % Myranda Traore DO Work Phone: [facility] 06-19-2023 14:43-0400 Systolic blood pressure 124 mm[Hg] Myranda Traore DO Work Phone: [facility] 06-10-2022 13:34-0500 Body temperature 98.49 [degF] Erica Praisler-Wood SHIFT MANAGER.MACHINE BOBBIN WINDER Work Phone: [facility] 06-10-2022 13:34-0500 Body weight 57.61 kg Erica Praisler-Wood SHIFT MANAGER.MACHINE BOBBIN WINDER Work Phone: [facility] 06-10-2022 13:34-0500 Diastolic blood pressure 62 mm[Hg] Erica Praisler-Wood SHIFT MANAGER.MACHINE BOBBIN WINDER Work Phone: [facility] 06-10-2022 13:34-0500 Heart rate 86 /min Erica Praisler-Wood SHIFT MANAGER.MACHINE BOBBIN WINDER Work Phone: [facility] 06-10-2022 13:34-0500 Respiratory rate 18 /min Erica Praisler-Wood SHIFT MANAGER.MACHINE BOBBIN WINDER Work Phone: [facility] 06-10-2022 13:34-0500 Systolic blood pressure 100 mm[Hg] Erica Praisler-Wood SHIFT MANAGER.MACHINE BOBBIN WINDER Work Phone: [facility] 02-26-2022 14:13-0500 Body temperature 99.3 [degF] Benoit Denise MD Work Phone: [facility] 02-26-2022 14:050 Body weight 57.61 kg Benoit Denise MD Work Phone: [facility] 02-26-2022 14:130500 Diastolic blood pressure 80 mm[Hg] Benoit Denise MD Work Phone: [facility] 02-26-2022 14:130500 Heart rate 60 /min Benoit Denise MD Work Phone: [facility] 02-26-2022 14:050 Respiratory rate 18 /min Benoit Denise MD Work Phone: [facility] 02-26-2022 14:050 Systolic blood pressure 118 mm[Hg] Benoit Denise MD Work Phone: [facility] Encounters Encounter Date Encounter Type Care Provider Facility Start: 12-27-2023 End: 12-27-2023 Refill Myranda Traore DO Work Phone: [facility] [place] Comment on above: Other muscle spasm Start: 12-06-2023 End: 12-22-2023 Telephone encounter Myranda Traore DO Work Phone: [facility] [place] Comment on above: Release of Informati on Start: 08-14-2023 Refill Myranda corral DO Work Phone: [facility] Comment on above: message Start: 06-23-2023 Refill Myranda corral DO Work Phone: [facility] Start: 06-19-2023 End: 06-19-2023 Office outpatient visit 25 minutes Myranda Traore DO Work Phone: [facility] Comment on above: Functional quadriple neelam (CMS/HCC) (HCC) (Primary Dx); Screening mammogram for breast cancer; Other osteoporosis without current pathological fracture; 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 Start: 01-27-2023 Refill Myranda M Pe ters DO Work Phone: [facility] Comment on above: Unspecified injury a t unspecified level of cervical spinal cord, subsequent encounter (HCC) Start: 11-14-2022 ambulatory Nirali Hunter RN [facility] Clinical Communication Start: 11-14-2022 Patient encounter procedure Nirali Hunter RN [facility] Communication Comment on above: Other muscle spasm Start: 08-09-2022 Refill Rona dahl MD Work Phone: [facility] Comment on above: Other muscle spasm; Unspecified injury at unspecified level of cervical spinal cord, subsequent encounter (HCC) Start: 08-08-2022 Refill Myranda M Pe ters DO Work Phone: [facility] Comment on above: Other constipation Start: 07-11-2022 Refill Myranda M Pe ters DO Work Phone: [facility] Comment on above: Other muscle spasm; Unspecified injury at unspecified level of cervical spinal cord, subsequent encounter (HCC) Start: 07-03-2022 Refill Myranda M Pe ters DO Work Phone: [facility] Comment on above: Other constipation Start: 06-10-2022 End: 06-10-2022 ambulatory MYRANDA TRAORE Facility:[facility] Start: 06-10-2022 End: 06-10-2022 Patient encounter procedure Erica Rose APRN.MACHINE BOBBIN WINDER Work Phone: [facility] Comment on above: Urinary frequency (P rimary Dx) Start: 02-27-2022 Telephone encounter Delores Islas APRN.MACHINE BOBBIN WINDER Work Phone: [facility] Comment on above: Results Start: 02-26-2022 End: 02-26-2022 ambulatory MYRANDA TRAORE Facility:[facility] Start: 02-26-2022 End: 02-26-2022 Patient encounter procedure Benoit Denise MD Work Phone: [facility] Comment on above: Influenza-like illne ss [...] encounter status Benoit Denise MD Work Phone: [facility] Work Phone: Procedures Date Procedure Procedure [...] DTaP/Tdap/Td Vaccines (3 - Td or Tdap) [facility] Start: 01-12-2027 Screening for malign ant neoplasm of cervix [facility] Start: 2025 RSV Immunization age d 60 or older (1 - 1-dose 60+ series) RSV Immunization aged 60 or older (1 - 1-dose 60+ series) [facility] Start: 10-29-2025 Lipid panel [facility] Start: 01-12-2025 Screening for malign ant neoplasm of cervix Pap Smear [facility] Start: 03-06-2024 End: 03-06-2024 Patient encounter procedure 03/06/2024 4:00 PM EST Office Visit [facility] - [address] [place] [address] Myranda Traore DO [address] [place], [place] [address] [facility] - [place] Start: 12-26-2023 Lipid panel Lipid screen [facility] Start: 12-26-2023 Lipid screen Lipid screen [facility] Start: 12-18-2023 End: 12-18-2023 Patient encounter procedure 12/18/2023 1:00 PM EDT Office Visit [facility] [address] [place] [address] [address] [place] [phone] Myranda Traore DO [address] [place] [address] [facility] Start: 12-03-2023 COVID-19 Vaccine () COVID-19 Vaccine () [facility] Start: 12-03-2023 Influenza vaccination [facility] Start: 06-19-2023 End: 08-18-2024 DBT Breast - bilateral screening Bilateral screening mammogram with tomosynthesis Imaging Routine Screening mammogram for breast cancer Expected: 06/19/2023, Expires: 08/18/2024 [facility] Work Phone: Comment on above: Expected: 06/19/2023 , Expires: 08/18/2024 Start: 06-19-2023 End: 06-18-2024 DXA Skeletal system.axial Views for bone density DEXA bone density axial skeleton Imaging Routine Other osteoporosis without current pathological fracture Expected: 06/19/2023, Expires: 06/18/2024 [facility] Comment on above: Expected: 06/19/2023 , Expires: 06/18/2024 Start: 06-11-2023 BP CONTROLLED (<130/80) BP CONTROLLE D (<130/80) [facility] Start: 01-26-2023 Screening for malign ant neoplasm of breast Mammogram [facility] Start: 12-02-2022 COVID-19 Vaccine () COVID-19 Vaccine () [facility] Start: 12-02-2022 Influenza vaccination [facility] Start: 11-29-2022 End: 11-29-2022 Telemedicine consultation with patient 11/29/2022 11:40 AM EDT Telemedicine [facility] [address] [place] [address] Myranda Traore DO [address] [place] [address] [facility] Start: 04-03-2022 DEPRESSION ASSESSMENT DEPRESSION ASS [facility] Start: 02-26-2022 End: 03-12-2022 Influenza virus A and B RNA and SARS-CoV-2 (COVID-19) N gene panel - Respiratory specimen by JEREMY with probe detection COVID WITH FLUA+B, ROUTINE Microbiology Routine Influenza-like illness Expected: 02/26/2022, Expires: 03/12/2022 [facility] Work Phone: Comment on above: Expected: 02/26/2022 , Expires: 03/12/2022 Start: 12-13-2021 Cervical cancer screen Cervical canc er screen [place] Start: 12-13-2021 Screening for malign ant neoplasm of cervix Cervical cancer [place] Start: 12-02-2021 Influenza vaccination INFLUENZA (#1) [facility] Start: 10-29-2021 Creatinine measurement Creatinine mo nitoring [facility] Work Phone: Start: 10-29-2021 Potassium monitoring Potassium monit oring [facility] Work Phone: Start: 04-12-2021 HPV TESTING HPV TESTING [facility] Start: 04-12-2021 PAP TESTING PAP TESTING [facility] Start: 04-03-2021 [facility] Start: 12-11-2020 Breast cancer screen Breast cancer s creen [place] Start: 12-11-2020 Screening for malign ant neoplasm of breast Breast cancer screen [place] Start: 12-02-2020 Influenza vaccination Flu vaccine (# 1) [facility] Work Phone: Start: 11-17-2020 LIPID SCREEN LIPID SCREEN [facility] Start: 08-28-2020 Creatinine measurement Creatinine mo arnold [place] Start: 08-28-2020 Potassium monitoring Potassium monit [place], [place] Start: 12-03-2019 Influenza vaccination [place] Start: 07-17-2019 Creatinine measurement Creatinine mo arnold [place] Start: 07-17-2019 Creatinine monitoring Creatinine mon [place]oring [place] Start: 07-17-2019 Potassium monitoring Potassium monit [place] Start: 06-25-2019 DIABETES SCREEN DIABETES SCREEN [facility] Start: 12-25-2018 End: 12-25-2018 Office Visit 12/25/2018 Office Visit Family Medicine Myranda Traore, DO [address] [place] [address] [phone] [facility] Start: 12-02-2018 Influenza vaccination Flu vaccine (# 1) [place] Start: 04-22-2018 Breast cancer screen Breast cancer s creen [place] Start: 04-22-2017 Mammography MAMMOGRAM [facility] Start: 04-11-2017 COLORECTAL CANCER SCREENING COLORECTAL CANCER SCREENING [facility] Start: 04-11-2017 FECAL OCCULT BLOOD FECAL OCCULT BLOO D [facility] Start: 11-19-2015 Colon cancer screen colonoscopy Colon cancer screen colonoscopy [place] Start: 11-19-2015 Screening for malign ant neoplasm of colon Colon cancer screen colonoscopy [place] Start: 11-19-2015 Screening for malign ant neoplasm of lung Low dose CT lung screening [facility] gumi Phone: Start: 11-19-2015 Shingles Vaccine (1 of 2) Shingles Vaccine (1 of 2) [place] Start: 11-19-2015 SHINGRIX VACCINE (1 of 2) SHINGRIX VACCINE (1 of 2) [facility] Start: 11-19-2015 Zoster Vaccines (1 of 2) Zoste r Vaccines (1 of 2) [facility] Start: 2010 COLOGUARD (FIT-DNA) COLOGUARD (FIT-D NA) [facility] Start: 2010 Colonoscopy COLONOSCOPY [facility] Start: [address] COLONOGRAPHY [facility] Start: 2010 Screening for malign ant neoplasm of colon Colon cancer screen colonoscopy [facility] Work Phone: Start: 2010 SIGMOIDOSCOPY SIGMOIDOSCOPY [facility] Start: 2005 Lipid screen Lipid screen [facility] [place] Start: 2005 Screening for malign ant neoplasm of breast Mammogram [facility] Start: 1984 DTaP/Tdap/Td vaccine (1 - Tdap) DTaP/Tdap/Td vaccine (1 - Tdap) [place] Start: 1984 DTaP/Tdap/Td Vaccine s (1 - Tdap) DTaP/Tdap/Td Vaccines (1 - Tdap) [facility] Start: 1984 Hepatitis B Vaccines (1 of 3 - 19+ 3-dose series) Hepatitis B Vaccines (1 of 3 - 19+ 3-dose series) [facility] Start: 1984 Urine microalbumin profile DTAP,TDAP,TD (1 - Tdap) [facility] Start: 11-19-1983 ANNUAL PCP TEAM CNC TECHNICIAN ALBAN DISEASE VISIT ANNUAL PCP TEAM CHRONIC DISEASE VISIT [facility] Start: 11-19-1983 BP CONTROLLED (<130/80) BP CONTROLLE D (<130/80) [facility] Start: 11-19-1983 HEPATITIS C SCREENING HEPATITIS C [facility] Start: 11-19-1983 Hepatitis C screening Hepatitis C [facility] Start: 11-19-1983 HIV SCREENING HIV SCREENING [facility] Start: 11-19-1983 SPIROMETRY SPIROMETRY [facility] Start: 1977 COVID-19 Vaccine (1) COVID-19 Vaccin e (1) [facility] Work Phone: Start: 1977 Depression Screening Depression Scre ening [facility] Start: 11-19-1971 PNEUMOCOCCAL (1 - PCV) PNEUMOCOCCAL (1 - PCV) [facility] Start: 11-19-1971 Pneumococcal Vaccine : Pediatrics (0 to 5 Years) and At-Risk Patients (6 to 64 Years) (1 of 2 - PCV) Pneumococcal Vaccine: Pediatrics (0 to 5 Years) and At-Risk Patients (6 to 64 Years) (1 of 2 - PCV) [facility] Start: 1966 MMR Vaccines (1 of 1 - Standard series) MMR Vaccines (1 of 1 - Standard series) [facility] Start: 05-21-1966 COVID-19 VACCINE (#1) COVID-19 VACCI NE (#1) [facility] Start: 1965 HEPATITIS B (1 of 3 - 3-dose series) HEPATITIS B (1 of 3 - 3-dose series) [facility] Start: 1965 Hepatitis B Vaccines (1 of 3 - 3-dose series) Hepatitis B Vaccines (1 of 3 - 3-dose series) [facility] Start: 1965 HIV screening HIV Screening [facility] Start: 1965 Screening for malign ant neoplasm of colon [facility] Start: 1965 Screening for osteoporosis Bone Density Scan [facility] Bacteria identified in Urine by Culture URINE CULTURE Microbiology Routine Urinary frequency 06/10/2022 2:45 PM [facility] Work Phone: End: 12-11-2018 Screening digital breast tomosynthesis bi Mazin Killian Digital Screen Bilateral Imaging Routine Once for 1 Occurrences starting 12/11/2018 until 12/11/2018 [facility] [place] Comment on above: Once for 1 Occurrenc es starting 12/11/2018 until 12/11/2018 Screening digital br east tomosynthesis bi Mazin Killian Digital Screen Bilateral Imaging Routine 12/11/2018 1:06 PM EDT [facility] [place] End: 10-29-2020 XR FINGER LEFT (MIN 2 VIEWS) XR FINGER LEFT (MIN 2 VIEWS) Imaging Routine Once for 1 Occurrences starting 10/29/2020 until 10/29/2020 [facility] Work Phone: Comment on above: Once for 1 Occurrenc es starting 10/29/2020 until 10/29/2020 XR FINGER LEFT (MIN 2 VIEWS) XR FINGER LEFT (MIN 2 VIEWS) Imaging Routine 10/29/2020 4:45 PM EDT [facility] Work Phone: End: 10-29-2020 XR LUMBAR [...] vacc ine, unspecified formulation Nirali Hunter RN [facility] Payers Date Payer Category Payer Medicaid [facility] DEPT OF JOB xxxxxxxxxxxx 2016-Present [phone] [address] [place] [address] xxxxxxxxxxxx [id number] 2015 Medicaid [id number] 2015 Medicaid [id number] .[phone] Social History Date Type Detail Facility Start: 12-11-2018 End: 02-26-2022 Tobacco smoking status NHIS Former smoker [facility] Start: 10-03-2016 End: 11-06-2016 [facility]: 12-[facility] End: 06-19-2023 Alcohol intake No [facility] [place] Start: 1965 Sex Assigned At Not on file [facility] [place] Start: 08-29-2019 End: 06-19-2023 Alcohol intake Current non-drinker of alcohol (finding) [place] Exposure to SARS-CoV -2 (event) Unable to assess [place] Start: 10-29-2020 End: 06-19-2023 Cigarettes smoked current (pack per day) - Reported [facility] Work Phone: Start: 10-29-2020 End: 02-26-2022 Tobacco use and exposure Never used [facility] Exposure to SARS-CoV -2 (event) Not sure [facility] Start: 10-03-2016 End: 11-06-2016 History of tobacco use Cigarette Smoker [facility] Start: 02-26-2022 End: 06-10-2022 Alcohol intake Current drinker of alcohol (finding) [facility] Start: 02-26-2022 Tobacco Comment half a pack [facility] Start: 04-12-2016 Alcohol Comment very rare [facility] Start: 1965 Sex Assigned At Female [facility] Start: 04-13-2022 Gender identity Identifies as female gender (finding) [facility] Clinical Notes 02-26-2022 to 12-27-2023 Telephone Encounter - Char Howard LPN - 12/27/2023 3:59 PM EDTTelephone Encounter - Char Howard LPN - 12/27/2023 3:59 PM EDTTelephone Encounter - Hien Pete - 12/27/2023 3:45 PM EDT Note Date & Type Note Facility 12-27-2023 Telephone encounter Note RX loaded Last ov 06/19/23 Next ov 03/06/24 [facility] 12-27-2023 Miscellaneous Notes RX loaded Last ov [...] the medication: Yes documented in this encounter [facility] 12-27-2023 Telephone encounter Note Medication name: cyclobenzaprine [...] prior to picking up the medication: Yes [facility] 12-06-2023 Telephone encounter Note Message released to patient as written. Have you received any controlled medications from any other provider? Patient's further questions if applicable: no Were all questions from office addressed or relayed to the patient from encounter: Yes Pt does not get anything from any other provider. [facility] 12-06-2023 Miscellaneous Notes Message released to patient as written. Have you received any controlled medications from any other provider? Patient's further questions if applicable: no Were all questions from office addressed or relayed to the patient from encounter: Yes Pt does not get anything from any other provider. documented in this encounter [facility] 08-30-2023 Telephone encounter Note Noted will await arrival of paperwork [facility] 08-30-2023 Miscellaneous Notes Noted will await arrival of paperwork Name of caller: Chen Contact phone number: [phone] Relationship to Patient: patient Provider: León Practice: [facility] Chief Complaint/Reason for Call: Patient returned call to office. Called back line. Was informed that [facility] must send form to office [...] for this patient. Requesting follow up Typically, [facility] will send us forms to fill out. Fine for letter if necessary Name of caller: Julio Rust Contact phone number: [phone] Relationship to Patient: patient Provider: Dr Myranda Traore [facility] Chief Complaint/Reason for Call: Pt called stating that she would like to apply for disability. 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 Please advise. Best time of day caller can be reached: any Patient advised that office/PCP has 24-48 business hours to return their call: No documented in this encounter [facility] 08-30-2023 Telephone encounter Note Name of caller: Chen Contact phone number: [phone] Relationship to Patient: patient Provider: León Practice: [facility] Chief Complaint/Reason for Call: Patient returned call to office. Called back line. Was informed that [facility] must send form to office for Dr Traore to fill out. Patient had not met with [facility] as of date. Provided office fax number to give to [facility] to fax form. Please advise. Best time of day caller can be reached: any Patient advised that office/PCP has 24-48 business hours to return their call: No [facility] 08-30-2023 Telephone encounter Note Call center called us about patient wanting us to send request for SSI forms for disability, but [facility] has been notified that our facility does not do that but that each patient is required to do that request and get it started on their own. [facility] 08-30-2023 Telephone encounter Note Follow up message left for patient to return call to office to discuss request. Office has never received any paperwork concerning disability to complete for this patient. Requesting follow up [facility] 08-14-2023 Telephone encounter Note Recent Visits Date Type Provider Dept 06/19/23 Office Visit Myranda Traore DO [facility] Showing recent visits within past 365 days and meeting all other requirements Future Appointments No visits were found meeting these conditions. Showing future appointments within next 90 days and meeting all other requirements Requested Prescriptions Pending Prescriptions Disp Refills losartan (Cozaar) 50 MG tablet 90 tablet 3 Sig: Take 1 tablet (50 mg) by mouth daily. ergocalciferol (Vitamin D2) 1.25 MG (03925 UT) capsule 12 capsule 3 Sig: TAKE [...] Most recent labs completed in chart? Yes [facility] 08-14-2023 Miscellaneous Notes Recent Visits Date Type Provider Dept 06/19/23 Office Visit Myranda Traore DO [facility] Showing recent visits within past 365 days and meeting all other requirements Future Appointments No visits were found meeting these conditions. Showing future appointments within next 90 days and meeting all other requirements Requested Prescriptions Pending Prescriptions Disp Refills losartan (Cozaar) 50 MG tablet 90 tablet 3 Sig: Take 1 tablet (50 mg) by mouth daily. ergocalciferol (Vitamin D2) 1.25 MG (81986 UT) capsule 12 capsule 3 Sig: TAKE [...] Medication name: ergocalciferol (Vitamin D2) 1.25 MG (26429 UT) capsule Medication dosage: 1.25 mg (Miligrams (47677 UT) Monthly quantity needed: 12 How many [...] medication tab): 06-26-2023 documented in this encounter [facility] 08-14-2023 Telephone encounter Note Typically, [facility] will send us forms to fill out. Fine for letter if necessary [facility] 08-14-2023 Miscellaneous Notes Typically, [facility] will send us forms to fill out. Fine for letter if necessary Name of caller: Julio Rust Contact phone number: [phone] Relationship to Patient: patient Provider: Dr Myranda Traore Practice: [facility] Chief Complaint/Reason for Call: Pt called stating that she would like to apply for disability. 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 Please advise. Best time of day caller can be reached: any Patient advised that office/PCP has 24-48 business hours to return their call: No documented in this encounter [facility] 08-14-2023 Telephone encounter Note Pt stated that [...] Medication name: ergocalciferol (Vitamin D2) 1.25 MG (62706 UT) capsule Medication dosage: 1.25 mg (Miligrams (24119 UT) Monthly quantity needed: 12 How many [...] last refill (see medication tab): 06-26-2023 T [facility] 08-14-2023 Telephone encounter Note Name of caller: Julio Rust Contact phone number: [phone] Relationship to Patient: patient Provider: Dr Myranda Traore Practice: [facility] Chief Complaint/Reason for Call: Pt called stating that she would like to apply for disability. 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 Please advise. Best time of day caller can be reached: any Patient advised that office/PCP has 24-48 business hours to return their call: No T [facility] 06-26-2023 Telephone encounter Note Recent Visits Date Type Provider Dept 06/19/23 Office Visit Myranda Traore DO [facility] Showing recent visits within past 365 days and meeting all other requirements Future Appointments No visits were found meeting these conditions. Showing future appointments within next 90 days and meeting all other requirements Requested Prescriptions Pending Prescriptions Disp Refills ergocalciferol (Vitamin D2) 1.25 MG (96247 UT) capsule [Pharmacy Med Name: VITAMIN D2 [...] Most recent labs completed in chart? N/A [facility] 06-26-2023 Miscellaneous Notes Recent Visits Date Type Provider Dept 06/19/23 Office Visit Myranda Traore DO [facility] Showing recent visits within past 365 days and meeting all other requirements Future Appointments No visits were found meeting these conditions. Showing future appointments within next 90 days and meeting all other requirements Requested Prescriptions Pending Prescriptions Disp Refills ergocalciferol (Vitamin D2) 1.25 MG (90806 UT) capsule [Pharmacy Med Name: VITAMIN D2 [...] in chart? N/A documented in this encounter [facility] 06-19-2023 History of Presen t illness Narrative Images from the original note were not included. [facility] [address] [place] [address] [address] [facility] [id number] Visit type: Established Patient Reason for Visit: Follow-up (Pt currently has no insurance. ) Assessment and Plan Diagnoses and all orders for this visit: Functional quadriplegia (CMS/HCC) ([facility]) - gabapentin (Neurontin) 800 MG [...] capsule 11 ergocalciferol (Vitamin D2) 1.25 MG (21348 UT) capsule TAKE 1 CAPSULE BY MOUTH [...] 4 times daily. 90 tablet 0 HYDROcodone-acetaminophen ([place]) 5-325 MG tablet 1 TAB ORALLY EVERY [...] cancer Other maternal aunt unsure age Other (69745) Mother aneurysm Ovarian cancer Neg Hx Other (76516) Father pneumonia Colon cancer Neg Hx Objective [...] Discontinued During This Encounter Medication Reason HYDROcodone-acetaminophen ([place]) 5-325 MG tablet Med list cleanup meloxicam (Mobic) 15 MG tablet Med list cleanup gabapentin (Neurontin) 800 MG tablet Reorder baclofen (Lioresal) 20 MG tablet Reorder yMranda Traore DO 06/23/2023 12:52 PM documented in this encounter [facility] 01-27-2023 Telephone encounter Note Last OV:01/12/22 Scheduled:n/a [facility] 01-27-2023 Miscellaneous Notes Last OV:01/12/22 Scheduled:n/a Name of caller: Chen Contact phone number: [phone] Relationship to Patient: patient Provider: Dr. Traore [...] their call: Yes documented in this encounter [facility] 01-27-2023 Telephone encounter Note Name of caller: Chen Contact phone number: [phone] Relationship to Patient: patient Provider: Dr. Traore [...] business hours to return their call: Yes [facility] 11-15-2022 Telephone encounter Note Rx sent [facility] 11-15-2022 Miscellaneous Notes Rx sent Last OV:01/12/22 [...] weeks) Protocols used: Muscle Aches and Body [id number] documented in this encounter [employer] 11-15-2022 Telephone encounter Note Last OV:01/12/22 Scheduled:11/29/22 [employer] 11-14-2022 Telephone encounter Note ' response Routine refills will be handled during business hours. Please send me a message and it will be taken care of tomorrow . Informed pt of provider's response. No further needs at this time. [facility] 11-14-2022 Telephone encounter Note S: Patient spoke [...] weeks) Protocols used: Muscle Aches and Body [id number] [facility] 08-09-2022 Telephone encounter Note Last OV 01/12/2022 No future visits [facility] 08-09-2022 Miscellaneous Notes Last OV 01/12/2022 No future visits documented in this encounter [facility] 08-08-2022 Telephone encounter Note Last 04.20.22 No upcoming appt [facility] 08-08-2022 Miscellaneous Notes Last 04.20.22 No upcoming appt documented in this encounter [facility] 07-12-2022 Telephone encounter Note Last 01.12.22 Next n/a [facility] 07-12-2022 Miscellaneous Notes Last 01.12.22 Next n/a documented in this encounter [facility] 07-04-2022 Telephone encounter Note Last 01.12.22 Next n/a [facility] 07-04-2022 Miscellaneous Notes Last 01.12.22 Next n/a documented in this encounter [facility] 06-10-2022 Note HNO ID: [id number] Author: Erica Rose APRN.MACHINE BOBBIN WINDER Service: ? Author Type: Nurse Practitioner Type: [...] for strengthening and pain management. [facility]. Dx: M24.50, M62.81, G82.50, M79.1, M47.12 [...] Objective Physical Exam (more content not included)... [facility] 06-10-2022 Instructions Erica Rose APRN.DUNIA - 06/10/2022 [...] have an infection. documented in this encounter [facility] 06-10-2022 History of Presen t illness [...] for strengthening and pain management. [facility]. Dx: M24.50, M62.81, G82.50, M79.1, M47.12 [...] Erica Rose APRN.DUNIA documented in this encounter [facility] 02-27-2022 Miscellaneous Notes Pt was notified of the results. Pt verbalized understanding. Marilyn Avendano MA Negative for flu and covid please notify thank you documented in this encounter [facility] 02-26-2022 Influenza virus A and B RNA and SARS-CoV-2 (COVID-19) N gene panel JEREMY+probe (Resp) COVID 19 RESULT: SARS-CoV-2 (Agent of COVID-19) Not Detected by RT-PCR or equivalent method. emma [id number]_Dpdig [employer] ([place])_EUA This test was developed and its performance characteristics determined by [facility]. This test has been authorized by FDA under an Emergency Use Authorization (EUA). This test has been validated in accordance with the FDA's Guidance Document Policy for Diagnostics Testing in Laboratories Certified to Perform High Complexity Testing under CLIA prior to Emergency use Authorization for Coronavirus Disease 2019 during the Public Health Emergency issued on June 01, 2019. Test performed by [facility], [facility], [address] [place] [address]. INFLUENZA A PCR: Negative for Influenza A by RT-PCR INFLUENZA B PCR: Negative for Influenza B by RT-PCR [facility] Comment on above: Performed By: #### 9 [id number] #### [facility] CLIA [id number] [address] [place] [address] OF [place] 02-26-2022 Note HNO ID: [id number] Author: Benoit Denise MD Service: ? Author [...] for strengthening and pain management. [facility]. Dx: M24.50, M62.81, G82.50, M79.1, M47.12 [...] last night, differen (more content not included)... [facility] 02-26-2022 History of Presen t illness Narrative [...] for strengthening and pain management. [facility]. Dx: M24.50, M62.81, G82.50, M79.1, M47.12 [...] Benoit Denise MD documented in this encounter [facility] Evaluation note Diagnosis Chronic bilateral thoracic back pain Chronic bilateral low back pain without sciatica Pain of finger of left hand Pain in limb Benign essential HTN Essential hypertension, benign Screening, lipid Screening for lipoid disorders documented in this encounter [facility] Work Phone: Evaluation note* Diagnosis Influenza-like illness- Primary Influenza with other respiratory manifestations [facility] Diagnosis Urinary frequency- Primary [facility] Diagnosis Other constipation [facility] Diagnosis Other muscle spasm Unspecified injury at unspecified level of cervical spinal cord, subsequent encounter (HCC) [facility] Diagnosis Other constipation [facility] Diagnosis Other muscle spasm Unspecified injury at unspecified level of cervical spinal cord, subsequent encounter ([facility]) [facility] Diagnosis Other muscle spasm [facility] Diagnosis Unspecified injury at unspecified level of cervical spinal cord, subsequent encounter (HCC) [facility]* Diagnosis Functional quadriplegia (CMS/HCC) (HCC)- Primary [...] Documents on File Type Date Recorded Patient Programming Internship Expl anation Advance Directives and Living Will Power of Traffic Attendant Documents on File Type Date Recorded Patient Programming Internship Expl anation Advance Directives and Living Will Power of Traffic Attendant Documents on File Type Date Recorded Patient Programming Internship Expl anation ACP-Advance Directive ACP-Power of Traffic Attendant Summary Purpose Family History No Family History Records FoundNo Family History Records FoundNo Family History Records FoundNo Family History Records Found Reason for Referral Status Reason Specialty Diagnoses / Procedures Referre d By Contact Referred To Contact [facility] Diagnoses Gait instability Fall, subsequent encounter Muscle spasms of both lower extremities Paraplegia (HCC) Procedures MRI BRAIN W WO CONTRAST Myranda Traore, DO [address] [place] [address] Status Reason Specialty Diagnoses / Procedures Referre d By Contact Referred To Contact [facility] Diagnoses Bilateral lower extremity edema Procedures US Lower Extremity Bilateral Venous Duplex Myranda Traore, DO [address] [place] [address] Status Reason Specialty Diagnoses / Procedures Referred By Contact Referred To Contact Pending Review Radiology Diagnoses Diminished pulse Procedures VL ARTERIAL PVR LOWER W EXERCISE Myranda Traore, DO [address] [place] [address] Health Concerns Infection Onset Date Last Indicated Resolved Time COVID-19 Rule-Out 02/26/2022 02/26/2022 Infection Onset Date Last Indicated Resolved Time COVID-19 Rule-Out 02/26/2022 02/26/2022 02/27/2022 4:03 AM EST Additional Source Comments INFORMATION SOURCE (unrecogn ized section and content) DATE CREATED AUTHOR 04/14/2020 [facility] Edmond Blankenship DATE CREATED AUTHOR AUTHOR'S ORGANIZ ATION 11/03/2020 [facility] DATE CREATED AUTHOR AUTHOR'S ORGANIZ ATION 06/12/2022 [facility] CREATED AUTHOR AUTHOR'S ORGANIZ ATION 12/08/2023 [facility] Source Comments (unrecognize d section and content) In the event this informatio n is protected by the Federal Confidentiality of Alcohol and Drug Abuse Patient Records regulations: The Federal rules restrict any use of the information to criminally investigate or prosecute any alcohol or drug abuse patient.[facility] the event this information is protected by the Federal Confidentiality of Alcohol and Drug Abuse Patient Records regulations: The Federal rules restrict any use of the information to criminally investigate or prosecute any alcohol or drug abuse patient.[facility] the event this information is protected by the Federal Confidentiality of Alcohol and Drug Abuse Patient Records regulations: The Federal rules restrict any use of the information to criminally investigate or prosecute any alcohol or drug abuse patient.[facility] Reason for Visit (unrecogniz ed section [...] Care Teams (unrecognized sec tion and content) Auto Dismantler Relationship Specialty Start Date End Date Myranda Traore [address] [facility] [place] [address] PCP - General Internal Medicine 02/13/17 Auto Dismantler Relationship Specialty Start Date End Date Myranda Traore [facility] [place] [address] PCP - General Internal Medicine 02/13/17 Auto Dismantler Relationship Specialty Start Date End Date [place] [address] PCP - General Internal Medicine 02/13/17 Auto Dismantler Relationship Specialty Start Date End Date Myranda Traore DO [address] [facility] [place] [address] PCP - General 07/13/16 Auto Dismantler Relationship Specialty Start Date End Date Myranda Traore DO [address] [facility] [place] [address] PCP - General 07/13/16 Auto Dismantler Relationship Specialty Start Date End Date Myranda Traore DO [address] [facility] [place] [address] PCP - General 07/13/16 Auto Dismantler Relationship Specialty Start Date End Date Myranda Traore DO [address] [facility] [place] [address] PCP - General 07/13/16 Auto Dismantler Relationship Specialty Start Date End Date Myranda Traore DO [address] [place] [address] PCP - General 07/13/16 Auto Dismantler Relationship Specialty Start Date End Date Myranda Traore DO [address] [place] [address], [place] [address] PCP - General 07/13/16 Auto Dismantler Relationship Specialty Start Date End Date Myranda Traore DO [address] [place] [address], [place] [address] PCP - General 07/13/16 Auto Dismantler Relationship Specialty Start Date End Date Myranda Traore DO [address] [place] [id number] PCP - General 07/13/16 Auto Dismantler Relationship Specialty Start Date End Date Myranda Traore DO [address] [place] [address] PCP - General 07/13/16 Auto Dismantler Relationship Specialty Start Date End Date Myranda Traore DO [address] [place] [address] PCP - General 07/13/16 Auto Dismantler Relationship Specialty Start Date End Date Myranda Traore DO [address] [place] [address], [place] [address] PCP - General 07/13/16 FOR RECORDS PERTAINING [...] BE BASED ON THE PRIMARY CLINICAL RECORDS. [facility]. provides no warranty or guarantee of the accuracy or completeness of information in this document.
--- NOTE | 2023-12-28 21:17 | PCM.HP.STD ---
HPI - General General Date of Admission: 12/28/23 Chief Complaint: Fall with Left Hip Pain and Inability to Ambulate. HPI Narrative CHEN RUST, is a 58 F who presents with L hip fracture. Neck of femur fracture. The patient fell at home. Patient is a quadriplegic able to do some very short distance ambulating at home while holding onto things. Should be using a walker but does not. Would not be able to ambulate outside the home. No prior hip pain. No chest pain shortness of breath. Apparently patient did lose consciousness at home after the fall. I was called by the ED came as soon as I could this evening. [facility] Medical History Pharyngoesophageal dysphagia Abnormality of gait Venous insufficiency Cervical spondylosis with myelopathy and radiculopathy Neuropathic pain Cervicogenic headache Quadriplegia following spinal cord injury Chronic pain Cervical compression fracture Intermittent palpitations Spastic bladder Flexion contractures Overactive bladder HTN (hypertension) Depression Chronic constipation Asthma Anxiety Peripheral neuropathy Acute on Recurrent UTI Home Medications ?Medication ?Instructions ?Recorded ?Last Taken ?Type albuterol sulfate 90 mcg/actuation 2 puff inhalation Q6H PRN PRN Sob 05/03/17 11/26/17 History aerosol inhaler (ProAir HFA) &/Or Wheezing ergocalciferol (vitamin D2) 1,250 50,000 unit PO [facility] 05/03/17 11/22/17 History mcg (50,000 unit) capsule (Vitamin maintenance D2) fluticasone propionate 50 1 spray intranasal DAILY 02/07/22 Unknown History mcg/actuation nasal spray,suspension losartan 50 mg tablet 50 mg PO DAILY 02/07/22 Unknown History baclofen 10 mg tablet 10 mg PO TID PRN muscle pain/spasm 05/03/22 Unknown Rx #90 tabs gabapentin 800 mg tablet 800 mg PO BID nerve pain #60 tabs 05/03/22 Unknown Rx Allergy/AdvReac Type Severity Reaction Status Date / Time buprenorphine (From Rip) Allergy Severe BLISTERS Verified 08/24/22 13:35 codeine Allergy Severe Angioedema Verified 08/24/22 13:35 Family History Mother Aneurysm Arthritis High cholesterol Father Pneumonia Alcoholism Hypertension Grandmother Arthritis Heart disease Hypertension Grandfather Diabetes Aunt Diabetes Surgical History S/P cervical spinal fusion H/O neck surgery Social History household members: none Smoking Status: Former smoker Tobacco: How many years used: 20 second hand exposure: No alcohol intake: current details: occasionally substance use type: does not use elli/oriental orthodox: None seatbelt use: always Vital Signs Vital Signs Vital Signs: 12/28/23 18:16 12/28/23 20:15 12/28/23 20:41 Temperature 98.1 F 97.8 F Temperature Source Oral Pulse Rate 96 90 94 Respiratory Rate 18 20 H 18 Blood Pressure 150/88 H 145/78 H 145/78 H Blood Pressure Mean 108 100 100 Pulse Ox 98 99 98 Oxygen Delivery Method Room Air Room Air Weight Weight: 120 lb 5.958 oz Body Mass Index (BMI) 19.4 Physical Exam Const alert and oriented x3; Negative for no apparent distress General Appearance: cooperative Resp normal respiratory effort Extremity normal capillary refill Extremity Narrative: Left lower extremity is in internal rotation and shortened. Patient finds it very difficult to become comfortable. There is pain to the left hip. Patient does have diminished light touch sensation throughout the foot the foot is warm well-perfused good dorsalis pedis pulse able to wiggle the toes dorsiflex and plantarflex the foot. There is contractions of the upper extremity on both sides. Results Lab / Micro Data 12/28/23 19:15 12/28/23 19:15 Labs: Laboratory Results - last 24 hr 12/28/23 19:15: WBC 6.1, RBC 4.51, Hgb 13.4, Hct 41.5, MCV 92.0, MCH 29.7, MCHC 32.3, RDW Std Deviation 42.0, RDW Coeff of Renee 12.4, Plt Count 331, MPV 9.7, Immature Gran % (Auto) 0.700, Neut % (Auto) 63.6, Lymph % (Auto) 22.7, Price % (Auto) 8.7, Eos % (Auto) 3.5, Baso % (Auto) 0.8, Absolute Neuts (auto) 3.9, Absolute Lymphs (auto) 1.38, Nucleated RBC % 0, Sodium 136, Potassium 3.9, Chloride 105, Carbon Dioxide 23.0, Anion Gap 8, BUN 11, Creatinine 0.72, Estim Creat Clear Calc 73.41, Est GFR (MDRD) Af Amer 107, Est GFR (MDRD) Non-Af 89, BUN/Creatinine Ratio 15.3, Glucose 92, Calcium 10.0 Imaging Radiology Impression Brain CT 12/28/23 18:52 IMPRESSION: Normal unenhanced CT scan of the brain. Electronically Signed: Jeremiah Mcnair MD at 20:13 EDT , Cervical Spine CT 12/28/23 18:52 IMPRESSION: Mild spondylosis. Status post multilevel anterior fusion and disc spacer placement No acute fracture or other significant abnormality Electronically Signed: Jeremiah Mcnair MD at 20:17 EDT , Ankle X-Ray 12/28/23 19:50 IMPRESSION: Minor medial malleolus sprain. No acute fracture or dislocation. Electronically Signed: Jeremiah Mcnair MD at 20:37 EDT , Chest X-Ray 12/28/23 19:50 IMPRESSION: Hyperinflation. No acute cardiopulmonary pathology Electronically Signed: Jeremiah Mcnair MD at 20:43 EDT , Hip/Pelvis X-Ray 12/28/23 19:50 IMPRESSION: Acute impacted angulated left femoral head and neck fracture Electronically Signed: Jeremiah Mcnair MD at 20:42 EDT , Lumbar Spine X-Ray 12/28/23 19:50 IMPRESSION: Mild scoliosis and degenerative change. No acute fracture or subluxation It should be noted on the lateral projection the sacral spine is not visualized due to positioning. Electronically Signed: Jeremiah Mcnair MD at 20:40 EDT , I independently reviewed the imaging. Concur with radiologist report. Left hip x-ray shows a displaced type 4 femoral neck fracture Assessment & Plan Assessment/Plan (1) Closed left hip fracture: PLAN: 58-year-old female with a left hip femoral neck fracture displaced. This is typically indicated for surgery. This to be in the form of hemiarthroplasty although the other option be total hip arthroplasty (very less common ORIF). Hemiarthroplasty would be the best option in this patient quadriplegic higher risk of dislocation due to muscle imbalances and great difficulties at baseline ambulating. I explained the pros and cons risk benefits of nonoperative versus operative intervention. Risks of nonsurgical treatment typically higher given prolonged nature of bedrest. That being said surgery has complications such as infection loosening pain stiffness bleeding damage to other structures instability dislocation fractures and other risks. The patient understands wishes to go ahead with left hip hemiarthroplasty - I typically perform this cemented better results especially early on albeit slightly higher surgical time possibly increased blood loss. I marked the left hip consented the patient for left hip hemiarthroplasty as well as possible need for blood products. Patient to be diet as tolerated n.p.o. at midnight trying to do the case tomorrow during the day at some point. I let the clubhouse attendant know. Pros and cons risks and benefits were discussed with the patient including but not limited to infection, pain, stiffness, bleeding, damage to surrounding structures, neurovascular injury, recurrence or retear, failure or wear of hardware or fixation, instability, fracture, deep vein thrombosis and pulmonary embolism, anesthetic risks, , patient dissatisfaction, need for further surgery and other risks. Patient understood and wished to proceed with surgery, and signed the informed consent documentation.
[2023-12-28 21:33] VITALS: RESP 15
[2023-12-28 21:42] VITALS: BMI 17.0
[2023-12-28] MEDS: 0.9% Normal Saline (1000mL) 1,000 ML 70 ML IV (21:47)
[2023-12-28 21:55] VITALS: BP 135/56; PULSE 80; RESP 17; TEMP 36.7; O2SAT 96
--- OUTSIDE RECORDS SUMMARY | 2023-12-28 22:15 | XMS RPT_ITS | CCD ---
Author Organization [facility] Care Team Providers Care Corporate Travel Manager Name Role Phone Myranda Traore Primary Care Provider MYRANDA TRAORE Primary Care Unavailable MYRANDA TRAORE Primary Care Unavailable Myranda Traore DO Primary Care Provider [phone] Myranda Traore DO Primary Care Provider Myranda [...] Other (See Comments), Other: See Comments, Other [place], [place] (20 sources) Codeine; Translations: [CODEINE] Drug Allergy 4 Anaphylaxis, Swelling [place] Medications Current Medications Medication Drug Class(es) Dates Sig (Normalized) Sig (Original) [id number] 200 actuat albuterol 0.09 mg/actuat metered dose [...] Injury of cervical spinal cord, subsequent encounter ([facility]) TAKE 1 TABLET BY MOUTH EVERY 6 [...] urinary bladder 4 boxes for dx:N31.9 BRAND: [employer] 4 each 2 10/12/2016 Active docusate sodium [...] every week ergocalciferol (Vitamin D2) 1.25 MG (39594 UT) capsule TAKE 1 CAPSULE BY MOUTH ONE TIME PER WEEK 12 capsule 3 08/14/2023 Active Start: 07-18-2017 take 1 capsule by mo ut every week ergocalciferol (Vitamin D-2) 1.25 MG (85455 UT) capsule TAKE 1 CAPSULE BY MOUTH [...] Supply Disposable (BLADDER CONTROL PAD REGULAR) [facility] Indications: Neurogenic dysfunction of the urinary bladder [...] hours as needed for pain HYDROcodone-acetam inophen ([place]) 5-325 MG tablet 1 TAB ORALLY EVERY [...] for strengthening and pain management. [facility]. Dx: M24.50, M62.81, G82.50, M79.1, M47.12 1 [...] for strengthening and pain management. [facility]. Dx: M24.50, M62.81, G82.50, M79.1, M47.12 24 [...] Comment on above: Take 1 capsule by [facility] twice daily. Per counseling center Food Supplement, [...] BRYCE TH EVERY DAY polyethylene glycol 3350 35151 mg powder for oral solution (4 sources) [...] 06/19/23 Office Visit Myranda Traore DO [facility] Showing recent visits within past [...] recent labs completed in chart? Yes None [employer] [facility] [place] [address] Message released to patient as written. Have you received any controlled medications from any other provider? Patient's further questions if applicable: no Were all questions from office addressed or relayed to the patient from encounter: Yes Pt does not get anything from any other provider. [employer] [facility] 36 Placed call to patient to ask the controlled medication question to be able to fill her Neurontin. Voicemail left requesting call back or she can respond via [employer] [facility] 36on 12-05-2023 36 Placed call to patient to ask the controlled medication question to be able to fill her Neurontin. Voicemail left requesting call back or she can respond via [employer] [facility] [employer] [facility] 3608-30-2023 36 Noted will await arrival of paperwork [employer] [facility] [employer] [place] [address] Name of caller: Chen Contact phone number: [phone] Relationship to Patient: patient Provider: León Practice: [facility] Chief Complaint/Reason for Call: Patient returned call to office. Called back line. Was informed that [facility] must send form to office for Dr Traore to fill out. Patient had not met with SSI as of date. Provided office fax number to give to SSI to fax form. Please advise. Best time of day caller can be reached: any Patient advised that office/PCP has 24-48 business hours to return their call: No [place] [address] Call center called us about patient wanting us to send request for SSI forms for disability, but call center has been notified that our facility does not do that but that each patient is required to do that request and get it started on their own. Normal [place] [address] Follow up message left for patient to return call to office to discuss request. Office has never received any paperwork concerning disability to complete for this patient. Requesting follow up [place] [address]on 08-14-2023 36 Recent Visits Date Type Provider Dept 06/19/23 Office Visit Myranda Traore DO [facility] Showing recent visits within past 365 days and meeting all other requirements Future Appointments No visits were found meeting these conditions. Showing future appointments within next 90 days and meeting all other requirements Requested Prescriptions Pending Prescriptions Disp Refills losartan (Cozaar) 50 MG tablet 90 tablet 3 Sig: Take 1 tablet (50 mg) by mouth daily. ergocalciferol (Vitamin D2) 1.25 MG (70172 UT) capsule 12 capsule 3 Sig: TAKE [...] Most recent labs completed in chart? Yes [place] [address] Typically, [facility] will send us forms to fill out. Fine for letter if necessary [place] [address] Pt stated that she would like to [...] Medication name: ergocalciferol (Vitamin D2) 1.25 MG (98953 UT) capsule Medication dosage: 1.25 mg (Miligrams (47707 UT) Monthly quantity needed: 12 How many [...] of last refill (see medication tab): 06-26-2023 [facility] 36 Name of caller: Julio Rust Contact phone number: [phone] Relationship to Patient: patient Provider: Dr Myranda Traore Practice: [place] Chief Complaint/Reason for Call: Pt called stating that she would like to apply for disability. 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 Please advise. Best time of day caller can be reached: any Patient advised that office/PCP has 24-48 business hours to return their call: No [facility] 36on 06-26-2023 36 Recent Visits Date Type Provider Dept 06/19/23 Office Visit Myranda Traore DO [facility] Showing recent visits within past 365 days and meeting all other requirements Future Appointments No visits were found meeting these conditions. Showing future appointments within next 90 days and meeting all other requirements Requested Prescriptions Pending Prescriptions Disp Refills ergocalciferol (Vitamin D2) 1.25 MG (22863 UT) capsule [Pharmacy Med Name: VITAMIN D2 [...] Most recent labs completed in chart? 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 Normal [facility] 36 Pt was just seen today and needs a handicap placard. Told patient once doctor prints out order we will mail it to her home. Normal [facility] Office Visiton 06-19-2023 Follow-up visit [id number] [employer] pilaradina Liz 1965 F Date Provider Department Center 06/19/2023 [id number] CASANOVA [facility] Family History Problem Relation Age of Onset Breast cancer Other Comments: maternal aunt unsure age Other Mother Comments: aneurysm Ovarian cancer Neg Hx Other Father Comments: pneumonia Colon cancer Neg Hx Family Status - Relation Status Age at Other Mother Neg Hx Father Level of Service:53579 ID OFFICE/OUTPATIENT ESTABLISHED MOD MDM 30 MIN Reason for Visit and Comments: Follow-up [601169] - Pt currently has no insurance. [facility] Progress Noteon 06-19-2023 Progress Note [facility] [address] [place] [address] [address] [facility] [address] Visit type: Established Patient Reason [...] capsule 11 ergocalciferol (Vitamin D2) 1.25 MG (92082 UT) capsule TAKE 1 CAPSULE BY MOUTH [...] times daily. 90 tablet 0 HYDROcodone-acetamin ophen ([place]) 5-325 MG tablet 1 TAB ORALLY EVERY [...] cancer Other maternal aunt unsure age Other (64676) Mother aneurysm Ovarian cancer Neg Hx Other (25620) Father pneumonia Colon cancer Neg Hx Objective [...] During This Encounter Medication Reason HYDROcodone-acetamin ophen ([place]) (more content not included)... Normal [facility] 36on 04-06-2023 36 Ordering provider: Dr. Traore [...] of last refill (see medication tab): 10/21/2022 [facility] 36on 01-27-2023 36 Last OV:01/12/22 Scheduled:n/a [facility] 36 Name of caller: Chen Contact phone number: [phone] Relationship to Patient: patient Provider: Dr. Traore [...] business hours to return their call: Yes [facility] Bacteria Ur Culton 3 Bacteria identified Cx [...] , Intermediate >32 , Resistant >64 Abnormal [facility] Comment on above: Performed By: #### 6 30-4 #### [facility] [place] [id number] [address] [place] [address] [place] CNOVon 06-10-2022 CNOV Office Visit ([facility]) CHEN RUST ([id number]) 1965 F CHT Date Time Provider Department 06/10/22 1:30 PM ERICA ROSE [facility] During your visit today, we recorded the following information about you: Temperature Pulse Respiration Blood pressure 98.5 degrees 86/minute 18/minute 100/62 Weight 57.6 kg Erica Rose APRN.ASSISTANT DIRECTOR OF PLANT OPERATIONS 06/10/2022 1:49 PM Signed Subjective HPI Chen [...] for strengthening and pain management. [facility]. Dx: M24.50, M62.81, G82.50, M79.1, M47.12 docusate [...] Maternal Gra (more content not included)... Normal [facility] UA DIP, URINE (POC)on 2022 BILIRUBIN UA (POCT) Negative Negative [facility] CLARITY UA (POCT) Slightly Cloudy Cl [facility] COLOR UA (POCT) Other [facility] GLUCOSE UA (POCT) Negative Negative mg/dL [facility] HEMOGLOBIN/BLOOD UA (POCT) Trace-intact Abnormal Negative [facility] KETONE UA (POCT) Negative Negative mg/dL [facility] LEUKOCYTES UA (POCT) Large Abnormal Negative [facility] NITRITE UA (POCT) Positive Abnormal Negative [facility] PH UA (POCT) 6.0 4.5 - 8.0 [facility] Protein Ql (U) Negative Negative mg/dL [facility] SPECIFIC GRAVITY UA (POCT) 1.015 1.005 - 1.030 [facility] UROBILINOGEN UA (POCT) 0.2 E.U./dL Normal E.U./ dL [facility] Lucero 02-27-2022 [facility] ([id number]) 1965 F CHT Date Time Provider Department 02/27/22 DELORES ISLAS [facility] During your visit today, we recorded the following information about you: Delores Islas APRN.ASSISTANT DIRECTOR OF PLANT OPERATIONS 02/27/2022 8:17 AM Signed Negative for flu [...] for strengthening and pain management. [facility]. Dx: M24.50, M62.81, G82.50, M79.1, M47.12 - [...] Encounter Status:Closed by MARILYN AVENDANO on 02/27/22 [facility] CNOVon 02-26-2022 CNOV Office Visit ([facility]) CHEN RUST ([id number]) 1965 F [facility] Date Time Provider Department 02/26/22 2:15 [...] for strengthening and pain management. [facility]. Dx: M24.50, M62.81, G82.50, M79.1, M47.12 COMPOUNDED [...] Neck: s (more content not included)... Normal [facility] CBCOrdered By: Myranda garcia on 10-29-2020 Hematocrit (Bld) [Volume fraction] 39.2 % 35.0 - 47.0 % [employer] Work Phone: Hemoglobin.gastrointest inal spec 1 Ql (Stl) 12.9 g/dL 11.7 - 16.0 g/dL [employer] Work Phone: MCH (RBC) [Entitic mass] 30.8 pg 26.0 - 34.0 pg [employer] Work Phone: MCHC (RBC) [Mass/Vol] 32.9 % 32.0 - 36.0 % [employer] Work Phone: MCV (RBC) [Entitic vol] 93.7 fL 79.0 - 98.0 fL [employer] Work Phone: Platelet distribution width (Bld) [Ratio] 12.9 % 11.5 - 14.5 % [employer] Work Phone: Platelet mean volume (Bld) [Entitic vol] 7.9 fL 7.4 - 10.4 fL [employer] Work Phone: Platelets (Bld) [#/Vol] 312 10*3/uL 140 - 440 10*3/uL [employer] Work Phone: RBC (Bld) [#/Vol] 4.18 10*6/uL 3.80 - 5.2 0 10*6/uL [employer] Work Phone: WBC (Bld) [#/Vol] 6.3 10*3/uL 3.6 - 10.7 10*3/uL [employer] Work Phone: Test Performed by [employer], [address] , [place], [place] [address] [employer] Work Phone: [employer] Work Phone: CR Finger(s) Min 2 Views Lef ton 10-29-2020 CR Finger(s) Min 2 Views Left Patient Name: CHEN RUST Diagnostic Radiology ACCESSION EXAM DATE/TIME PROCEDURE ORDERING PROVIDER [id number] 10/29/2020 17:01 EDT CR Finger(s) Min 2 Views LEÓN Alcazar, MYRANDA Yan Left CPT code 36809 Reason For Exam (CR Finger(s) Min 2 [...] Transcribed Date and Time: 10/30/2020 3:56 Normal [facility] Spine Lumbosacral 4+ View son 10-29-2020 CR Spine Lumbosacral 4+ Views Patient Name: CHEN RUST Diagnostic Radiology ACCESSION EXAM DATE/TIME PROCEDURE ORDERING PROVIDER [id number] 10/29/2020 17:01 EDT CR Spine Lumbosacral 4+ LEÓN HensonO., MYRANDA M Views CPT code 35599 Reason For Exam (CR Spine Lumbosacral 4+ [...] Radiology ACCESSION EXAM DATE/TIME PROCEDURE ORDERING PROVIDER [id number] 10/29/2020 17:01 EDT CR Spine Thoracic 3 TRAORE D.O., MYRANDA M Views CPT code 62911 Reason For Exam (CR Spine Thoracic 3 [...] #### [facility] [address] [place] [address] Calcium [Mass/Vol] 9.8 mg/dL Normal 8.4-10.4 [facility] Comment on above: Performed By: #### H EMOG, CMP3, LIPD2, TSH5 #### [facility] [address] [place] [address] ALP [Catalytic activity/Vol] 82 U/L Normal 38-126 [facility] Comment on above: Performed By: #### H EMOG, CMP3, LIPD2, TSH5 #### [facility] [address] [place] [address] Anion gap [Moles/Vol] 4 mmol/L Normal 3-13 [facility] Comment on above: Performed By: #### H EMOG, CMP3, LIPD2, TSH5 #### [facility] [address] [place] [address] AST [Catalytic activity/Vol] 39 U/L Normal 15-46 [facility] Comment on above: Performed By: #### H EMOG, CMP3, LIPD2, TSH5 #### [facility] [address] [place] [address] Bilirubin [Mass/Vol] 0.4 mg/dL Normal 0.2-1.3 [facility] Comment on above: Performed By: #### H EMOG, CMP3, LIPD2, TSH5 #### [facility] [address] [place] [address] CO2 [Moles/Vol] 29 mmol/L Normal 22-30 [facility] Comment on above: Performed By: #### H EMOG, CMP3, LIPD2, TSH5 #### [facility] [address] [place] [address] Creatinine [Mass/Vol] 0.72 mg/dL Normal 0.52-1.25 [facility] Comment on above: Performed By: #### H EMOG, CMP3, LIPD2, TSH5 #### [facility] [address] [place] [address] eGFR OTHER > 90.0 Normal >60 [facility] [...] LIPD2, TSH5 #### [facility] [address] [place] [address] GFR/1.73 sq M.predicted among blacks MDRD (S/P/Bld) [Vol rate/Area] mL/min/{1.73_m2} Normal >60 [facility] Comment on above: Performed By: #### H EMOG, CMP3, LIPD2, TSH5 #### [facility] [address] [place] [address] Glucose [Mass/Vol] 97 mg/dL Normal 70-100 [facility] Comment on above: Performed By: #### H EMOG, CMP3, LIPD2, TSH5 #### [facility] [address] [place] [address] Protein [Mass/Vol] 7.5 g/dL Normal 6.3-8.2 [facility] Comment on above: Performed By: #### H EMOG, CMP3, LIPD2, TSH5 #### [facility] [address] [place] [address] Urea nitrogen [Mass/Vol] 10 mg/dL Normal 7-20 [facility] Comment on above: Performed By: #### H EMOG, CMP3, LIPD2, TSH5 #### [facility] [address] [place] [address] Potassium [Moles/Vol] 4.7 mmol/L Normal 3.5-5.1 [facility] Comment on above: Performed By: #### H EMOG, CMP3, LIPD2, TSH5 #### [facility] [address] [place] [address] Sodium [Moles/Vol] 138 mmol/L Normal 135-145 [facility] Comment on above: Performed By: #### H EMOG, CMP3, LIPD2, TSH5 #### [facility] [address] [place] [address] Albumin [Mass/Vol] 4.5 g/dL Normal 3.5-5.0 [facility] Comment on above: Performed By: #### H EMOG, CMP3, LIPD2, TSH5 #### [facility] [address] [place] [address] Chloride [Moles/Vol] 106 mmol/L Normal 98-107 [facility] Comment on above: Performed By: #### H EMOG, CMP3, LIPD2, TSH5 #### [facility] [address] [place] [address] Comprehensive Metabolic Pane lOrdered By: Myranda Traore on 10-29-2020 Albumin [Mass/Vol] 4.5 g/dL 3.5 - 5.0 g/dL [facility] Work Phone: ALP (Bld) [Catalytic activity/Vol] 82 U/L 38 - 126 U/L [facility] Work Phone: ALT [Catalytic activity/Vol] 30 U/L 0 - 34 U/L [facility] Work Phone: Comment on above: The ALT [...] mg/dL [facility] Work Phone: EGFR IF NonAfrican Ethiopian >90.0 >60 mL/min [facility] Work Phone: Comment [...] MDRD (S/P/Bld) [Vol rate/Area] mL/min/{1.73_m2} >60 mL/min [facility] Work Phone: Glucose [Mass/Vol] 97 mg/dL 70 - 100 mg/dL [facility] Work Phone: Potassium [Moles/Vol] 4.7 mmol/L 3.5 - 5.1 mmol/L [facility] Work Phone: Sodium [Moles/Vol] 138 mmol/L 135 - 145 mmol/L [facility] Work Phone: Urea nitrogen (BldV) [Mass/Vol] 10 mg/dL 7 - 20 mg/dL [facility] Work Phone: Hemogramon 10-29-2020 Erythrocyte distribution width (RBC) [Ratio] 12.9 % Normal 11.5-14.5 [facility] Comment on above: Performed By: #### H EMOG, CMP3, LIPD2, TSH5 #### [facility] [address] [facility] [place] [address] Hematocrit (Bld) [Volume fraction] 39.2 % Normal 35.0-47.0 [facility] Comment on above: Performed By: #### H EMOG, CMP3, LIPD2, TSH5 #### [facility] [address] [facility] [place] [address] Hemoglobin (Bld) [Mass/Vol] 12.9 g/dL Normal 11.7-16.0 [facility] Comment on above: Performed By: #### H EMOG, CMP3, LIPD2, TSH5 #### [facility] [address] [facility] [place] [address] MCH (RBC) [Entitic mass] 30.8 pg Normal 26.0-34.0 [facility] Comment on above: Performed By: #### H EMOG, CMP3, LIPD2, TSH5 #### [facility] [address] [place] [address] MCHC 32.9 % Normal 32.0-36.0 [facility] Comment on above: Performed By: #### H EMOG, CMP3, LIPD2, TSH5 #### [facility] [address] [place] [address] MCV (RBC) [Entitic vol] 93.7 fL Normal 79.0-98.0 [facility] Comment on above: Performed By: #### H EMOG, CMP3, LIPD2, TSH5 #### [facility] [address] [place] [address] Platelet mean volume (Bld) [Entitic vol] 7.9 fL Normal 7.4-10.4 [facility] Comment on above: Performed By: #### H EMOG, CMP3, LIPD2, TSH5 #### [facility] [address] [place] [address] Platelets (Bld) [#/Vol] 312 10*3/uL Normal 140-440 [facility] Comment on above: Performed By: #### H EMOG, CMP3, LIPD2, TSH5 #### [facility] [address] [place] [address] RBC (Bld) [#/Vol] 4.18 10*6/uL Normal 3.80-5.20 [facility] Comment on above: Performed By: #### H EMOG, CMP3, LIPD2, TSH5 #### [facility] [address] [place] [address] WBC (Bld) [#/Vol] 6.3 10*3/uL Normal 3.6-10.7 [facility] Comment on above: Performed By: #### H EMOG, CMP3, LIPD2, TSH5 #### [facility] [address] [place] [address] Lipid Panelon 10-29-2020 Chol/HDL 3 Normal [facility] Comment on above: Result Comment: Ref Range: < 3 Low Risk for CHD 3-6 Mod Risk for CHD > 6 High Risk for CHD Performed By: #### H EMOG, CMP3, LIPD2, TSH5 #### [facility] [address] [place] [address] Cholesterol in HDL [Mass/Vol] 73 mg/dL High 40-60 [facility] Comment on above: Performed By: #### H EMOG, CMP3, LIPD2, TSH5 #### [facility] [address] [place] [address] Low Density Lipoprotein 112 mg/dL Abnormal <100 [facility] Comment on above: Performed By: #### H EMOG, CMP3, LIPD2, TSH5 #### [facility] [address] [place] [address] Triglyceride [Mass/Vol] 57 mg/dL Normal <150 [facility] Comment on above: Performed By: #### H EMOG, CMP3, LIPD2, TSH5 #### [facility] [address] [place] [address] Cholesterol [Mass/Vol] 196 mg/dL Normal < 200 [facility] Comment on above: Performed By: #### H EMOG, CMP3, LIPD2, TSH5 #### [facility] [address] [place] [address] Lipid PanelOrdered By: Dewey Traore on 10-29-2020 Cholesterol [Mass/Vol] 196 mg/dL <200 [facility] Work Phone: Cholesterol in HDL [Mass/Vol] 73 mg/dL High 40 - 60 mg/dL [facility] Work Phone: Cholesterol in LDL [Mass/Vol] 112 mg/dL Abnormal <100 [facility] Work Phone: Cholesterol.total/Sharyn sterol in HDL [Mass ratio] 3 {ratio} [facility] Work Phone: Comment on above: Ref Range: < 3 Low Risk for CHD 3-6 Mod Risk for CHD > 6 High Risk for CHD Interpretation and review of laboratory results Abnormal [facility] Work Phone: Triglyceride [Mass/Vol] 57 mg/dL <150 [facility] Work Phone: No Panel InformationOrdered By: Myranda Traore on 10-29-2020 Test Performed by [facility], [address] , [place] [address] [employer] Work Phone: [employer] Work Phone: TSH without ReflexOrdered By : Myranda Traore on 10-29-2020 TSH Qn 1.830 u[IU]/mL 0.465 - 4.680 u[IU]/mL [employer] Work Phone: Test Performed by [employer], [address] , [place] [address] [employer] Work Phone: [employer] Work Phone: Thyroid Stim. Hormoneon 10-02 Thyroid Stim. Hormone 1.830 u[IU]/mL Normal 0.465-4.68 0 [employer] Comment on above: Performed By: #### H EMOG, CMP3, LIPD2, TSH5 #### [employer] [address] [place] [address] URINE CULTUREon 04-11-2020 Bacteria identified Cx Nom (U) URINE RESULT >100,000 COL/ML MIXED ALYSSIA-PLEASE REPEAT-POSSIBLE CONTAMIN Normal [facility] Comment on above: Performed By: #### M 100.78092 #### [facility] [address] [place] [address] UA COMPLETEon 04-09-2020 Color (U) Yellow Normal [facility] Comment on above: Performed By: #### L 600.23470 #### [facility] [address] [place], [place] [id number] Glucose (U) [Mass/Vol] Negative Normal NORMAL [facility] Comment on above: Performed By: #### L 600.00845 #### [facility] [address] [place] [address] UA APPEARANCE Hazy Normal CLEAR [facility] Comment on above: Performed By: #### L 600.86024 #### [facility] [address] [place] [address] UA BILIRUBIN Negative Normal NEGATIVE [facility] Comment on above: Performed By: #### L 600.19177 #### [facility] [address] [place] [address] UA BLOOD Negative Normal NEGATIVE [facility] Comment on above: Performed By: #### L 600.43033 #### [facility] [address] [place] [address] UA KETONE Negative Normal NEGATIVE [facility] Comment on above: Performed By: #### L 600.42563 #### [facility] [address] [place] [address] UA LK ESTERASE Negative Normal NEGATIVE [facility] Comment on above: Performed By: #### L [id number] #### [facility] [address] [place] [id number] UA NITRITE Negative Normal NEGATIVE [facility] Comment on above: Performed By: #### L [id number] #### [facility] [address] [place] [address] [id number] UA PH 9.0 Normal 5-6 [facility] Comment on above: Performed By: #### L [id number] #### [facility] [address] [place] [address] [phone] UA PROTEIN Negative Normal NEGATIVE [facility] Comment on above: Performed By: #### L [id number] #### [facility] [address] [place] [address] [phone] UA SPEC GRAV 1.008 Normal 1.005-1.030 [facility] Comment on above: Performed By: #### L [id number] #### [facility] [address] [place] [address] 19558 UA UROBILINOGEN Negative Normal NORMAL [facility] Comment on above: Performed By: #### L [id number] #### [facility] [address] [place] [phone] # [phone] Lower Extremity Bilateral Venous Duplexon 10-02-2019 [facility] Lower Extremity Venous Duplex Report Ordering Physician: Myranda Traore D.o. [employer] Industrial [employer] Teacher: Jensen Hand Interpreting Physician: Anthony Cm MD Location: [facility] Indications: Bilateral lower leg edema. Conclusions [...] supine position. Images were obtained using a [employer] E9 vascular ultrasound machine. Venous flow and [...] signed by Anthony Cm MD 10/02/2019 15:03 [facility] [place], [place] [facility] Results From [facility]dy - 10/02/2019 3:[address] [facility] Lower Extremity Venous Duplex Report Ordering Physician: Myranda Traore D.o. [employer] Industrial [employer] Teacher: Jensen Hand Interpreting Physician: Anthony Cm MD Location: [facility] Indications: Bilateral lower leg edema. Conclusions [...] supine position. Images were obtained using a [employer] E9 vascular ultrasound machine. Venous flow and [...] signed by Anthony Cm MD 10/02/2019 15:03 [facility] [place], [place] VL ARTERIAL PVR LOWER W EXER CISEon 10-02-2019 [facility] Multilevel Lower Extremity Arterial Evaluation with Exercise Ordering Physician: Myranda Traore D.o. [employer] Teacher: Jensen Hand Interpreting Physician: Anthony Cm MD Location: [facility] Indications: Bilateral dimished pulses. Conclusions 1. [...] supine position. Images were obtained using a [employer] vascular ultrasound machine. The study was technically [...] signed by Anthony Cm MD 10/02/2019 15:04 [facility], [place], [facility] Incoming Cardiology Results From [facility]dy - 10/02/2019 3:[address] [facility] Multilevel Lower Extremity Arterial Evaluation with Exercise Ordering Physician: Myranda Traore D.o. [employer] Teacher: Jensen Hand Interpreting Physician: Anthony Cm MD Location: [facility] Indications: Bilateral dimished pulses. Conclusions 1. [...] supine position. Images were obtained using a [employer] vascular ultrasound machine. The study was technically [...] signed by Anthony Cm MD 10/02/2019 15:04 [place] CBCon 08-29-2019 Erythrocyte distribution width (RBC) [Ratio] 13.7 % 11.5 - 14.5 % [place] Hematocrit (Bld) [Volume fraction] 36.1 % 35 - 47 % [place] Hemoglobin (Bld) [Mass/Vol] 12.2 g/dL 11.7 - 16 g/dL [place] MCH (RBC) [Entitic mass] 31.7 pg 26 - 34 pg [place] MCHC (RBC) [Mass/Vol] 33.8 % 32 - 36 % [place] MCV (RBC) [Entitic vol] 93.7 fL 79 - 98 fL [place] Platelet mean volume (Bld) [Entitic vol] 8.0 fL 7.4 - 10.4 fL [place] Platelets (Bld) [#/Vol] 295 10*3/uL 140 - 440 10*3/uL [place] RBC (Bld) [#/Vol] 3.85 10*6/uL 3.8 - 5.2 10*6/uL [place] WBC (Bld) [#/Vol] 5.3 10*3/uL 3.6 - 10.7 10*3/uL [place] Test Performed by [facility], [address] [place], [place] [address] , [address] Comprehensive Metabolic Pane alexei 08-29-2019 Albumin [Mass/Vol] 4.1 g/dL 3.5 - 5 g/dL [place], [place] ALP [Catalytic activity/Vol] 107 U/L 38 - 126 U/L [place] ALT [Catalytic activity/Vol] 28 U/L 0 - 34 U/L [place] Comment on above: The ALT test is perf ormed by an updated assay method. Please note that the reference intervals have been changed and are now sex specific. Anion gap [Moles/Vol] 7 mmol/L [place] AST [Catalytic activity/Vol] 35 U/L 15 - 46 U/L [place] Bilirubin Ql (U) 0.4 mg/dL 0.2 - 1.3 mg/dL [place] Calcium [Mass/Vol] 9.1 mg/dL 8.4 - 10. 4 mg/dL [place] Chloride [Moles/Vol] 103 mmol/L 98 - 10 7 mmol/L [place] CO2 [Moles/Vol] 30 mmol/L 22 - 30 mmol/L [place] Creatinine [Mass/Vol] 0.65 mg/dL 0.52 - 1.25 mg/dL [place] EGFR IF NonAfrican Ethiopian >90.0 >60 mL/min [place] Comment on above: KDIGO guidelines pro [...] MDRD (S/P/Bld) [Vol rate/Area] mL/min/{1.73_m2} >60 mL/min [place] Glucose [Mass/Vol] 95 mg/dL 70 - 100 mg/dL [place], [place] Interpretation and review of laboratory results Abnormal [place] Potassium [Moles/Vol] 4.4 mmol/L 3.5 - 5.1 mmol/L [place] Protein [Mass/Vol] 7.0 g/dL 6.3 - 8.2 g/dL [place] Sodium [Moles/Vol] 140 mmol/L 135 - 145 mmol/L [place] Urea nitrogen [Mass/Vol] 5 mg/dL Low 7 - 20 mg/dL [place] Test Performed by [facility], [address] , [address] TSH without Reflexon 020 TSH Qn 1.158 u[IU]/mL 0.465 - 4.68 u[IU]/mL [place] Test Performed by [facility] [employer] [facility], [address] , [address] MRI BRAIN W WO CONTRASTon Patient Name: CHEN RUST ---MRI--- Exam Date/Time 01/04/2019 12:52:02 EDT Exam MRI Brain w/ + w/o Contrast Ordering Physician MYRANDA TRAORE D.O. Accession Number [id number] CPT4 Codes 61730 () Reason For Exam Unsteadiness on feet [...] NICHOLAS Transcribed Date and Time: 01/04/2019 1:39 [place], [facility] Incoming Radiology Results From [facility] - 01/04/2019 1:39 PM EDT Patient Name: CHEN RUST ---MRI--- Exam Date/Time 01/04/2019 12:52:02 EDT Exam MRI Brain w/ + w/o Contrast Ordering Physician MYRANDA TRAORE D.O. Accession Number [id number] CPT4 Codes 17540 () Reason For Exam Unsteadiness on feet [...] NICHOLAS Transcribed Date and Time: 01/04/2019 1:39 [place] Vital Signs Date Time Vital Sign Value Performing Clinician Melinda schumacher 06-19-2023 14:43-0400 Body height 167.6 cm Myranda Traore DO Work Phone: [facility] 06-19-2023 14:43-0400 Body mass index (BMI) [Ratio] 18.24 kg/m2 Myranda Traore DO Work Phone: [facility] [place] 06-19-2023 14:43-0400 Body weight 51.26 kg Myranda Traore DO Work Phone: [facility] [place] 06-19-2023 14:43-0400 Diastolic blood pressure 82 mm[Hg] Myranda Traore DO Work Phone: [facility] 06-19-2023 14:43-0400 Heart rate 100 /min Myranda Traore DO Work Phone: [facility] 06-19-2023 14:43-0400 SaO2% (BldA) [Mass fraction] 99 % Myranda Traore DO Work Phone: [facility] 06-19-2023 14:43-0400 Systolic blood pressure 124 mm[Hg] Myranda Traore DO Work Phone: [facility] 06-10-2022 13:34-0500 Body temperature 98.49 [degF] Erica Praisler-Wood [employer] MAKER.ASSISTANT DIRECTOR OF PLANT OPERATIONS Work Phone: [facility] 06-10-2022 13:34-0500 Body weight 57.61 kg Erica Praisler-Wood WOOD [employer] MAKER.ASSISTANT DIRECTOR OF PLANT OPERATIONS Work Phone: [facility] 06-10-2022 13:34-0500 Diastolic blood pressure 62 mm[Hg] Erica Praisler-Wood WOOD SKI MAKER.ASSISTANT DIRECTOR OF PLANT OPERATIONS Work Phone: [facility] 06-10-2022 13:34-0500 Heart rate 86 /min Erica Praisler-Wood WOOD SKI MAKER.ASSISTANT DIRECTOR OF PLANT OPERATIONS Work Phone: [facility] 06-10-2022 13:34-0500 Respiratory rate 18 /min Erica Praisler-Wood WOOD SKI MAKER.ASSISTANT DIRECTOR OF PLANT OPERATIONS Work Phone: [facility] 06-10-2022 13:34-0500 Systolic blood pressure 100 mm[Hg] Erica Praisler-Wood WOOD SKI MAKER.ASSISTANT DIRECTOR OF PLANT OPERATIONS Work Phone: [facility] 02-26-2022 14:13-0500 Body temperature 99.3 [degF] Benoit Denise MD Work Phone: [facility] 02-26-2022 14:050 Body weight 57.61 kg Benoit Denise MD Work Phone: [facility] 02-26-2022 14:130500 Diastolic blood pressure 80 mm[Hg] Benoit Denise MD Work Phone: [facility] 02-26-2022 14:130500 Heart rate 60 /min Benoit Denise MD Work Phone: [facility] 02-26-2022 14:050 Respiratory rate 18 /min Benoit Denise MD Work Phone: [facility] 02-26-2022 14:050 Systolic blood pressure 118 mm[Hg] Benoit Denise MD Work Phone: [facility] Encounters Encounter Date Encounter Type Care Provider Facility Start: 12-27-2023 End: 12-27-2023 Refill Myranda Traore DO Work Phone: [facility] [place] Comment on above: Other muscle spasm Start: 12-06-2023 End: 12-22-2023 Telephone encounter Myranda Traore DO Work Phone: [facility] [place] Comment on above: Release of Informati on Start: 08-14-2023 Refill Myranda corral DO Work Phone: [facility] Comment on above: message Start: 06-23-2023 Refill Myranda corral DO Work Phone: [facility] Start: 06-19-2023 End: 06-19-2023 Office outpatient visit 25 minutes Myranda Traore DO Work Phone: [facility] Comment on above: Functional quadriple neelam (CMS/HCC) (HCC) (Primary Dx); Screening mammogram for breast cancer; Other osteoporosis without current pathological fracture; 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 Start: 06-19-2023 End: 06-19-2023 ambulatory MYRANDA TRAORE [facility] Start: 01-27-2023 Refill Myranda M Pe ters DO Work Phone: [facility] Comment on above: Unspecified injury a t unspecified level of cervical spinal cord, subsequent encounter (HCC) Start: 11-14-2022 ambulatory Nirali Hunter RN [facility] Clinical Communication Start: 11-14-2022 Patient encounter procedure Nirali Hunter RN [facility] Comment on above: Other muscle spasm Start: 08-09-2022 Refill Rona dahl MD Work Phone: [facility] Comment on above: Other muscle spasm; Unspecified injury at unspecified level of cervical spinal cord, subsequent encounter (HCC) Start: 08-08-2022 Refill Myranda M Pe ters DO Work Phone: [facility] Comment on above: Other constipation Start: 07-11-2022 Refill Myranda M Pe ters DO Work Phone: [facility] Comment on above: Other muscle spasm; Unspecified injury at unspecified level of cervical spinal cord, subsequent encounter (HCC) Start: 07-03-2022 Refill Myranda M Pe ters DO Work Phone: [facility] Comment on above: Other constipation Start: 06-10-2022 End: 06-10-2022 ambulatory MYRANDA TRAORE Facility:[facility] Start: 06-10-2022 End: 06-10-2022 Patient encounter procedure Erica Rose APRN.ASSISTANT DIRECTOR OF PLANT OPERATIONS Work Phone: [facility] Comment on above: Urinary frequency (P rimary Dx) Start: 02-27-2022 Telephone encounter Delores Islas APRN.ASSISTANT DIRECTOR OF PLANT OPERATIONS Work Phone: [facility] Comment on above: Results Start: 02-26-2022 End: 02-26-2022 ambulatory MYRANDA TRAORE Facility:[facility] Start: 02-26-2022 End: 02-26-2022 Patient encounter procedure Benoit Denise MD Work Phone: [facility] Comment on above: Influenza-like illne [...] encounter status Benoit Denise MD Work Phone: [facility] Work Phone: Procedures Date Procedure Procedure [...] DTaP/Tdap/Td Vaccines (3 - Td or Tdap) [facility] Start: 01-12-2027 Screening for malign ant neoplasm of cervix [facility] Start: 2025 RSV Immunization age d 60 or older (1 - 1-dose 60+ series) RSV Immunization aged 60 or older (1 - 1-dose 60+ series) [facility] Start: 10-29-2025 Lipid panel [facility] Start: 01-12-2025 Screening for malign ant neoplasm of cervix Pap Smear [facility] Start: 03-06-2024 End: 03-06-2024 Patient encounter procedure 03/06/2024 4:00 PM EST Office Visit [facility] - [address] [place] [address] Myranda Traore DO [address] [facility] [address] [place], [place] [id number] [facility] [place] Start: 12-26-2023 Lipid panel Lipid screen [facility] Start: 12-26-2023 Lipid screen Lipid screen [facility] Start: 12-18-2023 End: 12-18-2023 Patient encounter procedure 12/18/2023 1:00 PM EDT Office Visit [facility] [address] [place] [address] [address] [place] [phone] Myranda Traore DO [address] [facility] [address] [place] [address] [facility] Start: 12-03-2023 COVID-19 Vaccine () COVID-19 Vaccine () [facility] Start: 12-03-2023 Influenza vaccination [facility] Start: 06-19-2023 End: 08-18-2024 DBT Breast - bilateral screening Bilateral screening mammogram with tomosynthesis Imaging Routine Screening mammogram for breast cancer Expected: 06/19/2023, Expires: 08/18/2024 [facility] [facility] Work Phone: Comment on above: Expected: 06/19/2023 , Expires: 08/18/2024 Start: 06-19-2023 End: 06-18-2024 DXA Skeletal system.axial Views for bone density DEXA bone density axial skeleton Imaging Routine Other osteoporosis without current pathological fracture Expected: 06/19/2023, Expires: 06/18/2024 [facility] Comment on above: Expected: 06/19/2023 , Expires: 06/18/2024 Start: 06-11-2023 BP CONTROLLED (<130/80) BP CONTROLLE D (<130/80) [facility] Start: 01-26-2023 Screening for malign ant neoplasm of breast Mammogram [facility] Start: 12-02-2022 COVID-19 Vaccine () COVID-19 Vaccine () [facility] Start: 12-02-2022 Influenza vaccination [facility] Start: 11-29-2022 End: 11-29-2022 Telemedicine consultation with patient 11/29/2022 11:40 AM EDT Telemedicine [facility] [address] [place] [address] Myranda Traore DO [address] [place] [address] [facility] Start: 04-03-2022 DEPRESSION ASSESSMENT DEPRESSION [facility] Start: 02-26-2022 End: 03-12-2022 Influenza virus A and B RNA and SARS-CoV-2 (COVID-19) N gene panel - Respiratory specimen by JEREMY with probe detection COVID WITH FLUA+B, ROUTINE Microbiology Routine Influenza-like illness Expected: 02/26/2022, Expires: 03/12/2022 [facility] Work Phone: Comment on above: Expected: 02/26/2022 , Expires: 03/12/2022 Start: 12-13-2021 Cervical cancer screen Cervical canc er [place] Start: 12-13-2021 Screening for malign ant neoplasm of cervix Cervical cancer [place] Start: 12-02-2021 Influenza vaccination INFLUENZA (#1) [facility] Start: 10-29-2021 Creatinine measurement Creatinine mo nitoring [facility] Work Phone: Start: 10-29-2021 Potassium monitoring Potassium monit oring [facility] Work Phone: Start: 04-12-2021 HPV TESTING HPV TESTING [facility] Start: 04-12-2021 PAP TESTING PAP TESTING [facility] Start: 04-03-2021 [facility] Start: 12-11-2020 Breast cancer screen Breast cancer s creen [place] Start: 12-11-2020 Screening for malign ant neoplasm of breast Breast cancer screen [place] Start: 12-02-2020 Influenza vaccination Flu vaccine (# 1) [facility] Work Phone: Start: 11-17-2020 LIPID SCREEN LIPID SCREEN [facility] Start: 08-28-2020 Creatinine measurement Creatinine mo [place]old [place] Start: 08-28-2020 Potassium monitoring Potassium monit [place] Start: 12-03-2019 Influenza vaccination [place] Start: 07-17-2019 Creatinine measurement Creatinine mo [place] Start: 07-17-2019 Creatinine monitoring Creatinine mon [place] Start: 07-17-2019 Potassium monitoring Potassium monit [place] Start: 06-25-2019 DIABETES SCREEN DIABETES SCREEN [facility] Start: 12-25-2018 End: 12-25-2018 Office Visit 12/25/2018 Office Visit Family Medicine Myranda Traore, DO [address] [place] [address] [phone] [facility] Start: 12-02-2018 Influenza vaccination Flu vaccine (# 1) [place] Start: 04-22-2018 Breast cancer screen Breast cancer s creen [place] Start: 04-22-2017 Mammography MAMMOGRAM [facility] Start: 04-11-2017 COLORECTAL CANCER SCREENING COLORECTAL CANCER SCREENING [facility] Start: 04-11-2017 FECAL OCCULT BLOOD FECAL OCCULT BLOO D [facility] Start: 11-19-2015 Colon cancer screen colonoscopy Colon cancer screen colonoscopy [place] Start: 11-19-2015 Screening for malign ant neoplasm of colon Colon cancer screen colon[place] Start: 11-19-2015 Screening for malign ant neoplasm of lung Low dose CT lung screening [facility] [employer] Phone: Start: 11-19-2015 Shingles Vaccine (1 of 2) Shingles Vaccine (1 of 2) [place] Start: 11-19-2015 SHINGRIX VACCINE (1 of 2) SHINGRIX VACCINE (1 of 2) [facility] Start: 11-19-2015 Zoster Vaccines (1 of 2) Zoste r Vaccines (1 of 2) [facility] Start: 2010 COLOGUARD (FIT-DNA) COLOGUARD (FIT-D NA) [facility] Start: 2010 Colonoscopy COLONOSCOPY [facility] Start: [address] COLONOGRAPHY [facility] Start: 2010 Screening for malign ant neoplasm of colon Colon cancer screen colonoscopy [facility] Work Phone: Start: 2010 SIGMOIDOSCOPY SIGMOIDOSCOPY [facility] Start: 2005 Lipid screen Lipid screen [facility] [place] Start: 2005 Screening for malign ant neoplasm of breast Mammogram [facility] Start: 1984 DTaP/Tdap/Td vaccine (1 - Tdap) DTaP/Tdap/Td vaccine (1 - Tdap) [place] Start: 1984 DTaP/Tdap/Td Vaccine s (1 - Tdap) DTaP/Tdap/Td Vaccines (1 - Tdap) [facility] Start: 1984 Hepatitis B Vaccines (1 of 3 - 19+ 3-dose series) Hepatitis B Vaccines (1 of 3 - 19+ 3-dose series) [facility] Start: 1984 Urine microalbumin profile DTAP,TDAP,TD (1 - Tdap) [facility] Start: 11-19-1983 ANNUAL PCP TEAM LOFT RIGGER ALBAN DISEASE VISIT ANNUAL PCP TEAM CHRONIC DISEASE VISIT [facility] Start: 11-19-1983 BP CONTROLLED (<130/80) BP CONTROLLE D (<130/80) [facility] Start: 11-19-1983 HEPATITIS C SCREENING HEPATITIS C [facility] Start: 11-19-1983 Hepatitis C screening Hepatitis C [facility] Start: 11-19-1983 HIV SCREENING HIV SCREENING [facility] Start: 11-19-1983 SPIROMETRY SPIROMETRY [facility] Start: 1977 COVID-19 Vaccine (1) COVID-19 Vaccin e (1) [facility] Work Phone: Start: 1977 Depression Screening Depression Scre ening [facility] Start: 11-19-1971 PNEUMOCOCCAL (1 - PCV) PNEUMOCOCCAL (1 - PCV) [facility] Start: 11-19-1971 Pneumococcal Vaccine : Pediatrics (0 to 5 Years) and At-Risk Patients (6 to 64 Years) (1 of 2 - PCV) Pneumococcal Vaccine: Pediatrics (0 to 5 Years) and At-Risk Patients (6 to 64 Years) (1 of 2 - PCV) [facility] Start: 1966 MMR Vaccines (1 of 1 - Standard series) MMR Vaccines (1 of 1 - Standard series) [facility] Start: 05-21-1966 COVID-19 VACCINE (#1) COVID-19 VACCI NE (#1) [facility] Start: 1965 HEPATITIS B (1 of 3 - 3-dose series) HEPATITIS B (1 of 3 - 3-dose series) [facility] Start: 1965 Hepatitis B Vaccines (1 of 3 - 3-dose series) Hepatitis B Vaccines (1 of 3 - 3-dose series) [facility] Start: 1965 HIV screening HIV Screening [facility] Start: 1965 Screening for malign ant neoplasm of colon [facility] Start: 1965 Screening for osteoporosis Bone Density Scan [facility] Bacteria identified in Urine by Culture URINE CULTURE Microbiology Routine Urinary frequency 06/10/2022 2:45 PM [facility] Work Phone: End: 12-11-2018 Screening digital breast tomosynthesis bi Mazin Killian Digital Screen Bilateral Imaging Routine Once for 1 Occurrences starting 12/11/2018 until 12/11/2018 [facility] MD Comment on above: Once for 1 Occurrenc es starting 12/11/2018 until 12/11/2018 Screening digital br east tomosynthesis bi Mazin Killian Digital Screen Bilateral Imaging Routine 12/11/2018 1:[address] [facility] MD End: 10-29-2020 XR FINGER LEFT (MIN 2 VIEWS) XR FINGER LEFT (MIN 2 VIEWS) Imaging Routine Once for 1 Occurrences starting 10/29/2020 until 10/29/2020 [facility] Work Phone: Comment on above: Once for 1 Occurrenc es starting 10/29/2020 until 10/29/2020 XR FINGER LEFT (MIN 2 VIEWS) XR FINGER LEFT (MIN 2 VIEWS) Imaging Routine 10/29/2020 4:45 PM EDT [facility] Work Phone: End: 10-29-2020 XR LUMBAR SPINE [...] Immunizations Immunization Date Immunization Notes Care Provider rIam pond 12-21-2012 influenza virus vacc ine, unspecified formulation Nirali Hunter RN [facility] Payers Date Payer Category Payer Medicaid [place] [facility] DEPT OF JOB xxxxxxxxxxxx 2016-Present [phone] [address] [place] [address] xxxxxxxxxxxx [id number] 2015 Medicaid [id number] 2015 Medicaid [id number] Social History Date Type Detail Facility Start: 12-11-2018 End: 02-26-2022 Tobacco smoking status NHIS Former smoker [facility] Start: 10-03-2016 End: 11-06-2016 [facility] Start: 12-11-2018 End: 06-19-[address] [facility] MD Start: 1965 Sex Assigned At [facility] file [facility] [place] [place] Start: 08-29-2019 End: 06-19-2023 Alcohol intake Current non-drinker of alcohol (finding) [place] Exposure to SARS-CoV -2 (event) Unable to assess [place] Start: 10-29-2020 End: 06-19-2023 Cigarettes smoked current (pack per day) - Reported [facility] Work Phone: Start: 10-29-2020 End: 02-26-2022 Tobacco use and exposure Never used [facility] Exposure to SARS-CoV -2 (event) Not sure [facility] Start: 10-03-2016 End: 11-06-2016 History of tobacco use Cigarette Smoker [facility] Start: 02-26-2022 End: 06-10-2022 Alcohol intake Current drinker of alcohol (finding) [facility] Start: 02-26-2022 Tobacco Comment half a pack [facility] Start: 04-12-2016 Alcohol Comment very rare [facility] Start: 1965 Sex Assigned At Female [facility] [place] Start: 04-13-2022 Gender identity Identifies as female gender (finding) [facility] Clinical Notes 02-26-2022 to 12-27-2023 Telephone Encounter - Char Howard LPN - 12/27/2023 3:59 PM EDTTelephone Encounter - Char Howard LPN - 12/27/2023 3:59 PM EDTTelephone Encounter - Hien Pete - 12/27/2023 3:45 PM EDT Note Date & Type Note Facility 12-27-2023 Telephone encounter Note RX loaded Last ov 06/19/23 Next ov 03/06/24 [facility] [place] 12-27-2023 Miscellaneous Notes RX loaded Last ov [...] the medication: Yes documented in this encounter [facility] [place] 12-27-2023 Telephone encounter Note Medication name: cyclobenzaprine [...] prior to picking up the medication: Yes [facility] [place] 12-06-2023 Telephone encounter Note Message released to patient as written. Have you received any controlled medications from any other provider? Patient's further questions if applicable: no Were all questions from office addressed or relayed to the patient from encounter: Yes Pt does not get anything from any other provider. [facility] [place] 12-06-2023 Miscellaneous Notes Message released to patient as written. Have you received any controlled medications from any other provider? Patient's further questions if applicable: no Were all questions from office addressed or relayed to the patient from encounter: Yes Pt does not get anything from any other provider. documented in this encounter [facility] [place] 08-30-2023 Telephone encounter Note Noted will await arrival of paperwork [facility] [place] 08-30-2023 Miscellaneous Notes Noted will await arrival of paperwork Name of caller: Chen Contact phone number: [phone] Relationship to Patient: patient Provider: León Practice: [facility] Chief Complaint/Reason for Call: Patient returned call to office. Called back line. Was informed that [facility] must send form to office for Dr [...] for this patient. Requesting follow up Typically, [facility] will send us forms to fill out. Fine for letter if necessary Name of caller: Julio Rust Contact phone number: [phone] Relationship to Patient: patient Provider: Dr Myranda Traore [facility] Chief Complaint/Reason for Call: Pt called stating that she would like to apply for disability. 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 Please advise. Best time of day caller can be reached: any Patient advised that office/PCP has 24-48 business hours to return their call: No documented in this encounter [facility] [place] 08-30-2023 Telephone encounter Note Name of caller: Chen Contact phone number: [phone] Relationship to Patient: patient Provider: León Practice: Inocencio Calderon [facility] Chief Complaint/Reason for Call: Patient returned call to office. Called back line. Was informed that [facility] must send form to office for Dr Traore to fill out. Patient had not met with [facility] as of date. Provided office fax number to give to [facility] to fax form. Please advise. Best time of day caller can be reached: any Patient advised that office/PCP has 24-48 business hours to return their call: No [facility] [place] 08-30-2023 Telephone encounter Note Call center called us about patient wanting us to send request for SSI forms for disability, but [facility] has been notified that our facility does not do that but that each patient is required to do that request and get it started on their own. [facility] 08-30-2023 Telephone encounter Note Follow up message left for patient to return call to office to discuss request. Office has never received any paperwork concerning disability to complete for this patient. Requesting follow up [facility] 08-14-2023 Telephone encounter Note Recent Visits Date Type Provider Dept 06/19/23 Office Visit Myranda Traore DO [facility] Showing recent visits within past 365 days and meeting all other requirements Future Appointments No visits were found meeting these conditions. Showing future appointments within next 90 days and meeting all other requirements Requested Prescriptions Pending Prescriptions Disp Refills losartan (Cozaar) 50 MG tablet 90 tablet 3 Sig: Take 1 tablet (50 mg) by mouth daily. ergocalciferol (Vitamin D2) 1.25 MG (56281 UT) capsule 12 capsule 3 Sig: TAKE [...] Most recent labs completed in chart? Yes [facility] 08-14-2023 Miscellaneous Notes Recent Visits Date Type Provider Dept 06/19/23 Office Visit Myranda Traore DO [facility] Showing recent visits within past 365 days and meeting all other requirements Future Appointments No visits were found meeting these conditions. Showing future appointments within next 90 days and meeting all other requirements Requested Prescriptions Pending Prescriptions Disp Refills losartan (Cozaar) 50 MG tablet 90 tablet 3 Sig: Take 1 tablet (50 mg) by mouth daily. ergocalciferol (Vitamin D2) 1.25 MG (97467 UT) capsule 12 capsule 3 Sig: TAKE [...] Medication name: ergocalciferol (Vitamin D2) 1.25 MG (50991 UT) capsule Medication dosage: 1.25 mg (Miligrams (27352 UT) Monthly quantity needed: 12 How many [...] medication tab): 06-26-2023 documented in this encounter [facility] 08-14-2023 Telephone encounter Note Typically, [facility] will send us forms to fill out. Fine for letter if necessary [facility] 08-14-2023 Miscellaneous Notes Typically, [facility] will send us forms to fill out. Fine for letter if necessary Name of caller: Julio Rust Contact phone number: [phone] Relationship to Patient: patient Provider: Dr Myranda Traore Practice: [place] Chief Complaint/Reason for Call: Pt called stating that she would like to apply for disability. 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 Please advise. Best time of day caller can be reached: any Patient advised that office/PCP has 24-48 business hours to return their call: No documented in this encounter [facility] 08-14-2023 Telephone encounter Note Pt stated that [...] Medication name: ergocalciferol (Vitamin D2) 1.25 MG (69108 UT) capsule Medication dosage: 1.25 mg (Miligrams (93141 UT) Monthly quantity needed: 12 How many [...] last refill (see medication tab): 06-26-2023 T [facility] 08-14-2023 Telephone encounter Note Name of caller: Julio Rust Contact phone number: [phone] Relationship to Patient: patient Provider: Dr Myranda Traore Practice: [place] Chief Complaint/Reason for Call: Pt called stating that she would like to apply for disability. 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 Please advise. Best time of day caller can be reached: any Patient advised that office/PCP has 24-48 business hours to return their call: No T [facility] 06-26-2023 Telephone encounter Note Recent Visits Date Type Provider Dept 06/19/23 Office Visit Myranda Traore DO [facility] Showing recent visits within past 365 days and meeting all other requirements Future Appointments No visits were found meeting these conditions. Showing future appointments within next 90 days and meeting all other requirements Requested Prescriptions Pending Prescriptions Disp Refills ergocalciferol (Vitamin D2) 1.25 MG (77734 UT) capsule [Pharmacy Med Name: VITAMIN D2 [...] Most recent labs completed in chart? N/A [facility] 06-26-2023 Miscellaneous Notes Recent Visits Date Type Provider Dept 06/19/23 Office Visit Myranda Traore DO [facility] Showing recent visits within past 365 days and meeting all other requirements Future Appointments No visits were found meeting these conditions. Showing future appointments within next 90 days and meeting all other requirements Requested Prescriptions Pending Prescriptions Disp Refills ergocalciferol (Vitamin D2) 1.25 MG (11193 UT) capsule [Pharmacy Med Name: VITAMIN D2 [...] in chart? N/A documented in this encounter [facility] [place] 06-19-2023 History of Presen t illness Narrative Images from the original note were not included. [facility] [address] [place] [address] [address] [facility] [id number] Visit type: Established Patient Reason for Visit: Follow-up (Pt currently has no insurance. ) Assessment and Plan Diagnoses and all orders for this visit: Functional quadriplegia (CMS/HCC) ([facility]) - gabapentin (Neurontin) 800 MG tablet; Take [...] capsule 11 ergocalciferol (Vitamin D2) 1.25 MG (47232 UT) capsule TAKE 1 CAPSULE BY MOUTH [...] 4 times daily. 90 tablet 0 HYDROcodone-acetaminophen ([place]) 5-325 MG tablet 1 TAB ORALLY EVERY [...] cancer Other maternal aunt unsure age Other (86477) Mother aneurysm Ovarian cancer Neg Hx Other (23130) Father pneumonia Colon cancer Neg Hx Objective [...] Discontinued During This Encounter Medication Reason HYDROcodone-acetaminophen ([place]) 5-325 MG tablet Med list cleanup meloxicam (Mobic) 15 MG tablet Med list cleanup gabapentin (Neurontin) 800 MG tablet Reorder baclofen (Lioresal) 20 MG tablet Reorder Myranda Traore DO 06/23/2023 12:52 PM documented in this encounter [facility] 01-27-2023 Telephone encounter Note Last OV:01/12/22 Scheduled:n/a [facility] 01-27-2023 Miscellaneous Notes Last OV:01/12/22 Scheduled:n/a Name of caller: Chen Contact phone number: [phone] Relationship to Patient: patient Provider: Dr. Traore [...] their call: Yes documented in this encounter [facility] 01-27-2023 Telephone encounter Note Name of caller: Chen Contact phone number: [phone] Relationship to Patient: patient Provider: Dr. Traore [...] business hours to return their call: Yes [facility] 11-15-2022 Telephone encounter Note Rx sent [facility] 11-15-2022 Miscellaneous Notes Rx sent Last OV:01/12/22 [...] weeks) Protocols used: Muscle Aches and Body [id number] documented in this encounter [facility] 11-15-2022 Telephone encounter Note Last OV:01/12/22 Scheduled:11/29/22 [facility] 11-14-2022 Telephone encounter Note ' response Routine refills will be handled during business hours. Please send me a message and it will be taken care of tomorrow . Informed pt of provider's response. No further needs at this time. [facility] 11-14-2022 Telephone encounter Note S: Patient spoke [...] weeks) Protocols used: Muscle Aches and Body [id number] [facility] 08-09-2022 Telephone encounter Note Last OV 01/12/2022 No future visits [facility] 08-09-2022 Miscellaneous Notes Last OV 01/12/2022 No future visits documented in this encounter [facility] 08-08-2022 Telephone encounter Note Last 04.20.22 No upcoming appt [facility] 08-08-2022 Miscellaneous Notes Last 04.20.22 No upcoming appt documented in this encounter [facility] 07-12-2022 Telephone encounter Note Last 01.12.22 Next n/a [facility] 07-12-2022 Miscellaneous Notes Last 01.12.22 Next n/a documented in this encounter [facility] 07-04-2022 Telephone encounter Note Last 01.12.22 Next n/a [facility] 07-04-2022 Miscellaneous Notes Last 01.12.22 Next n/a documented in this encounter [facility] 06-10-2022 Note HNO ID: [id number] Author: Erica Rose APRN.ASSISTANT DIRECTOR OF [employer]ANT [employer]PERATIONS Service: ? Author Type: Nurse Practitioner Type: [...] for strengthening and pain management. [facility]. Dx: M24.50, M62.81, G82.50, M79.1, M47.12 docusate [...] Objective Physical Exam (more content not included)... [facility] 06-10-2022 Instructions Erica Rose APRN.DUNIA - [...] have an infection. documented in this encounter [facility] 06-10-2022 History of Presen t illness [...] for strengthening and pain management. [facility]. Dx: M24.50, M62.81, G82.50, M79.1, M47.12 docusate [...] Erica Rose APRN.DUNIA documented in this encounter [facility] 02-27-2022 Miscellaneous Notes Pt was notified of the results. Pt verbalized understanding. Marilyn Avendano MA Negative for flu and covid please notify thank you documented in this encounter [facility] 02-26-2022 Influenza virus A and B RNA and SARS-CoV-2 (COVID-19) N gene panel JEREMY+probe (Resp) COVID 19 RESULT: SARS-CoV-2 (Agent of COVID-19) Not Detected by RT-PCR or equivalent method. emma [id number] [employer] ([place]INT[place])_EUA This test was developed and its performance characteristics determined by [facility]'s [facility]. This test has been authorized by FDA under an Emergency Use Authorization (EUA). This test has been validated in accordance with the FDA's Guidance Document Policy for Diagnostics Testing in Laboratories Certified to Perform High Complexity Testing under CLIA prior to Emergency use Authorization for Coronavirus Disease 2019 during the Public Health Emergency issued on June 01, 2019. Test performed by [facility], [facility], [address] [place] [address]. INFLUENZA A PCR: Negative for Influenza A by RT-PCR INFLUENZA B PCR: Negative for Influenza B by RT-PCR [facility] Comment on above: Performed By: #### 9 [id number] #### [facility] CLIA [id number] [address] [place] [address] OF [place] 02-26-2022 Note HNO ID: [id number] Author: Benoit Denise MD Service: ? Author [...] for strengthening and pain management. [facility]. Dx: M24.50, M62.81, G82.50, M79.1, M47.12 COMPOUNDED [...] last night, differen (more content not included)... [facility] 02-26-2022 History of Presen t illness [...] for strengthening and pain management. [facility]. Dx: M24.50, M62.81, G82.50, M79.1, M47.12 COMPOUNDED [...] Benoit Denise MD documented in this encounter [facility] Evaluation note Diagnosis Chronic bilateral thoracic back pain Chronic bilateral low back pain without sciatica Pain of finger of left hand Pain in limb Benign essential HTN Essential hypertension, benign Screening, lipid Screening for lipoid disorders documented in this encounter [facility] Work Phone: Evaluation note* Diagnosis Influenza-like illness- Primary Influenza with other respiratory manifestations [facility] Diagnosis Urinary frequency- Primary [facility] Diagnosis Other constipation [facility] Diagnosis Other muscle spasm Unspecified injury at unspecified level of cervical spinal cord, subsequent encounter (HCC) [facility] Diagnosis Other constipation [facility]* Diagnosis Other muscle spasm Unspecified injury at unspecified level of cervical spinal cord, subsequent encounter ([facility]) [facility] Diagnosis Other muscle spasm [facility] Diagnosis Unspecified injury at unspecified level of cervical spinal cord, subsequent encounter (HCC) [facility] Diagnosis Functional quadriplegia (CMS/HCC) (HCC)- Primary [...] Documents on File Type Date Recorded 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 Advance Directives and Living Will Power of District [place] District Office Director Documents on File Type Date Recorded 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 Advance Directives and Living Will Power of District [place] District Office Director Documents on File Type Date Recorded 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 ACP-Advance Directive ACP-Power of District Or District Office Director Summary Purpose Family History No Family History Records FoundNo Family History Records FoundNo Family History Records FoundNo Family History Records Found Reason for Referral Status Reason Specialty Diagnoses / Procedures Referre d By Contact Referred To Contact [facility] Diagnoses Gait instability Fall, subsequent encounter Muscle spasms of both lower extremities Paraplegia (HCC) Procedures MRI BRAIN W WO CONTRAST Myranda Traore, DO [address] [place] [address] Status Reason Specialty Diagnoses / Procedures Referre d By Contact Referred To Contact [facility] Diagnoses Bilateral lower extremity edema Procedures US Lower Extremity Bilateral Venous Duplex Myranda Traore, DO [address] [place] [address] Status Reason Specialty Diagnoses / Procedures Referred By Contact Referred To Contact Pending Review Radiology Diagnoses Diminished pulse Procedures VL ARTERIAL PVR LOWER W EXERCISE Myranda Traore, DO [address] [place] [address] Health Concerns Infection Onset Date Last Indicated Resolved Time COVID-19 Rule-Out 02/26/2022 02/26/2022 Infection Onset Date Last Indicated Resolved Time COVID-19 Rule-Out 02/26/2022 02/26/2022 02/27/2022 4:03 AM EST Additional Source Comments INFORMATION SOURCE (unrecogn ized section and content) DATE CREATED AUTHOR 04/14/2020 [facility] Edmond Blankenship DATE CREATED AUTHOR AUTHOR'S ORGANIZ ATION 11/03/2020 [facility] [place] [facility] DATE CREATED AUTHOR AUTHOR'S ORGANIZ ATION 06/12/2022 [facility] CREATED AUTHOR AUTHOR'S ORGANIZ ATION 12/08/2023 [facility] Source Comments (unrecognize d section and content) In the event this informatio n is protected by the Federal Confidentiality of Alcohol and Drug Abuse Patient Records regulations: The Federal rules restrict any use of the information to criminally investigate or prosecute any alcohol or drug abuse patient.[facility] the event this information is protected by the Federal Confidentiality of Alcohol and Drug Abuse Patient Records regulations: The Federal rules restrict any use of the information to criminally investigate or prosecute any alcohol or drug abuse patient.[facility] the event this information is protected by the Federal Confidentiality of Alcohol and Drug Abuse Patient Records regulations: The Federal rules restrict any use of the information to criminally investigate or prosecute any alcohol or drug abuse patient.[facility] Reason for Visit (unrecogniz ed section [...] Care Teams (unrecognized sec tion and content) Corporate Travel Manager Relationship Specialty Start Date End Date Myranda Traore [address] [place] [place] [address] PCP - General Internal Medicine 02/13/17 Corporate Travel Manager Relationship Specialty Start Date End [place] [address] PCP - General Internal Medicine 02/13/17 Corporate Travel Manager Relationship Specialty Start Date End Date Myranda Traore [place] [address] PCP - General Internal Medicine 02/13/17 Corporate Travel Manager Relationship Specialty Start Date End Date Myranda Traore DO [address] [place] [address] PCP - General 07/13/16 Corporate Travel Manager Relationship Specialty Start Date End Date Myranda Traore DO [address] [place] [address] PCP - General 07/13/16 Corporate Travel Manager Relationship Specialty Start Date End Date Myranda Traore DO [address] [place] [address] PCP - General 07/13/16 Corporate Travel Manager Relationship Specialty Start Date End Date Myranda Traore DO [address] [place] [address] PCP - General 07/13/16 Corporate Travel Manager Relationship Specialty Start Date End Date Myranda Traore DO [address] [place] [address] PCP - General 07/13/16 Corporate Travel Manager Relationship Specialty Start Date End Date Myranda Traore DO [address] [place] [address], [place] [address] PCP - General 07/13/16 Corporate Travel Manager Relationship Specialty Start Date End Date Myranda Traore DO [address] [place] [address], [place] [address] PCP - General 07/13/16 Corporate Travel Manager Relationship Specialty Start Date End Date Myranda Traore DO [address] [place] [id number] PCP - General 07/13/16 Corporate Travel Manager Relationship Specialty Start Date End Date Myranda Traore DO [address] [place] [address] PCP - General 07/13/16 Corporate Travel Manager Relationship Specialty Start Date End Date Myranda Traore DO [address] [place] [address] PCP - General 07/13/16 Corporate Travel Manager Relationship Specialty Start Date End Date Myranda Traore DO [address] [place] [address], [place] [address] PCP - General 07/13/16 FOR RECORDS PERTAINING [...] BE BASED ON THE PRIMARY CLINICAL RECORDS. [employer] [facility]. provides no warranty or guarantee of the accuracy or completeness of information in this document.
[2023-12-28] MEDS: Gabapentin 800 MG Tablet PO (23:00)
[2023-12-29] VITALS (16 sets, daily range): BP systolic 121–160; BP diastolic 71–97; PULSE 73–96; RESP 15–18; TEMP 36.2–36.6; O2SAT 90–100; BMI 16.9; BMI 17.0
[2023-12-29] MEDS: HYDROmorphone 1 MG/ML Syringe IV ×3 (04:11→18:51)
[2023-12-29 04:14] LABS: Absolute Lymphocyte Count 0.68 X10^3/uL (0.83-4.51); Absolute Neutrophil Count 6.6 X10^3/uL (2.0-7.7); Basophil# 0.04 X10^3/uL; Basophil% 0.5 % (0-1); Eosinophil# 0.06 X10^3/uL; Eosinophils% 0.8 % (0-5); Hematocrit 36.8 % (37-47); Hemoglobin 11.4 g/dL (12.0-15.0); Lymphocyte # 0.68 X10^3/ul (0.83-4.51); Lymphocyte % 8.6 % (19-41); Mean Corpuscular Hgb 29.4 pg (27.0-32.0); Mean Corpuscular Volume 94.8 fL (81-99); Mean Platelet Vol. 9.7 fl (6.2-12.0); Monocyte# 0.47 X10^3/uL; Monocyte% 5.9 % (0-10); NRBC Flagged by Analyzer 0 % (0-5); Neutrophil # 6.64 X10^3/uL (2.7-7.7); Neutrophil % 83.9 % (47-70); Platelet Count 273 K/mm3 (150-450); RBC Distribution Width CV 12.4 % (11.6-14.6); RBC Distribution Width SD 42.8 fl (35.1-43.9); Red Blood Count 3.88 M/mm3 (4.2-5.4); White Blood Count 7.9 K/mm3 (4.4-11.0)
[2023-12-29 05:26] LABS: ALB/GLOB Ratio 0.9 RATIO (0.9-2.4); AST(SGOT) 23 U/L (15-37); Alanine Aminotransfer ALT/SGPT 31 U/L (13-56); Albumin, Serum 3.2 g/dL (3.2-5.0); Alkaline Phosphatase 107 U/L (45-117); Anion Gap 4 (5-15); BUN 9 mg/dL (7-18); BUN/Creat Ratio 17.4 RATIO (10-20); Calcium,Total 8.9 mg/dL (8.5-10.1); Chloride 108 mmol/L (98-107); Creatinine, Serum 0.52 mg/dL (0.55-1.02); EST Glomerular Filtration Rate 130 mL/min (>60); Est Glom Filt Rate - Afr Amer 157 mL/min (>60); Estimated Creatinine Clearance 89.36 ml/min; Globulin 3.5 g/dL (2.2-4.2); Glucose 102 mg/dL (74-106); Phosphorus 3.6 mg/dL (2.5-4.9); Potassium 3.8 mmol/L (3.5-5.1); Protein, Total 6.7 g/dL (6.4-8.2); Sodium Level 139 mmol/L (136-145)
--- NOTE | 2023-12-29 06:00 | EKG12_ITS ---
Test Reason : AM EKG Blood Pressure : / mmHG Vent. Rate : 086 BPM Atrial Rate : 086 BPM P-R Int : 114 ms QRS Dur : 088 ms QT Int : 382 ms P-R-T Axes : 054 037 043 degrees QTc Int : 457 ms Normal sinus rhythm [address] & T WAVE ABNORMALITY, NON SPECIFIC Confirmed by ZULEMA AMOS, JENNIFFER ([id number]), photography editor SHERYL FUNEZ ([id number]) on 12/29/2023 9:12:03 AM Referred By: MONTGOMERY Confirmed By:JENNIFFER POOLE MD
--- NOTE | 2023-12-29 07:37 | CPS ---
Pt sleeping at this time. SMI and Pep held.
[2023-12-29] MEDS: Ondansetron 4 MG/2 ML Vial IV ×2 (08:54→17:04)
[2023-12-29] MEDS: Losartan Potassium 50 MG Tablet PO (08:54)
[2023-12-29] MEDS: 0.9% Saline Lock 10 ML Syringe IV ×3 (09:20→18:51)
--- NOTE | 2023-12-29 09:44 | PN.HOSP_ITS ---
Subjective Subjective Doing well, no issues overnight. Planning for repair of her left hip today Objective Data Objective Data Vital Signs: Vital Signs Temp Pulse Resp BP Pulse Ox O2 Del Method 97.3 F L 85 15 132/71 H 100 Room Air 12/29/23 03:55 12/29/23 03:55 12/29/23 03:55 12/29/23 03:55 12/29/23 03:55 12/29/23 09:00 Oxygen Delivery Method Room Air Weight: 105 lb 13.15 oz Body Mass Index (BMI) 16.9 Intake & Output: Intake and Output for Last 24 Hours 12/28/23 12/29/23 12/30/23 03:59 03:59 03:59 Intake Total 1000 / 1000 Output Total 750 / 750 300 / 300 Balance 250 / 250 -300 / -300 Lab / Micro Data 12/29/23 03:38 12/29/23 03:38 Labs: Laboratory Results - last 24 hr 12/28/23 19:15: WBC 6.1, RBC 4.51, Hgb 13.4, Hct 41.5, MCV 92.0, MCH 29.7, MCHC 32.3, RDW Std Deviation 42.0, RDW Coeff of Renee 12.4, Plt Count 331, MPV 9.7, Immature Gran % (Auto) 0.700, Neut % (Auto) 63.6, Lymph % (Auto) 22.7, [place] % (Auto) 8.7, Eos % (Auto) 3.5, Baso % (Auto) 0.8, Absolute Neuts (auto) 3.9, Absolute Lymphs (auto) 1.38, Nucleated RBC % 0, Sodium 136, Potassium 3.9, Chloride 105, Carbon Dioxide 23.0, Anion Gap 8, BUN 11, Creatinine 0.72, Estim Creat Clear Calc 73.41, Est GFR (MDRD) Af Amer 107, Est GFR (MDRD) Non-Af 89, BUN/Creatinine Ratio 15.3, Glucose 92, Calcium 10.0, TSH 2.950 12/29/23 03:38: WBC 7.9, RBC 3.88 L, Hgb 11.4 L, Hct 36.8 L, MCV 94.8, MCH 29.4, MCHC 31.0 L, RDW Std Deviation 42.8, RDW Coeff of Renee 12.4, Plt Count 273, MPV 9.7, Immature Gran % (Auto) 0.300, Neut % (Auto) 83.9 H, Lymph % (Auto) 8.6 L, [place] % (Auto) 5.9, Eos % (Auto) 0.8, Baso % (Auto) 0.5, Absolute Neuts (auto) 6.6, Absolute Lymphs (auto) 0.68 L, Nucleated RBC % 0, Sodium 139, Potassium 3.8, Chloride 108 H, Carbon Dioxide 28.0, Anion Gap 4 L, BUN 9, Creatinine 0.52 L, Estim Creat Clear Calc 89.36, Est GFR (MDRD) Af Amer 157, Est GFR (MDRD) Non- Af 130, BUN/Creatinine Ratio 17.4, Glucose 102, Calcium 8.9, Phosphorus 3.6, Magnesium 2.0, Total Bilirubin 0.30, AST 23, ALT 31, Alkaline Phosphatase 107, Total Protein 6.7, Albumin 3.2, Globulin 3.5, Albumin/Globulin Ratio 0.9, Blood Type AB POSITIVE, Antibody Screen NEGATIVE Radiography Diagnostic Testing: Radiology Impression Brain CT 12/28/23 18:52 IMPRESSION: Normal unenhanced CT scan of the brain. Electronically Signed: Jeremiah Mcnair MD at 20:13 EDT , Cervical Spine CT 12/28/23 18:52 IMPRESSION: Mild spondylosis. Status post multilevel anterior fusion and disc spacer placement No acute fracture or other significant abnormality Electronically Signed: Jeremiah Mcnair MD at 20:17 EDT , Ankle X-Ray 12/28/23 19:50 IMPRESSION: Minor medial malleolus sprain. No acute fracture or dislocation. Electronically Signed: Jeremiah Mcnair MD at 20:37 EDT , Chest X-Ray 12/28/23 19:50 IMPRESSION: Hyperinflation. No acute cardiopulmonary pathology Electronically Signed: Jeremiah Mcnair MD at 20:43 EDT , Hip/Pelvis X-Ray 12/28/23 19:50 IMPRESSION: Acute impacted angulated left femoral head and neck fracture Electronically Signed: Jeremiah Mcnair MD at 20:42 EDT , Lumbar Spine X-Ray 12/28/23 19:50 IMPRESSION: Mild scoliosis and degenerative change. No acute fracture or subluxation It should be noted on the lateral projection the sacral spine is not visualized due to positioning. Electronically Signed: Jeremiah Mcnair MD at 20:40 EDT , Physical Exam Narrative General: Alert, Oriented x3, Cooperative, No apparent distress HEENT: Atraumatic, PERRLA, EOMI, Normocephalic Oral: Moist Mucosa Neck: Supple, No JVD Lungs: Diminished, Normal air movement, No rhonchi, No wheeze, No rales Cardiovascular: Regular rate, Regular Rhythm, Normal S1, Normal S2, No murmurs Abdomen: Soft, Non Tender, Non-Distended, No Hepato-splenomegaly Extremities: No edema, Capillary Refill Less than 3 Seconds Skin: No rashes, No breakdown Musculoskeletal: Tenderness to left lower extremity Neurological: No focal neurological deficits, 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 Left hip fracture status post mechanical fall at home due to her history of cervical myelopathy and contractures ? Plan for operative repair today ? Pain management ? PT/OT ? She will flat out refused to go to a [facility] she says that she was not allowed to leave the last time and she will never go through that again ? 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 Will continue with her home medications for this issue 2. Essential HTN ? Blood pressures are stable ? Can resume losartan ? Will recheck a BMP in the morning DVT: SCDs Charges/Coding Visit Charges Inpatient E&M: 61726 Subs Hosp L2
--- NOTE | 2023-12-29 10:55 | CASEMGMT ---
Social Work- SW attempted to meet with pt; pt was meeting with [employer] then immediately left for surgery. Patricia reported that she believes pt will qualify for medicaid, as pt has not worked since 2009 and was living off of a lump sum KRISTAN. Pt has been denied disability at this time and has $2k of living expenses per month. SW will continue to follow to complete SDOH and provide resources once pt is out of recovery from surgery. JV Scherer
--- NOTE | 2023-12-29 11:03 | CASEMGMT ---
MURIEL ARGUETA Assessment Face to Face with patient for initial transition planning/care coordination assessment. MURIEL ARGUETA introduced self and role at [facility], pt voices understanding. Pt is A&Ox4 and is resting comfortably in bed and is calm. Pt daughters (Anjali and Mary) at bedside. Care providers, pharmacy, and demographics verified. Admitting dx: Lt Hip Fx LACE Strata: 2 PCP: Myranda Traore Specialists: Denies Preferred Pharmacy: [facility] [place] Insurance: SP. Gomez is aware and to see Prescription Benefit: Pt states that she uses [facility] at this time LNOK: Mary Garay ([place]), Anjali Telles ([place]) Living Arrangements: Pt lives alone in a 3 story home with a ramp to enter the back and 4 steps to enter through the front ADLs/IADLs: Ind at baseline Transportation: Pt does not drive. Pt states that her daughters or friends are able to drive the pt DME: Cane, FWW, BP monitor, Pulse ox, shower chair, grab bars HHC/SNF: Reports history at [facility]. States HH history x1-2 years ago but cannot recall the name of the agency Pt?s goal: Home with HHC Plan: Anticipate Home with HHC. Pt is planned for surgery today and then will have PT/OT evaluate subsequently. Pt states that she enjoyed the HH that she had in the past and would like this set up again. CM to provide a list of local in-network HHC agencies once appropriate. Report given to SHANTANU LLAMAS CM. Tre Howard RN, CM
--- NOTE | 2023-12-29 11:14 | CPS ---
pT OUT OF ROOM AT THIS TIME. SMI AND PEP HELD.
[2023-12-29] MEDS: Lactated Ringers 1,000 ML 15 ML IV (11:37)
--- NOTE | 2023-12-29 11:51 | PCM.PRE.AN2 ---
ASA Classification* ASA Classification ASA Classification: 3 Assessment & Plan Anesthesia* Anesthesia Assessment Anesthesia Assessment: Discussed sedation and/or anesthesia options, risks, benefits, and alternatives with patient/parents/legal guardian/POA. Questions invited. The patient/parents/legal guardian/POA seems to understand and agrees to proceed with anesthesia plan. Reviewed the physical assessment, medical history, allergy history and patient home medications list prior to surgery/procedure/anesthetic and documented any changes. Performed airway and anesthesia risk assessments. Anesthesia Type Anesthesia Type: General (NO Sux) Anesthesia Focused Assessment* Temperature: 97.8 F Pulse Rate: 93 Blood Pressure: 138/72 Respiratory Rate: 18 Pulse Ox: 99 Airway Assessment Mouth opens: >3 cm Mallampati Score: II Focused Labs Anesthesia Preop lab: CBC WBC 7.9 K/mm3 (4.4-11.0) 12/29/23 03:38 RBC 3.88 M/mm3 (4.2-5.4) L 12/29/23 03:38 Hgb 11.4 g/dL (12.0-15.0) L 12/29/23 03:38 Hct 36.8 % (37-47) L 12/29/23 03:38 Plt Count 273 K/mm3 (150-450) 12/29/23 03:38 CHEMISTRY Potassium 3.8 mmol/L (3.5-5.1) 12/29/23 03:38 Sodium 139 mmol/L (136-145) 12/29/23 03:38 Magnesium 2.0 mg/dL (1.6-2.6) 12/29/23 03:38 Phosphorus 3.6 mg/dL (2.5-4.9) 12/29/23 03:38 BUN 9 mg/dL (7-18) 12/29/23 03:38 Creatinine 0.52 mg/dL (0.55-1.02) L 12/29/23 03:38 Glucose 102 mg/dL (74-106) 12/29/23 03:38 POC Glucose 64 mg/dL (70-110) L 08/03/13 10:47 TSH 2.950 uIU/mL (0.358-3.740) 12/28/23 19:15 COAG PT 13.4 SECONDS (11.9-14.4) 08/04/13 05:20 Urine Test Negative Negative 10/16/12 04:30 Pre-Assessment Diagnosis/Proposed Procedure Planned Operative Procedure(s): left James Arthroplasty hip fx Anesthesia History 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 When Was Last Pacemaker Check QUESTION #4 FULL TEXT: You/Your Family Experience fever (hyperthermia) with Anesthesia Last Oral Intake Last Oral intake: Last Oral Intake NPO since 00:00 12/29/23 09:51 Meds taken in AM with sips of Yes 12/29/23 09:51 water? Meds patient instructed to losartan 12/29/23 09:51 take am of surgery PONV PONV - foot drill operator: PONV - foot drill operator Female HX of Motion Sickness HX of N/V After Surgery Non-Smoker Duration of Surgery greater than 60 minutes Number of Risk Factors PONV Score Height & Weight Height & Weight: Anesthesia: Height & Weight Height 5 ft 6 in 12/29/23 09:51 Weight: 48 kg 12/29/23 09:51 Body Mass Index (BMI) 17.0 12/29/23 09:51 Respiratory Assessment Respiratory Assessment - foot drill operator: Respiratory Tract Infection Hx - foot drill operator Hx Respiratory Tract Infection No 12/28/23 21:45 STOP Sleep Apnea STOP Sleep Apnea - foot drill operator: STOP Sleep Apnea - foot drill operator Hx Hypertension Yes: on meds 12/28/23 21:38 Hx Sleep Apnea No 12/28/23 21:38 CPAP No 12/28/23 21:38 BIPAP No 12/28/23 21:38 Do you snore loudly (louder No 12/28/23 21:38 than talking or can be heard Do you often feel tired/ No 12/28/23 21:38 fatigued/ sleepy during daytime? Has anyone observed you stop No 12/28/23 21:38 breathing during sleep? STOP Results Negative 12/28/23 21:38 QUESTION #5 FULL TEXT : Do you snore loudly (louder than talking or can be heard through closed doors)? 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 Specify any problems Hx of Preganancy in last 3 No 12/28/23 21:38 Months Nurse Filling Out Transfusion DRETENACK 12/28/23 21:38 & Questions: Date: 12/28/23 12/28/23 21:38 Time: 21:38 12/28/23 21:38 Patient unable to answer at this time (ie. confused, unrespo /Reproduction History /Reproductive History - foot drill operator: /Reproductive Hx- foot drill operator Hx Now No 12/28/23 21:45 Gestational Age (in weeks): EDC: Hx Hx Para Hx Section SAB No 12/28/23 21:45 Active Medications Active Medications: Current Medications Generic Name Dose Route Start Last Admin Trade Name Freq PRN Reason Stop Dose Admin Acetaminophen 650 mg 12/28/23 21:33 Acetaminophen 325 Mg Tablet PO Q6H PRN PRN Pain 1-5/10 or Fever Albuterol Sulfate 2.5 mg 12/28/23 21:33 Albuterol 2.5 Mg/3 Ml Vial.Neb. INHALATION Q4H PRN PRN Sob &/Or Wheezing Alprazolam 0.125 mg 12/28/23 21:33 Alprazolam 0.25 Mg Tablet PO TID PRN PRN ANXIETY/AGITATION Baclofen 10 mg 12/28/23 21:33 Baclofen 10 Mg Tablet PO TID PRN PRN muscle spasm Diphenhydramine HCl 25 mg 12/29/23 06:19 Diphenhydramine 50 Mg/Ml Syringe IV Q4H PRN PRN ITCHING Ergocalciferol 1.25 mg 01/03/24 10:00 Ergocalciferol 1.25 Mg (50, 000 Unit) Capsule PO We@1000 [facility] Fluticasone Propionate 1 spray 12/29/23 10:00 12/29/23 07:34 Fluticasone 0.05% 1 [place] Nasal.Sry NASAL Not Given DAILY ROSINA Gabapentin 800 mg 12/28/23 22:00 12/29/23 08:46 Gabapentin 800 Mg Tablet PO Not Given BID ROSINA Hydralazine HCl 10 mg 12/28/23 21:33 Hydralazine 20 Mg/Ml Vial IV Q6H PRN PRN SBP GREATER THAN 160 Protocol Hydromorphone HCl 1 mg 12/28/23 21:33 12/29/23 09:20 Hydromorphone 1 Mg/Ml Syringe IV 1 mg Q4H PRN PRN Administration Pain Score 6-10 Sodium Chloride 1,000 mls @ 70 mls/hr 12/28/23 21:18 12/29/23 11:33 IV Infused .[id number] ROSINA Infusion Sodium Chloride 250 mls @ 15 mls/hr 12/28/23 21:33 IV .[id number] PRN Additional IVPB Infusion Sodium Chloride 250 mls @ 15 mls/hr 12/28/23 21:33 IV .[id number] PRN Saline Flush Lactated Ringer's 1,000 mls @ 15 mls/hr 12/29/23 11:45 12/29/23 11:37 IV 15 mls/hr .Q48H ROSINA Administration Cefazolin Sodium 2 gm/ Sodium 110 mls @ 150 mls/hr 12/29/23 11:39 Chloride IV 12/29/23 12:22 X1 ONE Losartan Potassium 50 mg 12/29/23 10:00 12/29/23 08:54 Losartan Potassium 50 Mg Tablet PO 25 mg DAILY ROSINA Administration Protocol Melatonin 3 mg 12/28/23 21:33 Melatonin 3 Mg Tablet PO QHS PRN PRN INSOMNIA Ondansetron HCl 4 mg 12/28/23 21:33 12/29/23 08:54 Ondansetron 4 Mg/2 Ml Vial IV 4 mg Q8H PRN PRN Administration NAUSEA/VOMITING Sodium Chloride 10 - 40 ml 12/28/23 21:33 12/29/23 09:20 0.9% Saline Lock 10 Ml Syringe IV 10 ml UD PRN Administration SALINE FLUSH PFSH Medical History Pharyngoesophageal dysphagia Abnormality of gait Venous insufficiency Cervical spondylosis with myelopathy and radiculopathy Neuropathic pain Cervicogenic headache Quadriplegia following spinal cord injury Chronic pain Cervical compression fracture Intermittent palpitations Spastic bladder Flexion contractures Overactive bladder HTN (hypertension) Depression Chronic constipation Asthma Anxiety Peripheral neuropathy Acute on Recurrent UTI Home Medications ?Medication ?Instructions ?Recorded ?Last Taken ?Type albuterol sulfate 90 mcg/actuation 2 puff inhalation Q6H PRN PRN Sob 05/03/17 11/26/17 History aerosol inhaler (ProAir HFA) &/Or Wheezing ergocalciferol (vitamin D2) 1,250 50,000 unit PO [facility] 05/03/17 11/22/17 History mcg (50,000 unit) capsule (Vitamin maintenance D2) fluticasone propionate 50 1 spray intranasal DAILY 02/07/22 Unknown History mcg/actuation nasal spray,suspension losartan 50 mg tablet 50 mg PO DAILY bp 02/07/22 Unknown History baclofen 10 mg tablet 10 mg PO TID PRN muscle pain/spasm 05/03/22 Unknown Rx #90 tabs gabapentin 800 mg tablet 800 mg PO BID nerve pain #60 tabs 05/03/22 Unknown Rx Allergy/AdvReac Type Severity Reaction Status Date / Time buprenorphine (From Rip) Allergy Severe BLISTERS Verified 08/24/22 13:35 codeine Allergy Severe Angioedema Verified 08/24/22 13:35 Family History Mother Aneurysm Arthritis High cholesterol Father Pneumonia Alcoholism Hypertension Grandmother Arthritis Heart disease Hypertension Grandfather Diabetes Aunt Diabetes Surgical History S/P cervical spinal fusion H/O neck surgery Social History household members: none Smoking Status: Former smoker Tobacco: How many years used: 20 second hand exposure: No alcohol intake: current details: occasionally substance use type: does not use elli/lutheran: None seatbelt use: always Review of Systems (Anesthesia) ROS Narrative System reviewed and no additional complaints, except as documented.
--- NOTE | 2023-12-29 12:00 | FEM_PTH ---
PATHOLOGY RESULTS PATIENT: CHEN RUST LOC: MS3 U#:[id number] AGE/SX: 58/F ROOM: [facility] [place] RE12/28/[address]: Dr. Zechariah Morales DO : 1965 BED: 1 DIS: 01/02/2024 SPEC #: [id number] RECD: 12/29/23 17:10 STATUS: VIRA REAttila #: [id number] JOAQUIN: 12/29/23 12:[address]: Reggie Lindsey DEPT: SURGICAL PATHOLOGY RECD BY: Belen Kraft ENTERED: 01/01/24 11:01 SP TYPE: FEM HEAD OTHR DR: DO Dr. Howie OVERTON DO Dr. Mark Tereletsky, DO Dr. Nicholas F Kotsonis, MD Tissues: Femoral region, NOS Procedures: Decalcification bone/plaque Surgery Specimen Level V Comments: @ Ordering doctor for DEC edited from to @ by RAYMOND at 01/01/24 1140 @ Ordering doctor for SUV edited from to @ by RAYMOND at 01/01/24 1140 @ Submitting doctor edited from to @ by RAYMOND at 01/01/24 1140 HEADER OPERATION: Hemiarthroplasty, left hip PRE-OP DIAGNOSIS: Closed left hip fracture TISSUE SUBMITTED: Left femoral head MICROSCOPIC DIAGNOSIS Bone and tissue of left hip, total hip resection: Consistent with organizing fracture site. Mild synovial hyperplasia. AM: 01/04/2024 MICROSCOPIC DESCRIPTION Slides are reviewed. GROSS DESCRIPTION Received is one container labeled with the patient's name and designated femoral head and tissue. The specimen consists of a sosa femoral head measuring 4.0 x 4.0 x 3.5 cm. A piece of adipose tissue is noted in the container measuring 1.0 x 0.5 x 0.3cm. Also attached to the top of the femoral piece of soft tissue measuring 2.5 x 0.3 x 0.1cm. The articular surface is smooth. Resection margin is irregular and hemorrhagic. Supervisor Delivery Department sections are submitted in three cassettes as follows: 1 - soft tissue, entirely submitted, 2&3 - femoral head after decalcification. 01/01/2024 TC:5 CPT: 73911, 38125
--- NOTE | 2023-12-29 12:20 | PN.ORTHO_ITS ---
Subjective Subjective PAD 1 L hip fracture, pending surgery. some spasms overnight. no acute changes. ok to proceed. Objective Data Objective Data Vital Signs: Vital Signs Temp Pulse Resp BP Pulse Ox O2 Del Method 97.8 F 93 18 138/72 H 99 Room Air 12/29/23 11:51 12/29/23 11:51 12/29/23 11:51 12/29/23 11:51 12/29/23 11:51 12/29/23 09:00 Oxygen Delivery Method Room Air Weight: 105 lb 13.15 oz Body Mass Index (BMI) 17.0 Intake & Output: Intake and Output for Last 24 Hours 12/27/23 12/28/23 12/29/23 23:59 23:59 23:59 Intake Total 1000 / 1000 900 / 900 Output Total 1050 / 1050 Balance 1000 / 250 -150 / -150 Lab / Micro Data 12/29/23 03:38 12/29/23 03:38 Labs: Laboratory Results - last 24 hr 12/28/23 19:15: WBC 6.1, RBC 4.51, Hgb 13.4, Hct 41.5, MCV 92.0, MCH 29.7, MCHC 32.3, RDW Std Deviation 42.0, RDW Coeff of Renee 12.4, Plt Count 331, MPV 9.7, Immature Gran % (Auto) 0.700, Neut % (Auto) 63.6, Lymph % (Auto) 22.7, [place] % (Auto) 8.7, Eos % (Auto) 3.5, Baso % (Auto) 0.8, Absolute Neuts (auto) 3.9, Absolute Lymphs (auto) 1.38, Nucleated RBC % 0, Sodium 136, Potassium 3.9, Chloride 105, Carbon Dioxide 23.0, Anion Gap 8, BUN 11, Creatinine 0.72, Estim Creat Clear Calc 73.41, Est GFR (MDRD) Af Amer 107, Est GFR (MDRD) Non-Af 89, BUN/Creatinine Ratio 15.3, Glucose 92, Calcium 10.0, TSH 2.950 12/29/23 03:38: WBC 7.9, RBC 3.88 L, Hgb 11.4 L, Hct 36.8 L, MCV 94.8, MCH 29.4, MCHC 31.0 L, RDW Std Deviation 42.8, RDW Coeff of Renee 12.4, Plt Count 273, MPV 9.7, Immature Gran % (Auto) 0.300, Neut % (Auto) 83.9 H, Lymph % (Auto) 8.6 L, [place] % (Auto) 5.9, Eos % (Auto) 0.8, Baso % (Auto) 0.5, Absolute Neuts (auto) 6.6, Absolute Lymphs (auto) 0.68 L, Nucleated RBC % 0, Sodium 139, Potassium 3.8, Chloride 108 H, Carbon Dioxide 28.0, Anion Gap 4 L, BUN 9, Creatinine 0.52 L, Estim Creat Clear Calc 89.36, Est GFR (MDRD) Af Amer 157, Est GFR (MDRD) Non- Af 130, BUN/Creatinine Ratio 17.4, Glucose 102, Calcium 8.9, Phosphorus 3.6, Magnesium 2.0, Total Bilirubin 0.30, AST 23, ALT 31, Alkaline Phosphatase 107, Total Protein 6.7, Albumin 3.2, Globulin 3.5, Albumin/Globulin Ratio 0.9, Blood Type AB POSITIVE, Antibody Screen NEGATIVE Radiography Diagnostic Testing: Radiology Impression Brain CT 12/28/23 18:52 IMPRESSION: Normal unenhanced CT scan of the brain. Electronically Signed: Jeremiah Mcnair MD at 20:13 EDT Reading Location ID and State: [facility]– [place][note 2]6 / [place] Tel [phone], Service support , Cervical Spine CT 12/28/23 18:52 IMPRESSION: Mild spondylosis. Status post multilevel anterior fusion and disc spacer placement No acute fracture or other significant abnormality Electronically Signed: Jeremiah Mcnair MD at 20:17 EDT , Ankle X-Ray 12/28/23 19:50 IMPRESSION: Minor medial malleolus sprain. No acute fracture or dislocation. Electronically Signed: Jeremiah Mcnair MD at 20:37 EDT , Chest X-Ray 12/28/23 19:50 IMPRESSION: Hyperinflation. No acute cardiopulmonary pathology Electronically Signed: Jeremiah Mcnair MD at 20:43 EDT , Hip/Pelvis X-Ray 12/28/23 19:50 IMPRESSION: Acute impacted angulated left femoral head and neck fracture Electronically Signed: Jeremiah Mcnair MD at 20:42 EDT , Lumbar Spine X-Ray 12/28/23 19:50 IMPRESSION: Mild scoliosis and degenerative change. No acute fracture or subluxation It should be noted on the lateral projection the sacral spine is not visualized due to positioning. Electronically Signed: Jeremiah Mcnair MD at 20:40 EDT , Physical Exam Const alert and oriented x3 General Appearance: cooperative Assessment & Plan Assessment/Plan (1) Closed left hip fracture: QUALIFIERS: Encounter type: initial encounter Qualified Code(s): S72.002A - Fracture of unspecified part of neck of left femur, initial encounter for closed fracture PLAN: 58 yr F with displaced L NOF . Plan for cemented roger. Will proceed.
[2023-12-29] MEDS: Cefazolin 2 GM in 0.9% Normal Saline (100mL Bag) 100 ML IV (13:10)
[2023-12-29] MEDS: TXA 1000mg in NS100 100ml (IVPB at Incision) 660 MG IV (13:35)
--- NOTE | 2023-12-29 14:37 | CASEMGMT ---
MURIEL ARGUETA attempted to provide HHC list to pt., out of room for procedure.
[2023-12-29] MEDS: Bupivacaine 0.25% 30 ML Vial (14:52)
--- NOTE | 2023-12-29 14:56 | PCM.OPRPT ---
Problems Associated Problem List Diagnoses (1) Closed left hip fracture: Report of Operation Date of Procedure: 12/29/23 Pre-Operative Diagnosis: L hip fracture Post-Operative Diagnosis: same Surgery/Procedure Performed:: L hip cemented roger arthroplasty Description of Surgical Findings:: L hip femoral neck fracture Surgeon: Reggie Lindsey Type of Anesthesia: General and Local Anesthesiologist: Stevie Resendez Estimated Blood Loss (mL): 50 Description of Procedure: Patient brought to the operating room theater. Placed on the operating table. 2 g IV Ancef administered prior to start of procedure. 1 g IV tranexamic acid ministered prior to start of procedure. Patient transferred left lateral decubitus with the [place] hip positioner. All bony prominences including the hip positioner device appropriately padded. SCD on the nonoperative leg axillary roll used. Leg prepped and draped in the usual sterile fashion with chlorhexidine-based prep solution allowing over 3 minutes drying time prior to draping. Preoperative timeout to confirm the site patient and the surgery. Began by making a longitudinal laterally based incision over the proximal femur. Carried dissection down through skin and subcutaneous tissue achieved meticulous hemostasis. Incised the tensor fascia gerson in line with the skin incision. Sharply released the anterior one third of the abductors from the greater trochanter of the hip. Made a T-shaped capsulotomy. Tagged each 1 of these limbs with #1 Vicryl suture. Made the neck cut approximately 1 cm above the level lesser trochanter. Remove the head. I sized this to a size 44 mm bipolar Elaine accolade bipolar head. I thoroughly irrigated the acetabulum no remaining debris, irrigated with irrisept. I then sequentially used box osteotome lateralizing devices and broaches to size up to a size of 5 cemented broach. I trialed with this with a standard neck length it was a little too tight given her flexion contracture so I undersized this to -3 mm standard offset with a 5 size broach and 44 mm head this was appropriate good range of motion no impingement no instability with leg lengths appropriate length and normal shuck test. Trial components were removed. Irrisept followed by pulse lavage and preparing the canal was then used with the suction device and the distal cement restrictor medium size then placed to appropriate level. I sized the distal centralizer to a 13 mm selected the final components a size 5 Elaine Accolade stem cemented. I mixed cement using third-generation cement mixing techniques pressurized this in the canal. Patient was stable throughout cementing. Cemented in appropriate version size 5 stem allow this to thoroughly set, with the distal centralizer placed. I cleaned the trunnion. Assembled the -3 mm inner aspect of the bipolar and then the 44 mm outer aspect tapped into place with good fit onto the trunnion. The final components were then reduced and again trialing performed with appropriate leg lengths and range of motion and stability in all directions. Capsule was closed with #1 Vicryl suture. Abductors were repaired with FiberWire suture and the tensor fascia gerson closed with strata fix suture. I then closed the subcutaneous tissue with 2-0 Vicryl sutures and skin with 3-0 Monocryl. I used 15 cc of 0.25% bupivacaine around the soft tissues. Wounds cleaned with wet dry dressing followed application of Steri-Strips and silver Mepilex border dressing. Patient woken up from a general anesthetic transferred to the operating table taken postanesthetic care unit in stable condition. All sponge needle instrument counts were correct no complications plan for patient weightbearing as tolerated and x-ray in the postanesthetic care unit. CPT 79991 Phi Kaur CNRA held retractors, position patient, cut suture, apply dressing Grafts/Implants Used: elaine accolade bipolar Procedure Start Time: 13:37 Procedure Stop Time: 14:59 Complications none Admit VTE Documentation VTE Present on Admission: No VTE Mechan Device Prophylaxis: SCD's VTE Pharm Prophylaxis ordered?: Yes Procedures Musculoskeletal [id number]: Other Procedure See Report
--- NOTE | 2023-12-29 14:58 | RAD_ITS ---
STUDY: X-RAY - PELVIS AND LEFT HIP REASON FOR EXAM: Female, 58 years old. Post op in PACU, 1 view only AP TECHNIQUE: 1 views of the pelvis and hip. COMPARISON: Comparison is made with prior study dated December 28, 2023. FINDINGS: Status post left hip replacement. There is good alignment. RAD/Hip Min 2 Views (Portable) IMPRESSION: Status post left hip replacement. There is good alignment. Electronically Signed: Roney Reed MD at 16:04 EDT ,
--- NOTE | 2023-12-29 15:52 | CASEMGMT ---
Discharge Planning A list of?HH providers including quality and resource use data and consistent with the patient's preferred geographic region, medical needs, and insurance network was created in [facility] Guide.? This list was provided to the RN ELLIE. Heike Rodriguez, Discharge Planning Asst.
--- NOTE | 2023-12-29 16:09 | PCM.POSTANE2 ---
Anesthesia Postop Eval I Sum Anesthesia Postop Eval I Summary Anesthesia Postop Eval I Summary: Anesthesia Postop Eval I: Assessment Summary Airway patent Spontaneous unlabored respirations Mental status nausea Vomiting Anesthesia Postop Eval I: Fluid Summary Crystalloid volume administer (ml) Colloids volume administered ( ml) Blood Product volume administered (ml) Total IV fluid infused Anesthesia Postop Eval I: Summary Notes Anesthesia Complication Anesthesia Complication Comment: Post-operative progress note Anesthesia: Postop Eval II Evaluation Mental status: Awake and Calm Pain Level: 4 nausea: No Vomiting: No Complications Anesthesia Complication: No
--- NOTE | 2023-12-29 16:19 | PCM.POST.ANE ---
Anesthesia: Postop Eval I Current Vital Signs Temperature: 97.3 F Pulse Rate: 82 Blood Pressure: 123/77 Respiratory Rate: 16 Pulse Ox: 94 Oxygen Delivery Method: Room Air Assessment Airway patent: Yes Spontaneous unlabored respirations: Yes Mental status: Awake and Calm nausea: No Vomiting: No Anesthesia Complication: No Fluid Hydration Crystalloid volume administer (ml): 1,000 Total IV fluid infused: 1,000 Progress Note Anesthesia document: Postop Eval 1 completed: Yes
[2023-12-29] MEDS: 0.9% Normal Saline (1000mL) 1,000 ML 70 ML IV (17:05)
--- NOTE | 2023-12-29 21:11 | CPS ---
Pt sleeping at this time
[2023-12-29 21:23] LABS: Bacteria 0 SEEN /hpf (None Seen); Mucous, Urine 0 SEEN /hpf (<or=2+); Red Blood Cells-Urine 0 SEEN /hpf (0-5); Squamous Epithelial Cells - UA 0 SEEN /hpf (5-10)
[2023-12-29 21:26] LABS: Color, Urine Yellow (Yellow); Glucose, Dipstick Normal (Normal); Leukocyte Esterase-Dipstick 25 /ul (Negative); Nitrite-Dipstick Negative (Negative); Occult Blood-Urine 10 /ul (Negative); Protein-Dipstick 15 mg/dl (Negative); Urine Bilirubin Dipstick Negative (Negative); Urine Clarity Sl. Cloudy (Clear); Urine Urobilinogen Normal (Normal)
[2023-12-29 21:27] LABS: Ketone-Dipstick 150 mg/dl (Negative)
[2023-12-29 21:33] LABS: White Blood Cells 0-5 SEEN /hpf (0-5)
[2023-12-29] MEDS: Baclofen 10 MG Tablet PO (22:09)
[2023-12-29] MEDS: Gabapentin 800 MG Tablet PO (22:09)
[2023-12-29] MEDS: Acetaminophen 325 MG Tablet 650 MG PO (22:09)
[2023-12-30 02:43] VITALS: BP 138/77; PULSE 100; RESP 18; TEMP 36.8; O2SAT 99
[2023-12-30] MEDS: 0.9% Saline Lock 10 ML Syringe IV ×2 (02:47→09:15)
[2023-12-30] MEDS: HYDROmorphone 1 MG/ML Syringe IV ×3 (02:47→18:17)
[2023-12-30] MEDS: Acetaminophen 325 MG Tablet 650 MG PO (05:54)
[2023-12-30] MEDS: 0.9% Normal Saline (1000mL) 1,000 ML 70 ML IV ×2 (06:02→18:17)
[2023-12-30 06:41] LABS: Basophil# 0.04 X10^3/uL; Basophil% 0.4 % (0-1); Eosinophil# 0.07 X10^3/uL; Eosinophils% 0.7 % (0-5); Hematocrit 33.2 % (37-47); Hemoglobin 10.7 g/dL (12.0-15.0); Lymphocyte % 11.1 % (19-41); Mean Corp Hgb Conc 32.2 g/dL (32-36); Mean Platelet Vol. 9.7 fl (6.2-12.0); Monocyte# 0.68 X10^3/uL; Monocyte% 6.8 % (0-10); NRBC Flagged by Analyzer 0 % (0-5); Neutrophil # 7.99 X10^3/uL (2.7-7.7); Neutrophil % 80.5 % (47-70); Platelet Count 241 K/mm3 (150-450); RBC Distribution Width CV 12.2 % (11.6-14.6); RBC Distribution Width SD 41.7 fl (35.1-43.9); Red Blood Count 3.57 M/mm3 (4.2-5.4); White Blood Count 9.9 K/mm3 (4.4-11.0)
[2023-12-30 07:09] LABS: Anion Gap 6 (5-15); BUN 9 mg/dL (7-18); BUN/Creat Ratio 18.5 RATIO (10-20); Calcium,Total 8.7 mg/dL (8.5-10.1); Chloride 106 mmol/L (98-107); Creatinine, Serum 0.49 mg/dL (0.55-1.02); EST Glomerular Filtration Rate 139 mL/min (>60); Est Glom Filt Rate - Afr Amer 168 mL/min (>60); Estimated Creatinine Clearance 94.83 ml/min; Glucose 85 mg/dL (74-106); Potassium 3.7 mmol/L (3.5-5.1); Sodium Level 136 mmol/L (136-145)
[2023-12-30] MEDS: Losartan Potassium 50 MG Tablet PO (09:10)
[2023-12-30] MEDS: Gabapentin 800 MG Tablet PO ×2 (09:11→21:06)
[2023-12-30] MEDS: Fluticasone 0.05% 1 SPRAY NASAL.SRY NASAL (09:22)
[2023-12-30 09:31] VITALS: BP 138/80; PULSE 102; RESP 18; TEMP 36.6; O2SAT 100
--- NOTE | 2023-12-30 09:32 | PCM.PN.ORT ---
Subjective Subjective POD 1 L hip roger for NOF. doing well. no concerns overnight. eating and drinking well. no concerns from nurse. Objective Data Objective Data Vital Signs: Vital Signs Temp Pulse Resp BP Pulse Ox O2 Del Method O2 Flow Rate 97.8 F 102 H 18 138/80 H 100 Room Air 2 12/30/23 09:31 12/30/23 09:31 12/30/23 09:31 12/30/23 09:12/30/23 09:12/30/23 09:31 12/29/23 16:24 Oxygen Flow Rate (L/min) 2 Oxygen Delivery Method Room Air Weight: 105 lb 13.15 oz Body Mass Index (BMI) 17.0 Intake & Output: Intake and Output for Last 24 Hours 12/28/23 12/29/23 12/30/23 23:59 23:59 23:59 Intake Total 1000 / 1000 1202 / 1202 1106.5 / 1106.5 Output Total 1750 / 2150 700 / 700 Balance 1000 / 250 -548 / -948 406.5 / 406.5 Lab / Micro Data 12/30/23 06:15 12/30/23 06:15 Labs: Laboratory Results - last 24 hr 12/29/23 21:10: Urine Color Yellow, Urine Clarity Sl. Cloudy, Urine pH 6.0, Ur Specific [place] 1.020, Urine Protein 15 H, Urine Glucose (UA) Normal, Urine Ketones 150 A*, Urine Occult Blood 10 H, Urine Nitrite Negative, Urine Bilirubin Negative, Urine Urobilinogen Normal, Ur Leukocyte Esterase 25 H, Urine RBC 0 SEEN, Urine WBC 0-5 SEEN, Ur Squamous Epith Cells 0 SEEN, Urine Bacteria 0 SEEN, Urine Mucus 0 SEEN 12/30/23 06:15: WBC 9.9, RBC 3.57 L, Hgb 10.7 L, Hct 33.2 L, MCV 93.0, MCH 30.0, MCHC 32.2, RDW Std Deviation 41.7, RDW Coeff of Renee 12.2, Plt Count 241, MPV 9.7, Immature Gran % (Auto) 0.500, Neut % (Auto) 80.5 H, Lymph % (Auto) 11.1 L, [place] % (Auto) 6.8, Eos % (Auto) 0.7, Baso % (Auto) 0.4, Absolute Neuts (auto) 8.0 H, Absolute Lymphs (auto) 1.10, Nucleated RBC % 0, Sodium 136, Potassium 3.7, Chloride 106, Carbon Dioxide 25.0, Anion Gap 6, BUN 9, Creatinine 0.49 L, Estim Creat Clear Calc 94.83, Est GFR (MDRD) Af Amer 168, Est GFR (MDRD) Non-Af 139, BUN/Creatinine Ratio 18.5, Glucose 85, Calcium 8.7 Radiography Diagnostic Testing: Radiology Impression Hip X-Ray 12/29/23 14:58 IMPRESSION: Status post left hip replacement. There is good alignment. Electronically Signed: Roney Reed MD at 16:04 EDT , agreed Physical Exam Narrative drsg dry, thigh soft, no bruising, nvi, foot warm well perfused, df and pf the foot, states slight diminshed sensation vs pre op Const alert and oriented x3 Assessment & Plan Assessment/Plan (1) Closed left hip fracture: QUALIFIERS: Encounter type: initial encounter Qualified Code(s): S72.002A - Fracture of unspecified part of neck of left femur, initial encounter for closed fracture PLAN: POD 1 L hip roger. WBAT. PT / OT to assess.
[2023-12-30] MEDS: HYDROcodone Bitartrate/Apap 5/325 Tablet PO ×2 (12:11→16:57)
--- NOTE | 2023-12-30 14:03 | CASEMGMT ---
MURIEL CM into pt room to discuss DC plan. Pt refusing SNF, feels she can manage at home on her own. Would like HHC, pt does not have insurance coverage at this time, discussed self pay option. Pt does not have money to pay out of pocket for HHC. Pt states has a friend that assists her at home when she needs. Pt states PCP discussed HHC with her in the past, Pt will reach out to PCP to get referral for HHC once SHELDON is approved. Pt denies any questions or concerns at this time.
--- NOTE | 2023-12-30 16:36 | PN.HOSP_ITS ---
Reason for Visit Reason for Visit: Diagnoses Quadriplegia, unspecified (12/28/23) Disease of spinal cord, unspecified (12/28/23) Other constipation (12/28/23) Contracture, unspecified joint (12/28/23) Neuralgia and neuritis, unspecified (12/28/23) Functional quadriplegia (12/28/23) Fracture of unspecified part of neck of left femur, initial encounter for closed fracture (12/28/23) Unspecified fall, initial encounter (12/28/23) Subjective Subjective Patient was seen and examined today, I talk with vp digital marketing social media and crm-it appears that the patient has no insurance coverage, patient does not want to go to an extended care facility even for short-term rehab services, she prefers to go home and states that she has enough help at home. Objective Data Objective Data Vital Signs: Vital Signs Temp Pulse Resp BP Pulse Ox O2 Del Method O2 Flow Rate 97.8 F 102 H 18 138/80 H 100 Room Air 2 12/30/23 09:12/30/23 09:12/30/23 09:12/30/23 09:12/30/23 09:12/30/23 13:12/29/23 16:24 Oxygen Flow Rate (L/min) 2 Oxygen Delivery Method Room Air Weight: 48 kg Body Mass Index (BMI) 17.0 Intake & Output: Intake and Output for Last 24 Hours 12/28/23 12/29/23 12/30/23 23:59 23:59 23:59 Intake Total 1000 / 1000 1202 / 1202 1506.5 / 1506.5 Output Total 1750 / 2150 1150 / 1150 Balance 1000 / 250 -548 / -948 356.5 / 356.5 Lab / Micro Data 12/30/23 06:15 12/30/23 06:15 Labs: Laboratory Results - last 24 hr 12/29/23 21:10: Urine Color Yellow, Urine Clarity Sl. Cloudy, Urine pH 6.0, Ur Specific [place] 1.020, Urine Protein 15 H, Urine Glucose (UA) Normal, Urine Ketones 150 A*, Urine Occult Blood 10 H, Urine Nitrite Negative, Urine Bilirubin Negative, Urine Urobilinogen Normal, Ur Leukocyte Esterase 25 H, Urine RBC 0 SEEN, Urine WBC 0-5 SEEN, Ur Squamous Epith Cells 0 SEEN, Urine Bacteria 0 SEEN, Urine Mucus 0 SEEN 12/30/23 06:15: WBC 9.9, RBC 3.57 L, Hgb 10.7 L, Hct 33.2 L, MCV 93.0, MCH 30.0, MCHC 32.2, RDW Std Deviation 41.7, RDW Coeff of Renee 12.2, Plt Count 241, MPV 9.7, Immature Gran % (Auto) 0.500, Neut % (Auto) 80.5 H, Lymph % (Auto) 11.1 L, [place] % (Auto) 6.8, Eos % (Auto) 0.7, Baso % (Auto) 0.4, Absolute Neuts (auto) 8.0 H, Absolute Lymphs (auto) 1.10, Nucleated RBC % 0, Sodium 136, Potassium 3.7, Chloride 106, Carbon Dioxide 25.0, Anion Gap 6, BUN 9, Creatinine 0.49 L, Estim Creat Clear Calc 94.83, Est GFR (MDRD) Af Amer 168, Est GFR (MDRD) Non-Af 139, BUN/Creatinine Ratio 18.5, Glucose 85, Calcium 8.7 Physical Exam Const alert, oriented x3 and no apparent distress General Appearance: cooperative, well kempt and well developed Orientation / Consciousness: awake, oriented to person, oriented to place and oriented to time HEENT normocephalic, head/scalp atraumatic and moist oral mucous membranes Eyes PERRL, EOMs intact bilaterally and conjunctivae normal Neck supple, no JVD and thyroid normal General: trachea midline Resp normal respiratory effort, no retractions, no use of accessory muscles and clear to auscultation bilaterally Auscultation: Negative for rales, rhonchi or wheezes Cardio regular rate, regular rhythm, S1 normal heart sound, S2 normal heart sound, no murmurs, no rub and no gallops GI normal to inspection, nondistended, normoactive bowel sounds, soft to palpation, non-tender and non-distended Extremity Extremity Narrative: Patient has upper extremity contractures which are chronic Skin no rashes or lesions noted General Skin Exam: no breakdown Neuro oriented x3 and CN's II-XII intact bilaterally Neuro Narrative: Patient has lower extremity and upper extremity weakness which is chronic Sensorium / Orientation: awake and alert Speech: speech normal Psych affect normal Assessment & Plan Assessment/Plan (1) Closed left hip fracture: QUALIFIERS: Encounter type: initial encounter Qualified Code(s): S72.002A - Fracture of unspecified part of neck of left femur, initial encounter for closed fracture PLAN: Plan 1. Left femoral head and neck fracture secondary to osteoporosis-postop day #1 left hemiarthroplasty-continue PT and OT, again patient does not want to go to an extended care facility for short-term rehab services, due to lack of insurance and may be expensive for the patient to set up physical therapy as an outpatient-she was made aware of this by vp digital marketing social media and crm. Patient has an application for Medicaid pending. #2 [id number] is secondary to remote neck injury-complicates care, management, recovery, and prognosis #3 essential hypertension-patient is on losartan, he will be adjusted as needed #4 osteoporosis-patient will be placed on vitamin D and calcium Total clinical time spent by myself addressing the patient's medical issues, reviewing all of her data, and collaborating with patient's care team: 35 minutes Charges/Coding Visit Charges Inpatient E&M: 83565 Subs Hosp L2
[2023-12-30] MEDS: Bisacodyl 5 MG Tablet 10 MG PO (16:57)
[2023-12-30] MEDS: Rivaroxaban 10 MG Tablet PO (17:00)
[2023-12-30 17:02] VITALS: BP 125/74; PULSE 102; RESP 16; TEMP 36.8; O2SAT 97
[2023-12-30 20:46] VITALS: BP 126/67; PULSE 97; RESP 17; TEMP 36.4; O2SAT 94
[2023-12-30] MEDS: Baclofen 10 MG Tablet PO (21:06)
[2023-12-31] VITALS (9 sets, daily range): BP systolic 119–140; BP diastolic 60–83; PULSE 90–108; RESP 16–18; TEMP 36.4–36.9; O2SAT 93–100; BMI 18.2
[2023-12-31] MEDS: HYDROcodone Bitartrate/Apap 5/325 Tablet PO (01:59)
[2023-12-31] MEDS: Fluticasone 0.05% 1 SPRAY NASAL.SRY NASAL (02:53)
[2023-12-31] MEDS: HYDROmorphone 1 MG/ML Syringe IV ×3 (05:25→15:06)
[2023-12-31] MEDS: 0.9% Normal Saline (1000mL) 1,000 ML 70 ML IV (08:40)
[2023-12-31] MEDS: Losartan Potassium 50 MG Tablet PO (10:06)
[2023-12-31] MEDS: Gabapentin 800 MG Tablet PO ×2 (10:06→20:16)
[2023-12-31] MEDS: Ondansetron 4 MG/2 ML Vial IV ×2 (10:44→20:17)
--- NOTE | 2023-12-31 12:18 | PCM.PN.HOSP ---
Reason for Visit Reason for Visit: Diagnoses Quadriplegia, unspecified (12/28/23) Disease of spinal cord, unspecified (12/28/23) Other constipation (12/28/23) Contracture, unspecified joint (12/28/23) Neuralgia and neuritis, unspecified (12/28/23) Functional quadriplegia (12/28/23) Fracture of unspecified part of neck of left femur, initial encounter for closed fracture (12/28/23) Unspecified fall, initial encounter (12/28/23) Subjective Subjective Patient was seen and examined today, she is still not had a bowel movement, I ordered a Dulcolax suppository for the patient. Patient states she does not feel well today and is nauseated. Objective Data Objective Data Vital Signs: Vital Signs Temp Pulse Resp BP Pulse Ox O2 Del Method O2 Flow Rate 98 F 100 18 130/60 H 93 Room Air 2 12/31/23 09:00 12/31/23 09:30 12/31/23 09:30 12/31/23 09:00 12/31/23 09:30 12/31/23 09:30 12/29/23 16:24 Oxygen Flow Rate (L/min) 2 Oxygen Delivery Method Room Air Weight: 51.3 kg Body Mass Index (BMI) 18.2 Intake & Output: Intake and Output for Last 24 Hours 12/29/23 12/30/23 12/31/23 23:59 23:59 23:59 Intake Total 1202 / 1202 2714.0 / 2714.0 1000 / 1000 Output Total 1750 / 2150 1650 / 1650 500 / 500 Balance -548 / -948 1064.0 / 1064.0 500 / 500 Lab / Micro Data 12/30/23 06:15 12/30/23 06:15 Physical Exam Narrative alert, oriented x3 and no apparent distress General Appearance: cooperative, well kempt and well developed Orientation / Consciousness: awake, oriented to person, oriented to place and oriented to time HEENT normocephalic, head/scalp atraumatic and moist oral mucous membranes Eyes PERRL, EOMs intact bilaterally and conjunctivae normal Neck supple, no JVD and thyroid normal General: trachea midline Resp normal respiratory effort, no retractions, no use of accessory muscles and clear to auscultation bilaterally Auscultation: Negative for rales, rhonchi or wheezes Cardio regular rate, regular rhythm, S1 normal heart sound, S2 normal heart sound, no murmurs, no rub and no gallops GI normal to inspection, nondistended, normoactive bowel sounds, soft to palpation, non-tender and non-distended Extremity Extremity Narrative: Patient has upper extremity contractures which are chronic Skin no rashes or lesions noted General Skin Exam: no breakdown Neuro oriented x3 and CN's II-XII intact bilaterally Neuro Narrative: Patient has lower extremity and upper extremity weakness which is chronic Sensorium / Orientation: awake and alert Speech: speech normal Psych affect normal Assessment & Plan Assessment/Plan (1) Closed left hip fracture: QUALIFIERS: Encounter type: initial encounter Qualified Code(s): S72.002A - Fracture of unspecified part of neck of left femur, initial encounter for closed fracture PLAN: Plan 1. Left femoral head and neck fracture secondary to osteoporosis-postop day #2 left hemiarthroplasty-continue PT and OT, again patient does not want to go to an extended care facility for short-term rehab services, due to lack of insurance and may be expensive for the patient to set up physical therapy as an outpatient-she was made aware of this by foster care social worker. Patient has an application for Medicaid pending. Patient does not feeling well today I think it would be beneficial to continue PT and OT in the hospital for now. #2 [id number] is secondary to remote neck injury-complicates care, management, recovery, and prognosis #3 essential hypertension-patient is on losartan, he will be adjusted as needed #4 osteoporosis-patient will be placed on vitamin D and calcium Total clinical time spent by myself addressing the patient's medical issues, reviewing all of her data, and collaborating with patient's care team: 35 minutes Charges/Coding Visit Charges Inpatient E&M: 30163 Subs Hosp L2
[2023-12-31] MEDS: Rivaroxaban 10 MG Tablet PO (19:10)
[2023-12-31] MEDS: MELATONIN 3 MG TABLET PO (20:16)
[2024-01-01] MEDS: 0.9% Normal Saline (1000mL) 1,000 ML 70 ML IV ×2 (00:35→13:33)
[2024-01-01] MEDS: HYDROmorphone 1 MG/ML Syringe IV ×6 (01:02→22:08)
[2024-01-01] MEDS: Fluticasone 0.05% 1 SPRAY NASAL.SRY NASAL (01:06)
[2024-01-01 03:00] VITALS: BP 130/75; PULSE 96; RESP 16; TEMP 36.4; O2SAT 99
[2024-01-01 06:00] VITALS: BMI 19.3
[2024-01-01 06:55] VITALS: O2SAT 97
[2024-01-01 09:00] VITALS: BP 112/63; PULSE 106; RESP 16; TEMP 36.8; O2SAT 99
[2024-01-01] MEDS: Gabapentin 800 MG Tablet PO ×2 (10:47→20:56)
[2024-01-01] MEDS: Losartan Potassium 50 MG Tablet PO (10:47)
[2024-01-01] MEDS: Calcium Carb/Vitamin D 1 TABLET Tablet PO ×2 (10:47→18:26)
--- NOTE | 2024-01-01 11:09 | CASEMGMT ---
Social Work- SW met with pt about oreference at d/c. Pt reports that she has a dying, elderly dog at home that she wants to go home to be with. SW and pt discussed therapy recommendations. Pt friend that would provide care at home is going to come work with therapy today to see if he is able to appropriately care for pt at home. SW will f/u with pt after that PT session to determine d/c plans. JV Scherer
[2024-01-01 15:00] VITALS: BP 122/71; PULSE 98; RESP 16; TEMP 36.6; O2SAT 99
[2024-01-01] MEDS: Calcium Carbonate 500 MG Tablet 1000 MG PO (18:25)
[2024-01-01] MEDS: Rivaroxaban 10 MG Tablet PO (18:26)
--- NOTE | 2024-01-01 19:11 | PN.HOSP_ITS ---
Reason for Visit Reason for Visit: Diagnoses Quadriplegia, unspecified (12/28/23) Disease of spinal cord, unspecified (12/28/23) Other constipation (12/28/23) Contracture, unspecified joint (12/28/23) Neuralgia and neuritis, unspecified (12/28/23) Functional quadriplegia (12/28/23) Fracture of unspecified part of neck of left femur, initial encounter for closed fracture (12/28/23) Unspecified fall, initial encounter (12/28/23) Subjective Subjective Patient was seen and examined today, she was complaining of generalized weakness and did not feel she could go home, I had a discussion with her about going to an extended care facility for rehab services and she has agreed to this. She will need to get pending Medicaid number because unfortunately she does not have any insurance. Patient appears to be medically stable at this time although she is having pain from her hip surgery. Objective Data Objective Data Vital Signs: Vital Signs Temp Pulse Resp BP Pulse Ox O2 Del Method O2 Flow Rate 97.9 F 98 16 122/71 H 99 Room Air 2 01/01/24 15:00 01/01/24 15:00 01/01/24 15:00 01/01/24 15:00 01/01/24 15:00 01/01/24 15:00 12/29/23 16:24 Oxygen Flow Rate (L/min) 2 Oxygen Delivery Method Room Air Weight: 54.2 kg Body Mass Index (BMI) 19.3 Intake & Output: Intake and Output for Last 24 Hours 12/30/23 12/31/23 01/01/24 23:59 23:59 23:59 Intake Total 2714.0 / 2714.0 2596.33 / 4096.33 2407.67 / 2407.67 Output Total 1650 / 1650 500 / 800 700 / 700 Balance 1064.0 / 1064.0 2096.33 / 3296.33 1707.67 / 1707.67 Lab / Micro Data 12/30/23 06:15 12/30/23 06:15 Physical Exam Narrative alert, oriented x3 and no apparent distress General Appearance: cooperative, well kempt and well developed Orientation / Consciousness: awake, oriented to person, oriented to place and oriented to time HEENT normocephalic, head/scalp atraumatic and moist oral mucous membranes Eyes PERRL, EOMs intact bilaterally and conjunctivae normal Neck supple, no JVD and thyroid normal General: trachea midline Resp normal respiratory effort, no retractions, no use of accessory muscles and clear to auscultation bilaterally Auscultation: Negative for rales, rhonchi or wheezes Cardio regular rate, regular rhythm, S1 normal heart sound, S2 normal heart sound, no murmurs, no rub and no gallops GI normal to inspection, nondistended, normoactive bowel sounds, soft to palpation, non-tender and non-distended Extremity Extremity Narrative: Patient has upper extremity contractures which are chronic Skin no rashes or lesions noted General Skin Exam: no breakdown Neuro oriented x3 and CN's II-XII intact bilaterally Neuro Narrative: Patient has lower extremity and upper extremity weakness which is chronic Sensorium / Orientation: awake and alert Speech: speech normal Psych affect normal Assessment & Plan Assessment/Plan (1) Closed left hip fracture: QUALIFIERS: Encounter type: initial encounter Qualified Code(s): S72.002A - Fracture of unspecified part of neck of left femur, initial encounter for closed fracture PLAN: Plan 1. Left femoral head and neck fracture secondary to osteoporosis-postop day #3 left hemiarthroplasty-continue PT and OT, patient has consented for temporary placement in a residential facility, she will need to have an accepting facility due to her pending Medicaid status. #2 [id number] is secondary to remote neck injury-complicates care, management, recovery, and prognosis #3 essential hypertension-patient is on losartan, medications will be adjusted as needed #4 osteoporosis-patient is on vitamin D and calcium Total clinical time spent by myself addressing the patient's medical issues, reviewing all of her data, and collaborating with patient's care team: 35 minutes Charges/Coding Visit Charges Inpatient E&M: 03173 Subs Hosp L2
[2024-01-01 19:39] VITALS: BP 126/72; PULSE 101; RESP 16; TEMP 37.1; O2SAT 98
[2024-01-02] MEDS: 0.9% Normal Saline (1000mL) 1,000 ML 70 ML IV (01:55)
[2024-01-02] MEDS: HYDROmorphone 1 MG/ML Syringe IV ×2 (01:55→12:35)
[2024-01-02 02:07] VITALS: BP 118/61; PULSE 108; RESP 16; TEMP 37.2; O2SAT 97
[2024-01-02 05:10] VITALS: BMI 19.9
[2024-01-02] MEDS: Baclofen 10 MG Tablet PO (06:02)
[2024-01-02] MEDS: HYDROcodone Bitartrate/Apap 5/325 Tablet PO ×2 (06:02→09:43)
[2024-01-02 08:01] VITALS: BP 119/72; PULSE 99; RESP 16; TEMP 37.1; O2SAT 93
[2024-01-02] MEDS: Calcium Carb/Vitamin D 1 TABLET Tablet PO (08:16)
[2024-01-02] MEDS: Gabapentin 800 MG Tablet PO (09:36)
[2024-01-02] MEDS: Losartan Potassium 50 MG Tablet PO (09:36)
[2024-01-02] MEDS: Fluticasone 0.05% 1 SPRAY NASAL.SRY NASAL (09:37)
--- NOTE | 2024-01-02 12:20 | CASEMGMT ---
Spoke with ADAN who states pt was 1 assist with her male friend. MURIEL ARGUETA into pt room, pt sitting in chair. Pt states that she wants to dc home. Provided her a paper with her pending medicaid number. Pt is aware that once her medicaid is approved, she can contact her PCP for [facility]. Offered to check and see if she could have outpt therapy with a pending medicaid number, pt declines. Pt states she would like HH first. She states her friend will be with her 24/10. Discussed DME. Pt states she has a tall walker that she puts her arms on. She questions a regular FWW. Discussed that this MURIEL ARGUETA could obtain for her. Pt states she will buy this either through [employer] or try to borrow from someone. Pt is also going to obtain a gait belt. Pt denies any need with assistance with this. Pt states she feels comfortable with contacting her PCP for the [facility] once SHELDON approved. She states she had HHC therapy for 5 years in the past. Pt male friend is Justo Cortes. Pt denies any homegoing needs as she states d/t her insurance she will obtain on own.
--- NOTE | 2024-01-02 13:34 | DCINST_ITS ---
Discharge Instructions Diet Discharge Diet: No restrictions Activity Discharge Activity: Return to Normal Activity Weight Bearing Status: Weight bearing as tolerated Dressing / Incision Call your doctor if your incision/area has: Sudden Increased Bleeding, Increased Redness and Foul Smelling Discharge Remove Dressing in: 2 days (wash area with soap and water daily-you can leave open or cover with bandage) Cleanse incision/area with: Soap & Water Follow Up Care Test Results: Test results from this visit will be discussed in further detail at your follow- up appointment, if applicable. Discharge Plan Admission Admit Date/Time: 12/28/23 21:14 Primary Reason for Your Visit: left hip fracture Attending Provider: Zechariah Morales Primary Care Provider: ONEIDA BRANHAM Consulting Providers: Howie Azar; Kevin Cortez Instructions Additional Instructions / Restrictions: Recommend dulcolax 10 mg once daily to prevent constipation Discharge Orders/Prescriptions Prescriptions: New calcium carbonate-vitamin D3 [Oyster Shell Calcium-Vit D3] 500 mg-5 mcg (200 unit) Tablet 1 tab PO BIDCM Qty: 0 0RF Xarelto 10 mg Tablet 10 mg PO DINNER Qty: 30 0RF oxycodone 5 mg tablet 10 mg PO Q6H PRN (Reason: pain) 7 Days Qty: 45 0RF Rx Instructions: 1-2 tabs every six hours as needed for pain Continued gabapentin 800 mg tablet 800 mg PO BID Qty: 60 4RF baclofen 10 mg tablet 10 mg PO TID PRN (Reason: muscle pain/spasm) Qty: 90 5RF fluticasone propionate 50 mcg/actuation spray,suspension 1 spray intranasal DAILY Rx Instructions: administer into each nostril losartan 50 mg tablet 50 mg PO DAILY ergocalciferol (vitamin D2) [Vitamin D2] 50,000 UNIT capsule 50,000 unit PO WE albuterol sulfate [ProAir HFA] 1 PUFF inhaler 2 puff inhalation Q6H PRN PRN (Reason: Sob &/Or Wheezing) Patient Comments: INHALE 2 PUFFS INTO THE LUNGS EVERY 6 HOURS NEEDED FOR WHEEZING Referrals / Follow Up: ONEIDA BRANHAM DO [Primary Care Provider] - Reggie Lindsey MD [Med Staff - Active Staff] - See Referral Note (in two weeks- call for appointment) Disposition Disposition (needs filled in before D/C Order can be placed): Home, Self Care
--- NOTE | 2024-01-02 13:59 | DS.PCM_ITS ---
Providers Date of Admission: 12/28/23 Date of Discharge: 01/02/24 Primary Care Physician: ONEIDA BRANHAM DO Reason For Visit: LEFT HIP FRATURE AFTER FALL Diagnosis Discharge Diagnosis (1) Closed left hip fracture: Status: Acute Code(s): S72.002A - Fracture of unspecified part of neck of left femur, initial encounter for closed fracture Qualifiers: Encounter type: initial encounter Qualified Code(s): S72.002A - Fracture of unspecified part of neck of left femur, initial encounter for closed fracture Plan 1. Left femoral head and neck fracture secondary to osteoporosis-postop day #3 left hemiarthroplasty-continue PT and OT, patient has consented for temporary placement in a long-term facility, she will need to have an accepting facility due to her pending Medicaid status. #2 [id number] is secondary to remote neck injury-complicates care, management, recovery, and prognosis #3 essential hypertension-patient is on losartan, medications will be adjusted as needed #4 osteoporosis-patient is on vitamin D and calcium Total clinical time spent by myself addressing the patient's medical issues, reviewing all of her data, and collaborating with patient's care team: 35 minutes Medications at Discharge Home Medications albuterol sulfate 90 mcg/actuation aerosol inhaler (ProAir HFA) 2 puff inhalation Q6H PRN PRN Sob &/Or Wheezing 05/03/17 ergocalciferol (vitamin D2) 1,250 mcg (50,000 unit) capsule (Vitamin D2) 50,000 unit PO [facility] health maintenance 05/03/17 fluticasone propionate 50 mcg/actuation nasal spray,suspension 1 spray intranasal DAILY 02/07/22 losartan 50 mg tablet 50 mg PO DAILY bp 02/07/22 baclofen 10 mg tablet 10 mg PO TID PRN muscle pain/spasm #90 tabs 05/03/22 gabapentin 800 mg tablet 800 mg PO BID nerve pain #60 tabs 05/03/22 apixaban 2.5 mg tablet (Eliquis) 2.5 mg PO BID #60 tabs 01/02/24 calcium 500 mg (as carbonate)-vitamin D3 5 mcg (200 unit) tablet (Oyster Shell Calcium-Vitamin D3) 1 tab PO BIDCM #0 tabs 01/02/24 oxycodone 5 mg tablet 10 mg (2 x 5 mg) PO Q6H PRN pain 7 days #45 tabs 01/02/24 Hospital Course Operations - (Left hip cemented hemiarthroplasty) Summary of Care Provided Minutes Spent on Discharge: 32 Hospital Course: This 58-year-old white female was seen in the emergency room at [facility] with complaints of left hip discomfort after sustaining mechanical fall at home, patient was unable to straighten her left leg and she complained of severe pain to her lower back as well as her left hip. Workup in the emergency room included x-rays which showed an acute impacted angulated left femoral head and neck fracture. Patient was admitted to [place] [id number] and seen in consultation by surgery. She ultimately underwent a cemented left hemiarthroplasty, due to the patient's chronic debility of quadriparesis, it was recommended that she go to an extended care facility for rehab services. Patient was not in agreement with this and she continued to be seen by PT and OT in the hospital. Eventually patient consented to go to an extended care facility but ultimately she improved on her ADLs with physical therapy and requested to be discharged home, she did have assistance to help take care of her at home. On 01/02/2024, patient was seen and examined:alert, oriented x3 and no apparent distress General Appearance: cooperative, well kempt and well developed Orientation / Consciousness: awake, oriented to person, oriented to place and oriented to time HEENT normocephalic, head/scalp atraumatic and moist oral mucous membranes Eyes PERRL, EOMs intact bilaterally and conjunctivae normal Neck supple, no JVD and thyroid normal General: trachea midline Resp normal respiratory effort, no retractions, no use of accessory muscles and clear to auscultation bilaterally Auscultation: Negative for rales, rhonchi or wheezes Cardio regular rate, regular rhythm, S1 normal heart sound, S2 normal heart sound, no murmurs, no rub and no gallops GI normal to inspection, nondistended, normoactive bowel sounds, soft to palpation, non-tender and non-distended Extremity Extremity Narrative: Patient has upper extremity contractures which are chronic Skin no rashes or lesions noted General Skin Exam: no breakdown Neuro oriented x3 and CN's II-XII intact bilaterally Neuro Narrative: Patient has lower extremity and upper extremity weakness which is chronic Sensorium / Orientation: awake and alert Speech: speech normal Psych affect normal Patient was discharged home in stable condition on 01/02/2024 Weight / BMI Weight Weight: 56 kg Body Mass Index (BMI) 19.9 ABG / Lab / Microbiology Data 12/30/23 06:15 12/30/23 06:15 D/C Instructions Discharge Diet: No restrictions Weight Bearing Status: Weight bearing as tolerated Call your doctor if your incision/area has: Sudden Increased Bleeding, Increased Redness and Foul Smelling Discharge Cleanse incision/area with: Soap & Water Meaningful Use Info Meaningful Use Meaningful Use Diagnoses (Choose all that apply): None applicable Ischemic Stroke Statin Dosing Therapy Reference: STATIN DOSE THERAPY REFERENCE: * Patients > 75 years receive moderate or high dose statin therapy. * Patients 75 years or YOUNGER should receive HIGH intensity statin dose unless contraindicated. You will be required to document reason for non-treatment if statin daily dose does not meet guidelines. HIGH DOSE STATIN THERAPY DAILY Atorvastatin > than or = to 40 mg Rosuvastatin > than or = to 20 mg Amlodipine + Atorvastatin > than or = to 2.5/40 mg Ezetimibe + Simvastatin 10/80 mg Simvastatin 80mg Discharge Plan Admission Admit Date/Time: 12/28/23 21:14 Primary Reason for Your Visit: left hip fracture Attending Provider: Zechariah Morales Primary Care Provider: ONEIDA BRANHAM Consulting Providers: Howie Azar; Kevin Cortez Instructions Additional Instructions / Restrictions: Recommend dulcolax 10 mg once daily to prevent constipation Discharge Orders/Prescriptions Prescriptions: New calcium carbonate-vitamin D3 [Oyster Shell Calcium-Vit D3] 500 mg-5 mcg (200 unit) Tablet 1 tab PO BIDCM Qty: 0 0RF oxycodone 5 mg tablet 10 mg PO Q6H PRN (Reason: pain) 7 Days Qty: 45 0RF Rx Instructions: 1-2 tabs every six hours as needed for pain Eliquis 2.5 mg tablet 2.5 mg PO BID Qty: 60 0RF Rx Instructions: start on 01/03/24 Continued gabapentin 800 mg tablet 800 mg PO BID Qty: 60 4RF baclofen 10 mg tablet 10 mg PO TID PRN (Reason: muscle pain/spasm) Qty: 90 5RF fluticasone propionate 50 mcg/actuation spray,suspension 1 spray intranasal DAILY Rx Instructions: administer into each nostril losartan 50 mg tablet 50 mg PO DAILY ergocalciferol (vitamin D2) [Vitamin D2] 50,000 UNIT capsule 50,000 unit PO WE albuterol sulfate [ProAir HFA] 1 PUFF inhaler 2 puff inhalation Q6H PRN PRN (Reason: Sob &/Or Wheezing) Patient Comments: INHALE 2 PUFFS INTO THE LUNGS EVERY 6 HOURS NEEDED FOR WHEEZING Referrals / Follow Up: ONEIDA BRANHAM DO [Primary Care Provider] - 01/30/24 10:20 am Reggie Lindsey MD [Med Staff - Active Staff] - 01/16/24 10:30 am (in two weeks- call for appointment) Disposition Disposition (needs filled in before D/C Order can be placed): Home, Self Care Charges/Coding Visit Charges Inpatient E&M: 21764 Disch Hosp >30min
--- NOTE | 2024-01-02 15:14 | CASEMGMT ---
TC to [facility] to check cost of eliquis. Per pharmacy, it is $609.94. MURIEL ARGUETA into pt room, pt aware of cost. She is aware of an eliquis savings card. She states her male friend was going to go get her meds prior to coming in. She did not want to have to sit in the care in pain while he gets them. Offered to have the med filled at [facility] and the eliquis can be brought to the room. Pt is agreeable to this. MURIEL ARGUETA called pharmacy, spoke with Josue, he will have rx trf'd. He states they can apply savings card. He is aware to bring to room per pt request. Gave phone number in case savings card does not go through as pt does not have insurance. Pt aware these will be brought to her room.
== END 2024-01-02 18:13 | disposition home or self-care (01) | DRG 323 ==
LOC: ED 20:05 → MS3 21:06
PROVIDERS: Family Medicine; Nurse Practitioner; Orthopaedic Surgery Sports Medicine; Admitting Provider Internal Medicine; Emergency Provider Emergency Medicine; PCP Family Medicine; Visit Provider Internal Medicine
PROC: 0SRB019 Replacement of Left Hip Joint with Metal Synthetic Substitute, Cemented, Open Approach (ICD-10-PCS; CPT 27125; principal; 2023-12-29 11:40)
DX: S72.052A Unspecified fracture of head of left femur, initial encounter for closed fracture (principal); G72.81 Critical illness myopathy; G82.50 Quadriplegia, unspecified; I10 Essential (primary) hypertension; J45.909 Unspecified asthma, uncomplicated; G95.9 Disease of spinal cord, unspecified; M80.052A Age-related osteoporosis with current pathological fracture, left femur, initial encounter for fracture; K59.09 Other constipation; I87.2 Venous insufficiency (chronic) (peripheral); G62.9 Polyneuropathy, unspecified; M54.50 Low back pain, unspecified; S72.002A Fracture of unspecified part of neck of left femur, initial encounter for closed fracture; W19.XXXA Unspecified fall, initial encounter; Z79.891 Long term (current) use of opiate analgesic; Z87.891 Personal history of nicotine dependence; G89.4 Chronic pain syndrome; Z96.642 Presence of left artificial hip joint
CPT/HCPCS: 70450; 71045; 72100; 72125; 73502; 73610; 80048; 80053; 81001; 83735; 84100; 84443; 85025; 86850; 86900; 86901; 88307; 88311; 93005; 94668; 97110; 97162; 97166; 97530; 97535; 99284; C1776; J7030; J7120; A4216; J2405

== ENCOUNTER 2024-01-11 16:17 | Emergency (ER) | payer MEDICAID, SELFPAY ==
[2024-01-11 16:17] VITALS: BP 104/57; PULSE 113; RESP 18; TEMP 36.3; O2SAT 100; BMI 17.1
--- NOTE | 2024-01-11 16:44 | US_ITS ---
STUDY: VENOUS DOPPLER ULTRASOUND - LEFT LOWER EXTREMITY REASON FOR EXAM: Female, 58 years old. LEFT LEG PAIN TECHNIQUE: Ultrasound evaluation of the deep vein system to include james-scale imaging and compression was performed. James-scale imaging and Doppler sonographic evaluation, including duplex spectral analysis and qualitative color flow sonography, was performed. COMPARISON: None. FINDINGS: Common Femoral Vein: Normal compression, spontaneity and augmentation. Normal color Doppler. Common Femoral Vein/Greater Saphenous Junction: Normal compression, spontaneity and augmentation. Normal color Doppler. Deep Femoral Vein: Normal compression, spontaneity and augmentation. Normal color Doppler. Femoral Proximal: Normal compression, spontaneity and augmentation. Normal color Doppler. Femoral Middle: Normal compression, spontaneity and augmentation. Normal color Doppler. Femoral Distal: Normal compression, spontaneity and augmentation. Normal color Doppler. Popliteal Vein: Normal compression, spontaneity and augmentation. Normal color Doppler. Posterior Tibial Vein: Normal compression, spontaneity and augmentation. Normal color Doppler. Peroneal Vein: Normal compression, spontaneity and augmentation. Normal color Doppler. US/Venous Duplex Imag/Limited/Uni IMPRESSION: Normal venous Doppler ultrasound of the lower extremity. Electronically Signed: Jeremiah Mcnair MD at 17:33 EDT ,
--- NOTE | 2024-01-11 17:03 | EDS_ITS ---
HPI History of Present Illness Chief Complaint: Lower Extremity Injury Detail of Chief Complaint: Left thigh pain with bilateral swelling, left greater than right Informant: patient Onset/Context/Timing Onset: Days Context: Gradual Onset Timing: Continuous Quality: Swelling of the right and left lower extremity Location: Left greater than right Current Severity: Moderate Maximum Severity: Moderate Worsened by: Patient admits she is not active and sits essentially the entire day Relieved by: nothing Associated Symptoms Associated Symptoms: No dyspnea, no pleuritic chest pain Narrative Narrative: Patient is a 58-year-old woman who had a left hip cemented James arthroscopy done on December 28 who was sent in by her orthopedic surgeon because of pain and swelling bilaterally with the left lower extremity larger in size. Patient denies cardiac or respiratory symptoms. Patient denies discoloration of either leg. The left leg is greater in size than right. She does admit she is not very active. She had pain in the anterior to medial left thigh. She had pain due to the fracture. This resolved. The pain has returned over the past couple of days. She denies fever, chills night sweats. She denies abdominal pain,, nausea, vomiting or diarrhea. She is on low-dose apixaban 2.5 mg twice daily. 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 Functional quadriplegia Pharyngoesophageal dysphagia Abnormality of gait Venous insufficiency Cervical spondylosis with myelopathy and radiculopathy Neuropathic pain Cervicogenic headache Quadriplegia following spinal cord injury Chronic pain Cervical compression fracture Intermittent palpitations Spastic bladder Flexion contractures Overactive bladder HTN (hypertension) Depression Chronic constipation Asthma Anxiety Peripheral neuropathy Acute on Recurrent UTI Home Medications ?Medication ?Instructions ?Recorded ?Last Taken ?Type albuterol sulfate 90 mcg/actuation 2 puff inhalation Q6H PRN PRN Sob 05/03/17 11/26/17 History aerosol inhaler (ProAir HFA) &/Or Wheezing ergocalciferol (vitamin D2) 1,250 50,000 unit PO [facility] 05/03/17 11/22/17 History mcg (50,000 unit) capsule (Vitamin maintenance D2) fluticasone propionate 50 1 spray intranasal DAILY 02/07/22 Unknown History mcg/actuation nasal spray,suspension losartan 50 mg tablet 50 mg PO DAILY bp 02/07/22 Unknown History baclofen 10 mg tablet 10 mg PO TID PRN muscle pain/spasm 05/03/22 Unknown Rx #90 tabs gabapentin 800 mg tablet 800 mg PO BID nerve pain #60 tabs 05/03/22 Unknown Rx apixaban 2.5 mg tablet (Eliquis) 2.5 mg PO BID #60 tabs 01/02/24 Unknown Rx calcium 500 mg (as 1 tab PO BIDCM #0 tabs 01/02/24 Unknown Rx carbonate)-vitamin D3 5 mcg (200 unit) tablet (Oyster Shell Calcium-Vitamin D3) oxycodone 5 mg tablet 10 mg (2 x 5 mg) PO Q6H PRN pain 7 01/02/24 Unknown Rx days #45 tabs Allergy/AdvReac Type Severity Reaction Status Date / Time buprenorphine (From [facility]) Allergy Severe BLISTERS Verified 01/11/24 16:20 codeine Allergy Severe Angioedema Verified 01/11/24 16:20 Family History Mother Aneurysm Arthritis High cholesterol Father Pneumonia Alcoholism Hypertension Grandmother Arthritis Heart disease Hypertension Grandfather Diabetes Aunt Diabetes Surgical History S/P cervical spinal fusion H/O neck surgery Social History household members: none Smoking Status: Former smoker Tobacco: How many years used: 20 second hand exposure: No alcohol intake: current details: occasionally substance use type: does not use elli/pentecostalism: None seatbelt use: always ROS ROS ED Constitutional Constitutional ED: Denies chills, fever(s), subjective, sweats or weight loss Eyes Eyes: Denies blurry vision or change in vision ENT ENT ED: Denies ear pain, rhinorrhea or sore throat Cardiovascular Cardiovascular: Denies chest pain or palpitations Respiratory/Chest Respiratory/Chest: Denies cough, dyspnea or dyspnea on exertion Integumentary Denies rash Neurologic Neurologic: Denies paresthesias or weakness Endocrine Endocrinology: Denies cold intolerance or heat intolerance Hematologic/Lymphatic Hematologic/Lymphatic: Reports systems reviewed and no addt'l complaints, except as documented EXAM Physical Exam Const Vital Signs: 01/11/24 16:17 Temperature 97.3 F L Temperature Source Temporal Pulse Rate 113 H Respiratory Rate 18 Blood Pressure 104/57 L Blood Pressure Mean 72 Pulse Ox 100 Oxygen Delivery Method Room Air Positive well nourished and well developed General Appearance ED: well developed and NAD; Negative for cyanotic, diaphore tic or pallor HEENT Reports moist mucous membranes Negative for trauma Eyes PERRL and EOMs intact bilaterally General Eye ED: Negative for pale conjunctiva or scleral icterus Chest Wall inspection of chest normal Resp normal respiratory effort and clear to auscultation bilaterally Cardio regular rate, regular rhythm, S1 normal heart sound, S2 normal heart sound and no murmurs Extremity Extremity Narrative: There is swelling of both the right and left lower extremity. Left is greater. There is pedal edema bilaterally. There may be leg vein distention on the left. There is tenderness along the abductor canal on the left. There is tenderness near the left inguinal crease over the femoral vein artery complex. There is no palpable cords. Difficult to palpate DP pulse either side because of the amount of edema. There is no discomfort with logrolling the left lower extremity. Able to flex to 45 degrees the knee and hip without pain. Patient states she cannot lift her leg off the bed. She is able to wiggle her toes. She has good strength with plantar and dorsiflexion of the foot. Neuro oriented x3, CN's II-XII intact bilaterally and no sensory deficits noted Sensorium / Orientation: alert Psych Mood & Affect: depressed Skin no rashes or lesions noted, no wounds and skin turgor normal General Skin Exam: Negative for jaundice or pallor MDM MDM MDM Narrative Medical decision making narrative: Differential diagnosis is lymphedema and worse on left because of surgery versus lymphedema and DVT of the left lower extremity. Will obtain venous duplex study. Likely third VTE is low since she is on apixaban 2.5 mg twice daily. Treatment and Re-Evaluation :: Venous duplex/ultrasound of the lower extremity was negative for DVT. This is due to lymphedema due to decreased mobility. Discharge Plan Triage Chief Complaint: Lower Extremity Injury ED Provider: Mika Restrepo Dx/Rx/DC Orders Clinical Impression: Dependent lymphedema due to impaired mobility, Acute pain of right thigh, Status post closed fracture of left hip Instructions: ED Peripheral Edema, Bilateral, ED Muscle Strain, Extremity Prescriptions: No Action gabapentin 800 mg tablet 800 mg PO BID Qty: 60 4RF baclofen 10 mg tablet 10 mg PO TID PRN (Reason: muscle pain/spasm) Qty: 90 5RF fluticasone propionate 50 mcg/actuation spray,suspension 1 spray intranasal DAILY Rx Instructions: administer into each nostril losartan 50 mg tablet 50 mg PO DAILY ergocalciferol (vitamin D2) [Vitamin D2] 50,000 UNIT capsule 50,000 unit PO WE albuterol sulfate [ProAir HFA] 1 PUFF inhaler 2 puff inhalation Q6H PRN PRN (Reason: Sob &/Or Wheezing) Patient Comments: INHALE 2 PUFFS INTO THE LUNGS EVERY 6 HOURS NEEDED FOR WHEEZING calcium carbonate-vitamin D3 [Oyster Shell Calcium-Vit D3] 500 mg-5 mcg (200 unit) Tablet 1 tab PO BIDCM Qty: 0 0RF oxycodone 5 mg tablet 10 mg PO Q6H PRN (Reason: pain) 7 Days Qty: 45 0RF Rx Instructions: 1-2 tabs every six hours as needed for pain Eliquis 2.5 mg tablet 2.5 mg PO BID Qty: 60 0RF Rx Instructions: start on 01/03/24 Primary Care Provider: ONEIDA BRANHAM Referrals: ONEIDA BRANHAM DO [Primary Care Provider] - Reggie Lindsey MD [Med Staff - Active Staff] - 1 Week if not improving Activity Restrictions/Additional Instructions: 1. You need to increase your activity 2. If you are sitting recommendation is your toes must be above your nose to decrease the swelling. Recommend having someone put 1-2 bricks foot of your bed so that your at an incline which will reduce the swelling at nighttime. Print Language: Comoran Disposition Disposition: Home, Self Care
--- NOTE | 2024-01-11 17:55 | RAD_ITS ---
STUDY: X-RAY - PELVIS AND LEFT HIP REASON FOR EXAM: Female, 58 years old. Injury/Pain TECHNIQUE: 3 views of the pelvis and hip. COMPARISON: None. FINDINGS: There is a non-specific bowel gas pattern. Normal visualized soft tissue structures. Normal bilateral iliac wings, sacroiliac joints and visualized sacrum. Normal bilateral superior and inferior pubic rami. Normal pubic symphysis. Normal bilateral ischial tuberosities. Left hip prosthesis is noted in anatomic alignment and position. RAD/HIP, UNI W/ Pelvis 2-3 Views IMPRESSION: Stable appearance to left hip prosthesis. No acute right hip or pelvic fracture observed. Electronically Signed: Jeremiah Mcnair MD at 18:21 EDT ,
[2024-01-11 18:17] VITALS: BP 106/81; PULSE 74; RESP 16; O2SAT 98
[2024-01-11 18:47] VITALS: BP 106/81; PULSE 74; RESP 16; TEMP 36.6; O2SAT 98
== END 2024-01-11 18:48 | disposition home or self-care (01) ==
PROVIDERS: Emergency Provider Emergency Medicine; PCP Family Medicine; Referring Provider Emergency Medicine; Visit Provider Emergency Medicine
DX: I89.0 Lymphedema, not elsewhere classified (principal); I10 Essential (primary) hypertension; Z79.01 Long term (current) use of anticoagulants; M79.651 Pain in right thigh; Z74.09 Other reduced mobility; Z87.891 Personal history of nicotine dependence; J45.909 Unspecified asthma, uncomplicated; Z87.81 Personal history of (healed) traumatic fracture
CPT/HCPCS: 73502; 93971; 99282

== ENCOUNTER 2024-02-21 14:19 | Emergency (ER) | payer MEDICAID, SELFPAY ==
[2024-02-21 14:20] VITALS: BP 140/85; PULSE 82; RESP 18; TEMP 36.6; O2SAT 99
--- NOTE | 2024-02-21 14:49 | EX.ED.DYSGE1 ---
HPI History of Present Illness Chief Complaint: Abd Pain Detail of Chief Complaint: Sent to ER because of abdominal pain on examination from urgent care Informant: patient Onset/Context/Timing Onset: Days (Foul smell HEENT urine) Context: Sudden Onset Timing: Continuous Quality: History of frequent urinary tract infections. Location: Current Severity: Mild Maximum Severity: Mild Worsened by: Nothing specific Relieved by: Not applicable Associated Symptoms Associated Symptoms: None other than frequency and odor to urine Narrative Narrative: Patient is a 58-year-old woman. She has history of spinal cord injury with altered sensation who presents from urgent care because there was tenderness to palpation by the practitioner at urgent care. She states they told her she had a UTI. I informed her that I would reassess her urine since they only do a dip urinalysis. She denies fever, chills night sweats. She denies nausea, vomiting or diarrhea. She denies back or flank pain. She denies abdominal pain. She denies blood in her urine. She states she has no sensation. 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 Functional quadriplegia Pharyngoesophageal dysphagia Abnormality of gait Venous insufficiency Cervical spondylosis with myelopathy and radiculopathy Neuropathic pain Cervicogenic headache Quadriplegia following spinal cord injury Chronic pain Cervical compression fracture Intermittent palpitations Spastic bladder Flexion contractures Overactive bladder HTN (hypertension) Depression Chronic constipation Asthma Anxiety Peripheral neuropathy Acute on Recurrent UTI Home Medications ?Medication ?Instructions ?Recorded ?Last Taken ?Type albuterol sulfate 90 mcg/actuation 2 puff inhalation Q6H PRN PRN Sob 05/03/17 11/26/17 History aerosol inhaler (ProAir HFA) &/Or Wheezing ergocalciferol (vitamin D2) 1,250 50,000 unit PO [facility] 05/03/17 11/22/17 History mcg (50,000 unit) capsule (Vitamin maintenance D2) fluticasone propionate 50 1 spray intranasal DAILY 02/07/22 Unknown History mcg/actuation nasal spray,suspension losartan 50 mg tablet 50 mg PO DAILY bp 02/07/22 Unknown History baclofen 10 mg tablet 10 mg PO TID PRN muscle pain/spasm 05/03/22 Unknown Rx #90 tabs gabapentin 800 mg tablet 800 mg PO BID nerve pain #60 tabs 05/03/22 Unknown Rx apixaban 2.5 mg tablet (Eliquis) 2.5 mg PO BID #60 tabs 01/02/24 Unknown Rx calcium 500 mg (as 1 tab PO BIDCM #0 tabs 01/02/24 Unknown Rx carbonate)-vitamin D3 5 mcg (200 unit) tablet (Oyster Shell Calcium-Vitamin D3) oxycodone 5 mg tablet 10 mg (2 x 5 mg) PO Q6H PRN pain 7 01/02/24 Unknown Rx days #45 tabs Allergy/AdvReac Type Severity Reaction Status Date / Time buprenorphine (From [facility]) Allergy Severe BLISTERS Verified 02/21/24 14:22 codeine Allergy Severe Angioedema Verified 02/21/24 14:22 Family History Mother Aneurysm Arthritis High cholesterol Father Pneumonia Alcoholism Hypertension Grandmother Arthritis Heart disease Hypertension Grandfather Diabetes Aunt Diabetes Surgical History S/P cervical spinal fusion H/O neck surgery Social History household members: none Smoking Status: Former smoker Tobacco: How many years used: 20 second hand exposure: No alcohol intake: current details: occasionally substance use type: does not use elli/mu-ism: None seatbelt use: always ROS ROS ED Constitutional Constitutional ED: Denies chills, fever(s), subjective or sweats Cardiovascular Cardiovascular: Denies chest pain or palpitations Respiratory/Chest Respiratory/Chest: Denies cough, dyspnea or dyspnea on exertion Gastrointestinal Gastrointestinal: Denies abdominal pain, nausea or vomiting Genitourinary Genitourinary ED: Reports urinary frequency; Denies dysuria or hematuria Musculoskeletal Musculoskeletal: Denies back pain or neck pain Hematologic/Lymphatic Hematologic/Lymphatic: Reports as per HPI EXAM Physical Exam Const Vital Signs: 02/21/24 14:20 02/21/24 16:19 Temperature 97.8 F Temperature Source Oral Pulse Rate 82 81 Respiratory Rate 18 16 Blood Pressure 140/85 H 138/77 H Blood Pressure Mean 103 97 Pulse Ox 99 98 Oxygen Delivery Method Room Air Room Air Positive well nourished and well developed General Appearance ED: well developed and NAD; Negative for cyanotic, diaphoretic or pallor HEENT Reports moist mucous membranes HEENT Narrative: Head is atraumatic and normocephalic. Eyes PERRL and EOMs intact bilaterally Neck no lymphadenopathy, supple and no JVD Resp normal respiratory effort and clear to auscultation bilaterally Cardio regular rate, regular rhythm, S1 normal heart sound, S2 normal heart sound and no murmurs GI normal to inspection, nondistended, normoactive bowel sounds, non-distended and no masses; Negative for non-tender or hepatosplenomegaly Palpation: soft and tender suprapubic Back/Spine no CVA tenderness Extremity normal to inspection Neuro oriented x3, CN's II-XII intact bilaterally and No no sensory deficits noted Sensorium / Orientation: alert Motor Exam: Negative for strength 5/5 throughout Psych mental status grossly normal Skin no rashes or lesions noted, no wounds and skin turgor normal General Skin Exam: Negative for jaundice or pallor MDM MDM MDM Narrative Medical decision making narrative: Patient exam is consistent with cystitis. Will obtain CBC UA to further evaluate patient. If positive will culture since she has frequent urinary tract infections. Will also review prior urine culture results to determine optimal antibiotic to prescribe. History & Record Review Additional record(s) reviewed:: Prior labs (Patient has not had a positive culture in years.) Lab Data Attestation: I reviewed the patient's lab results. Lab results narrative: White count is normal. Electrolyte panel is normal and there is no need for Senthil adjustment of antibiotics. Urine is consistent with infection. Urine culture was sent. Based on prior urine cultures patient was treated with Macrobid for 7 days per Labs: Laboratory Results - last 24 hr 02/21/24 02/21/24 14:57 15:52 WBC 6.7 RBC 4.08 L Hgb 11.9 L Hct 37.5 MCV 91.9 MCH 29.2 MCHC 31.7 L RDW Std Deviation 44.8 H RDW Coeff of Renee 13.2 Plt Count 363 MPV 9.3 Immature Gran % (Auto) 0.300 Neut % (Auto) 52.4 Lymph % (Auto) 30.2 Mitchell % (Auto) 10.9 H Eos % (Auto) 5.2 H Baso % (Auto) 1.0 Absolute Neuts (auto) 3.5 Absolute Lymphs (auto) 2.02 Nucleated RBC % 0 Sodium 140 Potassium 3.8 Chloride 107 Carbon Dioxide 29.0 Anion Gap 4 L BUN 6 L Creatinine 0.63 Est GFR (MDRD) Af Amer 125 Est GFR (MDRD) Non-Af 103 BUN/Creatinine Ratio 9.5 L Glucose 100 Calcium 9.4 Urine Color Yellow Urine Clarity Clear Urine pH 7.0 Ur Specific [place] 1.010 Urine Protein Negative Urine Glucose (UA) Normal Urine Ketones Negative Urine Occult Blood 10 H Urine Nitrite Positive H Urine Bilirubin Negative Urine Urobilinogen Normal Ur Leukocyte Esterase 500 H Urine RBC 0-5 SEEN Urine WBC 10-25 SEEN Ur Squamous Epith Cells 0-5 SEEN Ur Transition Epith Cell 0-5 SEEN Urine Bacteria 3+ Urine Mucus 0 SEEN Discharge Plan Triage Chief Complaint: Abd Pain ED Provider: Mika Restrepo Dx/Rx/DC Orders Clinical Impression: Acute cystitis, Urinary incontinence, Elevated blood pressure reading with diagnosis of hypertension Instructions: ED Cystitis Female Adult Prescriptions: No Action gabapentin 800 mg tablet 800 mg PO BID Qty: 60 4RF baclofen 10 mg tablet 10 mg PO TID PRN (Reason: muscle pain/spasm) Qty: 90 5RF fluticasone propionate 50 mcg/actuation spray,suspension 1 spray intranasal DAILY Rx Instructions: administer into each nostril losartan 50 mg tablet 50 mg PO DAILY ergocalciferol (vitamin D2) [Vitamin D2] 50,000 UNIT capsule 50,000 unit PO WE albuterol sulfate [ProAir HFA] 1 PUFF inhaler 2 puff inhalation Q6H PRN PRN (Reason: Sob &/Or Wheezing) Patient Comments: INHALE 2 PUFFS INTO THE LUNGS EVERY 6 HOURS NEEDED FOR WHEEZING calcium carbonate-vitamin D3 [Oyster Shell Calcium-Vit D3] 500 mg-5 mcg (200 unit) Tablet 1 tab PO BIDCM Qty: 0 0RF oxycodone 5 mg tablet 10 mg PO Q6H PRN (Reason: pain) 7 Days Qty: 45 0RF Rx Instructions: 1-2 tabs every six hours as needed for pain Eliquis 2.5 mg tablet 2.5 mg PO BID Qty: 60 0RF Rx Instructions: start on 01/03/24 Primary Care Provider: ONEIDA BRANHAM Referrals: ONEIDA BRANHAM DO [Primary Care Provider] - 3-5 Days if not improving Print Language: Czech Disposition Disposition: Home, Self Care
[2024-02-21 15:05] LABS: Absolute Lymphocyte Count 2.02 X10^3/uL (0.83-4.51); Absolute Neutrophil Count 3.5 X10^3/uL (2.0-7.7); Basophil# 0.07 X10^3/uL; Eosinophil# 0.35 X10^3/uL; Eosinophils% 5.2 % (0-5); Hematocrit 37.5 % (37-47); Hemoglobin 11.9 g/dL (12.0-15.0); Lymphocyte # 2.02 X10^3/ul (0.83-4.51); Lymphocyte % 30.2 % (19-41); Mean Corp Hgb Conc 31.7 g/dL (32-36); Mean Corpuscular Hgb 29.2 pg (27.0-32.0); Mean Corpuscular Volume 91.9 fL (81-99); Mean Platelet Vol. 9.3 fl (6.2-12.0); Monocyte# 0.73 X10^3/uL; Monocyte% 10.9 % (0-10); NRBC Flagged by Analyzer 0 % (0-5); Neutrophil % 52.4 % (47-70); Platelet Count 363 K/mm3 (150-450); RBC Distribution Width CV 13.2 % (11.6-14.6); RBC Distribution Width SD 44.8 fl (35.1-43.9); Red Blood Count 4.08 M/mm3 (4.2-5.4); White Blood Count 6.7 K/mm3 (4.4-11.0)
[2024-02-21 15:20] LABS: Anion Gap 4 (5-15); BUN 6 mg/dL (7-18); BUN/Creat Ratio 9.5 RATIO (10-20); Calcium,Total 9.4 mg/dL (8.5-10.1); Chloride 107 mmol/L (98-107); Creatinine, Serum 0.63 mg/dL (0.55-1.02); EST Glomerular Filtration Rate 103 mL/min (>60); Est Glom Filt Rate - Afr Amer 125 mL/min (>60); Glucose 100 mg/dL (74-106); Potassium 3.8 mmol/L (3.5-5.1); Sodium Level 140 mmol/L (136-145)
[2024-02-21 15:56] LABS: Mucous, Urine 0 SEEN /hpf (<or=2+)
[2024-02-21 16:11] LABS: Color, Urine Yellow (Yellow); Glucose, Dipstick Normal (Normal); Ketone-Dipstick Negative (Negative); Leukocyte Esterase-Dipstick 500 /ul (Negative); Nitrite-Dipstick Positive (Negative); Occult Blood-Urine 10 /ul (Negative); Protein-Dipstick Negative (Negative); Urine Bilirubin Dipstick Negative (Negative); Urine Clarity Clear (Clear); Urine Urobilinogen Normal (Normal)
[2024-02-21 16:19] VITALS: BP 138/77; PULSE 81; RESP 16; O2SAT 98
[2024-02-21 16:55] LABS: Bacteria 3+ /hpf (None Seen); White Blood Cells 10-25 SEEN /hpf (0-5)
[2024-02-21 16:56] LABS: Red Blood Cells-Urine 0-5 SEEN /hpf (0-5); Squamous Epithelial Cells - UA 0-5 SEEN /hpf (5-10); Transitional Epithelial - Ur 0-5 SEEN /hpf (0-5)
[2024-02-21] MEDS: Nitrofurantoin Macrocrystals 100 MG Capsule PO (17:19)
== END 2024-02-21 17:29 | disposition home or self-care (01) ==
PROVIDERS: Emergency Provider Emergency Medicine; PCP Family Medicine; Referring Provider Emergency Medicine; Visit Provider Emergency Medicine
DX: N30.00 Acute cystitis without hematuria (principal); R32 Unspecified urinary incontinence; Z87.891 Personal history of nicotine dependence; I10 Essential (primary) hypertension; Z87.440 Personal history of urinary (tract) infections; J45.909 Unspecified asthma, uncomplicated
CPT/HCPCS: 80048; 81001; 85025; 99282; A4216

== ENCOUNTER → 2025-01-31 | Outpatient (CLI) | payer MEDICAID, SELFPAY ==
--- NOTE | 2025-01-31 12:16 | MRI_ITS ---
PROCEDURE: MRI/Spine Cervical (Routine)
== END | disposition home or self-care (01) ==
LOC: MRI 12:15
PROVIDERS: PCP Family Medicine; Referring Provider Psychiatry & Neurology Neurology; Visit Provider Psychiatry & Neurology Neurology
DX: M47.12 Other spondylosis with myelopathy, cervical region (principal); M47.22 Other spondylosis with radiculopathy, cervical region
CPT/HCPCS: 72141